=== PATIENT | female | born 1935 | race Caucasian/White ===

== ENCOUNTER 2019-08-23 10:38 | Outpatient (CLI) | payer MEDICARE, SELFPAY | END 2019-08-23 10:39 | disposition home or self-care (01) | LOC: CHSLAB 10:40 | PROVIDERS: PCP Internal Medicine; Visit Provider Internal Medicine | DX: R19.7 Diarrhea, unspecified (principal) | CPT/HCPCS: 87324 ==

== ENCOUNTER 2019-09-13 10:31 | Outpatient (CLI) | payer MEDICARE, SELFPAY ==
[2019-09-13 10:41] LABS: Basophils Absolute Auto 0.04 K/mm3 (0.00-0.10); Basophils Percent Auto 0.5 % (0.0-1.0); Eosinophils Absolute Auto 0.34 K/mm3 (0.02-0.50); Hemoglobin 14.1 g/dL (11.7-13.8); Immature Granulocyte Absolute 0.02 K/mm3 (0.00-0.00); Immature Granulocyte Percent A 0.2 % (0.0-0.0); Lymphocytes Absolute Auto 3.41 K/mm3 (1.10-4.50); Lymphocytes Percent Auto 39.9 % (18.0-42.0); Mean Corpuscular HGB Conc 32.8 g/dL (32.0-36.0); Mean Corpuscular Hemoglobin 29.2 pg (27.0-31.0); Mean Platelet Volume 10.5 fl (9.2-11.8); Monocytes Absolute Auto 0.71 K/mm3 (0.10-0.90); Monocytes Percent Auto 8.3 % (2.0-11.0); Neutrophils Percent Auto 47.1 % (50.0-70.0); Platelet Count Result 288 K/mm3 (150-420); Red Blood Count 4.83 M/mm3 (4.20-5.40); Red Cell Distribution Width 13.9 % (11.6-14.4); White Blood Count 8.5 K/mm3 (4.8-10.8)
[2019-09-13 11:47] LABS: Alanine Aminotransferase 22 U/L (14-59); Albumin Level 4.3 g/dL (3.4-5.0); Alkaline Phosphatase 67 U/L (46-116); Anion Gap 14.6 mmol/L (7-16); Aspartate Amino Transferase 18 U/L (15-37); Bilirubin,Total 0.8 mg/dL (0.00-1.00); Blood Urea Nitrogen 21 mg/dL (7-18); Calcium 9.4 mg/dL (8.5-10.1); Carbon Dioxide 30 mmol/L (21-32); Chloride 101 mmol/L (98-108); Estimated Glomerular Filt Rate 48; Glucose 106 mg/dL (70-99); Osmolality Calculated 295 mOsm/kg (285-295); Potassium 4.6 mmol/L (3.5-5.1); Sodium 141 mmol/L (136-145); Total Protein 7.5 g/dL (6.4-8.2); Uric Acid 8.8 mg/dL (2.6-6.0)
== END 2019-09-13 10:32 | disposition home or self-care (01) ==
LOC: CHSLAB 10:33
PROVIDERS: PCP Internal Medicine; Visit Provider Nurse Practitioner Family
DX: M79.89 Other specified soft tissue disorders (principal); M79.671 Pain in right foot
CPT/HCPCS: 36415; 80053; 84550; 85025

== ENCOUNTER 2019-12-23 07:13 | Outpatient (CLI) | payer MEDICARE, SELFPAY ==
[2019-12-23 07:23] LABS: Basophils Absolute Auto 0.03 K/mm3 (0.00-0.10); Basophils Percent Auto 0.4 % (0.0-1.0); Eosinophils Absolute Auto 0.29 K/mm3 (0.02-0.50); Eosinophils Percent Auto 4.2 % (1.0-6.0); Hematocrit 42.7 % (35.0-42.0); Hemoglobin 13.8 g/dL (11.7-13.8); Immature Granulocyte Absolute 0.02 K/mm3 (0.00-0.00); Immature Granulocyte Percent A 0.3 % (0.0-0.0); Lymphocytes Absolute Auto 2.79 K/mm3 (1.10-4.50); Lymphocytes Percent Auto 40.1 % (18.0-42.0); Mean Corpuscular HGB Conc 32.3 g/dL (32.0-36.0); Mean Corpuscular Hemoglobin 28.6 pg (27.0-31.0); Mean Corpuscular Volume 88.4 fL (78.0-102.0); Mean Platelet Volume 10.6 fl (9.2-11.8); Monocytes Absolute Auto 0.52 K/mm3 (0.10-0.90); Monocytes Percent Auto 7.5 % (2.0-11.0); Neutrophils Absolute Auto 3.3 K/mm3 (1.7-7.2); Neutrophils Percent Auto 47.5 % (50.0-70.0); Platelet Count Result 210 K/mm3 (150-420); Red Blood Count 4.83 M/mm3 (4.20-5.40); Red Cell Distribution Width 13.6 % (11.6-14.4)
[2019-12-23 07:26] LABS: Add Urine Microscopic? YES; Appearance Urine Clear (Clear); Bilirubin Urine Negative (Negative); Blood Urine Negative (Negative); Color Urine Yellow (Yellow); Glucose Urine UA Negative (Negative); Ketones Urine Trace (Negative); Leukocyte Esterase Ur 1+ (Negative); Nitrate Urine Negative (Negative); Protein Urine Negative (Negative); Specific Grav Ur 1.015 (1.010-1.020)
[2019-12-23 07:33] LABS: Bacteria Urine 1+ /hpf; Hemoglobin A1C 6.1 % (<5.7); Mucus Urine Few /lpf; RBC Urine 0-2 /hpf (0-2); Squamous Epithelial Cell Urine Occasional /hpf (Few)
[2019-12-23 07:35] LABS: Creatinine Urine 164.74 mg/dL (40-278)
[2019-12-23 07:40] LABS: MALB Creatinine Ratio 10.6 mg/g (0-30); Microalbumin Urine Random 17.5 mg/L
[2019-12-23 07:42] LABS: BNP 170 pg/mL (0-100)
[2019-12-23 08:18] LABS: Alanine Aminotransferase 19 U/L (14-59); Alkaline Phosphatase 67 U/L (46-116); Anion Gap 8.1 mmol/L (7-16); Aspartate Amino Transferase 17 U/L (15-37); Bilirubin,Total 0.7 mg/dL (0.00-1.00); Blood Urea Nitrogen 13 mg/dL (7-18); Carbon Dioxide 35 mmol/L (21-32); Chloride 103 mmol/L (98-108); Cholesterol 115 mg/dL (0-200); Estimated Glomerular Filt Rate 56; Free T3 2.48 pg/mL (2.18-3.98); Free T4 Free Thyroxine 1.34 ng/dL (0.76-1.46); Glucose 130 mg/dL (70-99); HDL Direct 41 mg/dL (40-60); LDL Cholesterol Calculated 42 mg/dL (<130); Osmolality Calculated 296 mOsm/kg (285-295); Potassium 4.1 mmol/L (3.5-5.1); Sodium 142 mmol/L (136-145); Thyroid Stimulating Hormone 0.25 uIU/mL (0.36-3.74); Total Protein 6.9 g/dL (6.4-8.2); Triglycerides 162 mg/dL (0-150); Uric Acid 7.5 mg/dL (2.6-6.0)
== END 2019-12-23 07:14 | disposition home or self-care (01) ==
LOC: CHSLAB 07:15
PROVIDERS: PCP Internal Medicine; Visit Provider Internal Medicine
DX: E78.2 Mixed hyperlipidemia (principal); E11.9 Type 2 diabetes mellitus without complications; I11.0 Hypertensive heart disease with heart failure; E03.4 Atrophy of thyroid (acquired); I50.1 Left ventricular failure, unspecified; E79.0 Hyperuricemia without signs of inflammatory arthritis and tophaceous disease; M81.0 Age-related osteoporosis without current pathological fracture
CPT/HCPCS: 36415; 80053; 80061; 81001; 82043; 83036; 83880; 84439; 84443; 84481; 84550; 85025

== ENCOUNTER 2020-01-24 11:00 | Outpatient (RCR) | payer SELFPAY | END 2020-01-24 13:24 | disposition home or self-care (01) | LOC: CHSCPRIII 11:00 | PROVIDERS: PCP Internal Medicine; Visit Provider Internal Medicine | DX: Z95.1 Presence of aortocoronary bypass graft (principal) | CPT/HCPCS: 99199 ==

== ENCOUNTER 2020-04-04 07:10 | Outpatient (CLI) | payer MEDICARE, SELFPAY ==
[2020-04-04 07:24] LABS: Add Urine Microscopic? YES; Appearance Urine Clear (Clear); Bilirubin Urine Negative (Negative); Blood Urine Negative (Negative); Color Urine Yellow (Yellow); Glucose Urine UA Negative (Negative); Ketones Urine Negative (Negative); Leukocyte Esterase Ur Trace (Negative); Nitrate Urine Negative (Negative); Protein Urine Negative (Negative); Specific Grav Ur 1.015 (1.010-1.020); Urobilinogen Urine 0.2 mg/dL (0.2-1.0); pH Urine 7.5 (5.0-8.0)
[2020-04-04 07:31] LABS: Bacteria Urine Trace /hpf; RBC Urine 0-2 /hpf (0-2); Squamous Epithelial Cell Urine Rare /hpf (Few); WBC Urine 0-3 /hpf (0-3)
[2020-04-04 07:47] LABS: Creatinine Urine 137.23 mg/dL (40-278); MALB Creatinine Ratio 9.4 mg/g (0-30); Microalbumin Urine Random < 13.0 mg/L
[2020-04-04 08:33] LABS: Alanine Aminotransferase 29 U/L (14-59); Albumin Level 4.1 g/dL (3.4-5.0); Alkaline Phosphatase 67 U/L (46-116); Anion Gap 6 mmol/L (8-16); Aspartate Amino Transferase 18 U/L (15-37); Bilirubin,Total 0.7 mg/dL (0.00-1.00); Blood Urea Nitrogen 15 mg/dL (7-18); Carbon Dioxide 31 mmol/L (21-32); Chloride 104 mmol/L (98-108); Cholesterol 138 mg/dL (0-200); Estimated Glomerular Filt Rate 55; Free T3 2.11 pg/mL (2.18-3.98); Free T4 Free Thyroxine 0.98 ng/dL (0.76-1.46); Glucose 125 mg/dL (70-99); HDL Direct 42 mg/dL (40-60); LDL Cholesterol Calculated 61 mg/dL (<130); Osmolality Calculated 293 mOsm/kg (285-295); Potassium 4.6 mmol/L (3.5-5.1); Sodium 141 mmol/L (136-145); Total Protein 6.8 g/dL (6.4-8.2); Triglycerides 177 mg/dL (0-150)
== END 2020-04-04 07:11 | disposition home or self-care (01) ==
LOC: CHSLAB 07:13
PROVIDERS: PCP Internal Medicine; Visit Provider Internal Medicine
DX: E78.2 Mixed hyperlipidemia (principal); E11.9 Type 2 diabetes mellitus without complications; E03.4 Atrophy of thyroid (acquired)
CPT/HCPCS: 36415; 80053; 80061; 81001; 82043; 83036; 84439; 84443; 84481

== ENCOUNTER 2020-05-21 15:18 | Outpatient (CLI) | payer MEDICARE, BC, SELFPAY ==
--- NOTE | ~2020-05-21 | XR_ITS ---
EXAMINATION: XR chest 2V DATE: 05/21/2020 15:39 INDICATION: Right-sided chest pain and shortness of breath TECHNIQUE: PA and lateral views of the chest were obtained. COMPARISON: Chest radiograph and CT dated 03/21/2019 FINDINGS: Unchanged elevation of the left hemidiaphragm consistent with given history of left phrenic nerve pal sy. No airspace opacities, pulmonary edema, pleural effusion or pneumothorax. Heart size is normal. M edian sternotomy wires, ostial markers and mediastinal surgical clips consistent with prior coronary artery bypass grafting. Cholecystectomy clips in right upper quadrant. Severe lower cervical and mod erate thoracic and upper lumbar spine spondylosis. IMPRESSION: 1. 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 No acute cardiop ulmonary disease. Reviewed, dictated and finalized at location A. N KEEPER IMPRESSION: 1. Chronic left phrenic nerve palsy with persistent elevation of left hemidiaph ragm. No acute cardiopulmonary disease.
[2020-05-21 15:29] LABS: Basophils Absolute Auto 0.05 K/mm3 (0.00-0.10); Basophils Percent Auto 0.5 % (0.0-1.0); Eosinophils Absolute Auto 0.27 K/mm3 (0.02-0.50); Eosinophils Percent Auto 2.5 % (1.0-6.0); Hematocrit 43.9 % (35.0-42.0); Immature Granulocyte Absolute 0.03 K/mm3 (0.00-0.00); Immature Granulocyte Percent A 0.3 % (0.0-0.0); Lymphocytes Absolute Auto 3.18 K/mm3 (1.10-4.50); Lymphocytes Percent Auto 28.9 % (18.0-42.0); Mean Corpuscular HGB Conc 31.9 g/dL (32.0-36.0); Mean Corpuscular Hemoglobin 28.5 pg (27.0-31.0); Mean Corpuscular Volume 89.4 fL (78.0-102.0); Mean Platelet Volume 10.8 fl (9.2-11.8); Monocytes Absolute Auto 0.97 K/mm3 (0.10-0.90); Monocytes Percent Auto 8.8 % (2.0-11.0); Neutrophils Absolute Auto 6.5 K/mm3 (1.7-7.2); Platelet Count Result 257 K/mm3 (150-420); Red Blood Count 4.91 M/mm3 (4.20-5.40); Red Cell Distribution Width 13.9 % (11.6-14.4)
[2020-05-21 15:44] LABS: Alanine Aminotransferase 20 U/L (14-59); Albumin Level 4.2 g/dL (3.4-5.0); Alkaline Phosphatase 73 U/L (46-116); Anion Gap 9 mmol/L (8-16); Aspartate Amino Transferase 12 U/L (15-37); Bilirubin,Total 0.7 mg/dL (0.00-1.00); Blood Urea Nitrogen 16 mg/dL (7-18); Calcium 8.8 mg/dL (8.5-10.1); Carbon Dioxide 30 mmol/L (21-32); Chloride 100 mmol/L (98-108); Estimated Glomerular Filt Rate 46; Glucose 129 mg/dL (70-99); Osmolality Calculated 291 mOsm/kg (285-295); Potassium 4.2 mmol/L (3.5-5.1); Sodium 139 mmol/L (136-145); Total Protein 7.6 g/dL (6.4-8.2)
[2020-05-21 15:48] LABS: BNP 115 pg/mL (0-100)
[2020-05-21 15:56] LABS: D Dimer 0.33 mg/L (0.19-0.50)
== END 2020-05-21 15:19 | disposition home or self-care (01) ==
LOC: CHSLAB 15:20
PROVIDERS: PCP Internal Medicine; Visit Provider Internal Medicine
DX: R07.9 Chest pain, unspecified (principal); R06.00 Dyspnea, unspecified
CPT/HCPCS: 36415; 71046; 80053; 83880; 85025; 85380

== ENCOUNTER 2020-08-21 11:00 | Outpatient (RCR) | payer SELFPAY | END 2020-08-22 12:52 | disposition home or self-care (01) | LOC: CHSCPRIII 11:00 | PROVIDERS: PCP Internal Medicine; Visit Provider Internal Medicine | DX: Z95.1 Presence of aortocoronary bypass graft (principal) | CPT/HCPCS: 99199 ==

== ENCOUNTER 2020-09-10 14:40 | Outpatient (CLI) | payer MEDICARE, SELFPAY ==
[2020-09-10 14:50] LABS: Basophils Absolute Auto 0.04 K/mm3 (0.00-0.10); Basophils Percent Auto 0.5 % (0.0-1.0); Eosinophils Absolute Auto 0.33 K/mm3 (0.02-0.50); Eosinophils Percent Auto 4.5 % (1.0-6.0); Hematocrit 42.2 % (35.0-42.0); Hemoglobin 13.3 g/dL (11.7-13.8); Immature Granulocyte Absolute 0.03 K/mm3 (0.00-0.00); Immature Granulocyte Percent A 0.4 % (0.0-0.0); Lymphocytes Absolute Auto 2.67 K/mm3 (1.10-4.50); Lymphocytes Percent Auto 36.6 % (18.0-42.0); Mean Corpuscular HGB Conc 31.5 g/dL (32.0-36.0); Mean Corpuscular Hemoglobin 28.2 pg (27.0-31.0); Mean Corpuscular Volume 89.6 fL (78.0-102.0); Mean Platelet Volume 10.8 fl (9.2-11.8); Monocytes Absolute Auto 0.59 K/mm3 (0.10-0.90); Monocytes Percent Auto 8.1 % (2.0-11.0); Neutrophils Absolute Auto 3.6 K/mm3 (1.7-7.2); Neutrophils Percent Auto 49.9 % (50.0-70.0); Platelet Count Result 237 K/mm3 (150-420); Red Blood Count 4.71 M/mm3 (4.20-5.40); Red Cell Distribution Width 14.1 % (11.6-14.4); White Blood Count 7.3 K/mm3 (4.8-10.8)
[2020-09-10 15:50] LABS: Alanine Aminotransferase 26 U/L (14-59); Albumin Level 4.3 g/dL (3.4-5.0); Alkaline Phosphatase 71 U/L (46-116); Anion Gap 7 mmol/L (8-16); Aspartate Amino Transferase 19 U/L (15-37); Bilirubin,Total 0.8 mg/dL (0.00-1.00); Blood Urea Nitrogen 13 mg/dL (7-18); Calcium 8.8 mg/dL (8.5-10.1); Carbon Dioxide 31 mmol/L (21-32); Chloride 101 mmol/L (98-108); Estimated Glomerular Filt Rate 56; Free T4 Free Thyroxine 1.03 ng/dL (0.76-1.46); Glucose 154 mg/dL (70-99); Osmolality Calculated 291 mOsm/kg (285-295); Potassium 4.1 mmol/L (3.5-5.1); Sodium 139 mmol/L (136-145); Thyroid Stimulating Hormone 2.58 uIU/mL (0.36-3.74)
[2020-09-12 17:11] LABS: CMV IgM Antibody <30.00 AU/mL (<30.00)
[2020-09-13 16:06] LABS: EBV Nuclear Ab Interpretation Past; EBV Virus Capsid Ag IgM Ab <36.00 U/mL (<36.00)
== END 2020-09-10 14:41 | disposition home or self-care (01) ==
LOC: CHSLAB 14:41
PROVIDERS: PCP Internal Medicine; Visit Provider Nurse Practitioner Family
DX: R59.9 Enlarged lymph nodes, unspecified (principal); E11.9 Type 2 diabetes mellitus without complications; E03.4 Atrophy of thyroid (acquired)
CPT/HCPCS: 36415; 80053; 84439; 84443; 85025; 86644; 86645; 86664; 86665

== ENCOUNTER 2020-09-18 09:30 | Outpatient (CLI) | payer MEDICARE, BC, SELFPAY ==
--- NOTE | ~2020-09-18 | CT_ITS ---
EXAMINATION: CT soft tissue neck w con DATE: 09/18/2020 16:24 INDICATION: Left parotid swelling. TECHNIQUE: Computed tomography (CT) of the neck was performed with 75 mL Omnipaque-350 intravenous co ntrast. Automated exposure control and iterative reconstruction technique were employed. The dose-troy gth product was 474.48 mGy-cm. COMPARISON: None FINDINGS: There are likely changes of ocular lens replacement surgeries. Left parotid gland is enlarg ed with increased attenuation relative to the right. There is mild fat stranding inferior to left par otid gland. These findings are consistent with parotiditis. No sialolith. There are no pathologically enlarged lymph nodes. There are changes of coronary artery bypass grafting. There is no visible plaq ue in the proximal internal carotid arteries. There is mucosal thickening in the paranasal sinuses. T he mastoid air cells are normal. There is severe cervical spondylosis. IMPRESSION: 1. Left-sided parotiditis. Reviewed, dictated and finalized at location A. PART ROUNDER IMPRESSION: 1. Left-sided parotiditis.
== END 2020-09-18 09:31 | disposition home or self-care (01) ==
PROVIDERS: PCP Internal Medicine; Visit Provider Internal Medicine
DX: K11.20 Sialoadenitis, unspecified (principal)
CPT/HCPCS: 70491; Q9967

== ENCOUNTER 2020-10-17 07:43 | Outpatient (CLI) | payer MEDICARE, SELFPAY ==
[2020-10-17 08:15] LABS: Creatinine Urine 141.24 mg/dL (40-278); Hemoglobin A1C 6.1 % (<5.7); MALB Creatinine Ratio 14.5 mg/g (0-30); Microalbumin Urine Random 20.6 mg/L
[2020-10-17 08:32] LABS: BNP 166 pg/mL (0-100)
[2020-10-17 08:38] LABS: Alanine Aminotransferase 27 U/L (14-59); Alkaline Phosphatase 75 U/L (46-116); Anion Gap 5 mmol/L (8-16); Aspartate Amino Transferase 14 U/L (15-37); Bilirubin,Total 1.1 mg/dL (0.00-1.00); Blood Urea Nitrogen 18 mg/dL (7-18); Calcium 9.2 mg/dL (8.5-10.1); Carbon Dioxide 31 mmol/L (21-32); Chloride 102 mmol/L (98-108); Cholesterol 134 mg/dL (0-200); Creatine Kinase 42 U/L (26-192); Estimated Glomerular Filt Rate 53; Glucose 134 mg/dL (70-99); HDL Direct 35 mg/dL (40-60); LDL Cholesterol Calculated 59 mg/dL (<130); Osmolality Calculated 289 mOsm/kg (285-295); Potassium 4.3 mmol/L (3.5-5.1); Sodium 138 mmol/L (136-145); Total Protein 6.8 g/dL (6.4-8.2); Triglycerides 201 mg/dL (0-150); Uric Acid 7.4 mg/dL (2.6-6.0)
[2020-10-17 11:04] LABS: Add Urine Microscopic? NO; Appearance Urine Clear (Clear); Bilirubin Urine Negative (Negative); Blood Urine Negative (Negative); Color Urine Yellow (Yellow); Glucose Urine UA Negative (Negative); Ketones Urine Negative (Negative); Leukocyte Esterase Ur Negative (Negative); Nitrate Urine Negative (Negative); Protein Urine Negative (Negative); Specific Grav Ur 1.015 (1.010-1.020); Urobilinogen Urine 0.2 mg/dL (0.2-1.0); pH Urine 6.5 (5.0-8.0)
== END 2020-10-17 07:44 | disposition home or self-care (01) ==
LOC: CHSLAB 07:45
PROVIDERS: PCP Internal Medicine; Visit Provider Internal Medicine
DX: E11.9 Type 2 diabetes mellitus without complications (principal); I50.1 Left ventricular failure, unspecified; I11.0 Hypertensive heart disease with heart failure; E79.0 Hyperuricemia without signs of inflammatory arthritis and tophaceous disease; E78.2 Mixed hyperlipidemia; M81.0 Age-related osteoporosis without current pathological fracture
CPT/HCPCS: 36415; 80053; 80061; 81003; 82043; 82550; 83036; 83880; 84550

== ENCOUNTER 2021-03-05 08:00 | Outpatient (RCR) | payer SELFPAY | END 2021-03-08 08:00 | disposition home or self-care (01) | LOC: CHSCPRIII 08:00 | PROVIDERS: PCP Internal Medicine; Visit Provider Internal Medicine | DX: Z95.1 Presence of aortocoronary bypass graft (principal) | CPT/HCPCS: 99199 ==

== ENCOUNTER 2021-06-24 09:29 | Outpatient (CLI) | payer MEDICARE, BC, SELFPAY ==
--- NOTE | ~2021-06-24 | US_ITS ---
EXAMINATION: US carotid duplex BI EXAM DATE: 06/24/2021 10:59 INDICATION: CHF, Carotid Stenosis. TECHNIQUE: Grayscale, color and pulsed Doppler images of the cervical carotid arteries were obtained . The degree of vessel stenosis is placed in one of the following categories: normal, <50% stenosis, 50-69% stenosis, >=70% stenosis but less than near-occlusion, near-occlusion, or occlusion. Note that percent stenosis relative to normal distal artery lumen diameter is indirectly measured from velocit y measurements as described by Lon, et al. Radiology 2003; [id number]. Comparison is made to prior examination from 04/05/2014. FINDINGS: RIGHT SIDE: Right common carotid artery peak systolic velocity (PSV in cm/s): 53 Right bulb/internal carotid artery peak systolic velocity (PSV in cm/s): 43 Right internal carotid artery end diastolic velocity (EDV in cm/s): 14 Right ICA/CCA peak systolic ratio: 0.8 Right external carotid artery peak systolic velocity (PSV in cm/s): 44 Right vertebral artery antegrade flow: yes There is no focal plaque identified. LEFT SIDE: Left common carotid artery peak systolic velocity (PSV in cm/s): 65 Left bulb/internal carotid artery peak systolic velocity (PSV in cm/s): 52 Left internal carotid artery end diastolic velocity (EDV in cm/s): 16 Left ICA/CCA peak systolic ratio: 0.8 Left external carotid artery peak systolic velocity (PSV in cm/s): 59 Left vertebral artery antegrade flow: yes Small focus of common carotid arteriosclerosis. No carotid bulb plaque or stenosis. IMPRESSION: 1. Normal right internal carotid bulb. 2. Normal left internal carotid bulb. > Reviewed, dictated and finalized at location B. S ACCOUNT SPECIALIST
== END 2021-06-24 09:30 | disposition home or self-care (01) ==
LOC: CHSIMG 09:32
PROVIDERS: PCP Internal Medicine; Visit Provider Internal Medicine
DX: I50.9 Heart failure, unspecified (principal); I65.23 Occlusion and stenosis of bilateral carotid arteries
CPT/HCPCS: 93306; 93880

== ENCOUNTER 2021-10-14 08:04 | Emergency (ER) | payer MEDICARE, BC, SELFPAY ==
--- NOTE | 2021-10-14 08:46 | ED.FEMALEGU ---
HPI - Female Genitourinary General Chief complaint: Urogenital-Female Stated complaint: UTI Time Seen by Provider: 10/14/21 08:46 Source: patient Mode of arrival: ambulatory History of Present Illness HPI Narrative: 86-year-old female with a history of hypertension, hypothyroidism, diabetes mellitus, coronary artery disease status post CABG presents to the ER with a 1 day history of -- dysuria and hematuria. -- Suprapubic discomfort no fever or chills. MD elicited complaint: dysuria and UTI Onset (ago): day(s) ( Started 1 day ago) Severity: mild Female Urogenital Radiation: Non-Radiating Consistency: intermittent Vaginal discharge: none Vaginal bleeding: none Urinary symptoms: Dysuria, Urgency, Frequency and Hematuria Exacerbating factors: none Relieving factors: none Associated symptoms: denies other symptoms Related Data Home Medications Medication Instructions Recorded Confirmed aspirin [Adult Low Dose Aspirin] 81 mg PO DAILY 07/14/19 07/14/19 levothyroxine 88 mcg PO DAILY 07/14/19 07/14/19 metformin 500 mg PO BID 07/14/19 07/14/19 metoprolol tartrate 25 mg PO DAILY 07/14/19 07/14/19 pantoprazole 20 mg PO QAM 07/14/19 07/14/19 Allergies Allergy/AdvReac Type Severity Reaction Status Date / Time sulfamethoxazole Allergy Hives Verified 09/19/19 14:41 [From Bactrim] trimethoprim [From Bactrim] Allergy Hives Verified 09/19/19 14:41 Review of Systems Review of Systems: All systems reviewed & are unremarkable except as noted in HPI and below Constitutional: Constitutional: Reports as per HPI and Reports no additional constitutional complaints Eyes: Eyes: Reports as per HPI and Reports no additional eye complaints ENT: Reports system reviewed and no additional complaints, except as documented and Reports as per HPI Cardiovascular: Cardiovascular: Reports as per HPI and Reports no additional cardiovascular complaints Respiratory: Respiratory: Reports as per HPI and Reports no additional respiratory complaints Gastrointestinal: Gastrointestinal: Reports as per HPI and Reports no additional gastrointestinal complaints Genitourinary: Genitourinary: Reports hematuria, Reports nocturia and Reports dysuria Musculoskeletal: Musculoskeletal: Reports no additional musculoskeletal complaints and Reports as per HPI Integumentary/Breasts: Skin/Breast: Reports system reviewed and no additional complaints, except as docu Neurologic: Reports system reviewed and no additional complaints, except as documented Psychiatric: Psychiatric: Reports no additional psychiatric complaints Endocrine: Endocrine: Reports no additional endocrine complaints Hematologic/Lymphatic: Hematologic/Lymphatic: Reports no additional hematologic/lymphatic complaints Allergic/Immunologic: Allergic/Immunologic: Reports no additional allergic/immunologic complaints [facility] Surgical History Surgical History Failed CABG (coronary artery bypass graft) Exam Const: General: no acute distress Orientation/consciousness: patient oriented x3 HENMT: Head: normal to inspection Eyes: Conjunctivae: conjunctivae normal Pupils: Equal, round and reactive pupils present Neck: Neck: normal visual inspection, no lymphadenopathy and no meningeal signs Chest: Chest palpation & inspection: normal inspection of the chest Resp: Effort & Inspection: normal respiratory effort Cardio: Rate: regular rate Rhythm: regular rhythm GI: GI Palp: Yes Soft to palpation Other: no tenderness/ rigidity/rebound : General: Yes no CVA tenderness Back/Spine/Pelvis: Back: no CVA tenderness Skin: General skin exam: normal color Rashes: no rashes Neuro: General: patient oriented x3, moves all extremities and no meningeal signs Extrem: General: normal to inspection Psych: Mental Status: mental status grossly normal MDM - Female Genitourinary MDM Narrative Medical decision making narrative: harsha
[2021-10-14 09:05] LABS: Add Urine Microscopic? YES; Appearance Urine Cloudy (Clear); Bilirubin Urine 1+ (Negative); Blood Urine 3+ (Negative); Color Urine Yellow (Yellow); Glucose Urine UA Negative (Negative); Ketones Urine Negative (Negative); Leukocyte Esterase Ur 2+ (Negative); Nitrate Urine Negative (Negative); Protein Urine 2+ (Negative)
[2021-10-14 09:11] LABS: Bacteria Urine Trace /hpf; RBC Urine 21-50 /hpf (0-2); Squamous Epithelial Cell Urine Few /hpf (Few); WBC Urine >75 /hpf (0-3)
[2021-10-14] MEDS: CIPROFLOXACIN 250 MG TABLET PO (09:49)
[2021-10-14 09:51] VITALS: BP 112/75; PULSE 60; RESP 20; TEMP 36.4; O2SAT 97
[2021-10-14 10:04] VITALS: BP 136/69; PULSE 60; RESP 22; TEMP 36.4; O2SAT 97
== END 2021-10-14 10:18 | disposition home or self-care (01) ==
PROVIDERS: Emergency Provider Internal Medicine Critical Care Medicine; PCP Internal Medicine
DX: N30.91 Cystitis, unspecified with hematuria (principal)
CPT/HCPCS: 81001; 99283; A9270

== ENCOUNTER 2021-10-17 08:48 | Outpatient (CLI) | payer MEDICARE, SELFPAY ==
[2021-10-17 09:02] LABS: Add Urine Microscopic? NO; Appearance Urine Clear (Clear); Bilirubin Urine Negative (Negative); Blood Urine Negative (Negative); Color Urine Light Yellow (Yellow); Glucose Urine UA Negative (Negative); Ketones Urine Negative (Negative); Leukocyte Esterase Ur Negative (Negative); Nitrate Urine Negative (Negative); Protein Urine Negative (Negative); Urobilinogen Urine 0.2 mg/dL (0.2-1.0)
[2021-10-17 09:03] LABS: Basophils Absolute Auto 0.04 K/mm3 (0.00-0.10); Basophils Percent Auto 0.6 % (0.0-1.0); Eosinophils Absolute Auto 0.25 K/mm3 (0.02-0.50); Hematocrit 41.7 % (35.0-42.0); Hemoglobin 13.3 g/dL (11.7-13.8); Immature Granulocyte Absolute 0.02 K/mm3 (0.00-0.00); Immature Granulocyte Percent A 0.3 % (0.0-0.0); Lymphocytes Absolute Auto 2.36 K/mm3 (1.10-4.50); Lymphocytes Percent Auto 37.9 % (18.0-42.0); Mean Corpuscular HGB Conc 31.9 g/dL (32.0-36.0); Mean Corpuscular Hemoglobin 28.9 pg (27.0-31.0); Mean Corpuscular Volume 90.5 fL (78.0-102.0); Monocytes Absolute Auto 0.53 K/mm3 (0.10-0.90); Monocytes Percent Auto 8.5 % (2.0-11.0); Neutrophils Percent Auto 48.7 % (50.0-70.0); Platelet Count Result 218 K/mm3 (150-420); Red Blood Count 4.61 M/mm3 (4.20-5.40); Red Cell Distribution Width 14.1 % (11.6-14.4); White Blood Count 6.2 K/mm3 (4.8-10.8)
[2021-10-17 09:15] LABS: Creatinine Urine 146.31 mg/dL (40-278); MALB Creatinine Ratio 8.8 mg/g (0-30); Microalbumin Urine Random < 13.0 mg/L
[2021-10-17 09:18] LABS: Hemoglobin A1C 6.3 % (<5.7)
[2021-10-17 10:11] LABS: Alanine Aminotransferase 19 U/L (14-59); Albumin Level 3.9 g/dL (3.4-5.0); Alkaline Phosphatase 60 U/L (46-116); Anion Gap 7 mmol/L (8-16); Aspartate Amino Transferase 15 U/L (15-37); Bilirubin,Total 0.8 mg/dL (0.00-1.00); Blood Urea Nitrogen 14 mg/dL (7-18); Calcium 8.9 mg/dL (8.5-10.1); Carbon Dioxide 31 mmol/L (21-32); Chloride 102 mmol/L (98-108); Cholesterol 133 mg/dL (0-200); Estimated Glomerular Filt Rate 57; Free T3 2.33 pg/mL (2.18-3.98); Free T4 Free Thyroxine 1.17 ng/dL (0.76-1.46); Glucose 132 mg/dL (70-99); HDL Direct 38 mg/dL (40-60); LDL Cholesterol Calculated 53 mg/dL (<130); NT Pro B Type Natriuretic Pept 407 pg/mL (0-450); Osmolality Calculated 292 mOsm/kg (285-295); Potassium 4.2 mmol/L (3.5-5.1); Sodium 140 mmol/L (136-145); Thyroid Stimulating Hormone 2.36 uIU/mL (0.36-3.74); Total Protein 6.3 g/dL (6.4-8.2); Triglycerides 212 mg/dL (0-150); Uric Acid 8.4 mg/dL (2.6-6.0)
[2021-10-22 13:50] LABS: Vitamin D 25 Hydroxy 28 ng/mL (30-100)
== END 2021-10-17 08:49 | disposition home or self-care (01) ==
LOC: CHSLAB 08:50
PROVIDERS: PCP Internal Medicine; Visit Provider Internal Medicine
DX: E78.2 Mixed hyperlipidemia (principal); I10 Essential (primary) hypertension; E11.9 Type 2 diabetes mellitus without complications; E79.0 Hyperuricemia without signs of inflammatory arthritis and tophaceous disease; I50.1 Left ventricular failure, unspecified; M81.0 Age-related osteoporosis without current pathological fracture
CPT/HCPCS: 36415; 80053; 80061; 81003; 82043; 82306; 83036; 83880; 84439; 84443; 84481; 84550; 85025

== ENCOUNTER 2022-01-14 07:25 | Emergency (ER) | payer MEDICARE, BC, SELFPAY ==
[2022-01-14 07:39] VITALS: BP 161/97; PULSE 69; RESP 17; TEMP 36.3; O2SAT 98
[2022-01-14 07:44] LABS: Glucose Point of Care 163 mg/dl (65-105)
--- NOTE | 2022-01-14 07:47 | ED.WEAKNESS ---
HPI - Weakness General Chief complaint: Weakness Stated complaint: WEAKNESS SHORTNESS OF BREATH Time Seen by Provider: 01/14/22 07:47 Source: patient, family and RN notes reviewed Mode of arrival: wheelchair Limitations: no limitations History of Present Illness HPI Narrative: Patient is a type 2 diabetic and takes metformin. She states that she got up this morning and started getting ready but did not eat. She then felt like her legs were numb and tingly and felt cold. She thought she might fall so she sat down. She was feeling somewhat short of breath. Her daughter called the ambulance but then started given her orange juice. By the time she arrived she is significantly improved and her symptoms have resolved. MD Complaint: tingling Onset (ago): minute(s) (30) Duration: improved Location: LLE and RLE Migration: ascending Severity: mild Quality: tingling and numbness Relieving factors: other ( orange juice) Exacerbating factors: none Associated symptoms: denies other symptoms Related Data Home Medications Medication Instructions Recorded Confirmed aspirin 81 mg tablet,delayed 81 mg PO DAILY 07/14/19 01/14/22 release (Adult Low Dose Aspirin) levothyroxine 88 mcg tablet 88 mcg PO DAILY 07/14/19 01/14/22 metformin 500 mg tablet 500 mg PO BID 07/14/19 01/14/22 metoprolol tartrate 25 mg tablet 25 mg PO DAILY 07/14/19 01/14/22 pantoprazole 20 mg tablet,delayed 20 mg PO QAM 07/14/19 01/14/22 release furosemide 40 mg tablet 40 mg PO DAILY 01/14/22 01/14/22 potassium chloride 20 mEq 20 meq PO DAILY 01/14/22 01/14/22 tablet,extended release(part/cryst) Allergies Allergy/AdvReac Type Severity Reaction Status Date / Time sulfamethoxazole Allergy Hives Verified 01/14/22 07:54 [From Bactrim] trimethoprim [From Bactrim] Allergy Hives Verified 01/14/22 07:54 Review of Systems Review of Systems: All systems reviewed & are unremarkable except as noted in HPI and below Constitutional: Constitutional: Denies chills and Denies fever(s) ENT: Denies vertigo Cardiovascular: Cardiovascular: Denies chest pain Respiratory: Respiratory: Denies cough and Denies dyspnea Gastrointestinal: Gastrointestinal: Denies diarrhea, Denies nausea and Denies vomiting Genitourinary: Genitourinary: Denies nocturia and Denies dysuria [facility] Past Medical History Medical History Coronary artery disease involving coronary bypass graft Diabetes type 2, controlled Hypertension Surgical History Surgical History Failed CABG (coronary artery bypass graft) Exam Const: General: healthy appearing, no acute distress and alert Nutritional Appearance: well nourished Orientation/consciousness: patient oriented x3 HENMT: Head: normal to inspection Ears: external ears normal Eyes: Conjunctivae: conjunctivae normal Pupils: Equal, round and reactive pupils present EOM: EOMs intact bilaterally Neck: Neck: normal visual inspection Resp: Effort & Inspection: normal respiratory effort Cardio: Rate: regular rate Rhythm: regular rhythm GI: GI Palp: Yes Soft to palpation and No Tenderness to palpation present (GI) Auscultation: normal bowel sounds Back/Spine/Pelvis: Cervical Spine: cervical ROM normal Thoracic/Lumbar Spine: thoraco-lumbar ROM normal Skin: General skin exam: normal color Rashes: no rashes Neuro: General: patient oriented x3, moves all extremities, no focal motor deficits and CN's II-XI intact bilaterally Speech: normal speech Gait exam (Neuro): Normal gait present Extrem: General: normal to inspection and no clubbing, cyanosis or edema Psych: Mental Status: mental status grossly normal Affect: normal affect Attitude: cooperative Course Vital Signs Vital signs: Vital Signs Temperature 36.3 C L 01/14/22 07:39 Pulse Rate 69 01/14/22 07:39 Respiratory Rate 17 01/14/22 07:39 Blood Pressure
[2022-01-14 08:15] LABS: Basophils Absolute Auto 0.04 K/mm3 (0.00-0.10); Basophils Percent Auto 0.5 % (0.0-1.0); Eosinophils Absolute Auto 0.22 K/mm3 (0.02-0.50); Eosinophils Percent Auto 2.7 % (1.0-6.0); Hematocrit 41.7 % (35.0-42.0); Hemoglobin 13.4 g/dL (11.7-13.8); Immature Granulocyte Absolute 0.03 K/mm3 (0.00-0.00); Immature Granulocyte Percent A 0.4 % (0.0-0.0); Lymphocytes Absolute Auto 2.28 K/mm3 (1.10-4.50); Lymphocytes Percent Auto 28.3 % (18.0-42.0); Mean Corpuscular HGB Conc 32.1 g/dL (32.0-36.0); Mean Corpuscular Hemoglobin 28.7 pg (27.0-31.0); Mean Corpuscular Volume 89.3 fL (78.0-102.0); Mean Platelet Volume 10.6 fl (9.2-11.8); Monocytes Absolute Auto 0.55 K/mm3 (0.10-0.90); Monocytes Percent Auto 6.8 % (2.0-11.0); Neutrophils Percent Auto 61.3 % (50.0-70.0); Platelet Count Result 213 K/mm3 (150-420); Red Blood Count 4.67 M/mm3 (4.20-5.40); White Blood Count 8.1 K/mm3 (4.8-10.8)
[2022-01-14 08:33] LABS: Alanine Aminotransferase 18 U/L (14-59); Albumin Level 3.6 g/dL (3.4-5.0); Alkaline Phosphatase 60 U/L (46-116); Anion Gap 10 mmol/L (8-16); Aspartate Amino Transferase 13 U/L (15-37); Bilirubin,Total 0.9 mg/dL (0.00-1.00); Blood Urea Nitrogen 20 mg/dL (7-18); Calcium 8.7 mg/dL (8.5-10.1); Carbon Dioxide 27 mmol/L (21-32); Chloride 100 mmol/L (98-108); Estimated Glomerular Filt Rate 55; Glucose 149 mg/dL (70-99); Magnesium 2.1 mg/dL (1.8-2.4); Osmolality Calculated 289 mOsm/kg (285-295); Potassium 4.2 mmol/L (3.5-5.1); Sodium 137 mmol/L (136-145); Total Protein 6.4 g/dL (6.4-8.2)
[2022-01-14 08:37] LABS: CRP < 0.5 mg/dL (0.0-0.9)
--- NOTE | 2022-01-14 09:53 | PC.NURSE ---
patient provided ham sandwich per erp request.
[2022-01-14 09:57] VITALS: BP 151/75; PULSE 81; RESP 12; TEMP 36.7; O2SAT 97
[2022-01-14 10:05] VITALS: BP 151/75; PULSE 64; RESP 16; TEMP 36.4; O2SAT 95
== END 2022-01-14 10:06 | disposition home or self-care (01) ==
PROVIDERS: Emergency Provider Emergency Medicine; PCP Internal Medicine
DX: E11.649 Type 2 diabetes mellitus with hypoglycemia without coma (principal); I25.10 Atherosclerotic heart disease of native coronary artery without angina pectoris; I10 Essential (primary) hypertension
CPT/HCPCS: 36415; 80053; 82948; 83735; 85025; 86140; 99283

== ENCOUNTER 2022-02-18 14:54 | Outpatient (CLI) | payer MEDICARE, BC, SELFPAY ==
--- NOTE | ~2022-02-18 | XR_ITS ---
XR thoracic spine 2V DATE: 02/18/2022 15:44 INDICATION: Mid and low back pain towards left side. No known injury. TECHNIQUE: AP, lateral and swimmer views COMPARISON: None FINDINGS: Mild anterolisthesis at C4-5. Moderately severe to severe degenerative disc disease at C5-6 and C6-7. Status post sternotomy and coronary artery bypass graft surgery. Diffuse idiopathic skeletal hyperostosis of the mid and lower thoracic spine. No fracture or dislocat ion or bone destruction. The thoracic pedicles are intact. No paraspinal soft tissue thickening. IMPRESSION: Osteopenia Diffuse idiopathic skeletal hyperostosis of the thoracic spine Mild anterolisthesis at C4-5 Moderately severe to severe degenerative disc disease at C5-6 and C6-7 Reviewed, dictated and finalized at location B.
--- NOTE | ~2022-02-18 | XR_ITS ---
XR lumbar spine 2-3V DATE: 02/18/2022 15:44 INDICATION: Left low back pain. No known injury. TECHNIQUE: AP, lateral and coned lateral lumbosacral views COMPARISON: None FINDINGS: There is mild dextroscoliosis of the lower thoracic and lumbar spine. There is prominent de generative spurring of the lower thoracic spine. There is moderately severe degenerative disc disease and spurring throughout the lumbar spine. There is degenerative change at the apophyseal joints. No fracture or bone destruction or spondylolisthesis is evident. The sacroiliac joints are intact. Status post cholecystectomy. IMPRESSION: Thoracolumbar dextroscoliosis Degenerative change including moderately severe degenerative disc disease throughout the lumbar spine Reviewed, dictated and finalized at location B. IMPRESSION: Thoracolumbar dextroscoliosis Degenerative change including moderately severe degenerative disc disease throu ghout the lumbar spine
[2022-02-18 15:21] LABS: Basophils Absolute Auto 0.04 K/mm3 (0.00-0.10); Basophils Percent Auto 0.4 % (0.0-1.0); Eosinophils Absolute Auto 0.31 K/mm3 (0.02-0.50); Hematocrit 44.5 % (35.0-42.0); Hemoglobin 14.2 g/dL (11.7-13.8); Immature Granulocyte Absolute 0.04 K/mm3 (0.00-0.00); Immature Granulocyte Percent A 0.4 % (0.0-0.0); Lymphocytes Absolute Auto 3.89 K/mm3 (1.10-4.50); Lymphocytes Percent Auto 37.8 % (18.0-42.0); Mean Corpuscular HGB Conc 31.9 g/dL (32.0-36.0); Mean Corpuscular Hemoglobin 28.3 pg (27.0-31.0); Mean Corpuscular Volume 88.6 fL (78.0-102.0); Mean Platelet Volume 10.2 fl (9.2-11.8); Monocytes Absolute Auto 0.85 K/mm3 (0.10-0.90); Monocytes Percent Auto 8.3 % (2.0-11.0); Neutrophils Absolute Auto 5.2 K/mm3 (1.7-7.2); Neutrophils Percent Auto 50.1 % (50.0-70.0); Platelet Count Result 307 K/mm3 (150-420); Red Blood Count 5.02 M/mm3 (4.20-5.40); Red Cell Distribution Width 14.4 % (11.6-14.4); White Blood Count 10.3 K/mm3 (4.8-10.8)
[2022-02-18 15:31] LABS: Add Urine Microscopic? YES; Appearance Urine Clear (Clear); Bilirubin Urine 1+ (Negative); Blood Urine Negative (Negative); Color Urine Yellow (Yellow); Glucose Urine UA Negative (Negative); Ketones Urine Trace (Negative); Leukocyte Esterase Ur Negative LEU/UL (Negative); Nitrate Urine Negative (Negative); Protein Urine Negative (Negative); Specific Grav Ur 1.025 (1.010-1.020); pH Urine 5.5 (5.0-8.0)
[2022-02-18 15:38] LABS: Bacteria Urine 3+ /hpf; RBC Urine None seen /hpf (0-2); Squamous Epithelial Cell Urine Few /hpf (Few); WBC Urine None seen /hpf (0-3)
[2022-02-18 16:27] LABS: Erythrocyte Sedimentation Rate 7 mm/hr (0-20)
[2022-02-18 16:31] LABS: Alanine Aminotransferase 38 U/L (14-59); Albumin Level 4.2 g/dL (3.4-5.0); Alkaline Phosphatase 64 U/L (46-116); Anion Gap 11 mmol/L (8-16); Aspartate Amino Transferase 22 U/L (15-37); Bilirubin,Total 0.6 mg/dL (0.00-1.00); Blood Urea Nitrogen 23 mg/dL (7-18); Calcium 9.3 mg/dL (8.5-10.1); Carbon Dioxide 30 mmol/L (21-32); Chloride 97 mmol/L (98-108); Estimated Glomerular Filt Rate 46; Ferritin 137 ng/mL (8-252); Free T3 1.88 pg/mL (2.18-3.98); Free T4 Free Thyroxine 1.09 ng/dL (0.76-1.46); Glucose 110 mg/dL (70-99); Iron 73 ug/dL (50-170); Magnesium 2.3 mg/dL (1.8-2.4); NT Pro B Type Natriuretic Pept 242 pg/mL (0-450); Osmolality Calculated 290 mOsm/kg (285-295); Potassium 4.5 mmol/L (3.5-5.1); Sodium 138 mmol/L (136-145); Thyroid Stimulating Hormone 5.98 uIU/mL (0.36-3.74); Total Protein 7.4 g/dL (6.4-8.2); Vitamin B12 281 pg/mL (193-986)
[2022-02-18 16:33] LABS: CRP < 0.2 mg/dL (0.0-0.9)
[2022-02-18 16:38] LABS: Hemoglobin A1C 6.4 % (<5.7)
== END 2022-02-18 14:55 | disposition home or self-care (01) ==
PROVIDERS: PCP Internal Medicine; Visit Provider Internal Medicine
DX: M54.6 Pain in thoracic spine (principal); M54.50 Low back pain, unspecified; E03.4 Atrophy of thyroid (acquired); E11.9 Type 2 diabetes mellitus without complications; I50.1 Left ventricular failure, unspecified; R68.83 Chills (without fever); G62.9 Polyneuropathy, unspecified; R53.83 Other fatigue
CPT/HCPCS: 36415; 72070; 72100; 80053; 81001; 82607; 82728; 83036; 83540; 83735; 83880; 84439; 84443; 84481; 85025; 85652; 86140

== ENCOUNTER 2022-02-25 16:03 | Outpatient (RCR) | payer MEDICARE, BC, SELFPAY ==
--- NOTE | 2022-02-25 16:05 | PTOPEVAL ---
Thank you for referring Jackie Martinez to [facility].? The patient is scheduled to be seen for therapy? 1-2x/week for 8 visits. Please review, sign, date and return this plan of care LIAT. I agree with and certify that the following plan of care is medically necessary. Referring Physician Date Admitting Provider: Attending Provider: Lisette Marmolejo MD Referring Provider: *PT Outpatient Evaluation Start: 02/25/22 12:45 Freq: Status: Active Protocol: Document 02/25/22 12:46 [facility] (Rec: 02/25/22 16:00 [facility] [id number]) Therapy Assessment Status Assessment Status Assessment Status Evaluation Outpatient Past Medical History Cardiovascular History Hx Coronary Artery Bypass Graft Yes Gastrointestinal History Hx Gastroesophageal Reflux Disease Yes Endocrine History Hx Diabetes Yes Hx Hypothyroidism Yes Reproductive History Hx Post Menopausal Yes Evaluation Information Problem Diagnosis Mid/low back pain Onset 01/10/2022 Subjective Information Pt reports that she has been Query Text:As Reported By Patient/ dealing with mid/low back pain Family for awhile now but has worsened somewhat recently. She has also been having occasional cramps in her feet with a cooling sensation. When getting imaging and blood work for this symptom, they discovered that her back has moderately severe-severe DDD. Pain has insidious onset. Has pain more in middle back than lower back. Pain increases when repetitively bending over and coming up. She has difficulty when standing up from the floor. Lies on her side for relief, sometimes lies on her back for relief. Feels she is not as active as she used to be, feels like she is more physically limited in all the things she would like to do. 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
== END 2022-03-21 11:39 | disposition home or self-care (01) ==
LOC: CHSPT 16:03
PROVIDERS: PCP Internal Medicine; Visit Provider Internal Medicine
DX: M54.6 Pain in thoracic spine (principal); M54.50 Low back pain, unspecified
CPT/HCPCS: 97110; 97112; 97161

== ENCOUNTER 2022-05-01 08:09 | Outpatient (CLI) | payer MEDICARE, BC, SELFPAY ==
--- NOTE | 2022-06-03 14:50 | WPDHOLTEREM ---
Holter/Event Monitor Holter/Event Monitor Date of procedure: 05/01/22 Holter/Event Procedure: Event Monitor Indications: Palpitations Conclusion: 1. 20 days event monitor between 05/01/22-05/30/22. There are 36 available transmissions for analysis. 2. Predominant rhythm is sinus rhythm. HR range 50-142 bpm; average HR 67 bpm. 3. There are occasional premature supraventricular complexes with total burden of <1%. No supraventricular tachycardia. 4. There are occasional premature ventricular complexes with total burden of 1%. There is one episode of ventricular tachycardia at 142 bpm lasting 7 beats on 05/28/22 at 18:56. 5. No significant pauses greater than 2 seconds. 6. Patient reports 9 episodes of symptoms of lightheadedness, chest pain, shortness of breath which demonstrate sinus rhythm, HR range 54-94 bpm.
== END 2022-05-01 08:10 | disposition home or self-care (01) ==
LOC: CHSCARD 08:12
PROVIDERS: PCP Internal Medicine; Visit Provider Internal Medicine
DX: R00.2 Palpitations (principal); R42 Dizziness and giddiness
CPT/HCPCS: 93270

== ENCOUNTER 2022-09-02 07:15 | Outpatient (CLI) | payer MEDICARE, BC, SELFPAY ==
--- NOTE | ~2022-09-02 | XR_ITS ---
XR knee RT min 4V 09/02/2022 07:56 Indication: Chronic right knee pain Procedure: 4 views right knee Comparison: 08/04/2009 Findings: There is moderate tricompartment osteoarthritis. No acute fracture or traumatic malalignmen t. No significant joint effusion. No foreign bodies. Impression: 1: Moderate tricompartment osteoarthritis. Reviewed, dictated and finalized at location L. ONAL SALES COORDINATOR Impression: 1: Moderate tricompartment osteoarthritis.
[2022-09-02 07:33] LABS: Basophils Absolute Auto 0.03 K/mm3 (0.00-0.10); Basophils Percent Auto 0.5 % (0.0-1.0); Eosinophils Absolute Auto 0.24 K/mm3 (0.02-0.50); Eosinophils Percent Auto 3.8 % (1.0-6.0); Hemoglobin 13.4 g/dL (11.7-13.8); Immature Granulocyte Absolute 0.01 K/mm3 (0.00-0.00); Immature Granulocyte Percent A 0.2 % (0.0-0.0); Lymphocytes Absolute Auto 2.81 K/mm3 (1.10-4.50); Lymphocytes Percent Auto 44.5 % (18.0-42.0); Mean Corpuscular HGB Conc 31.9 g/dL (32.0-36.0); Mean Corpuscular Hemoglobin 28.6 pg (27.0-31.0); Mean Corpuscular Volume 89.7 fL (78.0-102.0); Mean Platelet Volume 10.8 fl (9.2-11.8); Monocytes Absolute Auto 0.44 K/mm3 (0.10-0.90); Neutrophils Absolute Auto 2.8 K/mm3 (1.7-7.2); Platelet Count Result 226 K/mm3 (150-420); Red Blood Count 4.68 M/mm3 (4.20-5.40); Red Cell Distribution Width 13.7 % (11.6-14.4); White Blood Count 6.3 K/mm3 (4.8-10.8)
[2022-09-02 07:37] LABS: Add Urine Microscopic? YES; Appearance Urine Clear (Clear); Bilirubin Urine Negative (Negative); Blood Urine Negative (Negative); Color Urine Yellow (Yellow); Glucose Urine UA Negative (Negative); Ketones Urine Negative (Negative); Leukocyte Esterase Ur 1+ LEU/UL (Negative); Nitrate Urine Positive (Negative); Protein Urine Negative (Negative); Specific Grav Ur 1.025 (1.010-1.020); Urobilinogen Urine 0.2 mg/dL (0.2-1.0); pH Urine 5.5 (5.0-8.0)
[2022-09-02 07:48] LABS: Bacteria Urine 1+ /hpf; RBC Urine 0-2 /hpf (0-2); Squamous Epithelial Cell Urine Few /hpf (Few)
[2022-09-02 07:50] LABS: Hemoglobin A1C 6.1 % (<5.7)
[2022-09-02 08:20] LABS: Alanine Aminotransferase 24 U/L (14-59); Albumin Level 3.9 g/dL (3.4-5.0); Alkaline Phosphatase 71 U/L (46-116); Anion Gap 5 mmol/L (8-16); Aspartate Amino Transferase 24 U/L (15-37); Bilirubin,Total 0.7 mg/dL (0.00-1.00); Blood Urea Nitrogen 13 mg/dL (7-18); Calcium 8.3 mg/dL (8.5-10.1); Carbon Dioxide 32 mmol/L (21-32); Chloride 104 mmol/L (98-108); Cholesterol 145 mg/dL (0-200); Creatine Kinase 50 U/L (26-192); Estimated Glomerular Filt Rate > 60; Free T3 2.12 pg/mL (2.18-3.98); Free T4 Free Thyroxine 1.08 ng/dL (0.76-1.46); Glucose 123 mg/dL (70-99); HDL Direct 39 mg/dL (40-60); LDL Cholesterol Calculated 60 mg/dL (<130); Osmolality Calculated 293 mOsm/kg (285-295); Potassium 4.2 mmol/L (3.5-5.1); Sodium 141 mmol/L (136-145); Thyroid Stimulating Hormone 1.64 uIU/mL (0.36-3.74); Total Protein 7.2 g/dL (6.4-8.2); Triglycerides 228 mg/dL (0-150)
== END 2022-09-02 07:16 | disposition home or self-care (01) ==
LOC: CHSLAB 07:19
PROVIDERS: PCP Internal Medicine; Visit Provider Internal Medicine
DX: E03.4 Atrophy of thyroid (acquired) (principal); E11.9 Type 2 diabetes mellitus without complications; E78.2 Mixed hyperlipidemia; I10 Essential (primary) hypertension; N39.0 Urinary tract infection, site not specified; M17.11 Unilateral primary osteoarthritis, right knee
CPT/HCPCS: 36415; 73564; 80053; 80061; 81001; 82550; 83036; 84439; 84443; 84481; 85025; 87077; 87086; 87088; 87186

== ENCOUNTER 2022-10-12 09:57 | Emergency (ER) | payer MEDICARE, BC, SELFPAY ==
[2022-10-12 10:04] VITALS: BP 86/73; PULSE 63; RESP 18; TEMP 36.9; O2SAT 97
[2022-10-12 10:05] LABS: Glucose Point of Care 99 mg/dl (65-105)
--- NOTE | 2022-10-12 10:13 | ECG_ITS ---
Measurements Intervals [place] Rate: 68 P: 39 [place]: 153 QRS: -8 QRSD: 96 T: 33 QT: 389 QTc: 416 Interpretive Statements SINUS RHYTHM NO PREVIOUS ECG AVAILABLE FOR COMPARISON Electronically Signed On 10-12-2022 13:00:54 CDT by Gray Patel M.D.
[2022-10-12 10:22] VITALS: BP 123/74; PULSE 67; RESP 20; O2SAT 94
--- NOTE | 2022-10-12 11:01 | ED.EYEPROB ---
HPI - Eye Problem General Chief complaint: Eye Problems Stated complaint: flashes of light Time Seen by Provider: 10/12/22 09:58 Source: patient Mode of arrival: ambulatory Limitations: no limitations History of Present Illness HPI Narrative: 87 year old female presents to the Emergency Department complaining of sudden onset of flashes of light, seeing floating objects, some in color, to left upper vision. Onset 30 minutes ago. States has pretty well resolved now. Denies any prior history of. Denies eye pain. Denies any visual field loss. Denies headache, chest pain, shortness of breath, neck pain. chief complaint: vision change Onset (ago): minute(s) (30) Onset description: sudden Duration: now resolved Location: left eye Eye Symptoms: other (flashes of light, floating objects) Place: home Severity: moderate Associated symptoms: none Treatments Prior to Arrival: none Related Data Home Medications Medication Instructions Recorded Confirmed levothyroxine 88 mcg tablet 88 mcg PO DAILY 07/14/19 01/14/22 metformin 500 mg tablet 500 mg PO BID 07/14/19 01/14/22 pantoprazole 20 mg tablet,delayed 20 mg PO QAM 07/14/19 01/14/22 release furosemide 40 mg tablet 40 mg PO DAILY 01/14/22 01/14/22 potassium chloride 20 mEq 20 meq PO DAILY 01/14/22 01/14/22 tablet,extended release(part/cryst) fluoxetine 20 mg capsule 20 mg PO DAILY 10/12/22 10/12/22 metoprolol succinate 100 mg 100 mg PO DAILY 10/12/22 10/12/22 tablet,extended release 24 hr rosuvastatin 5 mg tablet 5 mg PO DAILY 10/12/22 10/12/22 Allergies Allergy/AdvReac Type Severity Reaction Status Date / Time sulfamethoxazole Allergy Hives Verified 10/12/22 10:44 [From Bactrim] trimethoprim [From Bactrim] Allergy Hives Verified 10/12/22 10:44 Review of Systems Review of Systems: All systems reviewed & are unremarkable except as noted in HPI and below Constitutional: Constitutional: Reports as per HPI and Reports no additional constitutional complaints Eyes: Eyes: Reports as per HPI and Reports no additional eye complaints ENT: Reports system reviewed and no additional complaints, except as documented Cardiovascular: Cardiovascular: Reports as per HPI and Reports no additional cardiovascular complaints Respiratory: Respiratory: Reports as per HPI and Reports no additional respiratory complaints Gastrointestinal: Gastrointestinal: Reports as per HPI and Reports no additional gastrointestinal complaints Genitourinary: Genitourinary: Reports no additional female genitourinary complaints Musculoskeletal: Musculoskeletal: Reports no additional musculoskeletal complaints Integumentary/Breasts: Skin/Breast: Reports system reviewed and no additional complaints, except as docu Neurologic: Reports system reviewed and no additional complaints, except as documented, Denies headache(s), Denies focal weakness, Denies numbness and Denies weakness Psychiatric: Psychiatric: Reports no additional psychiatric complaints Endocrine: Endocrine: Reports no additional endocrine complaints Hematologic/Lymphatic: Hematologic/Lymphatic: Reports no additional hematologic/lymphatic complaints Allergic/Immunologic: Allergic/Immunologic: Reports no additional allergic/immunologic complaints PMFSH Past Medical History Medical History Coronary artery disease involving coronary bypass graft Diabetes type 2, controlled Hypertension Surgical History Surgical History Failed CABG (coronary artery bypass graft) Exam Const: General: healthy appearing Nutritional Appearance: well nourished Orientation/consciousness: patient oriented x3 Limitations: no limitations HENMT: Head: normal to inspection Ears: external ears normal Face/Nose/Sinus: Normal external nose present Face and sinus: normal facial exam Mouth: Yes Normal oral and palatal mucosa present Teet
[2022-10-12 12:00] VITALS: BP 110/72; PULSE 65; RESP 20; O2SAT 96
[2022-10-12] MEDS: TETRACAINE HCL 0.5% OPHTH SOLN 4 ML BTL 2 DROP LEFT EYE (12:25)
[2022-10-12 14:23] VITALS: BP 129/82; PULSE 84; RESP 18; TEMP 36.9; O2SAT 98
== END 2022-10-12 14:47 | disposition short-term general hospital (02) ==
PROVIDERS: Emergency Provider Emergency Medicine; PCP Internal Medicine
DX: H43.393 Other vitreous opacities, bilateral (principal); I25.810 Atherosclerosis of coronary artery bypass graft(s) without angina pectoris; E11.9 Type 2 diabetes mellitus without complications; I10 Essential (primary) hypertension
CPT/HCPCS: 82948; 93005; 99284

== ENCOUNTER 2022-10-23 08:47 | Outpatient (CLI) | payer MEDICARE, BC, SELFPAY ==
--- NOTE | ~2022-10-23 | MR_ITS ---
EXAMINATION: MR brain/brain stem wo con DATE: 10/23/2022 09:54 INDICATION: Subjective visual disturbance with floaters in the left eye. TECHNIQUE: Magnetic resonance imaging (MRI) of the brain and brainstem was performed without intraven ous contrast. COMPARISON: Brain MRI 04/05/2014, neck CT 09/18/20 FINDINGS: There is chronic encephalomalacia in anteroinferior right frontal lobe. There is chronic de hiscence of the orbital roof in this area. There are scattered areas of nonspecific increased T2-weig hted signal intensity in the cerebral white matter and shayla, which is within normal limits for the pa tient's age. There is no intracranial hemorrhage, acute infarction, or abnormal intracranial mass les ion. The ventricles are normal in size. There are likely changes of ocular lens replacement surgeries . There is mucosal thickening in the paranasal sinuses. The mastoid air cells are normal. IMPRESSION: 1. 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 Reviewed, dictated and finalized at location A. IMPRESSION: 1. 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
== END 2022-10-23 08:48 | disposition home or self-care (01) ==
LOC: CHSIMG 08:48
PROVIDERS: PCP Internal Medicine; Visit Provider Internal Medicine
DX: H54.7 Unspecified visual loss (principal); G93.89 Other specified disorders of brain
CPT/HCPCS: 70551

== ENCOUNTER 2023-03-10 07:49 | Outpatient (CLI) | payer MEDICARE, SELFPAY ==
[2023-03-10 08:07] LABS: Basophils Absolute Auto 0.05 K/mm3 (0.00-0.10); Basophils Percent Auto 0.7 % (0.0-1.0); Eosinophils Absolute Auto 0.23 K/mm3 (0.02-0.50); Eosinophils Percent Auto 3.3 % (1.0-6.0); Hematocrit 41.6 % (35.0-42.0); Hemoglobin 13.5 g/dL (11.7-13.8); Immature Granulocyte Absolute 0.03 K/mm3 (0.00-0.00); Immature Granulocyte Percent A 0.4 % (0.0-0.0); Lymphocytes Absolute Auto 2.63 K/mm3 (1.10-4.50); Lymphocytes Percent Auto 37.8 % (18.0-42.0); Mean Corpuscular HGB Conc 32.5 g/dL (32.0-36.0); Mean Corpuscular Volume 89.3 fL (78.0-102.0); Mean Platelet Volume 10.7 fl (9.2-11.8); Monocytes Absolute Auto 0.51 K/mm3 (0.10-0.90); Monocytes Percent Auto 7.3 % (2.0-11.0); Neutrophils Absolute Auto 3.5 K/mm3 (1.7-7.2); Neutrophils Percent Auto 50.5 % (50.0-70.0); Platelet Count Result 208 K/mm3 (150-420); Red Blood Count 4.66 M/mm3 (4.20-5.40); Red Cell Distribution Width 13.8 % (11.6-14.4)
[2023-03-10 08:08] LABS: Appearance Urine Clear (Clear); Bilirubin Urine Negative (Negative); Blood Urine Negative (Negative); Color Urine Yellow (Yellow); Glucose Urine UA Trace (Negative); Ketones Urine Negative (Negative); Leukocyte Esterase Ur 1+ LEU/UL (Negative); Nitrate Urine Negative (Negative); Protein Urine Negative (Negative); Specific Grav Ur 1.025 (1.010-1.020)
[2023-03-10 08:13] LABS: Creatinine Urine 239.73 mg/dL (40-278); Microalbumin Urine Random 31.4 mg/L
[2023-03-10 08:15] LABS: Hemoglobin A1C 6.6 % (<5.7)
[2023-03-10 08:31] LABS: Add Urine Microscopic? YES; RBC Urine None seen /hpf (0-2); Squamous Epithelial Cell Urine Rare /hpf (Few); WBC Urine 0-5 /hpf (0-3)
[2023-03-10 08:32] LABS: Bacteria Urine 2+ /hpf
[2023-03-10 09:03] LABS: Alanine Aminotransferase 15 U/L (14-59); Albumin Level 3.9 g/dL (3.4-5.0); Alkaline Phosphatase 68 U/L (46-116); Anion Gap 6 mmol/L (8-16); Aspartate Amino Transferase 13 U/L (15-37); Bilirubin,Total 1.1 mg/dL (0.00-1.00); Blood Urea Nitrogen 12 mg/dL (7-18); Calcium 8.8 mg/dL (8.5-10.1); Carbon Dioxide 33 mmol/L (21-32); Chloride 105 mmol/L (98-108); Cholesterol 147 mg/dL (0-200); Estimated Glomerular Filt Rate 56; Free T3 2.05 pg/mL (2.18-3.98); Free T4 Free Thyroxine 1.12 ng/dL (0.76-1.46); Glucose 132 mg/dL (70-99); HDL Direct 37 mg/dL (40-60); LDL Cholesterol Calculated 65 mg/dL (<130); NT Pro B Type Natriuretic Pept 605 pg/mL (0-450); Osmolality Calculated 299 mOsm/kg (285-295); Potassium 4.2 mmol/L (3.5-5.1); Sodium 144 mmol/L (136-145); Thyroid Stimulating Hormone 2.09 uIU/mL (0.36-3.74); Total Protein 6.5 g/dL (6.4-8.2); Triglycerides 224 mg/dL (0-150)
== END 2023-03-10 07:50 | disposition home or self-care (01) ==
LOC: CHSLAB 07:51
PROVIDERS: PCP Internal Medicine; Visit Provider Internal Medicine
DX: E03.4 Atrophy of thyroid (acquired) (principal); E11.9 Type 2 diabetes mellitus without complications; I10 Essential (primary) hypertension; E78.2 Mixed hyperlipidemia; E79.0 Hyperuricemia without signs of inflammatory arthritis and tophaceous disease; I50.1 Left ventricular failure, unspecified; R82.90 Unspecified abnormal findings in urine
CPT/HCPCS: 36415; 80053; 80061; 81001; 82043; 83036; 83880; 84439; 84443; 84481; 85025; 87077; 87086; 87088; 87186

== ENCOUNTER 2023-03-18 07:13 | Outpatient (CLI) | payer MEDICARE, BC, SELFPAY ==
--- NOTE | ~2023-03-18 | US_ITS ---
EXAMINATION: US right upper quadrant DATE: 03/18/2023 07:43 INDICATION: RUQ pain/nausea TECHNIQUE: Comparison COMPARISON: MR abdomen 02/24/2018. FINDINGS: The visualized portions of the pancreas are normal. The liver is normal size with increased echogenicity and normal echotexture. No surface nodularity. Normal hepatopetal flow in the main port al vein. Status post cholecystectomy. The common bile duct measures 7 mm. There was no sonographic Mu rphy sign. IMPRESSION: Status post cholecystectomy. Echogenic liver, most commonly due to steatosis but also can be seen with hepatitis and fibrosis. Reviewed, dictated and finalized at location K. IMPRESSION: Status post cholecystectomy. Echogenic liver, most commonly due to steatosis but also can be seen with hepat itis and fibrosis.
== END 2023-03-18 07:14 | disposition home or self-care (01) ==
LOC: CHSIMG 07:17
PROVIDERS: PCP Internal Medicine; Visit Provider Internal Medicine
DX: R10.11 Right upper quadrant pain (principal); R11.0 Nausea; Z90.49 Acquired absence of other specified parts of digestive tract
CPT/HCPCS: 76705

== ENCOUNTER 2023-04-16 08:00 | Outpatient (RCR) | payer MEDICARE, BC, SELFPAY ==
--- NOTE | 2022-11-27 09:22 | PCCPR ---
In addition to current charges of 6 sessions in October, past due balance caught up from 4 sessions in September, and 6 sessions in October. Check# [id number]
== END 2023-04-16 08:11 | disposition home or self-care (01) ==
LOC: CHSCPRIII 08:00
PROVIDERS: PCP Internal Medicine; Visit Provider Internal Medicine
DX: Z95.1 Presence of aortocoronary bypass graft (principal)
CPT/HCPCS: 99199

== ENCOUNTER 2023-05-25 08:06 | Outpatient (CLI) | payer MEDICARE, SELFPAY ==
[2023-05-25 08:31] LABS: Basophils Absolute Auto 0.03 K/mm3 (0.00-0.10); Basophils Percent Auto 0.5 % (0.0-1.0); Eosinophils Absolute Auto 0.22 K/mm3 (0.02-0.50); Eosinophils Percent Auto 3.3 % (1.0-6.0); Hematocrit 42.7 % (35.0-42.0); Hemoglobin 13.4 g/dL (11.7-13.8); Immature Granulocyte Absolute 0.01 K/mm3 (0.00-0.00); Immature Granulocyte Percent A 0.2 % (0.0-0.0); Lymphocytes Absolute Auto 2.48 K/mm3 (1.10-4.50); Lymphocytes Percent Auto 37.2 % (18.0-42.0); Mean Corpuscular HGB Conc 31.4 g/dL (32.0-36.0); Mean Corpuscular Volume 89.3 fL (78.0-102.0); Mean Platelet Volume 10.9 fl (9.2-11.8); Monocytes Absolute Auto 0.54 K/mm3 (0.10-0.90); Monocytes Percent Auto 8.1 % (2.0-11.0); Neutrophils Absolute Auto 3.4 K/mm3 (1.7-7.2); Neutrophils Percent Auto 50.7 % (50.0-70.0); Platelet Count Result 221 K/mm3 (150-420); Red Blood Count 4.78 M/mm3 (4.20-5.40); Red Cell Distribution Width 13.8 % (11.6-14.4); White Blood Count 6.7 K/mm3 (4.8-10.8)
[2023-05-25 08:46] LABS: Partial Thromboplastin Time 25.7 SEC (23.90-30.70); Prothrombin Time 10.9 Seconds (9.50-12.10)
[2023-05-25 09:24] LABS: Alanine Aminotransferase 19 U/L (14-59); Albumin Level 3.7 g/dL (3.4-5.0); Alkaline Phosphatase 75 U/L (46-116); Anion Gap 5 mmol/L (8-16); Aspartate Amino Transferase 12 U/L (15-37); Blood Urea Nitrogen 16 mg/dL (7-18); Calcium 8.7 mg/dL (8.5-10.1); Carbon Dioxide 36 mmol/L (21-32); Chloride 100 mmol/L (98-108); Estimated Glomerular Filt Rate 50; Ferritin 58 ng/mL (8-252); Free T4 Free Thyroxine 0.95 ng/dL (0.76-1.46); Glucose 122 mg/dL (70-99); Iron 59 ug/dL (50-170); Osmolality Calculated 294 mOsm/kg (285-295); Potassium 4.2 mmol/L (3.5-5.1); Sodium 141 mmol/L (136-145); Thyroid Stimulating Hormone 4.27 uIU/mL (0.36-3.74); Total Protein 6.4 g/dL (6.4-8.2)
[2023-05-28 10:56] LABS: Immunoglobulin A 120 mg/dL (70-320); TTG IGA AB <1.0 U/mL (<15.0)
[2023-05-29 21:32] LABS: ANCA Screen Negative (Negative); Myeloperoxidase Ab <1.0 AI (<1.0); Proteinase-3 Ab <1.0 AI (<1.0); S cerevisiae Ab (IgA) 5.5 U (<=20.0)
== END 2023-05-25 08:07 | disposition home or self-care (01) ==
LOC: CHSLAB 08:08
PROVIDERS: PCP Internal Medicine; Visit Provider Internal Medicine
DX: R19.7 Diarrhea, unspecified (principal); R23.3 Spontaneous ecchymoses; D64.9 Anemia, unspecified
CPT/HCPCS: 36415; 80053; 82728; 82784; 83516; 83540; 84439; 84443; 84481; 85025; 85610; 85730; 86036; 86671

== ENCOUNTER 2023-05-26 08:49 | Outpatient (CLI) | payer MEDICARE, SELFPAY ==
[2023-05-29 05:12] LABS: Fecal Fat, Ql Normal (Normal)
[2023-06-02 21:42] LABS: Calprotectin, Stool 282 mcg/g
== END 2023-05-26 08:50 | disposition home or self-care (01) ==
LOC: CHSLAB 08:51
PROVIDERS: PCP Internal Medicine; Visit Provider Internal Medicine
DX: R19.7 Diarrhea, unspecified (principal); R23.3 Spontaneous ecchymoses
CPT/HCPCS: 82705; 83993

== ENCOUNTER 2023-05-27 08:08 | Outpatient (CLI) | payer MEDICARE, BC, SELFPAY ==
--- NOTE | ~2023-05-27 | CT_ITS ---
CT of the Abdomen and Pelvis: Indication: Diarrhea Technique: 2.5 mm axial scans were obtained through the abdomen and pelvis following intravenous adm inistration of 100 cc of Omnipaque 350. Dose reduction technique was used on this scan by utilizing a utomated exposure control and iterative reconstruction technique. The dose-length product (DLP) was 5 78.51 mGy-cm. Findings: Scans through the lung bases are unremarkable. The liver, spleen, pancreas, adrenals and kidneys are within normal limits. Cholecystectomy clips are present. No evidence of aortic aneurysm. No lymphadenopathy. No bowel obstruction or bowel wall thickening. There is no evidence to suggest acute appendicitis. Images through the pelvis were performed. Urinary bladder unremarkable. No adnexal mass seen. No asci geremias. Impression: No significant abnormalities seen. Reviewed, dictated and finalized at [facility]. TER HELPER Impression: No significant abnormalities seen.
== END 2023-05-27 08:09 | disposition home or self-care (01) ==
LOC: CHSIMG 08:09
PROVIDERS: PCP Internal Medicine; Visit Provider Internal Medicine
DX: R19.7 Diarrhea, unspecified (principal); R23.3 Spontaneous ecchymoses
CPT/HCPCS: 74177; Q9967

== ENCOUNTER 2023-06-16 12:25 | Emergency (ER) | payer MEDICARE, BC, SELFPAY ==
--- NOTE | ~2023-06-16 | CT_ITS ---
EXAMINATION: CT cervical spine wo con DATE: 06/16/2023 14:10 INDICATION: Neck pain after fall TECHNIQUE: Computed tomography (CT) of the cervical spine was performed without intravenous contrast. The dose-length product was 505 mGy-cm. Automated exposure control and iterative reconstruction tech Clickst were employed. COMPARISON: CT dated 09/18/2020 FINDINGS: There is degenerative disc disease at C4-5, C5-6, C6-7 and C7-T1. There is degenerative ant erolisthesis at C7-T1. There is moderate-severe multilevel facet and uncinate hypertrophy. There is e mphysema in the lung apices. Odontoid process is normal. Craniovertebral junction is normal. No evide nce for perched facet. No acute fracture or traumatic malalignment. No significant paraspinal soft ti ssue abnormality. IMPRESSION: 1. No acute abnormality of the cervical spine. 2: Severe cervical spondylosis. Reviewed, dictated and finalized at location L. CTOR SOCIAL
--- NOTE | ~2023-06-16 | XR_ITS ---
XR chest 1V portable 06/16/2023 14:32 Indication: Status post fall. Right breast pain. Procedure: AP portable chest Comparison: Comparison to multiple prior studies sequentially, with oldest reviewed study dated 11/01. Findings: Status post median sternotomy for CABG. Left basilar atelectasis. Chronic elevation left di aphragm. Cardiomegaly. Impression: 1: Chronic elevation of the left diaphragm with underlying compressive atelectasis. Reviewed, dictated and finalized at location L. Impression: 1: Chronic elevation of the left diaphragm with underlying compressive atelecta sis.
--- NOTE | ~2023-06-16 | CT_ITS ---
EXAMINATION: CT brain wo con DATE: 06/16/2023 14:10 INDICATION: Status post fall. Head trauma. TECHNIQUE: Computed tomography (CT) of the head was performed without intravenous contrast. The dose- length product was 505.36 mGy-cm. Automated exposure control and iterative reconstruction technique w ere employed. COMPARISON: None FINDINGS: Generalized atrophy. There are scattered mild periventricular and subcortical white matter changes, most likely related to small vessel ischemic disease (microangiopathy). There is chronic rig ht frontal lobe infarction. No ventriculomegaly or midline shift. Basilar cisterns are patent. There is intracranial atherosclerosis. Basilar cisterns are patent. No acute infarction, hemorrhage or mass . There is mild mucosal thickening of the left frontal sinus. Mastoids are pneumatized. There are magaly nges of lens replacement surgery. There is mucosal thickening of the sphenoid sinuses. No depressed s kull fractures. IMPRESSION: 1. No acute intracranial abnormality. 2: Chronic right frontal lobe infarction. 3: Moderate sinusitis. 4: Chronic age-related findings. Reviewed, dictated and finalized at location L. [employer]
--- NOTE | ~2023-06-16 | XR_ITS ---
XR knee LT 3V 06/16/2023 14:32 Indication: Left knee pain after fall Procedure: 3 views left knee Comparison: 03/10/2017 Findings: Mild osteoarthritis. Small joint effusion. Mild prepatellar soft tissue swelling. Surgical clips are present in the posterior soft tissues. No acute fracture or traumatic malalignment. Impression: 1: No acute fracture. Reviewed, dictated and finalized at location L. SURGERY PHYSICIAN Impression: 1: No acute fracture.
--- NOTE | ~2023-06-16 | XR_ITS ---
XR pelvis 1-2V 06/16/2023 14:32 Indication: Pelvic pain. Status post fall. Procedure: AP view of the pelvis Comparison: No prior studies for comparison. Findings: Pelvic rings are intact. Mild osteoarthritis of the hips. No fracture or traumatic malalign ment. Impression: 1: No acute fracture. Reviewed, dictated and finalized at location L. KING MACHINE OPERATOR Impression: 1: No acute fracture.
[2023-06-16 12:25] VITALS: BP 112/71; PULSE 68; RESP 18; TEMP 36.4; O2SAT 94
--- NOTE | 2023-06-16 13:35 | ED.FALL ---
HPI - Fall General Chief Complaint: Fall Stated Complaint: fall, facial pain and left arm laceration Time Seen by Provider: 06/16/23 13:21 History of Present Illness HPI Narrative: 87-year-old female with a history of hypertension, diabetes mellitus, dyslipidemia, hypothyroidism, arthritis, polyneuropathy, GERD, CAD status post CABG in 2019 with CHF presents to the ER after an accidental fall. The patient presents with -- facial trauma. She has bilateral abrasions on her cheeks -- epistaxis -- left knee abrasion with chronic pain and swelling of the left knee -- skin tear over the left posterior forearm -- bruising over the right medial breast patient denied any loss of consciousness. No neck pain or back pain P MD complaint: fall Onset (ago): hour(s) ( 1 hour ago) Fall from: standing Fall witnessed: no Place fall occurred: home Loss of consciousness: none Prolonged down time: no Symptoms prior to fall: none Context: tripped/slipped Location of injury: face and chest Quality: burning Associated symptoms (after fall): denies Related Data Home Medications Medication Instructions Recorded Confirmed levothyroxine 88 mcg tablet 75 mcg PO DAILY 07/14/19 06/16/23 pantoprazole 20 mg tablet,delayed 40 mg PO QAM 07/14/19 06/16/23 release furosemide 40 mg tablet 40 mg PO DAILY 01/14/22 06/16/23 potassium chloride 20 mEq 20 meq PO DAILY 01/14/22 06/16/23 tablet,extended release(part/cryst) fluoxetine 20 mg capsule 20 mg PO DAILY 10/12/22 06/16/23 metoprolol succinate 100 mg 100 mg PO DAILY 10/12/22 06/16/23 tablet,extended release 24 hr rosuvastatin 5 mg tablet 5 mg PO DAILY 10/12/22 06/16/23 sitagliptin phosphate 50 mg tablet 50 mg PO DAILY 06/16/23 06/16/23 (Januvia) Allergies Allergy/AdvReac Type Severity Reaction Status Date / Time sulfamethoxazole Allergy Hives Verified 06/16/23 12:50 [From Bactrim] trimethoprim [From Bactrim] Allergy Hives Verified 06/16/23 12:50 Review of Systems Review of Systems: All systems reviewed & are unremarkable except as noted in HPI and below Constitutional: Constitutional: Reports as per HPI and Reports no additional constitutional complaints Eyes: Eyes: Reports as per HPI and Reports no additional eye complaints ENT: Reports system reviewed and no additional complaints, except as documented, Reports as per HPI and Reports epistaxis Cardiovascular: Cardiovascular: Reports as per HPI and Reports no additional cardiovascular complaints Respiratory: Respiratory: Reports as per HPI and Reports no additional respiratory complaints Gastrointestinal: Gastrointestinal: Reports as per HPI and Reports no additional gastrointestinal complaints Genitourinary: Genitourinary: Reports no additional female genitourinary complaints Musculoskeletal: Musculoskeletal: Reports no additional musculoskeletal complaints Comments: chronic left knee pain and swelling with acute abrasion. able to bear weight Integumentary/Breasts: Skin/Breast: Reports system reviewed and no additional complaints, except as docu and Reports as per HPI Comments: contusion of the face, right breast abrasion of the left knee skin tear left forearm Neurologic: Reports system reviewed and no additional complaints, except as documented and Reports as per HPI Psychiatric: Psychiatric: Reports no additional psychiatric complaints and Reports as per HPI Endocrine: Endocrine: Reports no additional endocrine complaints and Reports as per HPI Hematologic/Lymphatic: Hematologic/Lymphatic: Reports no additional hematologic/lymphatic complaints and Reports as per HPI Allergic/Immunologic: Allergic/Immunologic: Reports no additional allergic/immunologic complaints and Reports as per HPI [facility] Past Medical History Medical History Coronary artery disease involving coronary bypass graft Diabetes type 2, controlled Hypertension Surgical
[2023-06-16 14:00] LABS: Basophils Absolute Auto 0.03 K/mm3 (0.00-0.10); Basophils Percent Auto 0.4 % (0.0-1.0); Eosinophils Absolute Auto 0.22 K/mm3 (0.02-0.50); Eosinophils Percent Auto 2.6 % (1.0-6.0); Hematocrit 42.2 % (35.0-42.0); Hemoglobin 13.7 g/dL (11.7-13.8); Immature Granulocyte Absolute 0.05 K/mm3 (0.00-0.00); Immature Granulocyte Percent A 0.6 % (0.0-0.0); Mean Corpuscular HGB Conc 32.5 g/dL (32.0-36.0); Mean Corpuscular Hemoglobin 28.7 pg (27.0-31.0); Mean Corpuscular Volume 88.5 fL (78.0-102.0); Mean Platelet Volume 10.9 fl (9.2-11.8); Monocytes Absolute Auto 0.67 K/mm3 (0.10-0.90); Neutrophils Absolute Auto 4.9 K/mm3 (1.7-7.2); Neutrophils Percent Auto 58.4 % (50.0-70.0); Platelet Count Result 232 K/mm3 (150-420); Red Blood Count 4.77 M/mm3 (4.20-5.40); Red Cell Distribution Width 13.8 % (11.6-14.4); White Blood Count 8.3 K/mm3 (4.8-10.8)
[2023-06-16 14:18] LABS: Alanine Aminotransferase 17 U/L (14-59); Alkaline Phosphatase 58 U/L (46-116); Anion Gap 4 mmol/L (8-16); Aspartate Amino Transferase 16 U/L (15-37); Bilirubin,Total 0.8 mg/dL (0.00-1.00); Blood Urea Nitrogen 22 mg/dL (7-18); Calcium 8.9 mg/dL (8.5-10.1); Carbon Dioxide 35 mmol/L (21-32); Chloride 99 mmol/L (98-108); Estimated CRCL calculation 30 ml/min; Estimated Glomerular Filt Rate 47; Glucose 113 mg/dL (70-99); Osmolality Calculated 290 mOsm/kg (285-295); Potassium 3.9 mmol/L (3.5-5.1); Sodium 138 mmol/L (136-145); Total Protein 6.8 g/dL (6.4-8.2); Troponin I 5.4 ng/L (0.00-60.4)
[2023-06-16 14:25] LABS: Lipase 28 U/L (16-77)
--- NOTE | 2023-06-16 14:39 | PC.NURSE ---
PT RETURNED FROM CT AND FOREARM DRESSING WAS SATURATED. NEW DRESSING APPLIED WITH PRESSURE DRESSING IN PLACE. PT IS NOW NOTED TO HAVE A HEMATOMA, THAT WAS NOT THERE PRIOR TO DRESSING THE WOUND. WILL CONTINUE TO MONITOR.
[2023-06-16 14:46] VITALS: BP 108/78; PULSE 68; RESP 16; O2SAT 96
--- NOTE | 2023-06-16 14:47 | PC.NURSE ---
ice pack and madeleine wrap applied to left forearm.
[2023-06-16] MEDS: ACETAMINOPHEN 325 MG TABLET 650 MG PO (14:49)
== END 2023-06-16 15:10 | disposition home or self-care (01) ==
PROVIDERS: Emergency Provider Internal Medicine Critical Care Medicine; PCP Internal Medicine
DX: S51.812A Laceration without foreign body of left forearm, initial encounter (principal); S80.212A Abrasion, left knee, initial encounter; S20.01XA Contusion of right breast, initial encounter; S00.81XA Abrasion of other part of head, initial encounter; I10 Essential (primary) hypertension; E11.9 Type 2 diabetes mellitus without complications; E78.5 Hyperlipidemia, unspecified; E03.9 Hypothyroidism, unspecified; I25.810 Atherosclerosis of coronary artery bypass graft(s) without angina pectoris; Z79.899 Other long term (current) drug therapy; W01.0XXA Fall on same level from slipping, tripping and stumbling without subsequent striking against object, initial encounter; Y92.009 Unspecified place in unspecified non-institutional (private) residence as the place of occurrence of the external cause
CPT/HCPCS: 36415; 70450; 71045; 72125; 72170; 73562; 80053; 83690; 84484; 85025; 99284; A9270

== ENCOUNTER 2023-07-23 02:11 | Day surgery (SDC) | payer MEDICARE, BC, SELFPAY ==
[2023-07-07 08:37] VITALS: BMI 29.0
--- NOTE | 2023-07-21 11:24 | SUR.PREOP ---
Patient called regarding upcoming procedure. Reviewed preop instructions, appointment times, and procedure prep.
[2023-07-23 06:50] VITALS: BP 130/69; PULSE 65; RESP 18; TEMP 36; O2SAT 98
[2023-07-23] MEDS: LACTATED RINGERS 1,000 ML 150 ML IV CONT (07:00)
[2023-07-23 07:04] LABS: Glucose Point of Care 127 mg/dl (65-105)
--- NOTE | 2023-07-23 07:49 | WPDANESEPPF ---
Anes - Initial Pre Proc Eval Procedure: Operation Date: 07/23/23 08:00 Proposed Procedures p Screening Colonoscopy - Jarrod Deras DO Date/Time: 07/23/23 07:49 Surgeon: Jarrod Deras DO Pre Op Diagnosis: neoplasm screening Patient Data Age: 87 Gender: F Height: 1.57 m Weight: 70.8 kg Last Vital Signs Temp 96.8 F L 07/23/23 06:50 Pulse 65 07/23/23 06:50 Resp 18 07/23/23 06:50 BP 130/69 07/23/23 06:50 Pulse Ox 98 07/23/23 06:50 O2 Del Method Room Air 07/23/23 06:50 Allergies Allergy/AdvReac Type Severity Reaction Status Date / Time sulfamethoxazole Allergy Hives Verified 07/23/23 06:47 [From Bactrim] trimethoprim [From Bactrim] Allergy Hives Verified 07/23/23 06:47 Home Medications Medication Instructions Recorded Confirmed Type levothyroxine 88 mcg tablet 75 mcg PO DAILY 07/14/19 07/07/23 History pantoprazole 20 mg tablet,delayed 40 mg PO QAM 07/14/19 07/07/23 History release furosemide 40 mg tablet 40 mg PO DAILY 01/14/22 07/07/23 History potassium chloride 20 mEq 20 meq PO DAILY 01/14/22 07/07/23 History tablet,extended release(part/cryst) fluoxetine 20 mg capsule 20 mg PO DAILY 10/12/22 07/07/23 History metoprolol succinate 100 mg 100 mg PO DAILY 10/12/22 07/07/23 History tablet,extended release 24 hr rosuvastatin 5 mg tablet 5 mg PO DAILY 10/12/22 07/07/23 History sitagliptin phosphate 50 mg tablet 50 mg PO DAILY 06/16/23 07/07/23 History (Januvia) aspirin 81 mg capsule 81 mg PO DAILY 07/07/23 07/07/23 History Laboratory Tests 07/23/23 06:59 POC Capillary Glucose 127 H mg/dl (65-105) Patient hx anesthesia problems: none Family hx anesthesia problems: none Results Review: All pre-operative results and documents have been reviewed as part of the pre-operative evaluation. [facility] Past Medical History Medical History Coronary artery disease involving coronary bypass graft Diabetes type 2, controlled Hypertension Surgical History Surgical History Failed CABG (coronary artery bypass graft) Social History Social History Smoking status: Never smoker Alcohol intake: never Substance use: never Substance use type: does not use Living arrangements: with friend(s) Additional living arrangements comments: lives with fiance Spiritual care concerns: No Anes - Eval Final PreProcedure Day of Procedure 07/23/23 07:49 Patient weight: normal Heart: regular rate and rhythm Lungs: clear to auscultation Airway: Mallampati scale Neurological: alert and oriented Last oral intake: >/= 8 hours ASA classification: III Emergent: no Anesthetic plan: proceed Anesthesia type and monitoring: general GIVS and standard monitoring Results Review: All pre-operative results and documents have been reviewed as part of the pre-operative evaluation. Informed Consent: The patient's anesthetic plan and its attendant risks and benefits were discussed with the patient/family/POA. Questions were solicited and answers provided to the satisfaction of the patient/family/POA.
--- NOTE | 2023-07-23 08:04 | PM.IMHP ---
H&P: HPI History of Present Illness Date/Time: 07/23/23 08:04 Chief Complaint: Screening for colorectal cancer. Narrative: This is an 87-year-old woman who presents for colonoscopy. Her last colonoscopy was 10 years ago and was normal. She denies any hematochezia melena and denies family history of colon cancer. She was having some changes in bowel habits after being on metformin for several years, but her medications have recently changed and she states that that has resolved. Review of Systems Review of Systems: All systems reviewed & are unremarkable except as noted in HPI and below Constitutional: Constitutional: Denies chills, Denies fever(s), Denies headache(s) and Denies weight loss Eyes: Eyes: Denies change in vision ENT: Denies dizziness, Denies headache(s), Denies neck mass and Denies throat swelling Cardiovascular: Cardiovascular: Denies chest pain, Denies lightheadedness and Denies dyspnea Respiratory: Respiratory: Denies cough, Denies dyspnea and Denies wheezing Gastrointestinal: Gastrointestinal: Denies abdominal pain, Denies change in bowel habits, Denies nausea and Denies vomiting Genitourinary: Genitourinary: Denies hematuria and Denies dysuria Musculoskeletal: Musculoskeletal: Reports as per HPI Integumentary/Breasts: Skin/Breast: Reports as per HPI Neurologic: Denies dizziness and Denies headache(s) Allergic/Immunologic: Allergic/Immunologic: Denies throat swelling and Denies wheezing [facility] Past Medical History Medical History Coronary artery disease involving coronary bypass graft Diabetes type 2, controlled Hypertension Surgical History Surgical History Failed CABG (coronary artery bypass graft) Social History Social History Smoking status: Never smoker Alcohol intake: never Substance use: never Substance use type: does not use Living arrangements: with friend(s) Additional living arrangements comments: lives with fiance Spiritual care concerns: No Meds Home Medications and Allergies Home Medications Medication Instructions Recorded Confirmed Type levothyroxine 88 mcg tablet 75 mcg PO DAILY 07/14/19 07/07/23 History pantoprazole 20 mg tablet,delayed 40 mg PO QAM 07/14/19 07/07/23 History release furosemide 40 mg tablet 40 mg PO DAILY 01/14/22 07/07/23 History potassium chloride 20 mEq 20 meq PO DAILY 01/14/22 07/07/23 History tablet,extended release(part/cryst) fluoxetine 20 mg capsule 20 mg PO DAILY 10/12/22 07/07/23 History metoprolol succinate 100 mg 100 mg PO DAILY 10/12/22 07/07/23 History tablet,extended release 24 hr rosuvastatin 5 mg tablet 5 mg PO DAILY 10/12/22 07/07/23 History sitagliptin phosphate 50 mg tablet 50 mg PO DAILY 06/16/23 07/07/23 History (Januvia) aspirin 81 mg capsule 81 mg PO DAILY 07/07/23 07/07/23 History Allergies Allergy/AdvReac Type Severity Reaction Status Date / Time sulfamethoxazole Allergy Hives Verified 07/23/23 06:47 [From Bactrim] trimethoprim [From Bactrim] Allergy Hives Verified 07/23/23 06:47 Vital Signs Vital Signs - 24 hr 07/23/23 06:50 Temperature 36.0 C L Pulse Rate 65 Respiratory Rate 18 Blood Pressure 130/69 Pulse Oximetry 98 Oxygen Delivery Room Air Exam Const: General: no acute distress and alert Orientation/consciousness: patient oriented x3 HENMT: Head: normocephalic and atraumatic Ears: hearing grossly normal bilaterally Face/Nose/Sinus: Normal nares present Mouth: Yes Normal oral and palatal mucosa present Eyes: Periorbital: periorbital findings normal Sclera: sclerae normal EOM: EOMs intact bilaterally Neck: Neck: normal visual inspection, no lymphadenopathy and trachea midline Chest: Chest palpation & inspection: normal inspection of the chest Resp: Effort & Inspection: normal respir
[2023-07-23 08:37] VITALS: BP 105/56; PULSE 72; RESP 17; O2SAT 99
[2023-07-23 08:47] VITALS: BP 116/65; PULSE 66; RESP 19; O2SAT 99
[2023-07-23 08:57] VITALS: BP 130/96; PULSE 69; RESP 20; O2SAT 100
== END 2023-07-23 09:10 | disposition home or self-care (01) ==
PROVIDERS: PCP Internal Medicine; Visit Provider Surgery
PROC: 0DJD8ZZ Inspection of Lower Intestinal Tract, Via Natural or Artificial Opening Endoscopic (ICD-10-PCS; CPT 45378; principal; 2023-07-23 08:00)
DX: Z12.11 Encounter for screening for malignant neoplasm of colon (principal); D12.8 Benign neoplasm of rectum; K57.30 Diverticulosis of large intestine without perforation or abscess without bleeding; I10 Essential (primary) hypertension; E11.9 Type 2 diabetes mellitus without complications; Z79.84 Long term (current) use of oral hypoglycemic drugs; Z79.82 Long term (current) use of aspirin; Z95.1 Presence of aortocoronary bypass graft; Z86.79 Personal history of other diseases of the circulatory system
CPT/HCPCS: 45380; 82948; 88305; J2704; J7120

== ENCOUNTER 2023-08-24 13:37 | Outpatient (CLI) | payer MEDICARE, BC, SELFPAY ==
--- NOTE | ~2023-08-24 | XR_ITS ---
EXAMINATION: XR knee RT 3V DATE: 08/24/2023 13:55 INDICATION: Chronic right knee pain. TECHNIQUE: Standing anteroposterior, sunrise and lateral views of the right knee were obtained COMPARISON: 09/02/2022 FINDINGS: Mild genu valgus. No fracture. Tricompartmental osteoarthritis at the right knee, severe at the later al compartment with remodeling of the lateral tibial plateau and large marginal osteophytes. Small ma rginal osteophytes at the medial and patellofemoral compartments. Small right knee joint effusion. IMPRESSION: 1. 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 Reviewed, dictated and finalized at location A. SITION LEAD IMPRESSION: 1. 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
== END 2023-08-24 13:38 | disposition home or self-care (01) ==
PROVIDERS: PCP Internal Medicine; Visit Provider Internal Medicine
DX: M25.561 Pain in right knee (principal); M79.89 Other specified soft tissue disorders; M17.11 Unilateral primary osteoarthritis, right knee; M25.461 Effusion, right knee
CPT/HCPCS: 73562

== ENCOUNTER 2023-10-27 07:13 | Outpatient (CLI) | payer MEDICARE, BC, SELFPAY ==
--- NOTE | ~2023-10-27 | DEXA_ITS ---
? Bone Density Report? Name:? KAREL MORILLO Patient ID:??? [id number] Age:? 88 Sex:? Female Ethnicity:? White Date of : 1935 Indication: postmenopausal; screening for osteoporosis; height loss; Referring Provider: Lisette Marmolejo Study: Bone densitometry was performed. Exam Date: October 27, 2023 Accession number: [id number] Bone Density: Region? BMD??? T-score? Z-score?? Classification AP Spine(L2, L3, L4)? 1.478??? 3.6?6.6? Normal Femoral Neck (Left)? 0.976??? 1.1? 3.7? Normal Total Hip (Left)? 1.072??? 1.1? 3.4? Normal Femoral Neck (Right)? 0.868??? 0.2? 2.7? Normal Total Hip (Right)? 1.009??? 0.6? 2.9? Normal Femoral Neck Mean? 0.922??? 0.7? 3.2? Normal Total Hip Mean? 1.040??? 0.8? 3.1? Normal World Health Organization criteria for BMD impression classify patients as: Normal (T-score at or above -1.0), Osteopenia (T-score between -1.0 and -2.5), or Osteoporosis (T-score at or below -2.5). 10-year Fracture Risk: FRAX not reported because: ? All T-scores for Spine Total, Hip Total, Femoral Neck at or above -1.0 Clinical Information Provided by Patient: Has used the following medications: Vitamin D Patient maximum height was 63 Menopause Age: 51 No regular weight bearing exercise Drinks caffeinated beverages Onset of menses at age 14 Number of children 5 Impression: The patient has normal bone mass. Discussion: LOW RISK OF FRACTURE; BONE DENSITY IS WELL ABOVE THE MINIMUM DESIRABLE LEVEL AND ABOVE AVERAGE FOR AGE AND SEX AT ALL SKELETAL SITES TESTED. This person's bone density is above expected limits for age and sex. This is rarely clinically significant, but should be pursued if there are significant musculoskeletal complaints. The patient should follow a healthful lifestyle (good nutrition with adequate calcium and vitamin D, and appropriate weight- bearing exercise). Follow-Up: Consider repeating this study in 5 years or sooner if there is some new clinical indication. Reported by: Dr. Mike Hanks on 48:04:00 AM. MELANI
== END 2023-10-27 07:14 | disposition home or self-care (01) ==
LOC: CHSIMG 07:14
PROVIDERS: PCP Internal Medicine; Visit Provider Internal Medicine
DX: Z78.0 Asymptomatic menopausal state (principal)
CPT/HCPCS: 77080

== ENCOUNTER 2024-01-13 15:11 | Outpatient (CLI) | payer MEDICARE, SELFPAY ==
[2024-01-13 15:28] LABS: Hematocrit 41.2 % (35.0-42.0); Hemoglobin 13.4 g/dL (11.7-13.8); Mean Corpuscular HGB Conc 32.5 g/dL (32-36); Mean Corpuscular Hemoglobin 28.8 pg (27.0-31.0); Mean Corpuscular Volume 88.6 fL (78.0-102.0); Mean Platelet Volume 10.8 fl (9.2-11.8); Platelet Count Result 250 K/mm3 (150-420); Red Blood Count 4.65 M/mm3 (4.20-5.40); Red Cell Distribution Width 13.5 % (11.6-14.4); White Blood Count 9.8 K/mm3 (4.8-10.8)
[2024-01-13 15:47] LABS: Alanine Aminotransferase 20 U/L (14-59); Alkaline Phosphatase 63 U/L (46-116); Anion Gap 8 mmol/L (4-12); Aspartate Amino Transferase 15 U/L (15-37); Bilirubin,Total 0.6 mg/dL (0.00-1.00); Blood Urea Nitrogen 17 mg/dL (7-18); Calcium 8.8 mg/dL (8.5-10.1); Carbon Dioxide 32 mmol/L (21-32); Chloride 100 mmol/L (98-108); Estimated Glomerular Filt Rate > 60; Glucose 105 mg/dL (70-99); Osmolality Calculated 291 mOsm/kg (285-295); Potassium 3.9 mmol/L (3.5-5.1); Sodium 140 mmol/L (136-145); Total Protein 6.7 g/dL (6.4-8.2)
== END 2024-01-13 15:12 | disposition home or self-care (01) ==
LOC: CHSLAB 15:13
PROVIDERS: PCP Internal Medicine; Visit Provider Internal Medicine
DX: R19.7 Diarrhea, unspecified (principal)
CPT/HCPCS: 36415; 80053; 85027

== ENCOUNTER 2024-03-17 11:48 | Outpatient (CLI) | payer MEDICARE, BC, SELFPAY ==
--- NOTE | 2024-03-17 11:56 | ECHO_ITS ---
Patient: Jackie Martinez : 1935 MR#: [id number] Age: 88 Acct:[id number] Loc: [facility] ADM Date: 03/17/[address]: Lisette Marmolejo M.D. Ordering Physician: Lisette Marmolejo MD Date of Service: 03/17/24 Procedure(s): CA echo dop color flow w con Accession Number(s): [id number] cc: ~ Patient Info Name: Jackie Martinez Age: 88 years : 1935 Gender: Female Ht: 62 in Wt: 151 lbs BSA: 1.75 m2 HR: 60 bpm BP: 129 / 75 mmHg Heart Rhythm: Sinus Rhythm Technical Quality: Poor Exam Date: 03/17/2024 11:50 AM Exam Location: Echo Lab Patient Status: Outpatient Admit Date: 03/17/2024 Staff Ordering Physician: Lisette Marmolejo MD Barrel Driller: Tatyana Jefferson RDCS Attending Provider: Lisette Marmolejo MD Referring Physician: Jaleel NYE; Exam Type: CA echo dop color flow w con Study Info Indications - chf Complete two-dimensional, color flow and Doppler transthoracic echocardiogram is performed with contrast to opacify the left ventricle and to improve the deliniation of the left ventricle endocardial borders. Reason for Poor Study: poor echocardiographic windows Summary 1. Technically suboptima study due to poor sonographic images. 2. Definity contrast administered improved wall motion interpretation. 3. Left ventricular chamber dimension is normal. 4. Left ventricular systolic function is normal, estimated at 60-65%. 5. The left ventricular diastolic function is grade I diastolic dysfunction. 6. The aortic valve is not well visualized. Cannot determine number of aortic valve leaflets. 7. There is mild aortic valve regurgitation. 8. The mitral valve has moderately calcified annulus. 9. No pulmonary hypertension, estimated pulmonary arterial systolic pressure is 13 mmHg. Left Ventricle Tissue doppler E/e' is not measured. Technically suboptima study due to poor sonographic images. Definity contrast administered improved wall motion interpretation. Left ventricular chamber dimension is normal. Left ventricular systolic function is normal, estimated at 60-65%. The left ventricular diastolic function is grade I diastolic dysfunction. Right Ventricle Right ventricular systolic function is normal and with normal TAPSE 1.8 cm. Right ventricular chamber dimension is normal. Left Atria Left atrial chamber dimension is normal. Right Atria Right atrial chamber dimension is normal. Aortic Valve The aortic valve is not well visualized. Cannot determine number of aortic valve leaflets. There is no aortic valve stenosis based on valve gradients and velocity. There is mild aortic valve regurgitation. Pulmonic Valve There is no pulmonic regurgitation. Mitral Valve The mitral valve has moderately calcified annulus. There is no mitral valve stenosis. There is no mitral valve regurgitation. Tricuspid Valve There is no tricuspid valve regurgitation. No pulmonary hypertension, estimated pulmonary arterial systolic pressure is 13 mmHg. Pericardium/Pleural There is no pericardial effusion. Inferior Vena Cava Normal inferior vena cava with >50% collapse upon inspiration consistent with normal right atrial pressure, 5 mmHg. Aorta The aortic root size at the sinus of Valsalva is normal. Left Ventricular Outflow Tract
== END 2024-03-17 11:49 | disposition home or self-care (01) ==
LOC: CHSIMG 11:51
PROVIDERS: PCP Internal Medicine; Visit Provider Internal Medicine
DX: I50.9 Heart failure, unspecified (principal); I35.1 Nonrheumatic aortic (valve) insufficiency
CPT/HCPCS: C8929

== ENCOUNTER 2024-03-21 07:15 | Outpatient (CLI) | payer MEDICARE, SELFPAY ==
[2024-03-21 07:30] LABS: Basophils Absolute Auto 0.04 K/mm3 (0.00-0.10); Basophils Percent Auto 0.5 % (0.0-1.0); Eosinophils Absolute Auto 0.22 K/mm3 (0.02-0.50); Eosinophils Percent Auto 2.9 % (1.0-6.0); Hematocrit 42.1 % (35.0-42.0); Hemoglobin 13.7 g/dL (11.7-13.8); Immature Granulocyte Absolute 0.02 K/mm3 (0.00-0.00); Immature Granulocyte Percent A 0.3 % (0.0-0.0); Lymphocytes Absolute Auto 2.57 K/mm3 (1.10-4.50); Lymphocytes Percent Auto 34.4 % (18.0-42.0); Mean Corpuscular HGB Conc 32.5 g/dL (32-36); Mean Corpuscular Hemoglobin 29.1 pg (27.0-31.0); Mean Corpuscular Volume 89.6 fL (78.0-102.0); Mean Platelet Volume 9.9 fl (9.2-11.8); Neutrophils Absolute Auto 4.02 K/mm3 (1.70-7.20); Neutrophils Percent Auto 53.9 % (50.0-70.0); Platelet Count Result 213 K/mm3 (150-420); Red Cell Distribution Width 14.4 % (11.6-14.4); White Blood Count 7.5 K/mm3 (4.8-10.8)
[2024-03-21 07:40] LABS: Appearance Urine Clear (Clear); Color Urine Yellow (Yellow)
[2024-03-21 07:41] LABS: Add Urine Microscopic? NO; Bilirubin Urine Negative (Negative); Blood Urine Negative (Negative); Glucose Urine UA Negative (Negative); Ketones Urine Negative (Negative); Leukocyte Esterase Ur Negative (Negative); Nitrate Urine Negative (Negative); Protein Urine Negative (Negative); Urobilinogen Urine Normal mg/dL (0.2-1.0)
[2024-03-21 16:26] LABS: Alanine Aminotransferase 14 U/L (14-59); Albumin Level 3.9 g/dL (3.4-5.0); Alkaline Phosphatase 56 U/L (46-116); Anion Gap 3 mmol/L (4-12); Aspartate Amino Transferase 14 U/L (15-37); Bilirubin,Total 0.8 mg/dL (0.00-1.00); Blood Urea Nitrogen 13 mg/dL (7-18); Calcium 8.8 mg/dL (8.5-10.1); Carbon Dioxide 37 mmol/L (21-32); Chloride 104 mmol/L (98-108); Cholesterol 144 mg/dL (0-200); Creatine Kinase 48 U/L (26-192); Estimated Glomerular Filt Rate 60; Free T4 Free Thyroxine 0.97 ng/dL (0.76-1.46); Glucose 114 mg/dL (70-99); HDL Direct 50 mg/dL (40-60); LDL Cholesterol Calculated 69 mg/dL (<130); NT Pro B Type Natriuretic Pept 505 pg/mL (0-450); Osmolality Calculated 299 mOsm/kg (285-295); Potassium 4.1 mmol/L (3.5-5.1); Sodium 144 mmol/L (136-145); Thyroid Stimulating Hormone 2.83 uIU/mL (0.36-3.74); Total Protein 6.4 g/dL (6.4-8.2); Triglycerides 127 mg/dL (0-150); Uric Acid 6.3 mg/dL (2.6-6.0)
[2024-03-21 16:56] LABS: Creatinine Urine 177.65 mg/dL (40-278); MALB Creatinine Ratio 7.3 mg/g (0-30); Microalbumin Urine Random < 13.0 mg/L
[2024-03-21 17:17] LABS: Hemoglobin A1C 5.8 % (<5.7)
== END 2024-03-21 07:16 | disposition home or self-care (01) ==
LOC: CHSLAB 07:17
PROVIDERS: PCP Internal Medicine; Visit Provider Internal Medicine
DX: I10 Essential (primary) hypertension (principal); E78.2 Mixed hyperlipidemia; E11.65 Type 2 diabetes mellitus with hyperglycemia; E03.4 Atrophy of thyroid (acquired); E79.0 Hyperuricemia without signs of inflammatory arthritis and tophaceous disease; G62.9 Polyneuropathy, unspecified; I50.9 Heart failure, unspecified
CPT/HCPCS: 36415; 80053; 80061; 81003; 82043; 82550; 83036; 83880; 84439; 84443; 84550; 85025

== ENCOUNTER 2024-06-01 07:27 | Emergency (ER) | payer MEDICARE, BC, SELFPAY ==
[2024-06-01] VITALS (16 sets, daily range): BP systolic 107–139; BP diastolic 63–75; PULSE 65–88; RESP 16–20; TEMP 36.4–37; O2SAT 94–99
--- NOTE | 2024-06-01 07:39 | ED_ITS ---
HPI - Weakness General Chief complaint: Weakness Stated complaint: weakness Time Seen by Provider: 06/01/24 07:38 Source: patient and EMS Mode of arrival: ambulatory Limitations: no limitations History of Present Illness HPI Narrative: 88-year-old female with a history of hypertension, diabetes mellitus, dyslipidem ia, hypothyroidism, arthritis, polyneuropathy, GERD, CAD status post CABG in 2019, CHF, anxiety presents to the ED with -- generalized weakness which started when she got up this morning. The patient thought her blood sugar was low and drank some orange juice. Her weakness was progressive so she called EMS. Her blood sugar was noted to be 150. -- Patient was noted to be shaky and anxious. No chest pain or shortness of breath no nausea/vomiting /abdominal pain / diarrhea/dysuria no fever or chills. the patient is physically active. She had her cardiac rehab yesterday. On arrival the patient was able to ambulate to her bed. MD Complaint: generalized weakness Onset (ago): hour(s) ( 2 hours) Duration: constant Location: generalized Relieving factors: none Exacerbating factors: none Associated symptoms: denies other symptoms Related Data Home Medications Medication Instructions Recorded Confirmed levothyroxine 88 mcg tablet 75 mcg PO DAILY 07/14/19 06/01/24 pantoprazole 20 mg tablet,delayed 40 mg PO QAM 07/14/19 06/01/24 release furosemide 40 mg tablet 40 mg PO DAILY 01/14/22 06/01/24 potassium chloride 20 mEq 20 meq PO DAILY 01/14/22 06/01/24 tablet,extended release(part/cryst) fluoxetine 20 mg capsule 20 mg PO DAILY 10/12/22 06/01/24 metoprolol succinate 100 mg 100 mg PO DAILY 10/12/22 06/01/24 tablet,extended release 24 hr rosuvastatin 5 mg tablet 5 mg PO DAILY 10/12/22 06/01/24 sitagliptin phosphate 50 mg tablet 50 mg PO DAILY 06/16/23 06/01/24 (Januvia) aspirin 81 mg capsule 81 mg PO DAILY 07/07/23 06/01/24 Allergies Allergy/AdvReac Type Severity Reaction Status Date / Time sulfamethoxazole Allergy Hives Verified 06/01/24 07:42 [From Bactrim] trimethoprim [From Bactrim] Allergy Hives Verified 06/01/24 07:42 Review of Systems Review of Systems: All systems reviewed & are unremarkable except as noted in HPI and below Constitutional: Constitutional: Reports as per HPI and Reports no additional constitutional complaints Eyes: Eyes: Reports as per HPI and Reports no additional eye complaints ENT: Reports system reviewed and no additional complaints, except as documented and Reports as per HPI Cardiovascular: Cardiovascular: Reports as per HPI and Reports no additional cardiovascular complaints Respiratory: Respiratory: Reports as per HPI and Reports no additional respiratory complaints Gastrointestinal: Gastrointestinal: Reports as per HPI and Reports no addition al gastrointestinal complaints Genitourinary: Genitourinary: Reports no additional female genitourinary complaints and Reports as per HPI Musculoskeletal: Musculoskeletal: Reports no additional musculoskeletal complaints and Reports as per HPI Integumentary/Breasts: Skin/Breast: Reports system reviewed and no additional complaints, except as docu and Reports as per HPI Neurologic: Reports system reviewed and no additional complaints, except as documented and Reports as per HPI Psychiatric: Psychiatric: Reports no additional psychiatric complaints and Reports as per HPI Endocrine: Endocrine: Reports no additional endocrine complaints and Reports as per HPI Hematologic/Lymphatic: Hematologic/Lymphatic: Reports no additional hematologic/lymphatic complaints and Reports as per HPI Allergic/Immunologic: Allergic/Immunologic: Reports no additional allergic/immunologic complaints and Reports as per HPI [facility] Past Medical History Medical History Coronary artery disease involving coronary bypass graft Diabetes type 2, controlled Hypertension Surgical History Surgical History Failed CABG (coronary artery bypass graft) Social History Social History Smoking status: Never smoker Alcohol intake: never Substance use: never Substance use type: does not use Living arrangements: with friend(s) Additional living arrangements comments: lives with fiance Spiritual care concerns: No Exam Narrative: Afebrile. Oxygen saturation 99% on room air with a respiratory rate of 20. Const: General: healthy appearing and no acute distress Nutritional Appearance: well nourished Orientation/consciousness: patient oriented x3 Limitations: no limitations HENMT: Head: normal to inspection Ears: external ears normal Face/Nose/Sinus: Normal external nose present Face and sinus: normal facial exam Mouth: Yes Normal oral and palatal mucosa present Throat: posterior oropharynx normal Eyes: Conjunctivae: conjunctivae normal Pupils: Equal, round and reactive pupils present EOM: EOMs intact bilaterally Direct Ophthalmoscopy: no photophobia Neck: Neck: normal visual inspection, no lymphadenopathy and no meningeal signs Chest: Chest palpation & inspection: normal inspection of the chest Resp: Effort & Inspection: normal respiratory effort Auscultation: clear to auscultation bilaterally Cardio: Rate: regular rate Rhythm: regular rhythm GI: GI Palp: Yes Soft to palpation Auscultation: normal bowel sounds Other: No tenderness/rigidity / rebound. : General: Yes no CVA tenderness Back/Spine/Pelvis: Back: no CVA tenderness Skin: General skin exam: normal color Rashes: no rashes Wounds: no wounds Neuro: General: patient oriented x3, moves all extremities, no meningeal signs, no focal motor deficits and CN's II-XI intact bilaterally Cranial nerves: Yes Nystagmus not present Speech: normal speech Gait exam (Neuro): Normal gait present Extrem: General: normal to inspection and no clubbing, cyanosis or edema Psych: Mental Status: mental status grossly normal Affect: normal affect Attitude: cooperative Course Course Emergency Course: Generalized weakness- Patient had an unremarkable EKG. Patient has had normal cardiacs, chemistries, TSH and normal UA anxiety Vital Signs Vital signs: Vital Signs Temperature 36.4 C L 06/01/24 07:27 Pulse Rate 65 06/01/24 07:27 Respiratory Rate 20 06/01/24 07:27 Blood Pressure 122/73 06/01/24 07:27 Pulse Oximetry 99 06/01/24 07:27 Oxygen Delivery Room Air 06/01/24 07:27 Temperature 36.4 C L 06/01/24 07:27 Pulse Rate 65 06/01/24 07:27 Respiratory Rate 20 06/01/24 07:27 Blood Pressure 122/73 06/01/24 07:27 Pulse Oximetry 99 06/01/24 07:27 Oxygen Delivery Room Air 06/01/24 07:27 MDM - Weakness MDM Narrative Medical decision making narrative: Generalized weakness anxiety Differential Diagnosis Differential diagnosis: Likely acute myocardial infarction, hypoglycemia and hypothyroidism Medical Records Attestation: I reviewed the patient's medical records. Lab Data Attestation: I reviewed the patient's lab results. 06/01/24 07:57 11/20/24 07:57 Labs: Lab Results 06/01/24 06/01/24 Range/Units 07:49 07:57 WBC 7.6 (4.8-10.8) K/mm3 RBC 4.51 (4.20-5.40) M/mm3 Hgb 13.0 (11.7-13.8) g/dL Hct 39.3 (35.0-42.0) % MCV 87.1 (78.0-102.0) fL MCH 28.8 (27.0-31.0) pg MCHC 33.1 (32-36) g/dL RDW 13.9 (11.6-14.4) % Plt Count 206 (150-420) K/mm3 MPV 10.3 (9.2-11.8) fl Immature Gran % (Auto) 0.3 H (0.0-0.0) % Neut % (Auto) 65.1 (50.0-70.0) % Lymph % (Auto) 24.0 (18.0-42.0) % Giles % (Auto) 6.4 (2.0-11.0) % Eos % (Auto) 3.7 (1.0-6.0) % Baso % (Auto) 0.5 (0.0-1.0) % Lymph # (Auto) 1.81 (1.10-4.50) K/mm3 Giles # (Auto) 0.48 (0.10-0.90) K/mm3 Eos # (Auto) 0.28 (0.02-0.50) K/mm3 Baso # (Auto) 0.04 (0.00-0.10) K/mm3 Abs Immat Gran (auto) 0.02 H (0.00-0.00) K/mm3 Absolute Neuts (auto) 4.92 (1.70-7.20) K/mm3 Absolute Nucleated RBC 0.00 (0.00-0.00) K/mm3 Nucleated RBC % 0.0 (0-0.0) % Sodium 139 (136-145) mmol/L Potassium 4.1 (3.5-5.1) mmol/L Chloride 102 (98-108) mmol/L Carbon Dioxide 28 (21-32) mmol/L Anion Gap 9 (4-12) mmol/L BUN 10 (7-18) mg/dL Creatinine 0.96 (0.55-1.02) mg/dL Estim Creat Clear Calc 33 ml/min Estimated GFR 55 L (59 - ) Glucose 128 H (70-99) mg/dL Calculated Osmolality 289 (285-295) mOsm/kg Lactic Acid 2.1 H (0.4-2.0) mmol/L Calcium 8.9 (8.5-10.1) mg/dL Total Bilirubin 1.0 (0.00-1.00) mg/dL AST 10 L (15-37) U/L ALT 17 (14-59) U/L Alkaline Phosphatase 57 (46-116) U/L Troponin I < 4.0 (0.00-60.4) ng/L NT-Pro-B Natriuret Pep 383 (0-450) pg/mL Total Protein 6.0 L (6.4-8.2) g/dL Albumin 3.4 (3.4-5.0) g/dL TSH 3.95 H (0.36-3.74) uIU/mL Urine Color Light yellow (Yellow) Urine Appearance Clear (Clear) Urine pH 7.0 (5.0-8.0) Ur Specific Jennings 1.010 (1.010-1.020) Urine Protein Negative (Negative) Urine Glucose (UA) Negative (Negative) Urine Ketones Negative (Negative) Ur Blood (Man) Negative (Negative) Urine Nitrate Negative (Negative) Urine Bilirubin Negative (Negative) Urine Urobilinogen 0.2 (0.2-1.0) mg/dL Leukocyte Esterase Rfl Negative (Negative) MARGARITA/UL ECG Data EKG #1: ECG completion date: 06/01/24 ECG completion time: 08:21 Interpretation: normal sinus rhythm. Normal axis. No ST-T wave changes noted. Discharge Plan Discharge Clinical Impression: Weakness, Anxiety Patient Disposition: Home, Self-Care Condition: Stable Instructions: Antibiotic Form, Weakness (ED), Anxiety (ED) Patient Language: Argentine Prescriptions: No Action furosemide 40 mg tablet 40 mg PO DAILY potassium chloride 20 mEq tablet,ER particles/crystals 20 meq PO DAILY Januvia 50 mg tablet 50 mg PO DAILY pantoprazole 20 mg Tablet,Delayed Release (Dr/Ec) 40 mg PO QAM levothyroxine 88 mcg Tablet 75 mcg PO DAILY metoprolol succinate 100 mg tablet extended release 24 hr 100 mg PO DAILY fluoxetine 20 mg capsule 20 mg PO DAILY rosuvastatin 5 mg tablet 5 mg PO DAILY aspirin 81 mg Capsule 81 mg PO DAILY Follow-up/Referrals: Lisette Marmolejo MD [Primary Care Provider] - Time of Disposition: 08:32
--- NOTE | 2024-06-01 07:49 | ECG_ITS ---
Test Date: 2024-06-01 08:02:19 Measurements Intervals [place] Rate: 63 P: 43 SD: 171 QRS: -8 QRSD: 86 T: 52 QT: 397 QTc: 409 Interpretive Statements SINUS RHYTHM BASELINE WANDER- I, III NORMAL ECG No previous ECG available for comparison Electronically Signed On 06-01-2024 08:15:23 TREE WRAPPER by Roddy Quintana D.O.
[2024-06-01 08:02] LABS: Basophils Absolute Auto 0.04 K/mm3 (0.00-0.10); Basophils Percent Auto 0.5 % (0.0-1.0); Eosinophils Absolute Auto 0.28 K/mm3 (0.02-0.50); Eosinophils Percent Auto 3.7 % (1.0-6.0); Hematocrit 39.3 % (35.0-42.0); Immature Granulocyte Absolute 0.02 K/mm3 (0.00-0.00); Immature Granulocyte Percent A 0.3 % (0.0-0.0); Lymphocytes Absolute Auto 1.81 K/mm3 (1.10-4.50); Mean Corpuscular HGB Conc 33.1 g/dL (32-36); Mean Corpuscular Hemoglobin 28.8 pg (27.0-31.0); Mean Corpuscular Volume 87.1 fL (78.0-102.0); Mean Platelet Volume 10.3 fl (9.2-11.8); Monocytes Absolute Auto 0.48 K/mm3 (0.10-0.90); Monocytes Percent Auto 6.4 % (2.0-11.0); Neutrophils Absolute Auto 4.92 K/mm3 (1.70-7.20); Neutrophils Percent Auto 65.1 % (50.0-70.0); Platelet Count Result 206 K/mm3 (150-420); Red Blood Count 4.51 M/mm3 (4.20-5.40); Red Cell Distribution Width 13.9 % (11.6-14.4); White Blood Count 7.6 K/mm3 (4.8-10.8)
[2024-06-01 08:22] LABS: Lactic Acid Reflex 2.1 mmol/L (0.4-2.0)
[2024-06-01 08:23] LABS: Alanine Aminotransferase 17 U/L (14-59); Albumin Level 3.4 g/dL (3.4-5.0); Alkaline Phosphatase 57 U/L (46-116); Anion Gap 9 mmol/L (4-12); Aspartate Amino Transferase 10 U/L (15-37); Blood Urea Nitrogen 10 mg/dL (7-18); Calcium 8.9 mg/dL (8.5-10.1); Carbon Dioxide 28 mmol/L (21-32); Chloride 102 mmol/L (98-108); Estimated CRCL calculation 33 ml/min; Estimated Glomerular Filt Rate 55; Glucose 128 mg/dL (70-99); NT Pro B Type Natriuretic Pept 383 pg/mL (0-450); Osmolality Calculated 289 mOsm/kg (285-295); Potassium 4.1 mmol/L (3.5-5.1); Sodium 139 mmol/L (136-145); Thyroid Stimulating Hormone 3.95 uIU/mL (0.36-3.74)
[2024-06-01 08:25] LABS: Troponin I < 4.0 ng/L (0.00-60.4)
[2024-06-01 08:26] LABS: Add Urine Microscopic? NO; Appearance Urine Clear (Clear); Bilirubin Urine Negative (Negative); Blood Urine Negative (Negative); Color Urine Light Yellow (Yellow); Glucose Urine UA Negative (Negative); Ketones Urine Negative (Negative); Leukocyte Esterase Ur Negative LEU/UL (Negative); Nitrate Urine Negative (Negative); Protein Urine Negative (Negative); Urobilinogen Urine 0.2 mg/dL (0.2-1.0)
[2024-06-01 10:03] LABS: Reflex Lactic Acid Yes or No Add Lactic
== END 2024-06-01 09:35 | disposition home or self-care (01) ==
PROVIDERS: Emergency Provider Internal Medicine Critical Care Medicine; PCP Internal Medicine
DX: F41.9 Anxiety disorder, unspecified (principal); E11.9 Type 2 diabetes mellitus without complications; E78.5 Hyperlipidemia, unspecified; E03.9 Hypothyroidism, unspecified; I25.810 Atherosclerosis of coronary artery bypass graft(s) without angina pectoris; I11.0 Hypertensive heart disease with heart failure; I50.9 Heart failure, unspecified; Z79.899 Other long term (current) drug therapy; Z79.82 Long term (current) use of aspirin
CPT/HCPCS: 36415; 80053; 81003; 83605; 83880; 84443; 84484; 85025; 93005; 99284

== ENCOUNTER 2024-07-26 08:00 | Outpatient (RCR) | payer SELFPAY | END 2024-09-30 10:02 | disposition home or self-care (01) | LOC: CHSCPRIII 08:00 | PROVIDERS: PCP Internal Medicine; Visit Provider Internal Medicine | DX: Z95.1 Presence of aortocoronary bypass graft (principal) | CPT/HCPCS: 99199 ==

== ENCOUNTER 2024-08-17 09:02 | Outpatient (CLI) | payer MEDICARE, BC, SELFPAY ==
--- NOTE | ~2024-08-17 | XR_ITS ---
EXAMINATION: XR ribs LT 2V w CXR 2V DATE: 08/17/2024 09:29 INDICATION: Left frontal chest wall pain. Fall. TECHNIQUE: Frontal and lateral views of the chest on 3 radiographs and 2 views on 3 radiographs of th e left ribs were obtained. COMPARISON: Chest single view 06/16/2023 FINDINGS: CHEST TWO VIEWS: There is chronic marked elevation of left hemidiaphragm. There is mild atelectasis a t left lung base. No pleural effusion or pneumothorax. The heart size is normal. Median sternotomy wi res and mediastinal surgical clips are seen, likely from prior coronary artery bypass grafting. Media n sternotomy wires and mediastinal surgical clips are seen, likely from prior coronary artery bypass grafting. LEFT RIBS: There is a fracture of left 10th rib. IMPRESSION: 1. Left 10th rib fracture. 2. Chronic marked elevation of left hemidiaphragm with mild atelectasis at left lung base. Reviewed, dictated and finalized at location A. [employer] SERV[employer] PORTER
--- OUTSIDE RECORDS SUMMARY | 2024-08-17 09:29 | XMS_ITS | Encounter Summary ---
Author Organization [facility] Address [facility] [facility] [place] [address] Care Team Providers Care Route Service Manager Name Role Phone Unknown, Provider Primary Care Provider Unavaila ble Encounter Details Date Type Department Care Team (Late st Contact Info) Description 10/12/2022 Ophth Exam [facility] [address] [place] [address] Bakari Paiz MD [address] [facility] [place] [place] [address] Social History Tobacco Use Types Packs/Day Years Used Date Smoking Tobacco: Never Assessed Sex and Gender Information Value Date Recorded Sex Assigned at Not on file Gender Identity Not on file Sexual Orientation Not on file documented as of this encounter Plan of Treatment Not on file documented as of this encounter Visit Diagnoses Not on filedocumented in this encounter Care Teams Route Service Manager Relationship Specialty Start Date End Date Unknown, Provider PCP - General 10/12/22 documented as of this encounter
--- OUTSIDE RECORDS SUMMARY | 2024-08-17 09:30 | XMS_ITS | Clinical Summary ---
Author Organization [facility] Address [address] [facility] [place] [address] Care Team Providers Care Administrative Services Assistant Name Role Phone Unknown, Provider Primary Care Provider Unavaila ble Source Comments [facility],non-owned Affiliates and Associated Physician Practices is amultiple site organization consisting of ambulatory clinics and hospital sitesin [place], [place], [place] and [place]. This disclosure is being madepursuant to the Care Everywhere program and may not contain all information available regarding this patient. Last updated 18.[facility] [employer] Social History Tobacco Use Types Packs/Day Years Used Date Smoking Tobacco: Never Assessed Sex and Gender Information Value Date Recorded Sex Assigned at Not on file Gender Identity Not on file Sexual Orientation Not on file Last Filed Vital Signs Vital Sign Reading Time Taken Comments Blood Pressure 113/64 10/12/2022 4:06 PM CDT Pulse 65 10/12/2022 4:06 PM CDT Temperature 37.1 ??C (98.7 ??F) 10/12/2022 4:06 PM CD T Respiratory Rate 18 10/12/2022 4:06 PM CDT Oxygen Saturation 96% 10/12/2022 4:06 PM CDT Inhaled Oxygen Concentration - - Weight 73.9 kg (163 lb) 10/12/2022 4:06 PM CDT Height 157.5 cm (5' 2 ) 10/12/2022 4:06 PM CDT Body Mass Index 29.81 10/12/2022 4:06 PM CDT Plan of Treatment Health Maintenance Due Date Last Done Comments BONE DENSITY TESTING 1935 MEDICARE AWV ? 12 MONTHS 1935 DTAP/TDAP/TD VACCINES (1 - Tdap) 09/24/1955 PNEUMOCOCCAL VACCINE 50+ (1 of 1 - PCV) 1986 ZOSTER VACCINE (1 of 2) 1986 Respiratory Syncytial Virus (RSV) Vaccine Pt: or over 60 yrs (1 - 1-dose 75+ series) 09/24/2011 COVID-19 VACCINE (1 - 2023-2 5 season) 2024 INFLUENZA VACCINE (#1) 2024 DEPRESSION SCREENING 07/13/2024 HEPATITIS B VACCINE Aged Out No longe r eligible based on patient's age to complete this topic HIB VACCINE Aged Out No longer eligi ble based on patient's age to complete this topic HPV VACCINE Aged Out No longer eligi ble based on patient's age to complete this topic MENINGOCOCCAL (Group B) VACCINE Aged Out No longer eligible based on patient's age to complete this topic MENINGOCOCCAL VACCINE Aged Out No araceli bettina eligible based on patient's age to complete this topic Care Teams Administrative Services Assistant Relationship Specialty Start Date End Date Unknown, Provider PCP - General 10/12/22
--- OUTSIDE RECORDS SUMMARY | 2024-08-17 09:30 | XMS_ITS ---
Author Name [facility] Address [address] [place] [address] Organization [facility], Address [address] [place] [address] Care Team Providers Care Property Disposal Manager Name Role Phone [facility] Primary Care Physician Unavailab Randell Harrison Unavailable Unavailable [facility] Preferred Provider Unavailable Allergies and Adverse Reactions Name Reaction Notes SULFA(SULFONAMIDE ANTIBIOTICS) Medications Active Name Start Date Estimated Comple tion Date SIG Comments aspirin 325 mg oral tablet take 1 tablet (325 mg) by oral route once daily atorvastatin 40 mg oral tablet take 1 tablet (40 mg) by oral route once daily at bedtime Caraway 5-325 mg oral tablet take 1 tablet by oral route every 6 hours as needed for pain losartan 25 mg oral tablet take 1 tablet (25 mg) by oral route once daily metoprolol tartrate 25 mg oral tablet take 1 tablet (25 mg) by oral route once daily metformin 500 mg oral tablet take 1 tablet (500 mg) by oral route 2 times per day with morning and evening meals levothyroxine 88 mcg oral tablet take 1 tablet (88 mcg) by oral route once daily fluoxetine 10 mg oral capsule take 1 capsule (10 mg) by oral route once daily Problem List Description Status Onset Anxiety Active CAD (coronary artery disease) Active Diabetes Active Depression Active HTN (hypertension) Active Hypothyroidism Active Vital Signs Date Time BP-Sys(mm[Hg] BP-Carrie(mm[Hg]) HR(bpm) RR(rpm) Temp WT HT HC BMI BSA BMI Percentile O2 Sat(%) 1:57: 00 PM 140 mm[Hg] 86 mm[Hg] 74 {beats}/ min 178 lbs 62 in 32.5 563 kg/m 2 1.87 93 m2 1:57: 00 PM 140 mm[Hg] 86 mm[Hg] 74 {beats}/ min 178 lbs 62 in 32.5 563 kg/m 2 1.87 93 m2 History of Past Illness Name Date of Onset Comments Coronary artery disease invo lving venetie ira coronary artery of venetie ira heart without angina pectoris Feb 03 2019 3:03PM Anxiety Depression CAD (coronary artery disease) Diabetes HTN (hypertension) Hypothyroidism Payers Insurance Name Company Name Plan Name Plan Number Policy Number Policy Group Number Start Date Medicare Medicare [id number] N/A [facility], [facility]–1983 [id number] N/A History of Encounters Visit Date Visit Type Provider 02/16/2019 Office Visit Yamil Linn MD 01/26/2019 Hospital Visit [facility] II MD 01/25/2019 Hospital Visit [facility] I II MD 01/24/2019 Surgery Yamil Linn MD 01/22/2019 Hospital Visit [facility] I II MD
--- OUTSIDE RECORDS SUMMARY | 2024-08-17 09:30 | XMS_ITS | Referral Summary ---
Author Organization [facility] Address [facility] [place] [address] Care Team Providers Care Flight Engineer Helicopter Name Role Phone Unknown, Provider Primary Care Provider Unavaila ble Source Comments [facility],non-owned Affiliates and Associated Physician Practices is amultiple site organization consisting of ambulatory clinics and hospital sitesin [place], [place], [place] and [place]. This disclosure is being madepursuant to the Care Everywhere program and may not contain all information available regarding this patient. Last updated 18.[facility] [employer] Social History Tobacco Use Types Packs/Day Years [...] 10/12/2022 4:06 PM CDT Plan of Treatment Not on file Care Teams Flight Engineer Helicopter Relationship Specialty Start Date End Date Unknown, Provider PCP - General 10/12/22
--- OUTSIDE RECORDS SUMMARY | 2024-08-17 09:30 | XMS_ITS | Clinical Summary ---
Author Organization [facility] Address [address] [place] [address] Care Team Providers Care Chemistry Physics Teacher Name Role Phone Lisette Marmolejo MD Primary Care Provider [phone] Elis Peralta MD Unavailable Allergies Active Allergy Reactions Criticality Noted Date Comments Sulfamethoxazole-Trimethoprim Other (see comment) Medium 01/20/2019 Headache Medications metoprolol succinate ER 100 MG 24 hr tablet Take 1 tablet (100 mg total) by mouth daily. Active pantoprazole EC 40 MG tablet Take 1 tablet (40 mg total) by mouth daily. 30 tablet 1 03/09/2019 Active FLUoxetine 20 MG capsule Take 1 capsule (20 mg total) by mouth daily. 04/08/2020 Active levothyroxine 75 MCG tablet Take 1 tablet (75 mcg total) by mouth daily. 04/08/2020 Active rosuvastatin 5 MG tablet Take 1 tablet (5 mg total) by mouth daily. 01/09/2020 Active furosemide 40 MG tablet Take 1 tablet (40 mg total) by mouth daily. 04/08/2020 Active potassium chloride CR 20 MEQ tablet Take 1 tablet (20 mEq total) by mouth daily. 04/08/2020 Active triamcinolone (KENALOG) 0.025 % ointment Apply a thin layer to affected area twice a day as directed 05/28/2022 Active Ergocalciferol 50 MCG (2000 UT) Tab Take 0.5 tablets by mouth daily. Active vitamin B-12 (CYANOCOBALAMIN ) (CYANOCOBALAMIN ) 1000 mcg tablet Take 1 tablet (1,000 mcg total) by mouth daily. Active JANUVIA 50 MG tablet 06/02/2023 Active aspirin EC (ECOTRIN) 81 MG tablet Take 1 tablet (81 mg total) by mouth daily. Active Active Problems Problem Noted Date Diagnosed Date H/O pericarditis 04/23/2020 Hyperlipidemia 04/23/2020 Cellulitis of left lower extremity 03/24/2019 Chest pain 03/06/2019 Thigh hematoma, left, initial encounter 02/02/20 19 Assessment & Plan (04/12/2019 2:43 PM CDT): Markedly improved from previous. No overlying erythema. Still with a mildly tender nodule. Continue local measures. Follow-up on a prn basis. Assessment & Plan (03/25/2019 11:45 AM CDT): She continues to have a firm area on her left medial thigh. The duplex is consistent with a sizable hematoma and overlying edema. No evidence of infection. She was instructed on the use of an [place] wrap. Will order thigh high stockings. No intervention required from our standpoint. Able to be discharged once her medical issues are stable. Will follow-up with me in 2-4 weeks with a new duplex of the thigh. She was instructed to call if she develops issues in the interim. Hypothyroidism Hypertension Diabetes mellitus ([facility]/HCC HHS/HCC) Depression Coronary artery disease Anxiety Hx of CABG Dyspnea on effort Encounters Date Type Department Care Team Description 06/27/2024 Telephone [facility] [place] [address] [place] [address] Elis Peralta MD Follow Up Call 06/24/2024 1:15 PM GERMINATION WORKER Office Visit [facility] [address] [place] [address] Elis Peralta MD Heart Problem 06/24/2024 12:48 PM GERMINATION WORKER - 06/24/2024 11:59 PM GERMINATION WORKER Hospital Encounter [facility] [address] [place] [address] Elis Peralta MD Discharge Disposition: Home or Self Care (Routine Discharge) 06/24/2024 Travel 06/23/2024 Telephone [facility] [address] [place] [address] Elis Peralta MD Appointment Reminder 06/20/2024 Orders Only [facility] [address] [place] [address] Elis Peralta MD from Last 3 Months Family History Medical History Relation Comments Cancer Brother 1 Malignant melano marbella Alzheimers Brother 2 Stroke Brother 2 Cancer Father prostrate ca Emphysema Father CHF Mother Emphysema Mother Cancer Sister breast and pancr eatic CA Relation Status Comments Brother 1 Brother 2 Father had heart surger y Mother Sister Social History Tobacco Use Types Packs/Day Years Used Date Smoking Tobacco: Never Smokeless Tobacco: Never Alcohol Use Standard Drinks/Week Comments No 0 (1 standard drink = 0.6 oz pur e alcohol) AUDIT-C Answer Date Recorded Frequency of Alcohol Consumption Never 03/06/2019 Average Number of Drinks Not on file 019 Frequency of Binge Drinking Not on file 02/11 Comments Unknown Sex and Gender Information Value Date Recorded Sex Assigned at Not on file Legal Sex Female 9:35 PM CDT Gender Identity Female 07/22/2021 5:57 PM GERMINATION WORKER Sexual Orientation Not on file Last Filed Vital Signs Vital Sign Reading Time Taken Comments Blood Pressure 116/79 06/24/2024 11:00 AM GERMINATION WORKER Pulse 77 06/24/2024 11:00 AM GERMINATION WORKER Temperature 36.4 ??C (97.5 ??F) 03/27/2019 12:21 PM C DT Respiratory Rate 16 06/24/2024 11:00 AM GERMINATION WORKER Oxygen Saturation 99% 06/24/2024 11:00 AM GERMINATION WORKER Inhaled Oxygen Concentration - - Weight 68.5 kg (151 lb) 06/24/2024 11:00 AM GERMINATION WORKER Height 157.5 cm (5' 2 ) 06/24/2024 11:00 AM GERMINATION WORKER Body Mass Index 27.62 06/24/2024 11:00 AM GERMINATION WORKER Plan of Treatment Upcoming Encounters Date Type Department Care Team (Late st Contact Info) Description 07/03/2025 11:15 AM GERMINATION WORKER Office Visit [facility] [address] [place] [phone] Elis Peralta MD [address] [place] [address] Health Maintenance Due Date Last Done Comments ASCVD LDL 1935 ASCVD Statin 1935 Lipid Panel 1935 Diabetes: Retinopathy Eye Exam 1954 DTaP, Tdap and Td Vaccines ( 1 - Tdap) 09/24/1955 Zoster Vaccines (1 of 2) 1986 Annual Medicare Wellness Visit 2001 RSV Immunization or 60+ Years (1 - 1-dose 75+ series) 09/24/2011 Pneumococcal Vaccine: 65+ Ye ars (2 of 2 - PPSV23 or PCV20) 12/20/2015 10/25/2015 Hemoglobin A1C 07/24/2019 01/21/2019 COVID-19 Vaccine ( - 2023-2 5 season) 2024 Influenza Adult (#1) 2024 Meningococcal B Vaccine Aged Out No l onger eligible based on patient's age to complete this topic Meningococcal Vaccine Aged Out No araceli bettina eligible based on patient's age to complete this topic RSV Immunizations Under 20 Months Aged Out No longer eligible based on patient's age to complete this topic Procedures Procedure Name Priority Date/Time Associated Diagnosis Comments ECG 12-LEAD Routine 06/24/2024 12:57 PM GERMINATION WORKER Primary hypertension from Last 3 Months Results * ECG 12 lead (HOSPITAL PERFORMED ONLY) (06/24/2024 12:57 PM GERMINATION WORKER) 06/24/2024 12:5 7 PM GERMINATION WORKER Narrative [facility] - 06/24/2024 10:20 PM GERMINATION WORKER ? [facility] ?[address] [place] ??[address] ? Test Date: ?2024-06-24 Pat Name: ? KARELOLIVIA MARTINEZ ? Department: ?? 3 ? Room: ? Gender: ? Female ? Electromatic Typist: ?? SB : ?1935 ? Requested By: ELIS PERALTA Order Number: [id number] ? Reading MD: ?? Elis Christiano ? Measurements Intervals ?[place] ? Rate: ? 66 ? P: ?51 TN: ? 170 ?QRS: ?15 QRSD: ? 86 ? T: ?55 QT: ? 390 ? QTc: ?410 ? Interpretive Statements SINUS RHYTHM MODERATE ST DEPRESSION ??[0.05+ mV ST DEPRESSION] INATION WORKER Procedure Note Elis Peralta MD - 06/24/2024 [place] [address] [place] [address] Test Date: 2024-06-24 Pat Name: KAREL MARTINEZ Department: 3 Room: Gender: Female Electromatic Typist: SB : 1935 Requested By: ELIS PERALTA Order Number: [id number] Reading MD: Elis Peralta Measurements Intervals [place] Rate: 66 P: 51 TN: 170 QRS: 15 QRSD: 86 T: 55 QT: 390 QTc: 410 Interpretive Statements SINUS RHYTHM MODERATE ST DEPRESSION [0.05+ mV ST DEPRESSION] INATION WORKER us Elis Peralta MD ECG ORDERABLES Final Result [facility] RAD from Last 3 Months Insurance MEDICARE [facility] MEDICARE [facility] Advance Directives Documents on File Type Date Recorded Patient Sandal Parts Assembler Expl anation Advance Directives and Living Will 03/28/2019 9:44 AM living will & poa fo r health care Advance Directives and Living Will 03/24/2019 12:24 PM Power of Retail Management Keyholder 03/24/2019 12:23 PM Advance Directives and Living Will 03/24/2019 7:13 AM living will & poa fo r health care * Full Code (Latest Code Status on File) Date Activated Date Inactivated Comments 03/24/2019 1:43 AM 03/27/2019 5:41 PM * Full Code Date Activated Date Inactivated Comments 03/06/2019 10:34 AM 03/08/2019 7:53 PM Care Teams Chemistry Physics Teacher Relationship Specialty Start Date End Date Lisette Marmolejo MD [address] [place] [phone] PCP - General INTERNAL MEDICINE 03/06/19 Elis Peralta MD [address] [place] [address] Consulting Physician CARDIOVASCULAR DISEASE 11/04/23
--- OUTSIDE RECORDS SUMMARY | 2024-08-17 09:30 | XMS_ITS | Patient Health Summary ---
Author Organization [facility] Address [facility] [facility] [place] [address] Care Team Providers Care Laminating Machine Operator Helper Name Role Phone Unknown, Provider Primary Care Provider Unavaila ble Note from [facility],non-owned Affiliates and Associated Physician Practices is amultiple site organization consisting of ambulatory clinics and hospital sitesin [place], [place], [place] and [place]. This disclosure is being madepursuant to the Care Everywhere program and may not contain all information available regarding this patient. Last updated 18.[facility] [employer] Social History Tobacco Use Types Packs/Day Years [...] Mass Index 29.81 10/12/2022 4:06 PM CDT Care Teams Laminating Machine Operator Helper Relationship Specialty Start Date End Date Unknown, Provider PCP - General 10/12/22
== END 2024-08-17 09:03 | disposition home or self-care (01) ==
LOC: CHSLAB 09:05
PROVIDERS: PCP Internal Medicine; Visit Provider Internal Medicine
DX: R07.89 Other chest pain (principal); S22.32XA Fracture of one rib, left side, initial encounter for closed fracture; R91.8 Other nonspecific abnormal finding of lung field
CPT/HCPCS: 71046; 71100

== ENCOUNTER 2024-08-22 10:00 | Outpatient (CLI) | payer MEDICARE, BC, SELFPAY ==
--- NOTE | ~2024-08-22 | CT_ITS ---
EXAMINATION: CT orbit BI wo/w con DATE: 08/22/2024 11:10 INDICATION: Abnormal bone lesion of roof of right orbit. TECHNIQUE: Computed tomography (CT) of the orbits was performed without and with 75 mL Omnipaque 350 intravenous contrast. Automated exposure control and iterative reconstruction technique were employed . The dose-length product was 290.18 mGy-cm. COMPARISON: Head CT 06/16/2023, neck CT 09/18/20 FINDINGS: There are likely changes of ocular lens replacement surgeries. There is mucosal thickening in the paranasal sinuses. There is thickening and sclerosis of the ronquillo of sphenoid sinus, consisten t with chronic sinusitis. The mastoid air cells are normal. There are chronic lytic lesions of the ri ght frontal skull base with dehiscence of the roof of the right orbit, stable from 09/18/2020, likely o ld fracture deformities. 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 IMPRESSION: 1. Lytic lesions of the right frontal skull base dehiscence of the roof of the right orbit, stable fr om 09/14/2020, likely old fracture deformities. 2. Chronic sinusitis. Reviewed, dictated and finalized at location A. [facility] LINER ASSEMBLER IMPRESSION: 1. Lytic lesions of the right frontal skull base dehiscence of the roof of the right orbit, stable from 09/14/2020, likely old fracture deformities. 2. Chronic sinusitis.
[2024-08-22 10:29] LABS: Estimated Glomerular Filt Rate 56
--- OUTSIDE RECORDS SUMMARY | 2024-08-22 10:48 | XMS_ITS ---
Author Organization [facility] Address [address] [place], [place] [id number] Care Team Providers Care Treatment Plant Operator Name Role Phone ELIZABETH John Unavailable [phone] Lisette Marmolejo Unavailable Unavailable ETHAN WINTER Unavailable [phone] REASON FOR VISIT *General care Encounters Encounter Location Date Provider Diagnosis [address] [phone] 01/21/2024 ETHAN WINTER Plan Of Treatment No Information Progress Notes * KAREL MORILLO RDOB:[birth year] (88 yo F)Acc No.[id number]:01/21/2024 Patient: KAREL GURROLA Provider: Laine WINTER :1935 A ge:88 Y S ex:Female Date:01/21/2024 Address:[address] [place], [place] [id number] Subjective: * Chief Complaints: * 1 . *General care. * Medical History: Objective: * Vitals: Assessment: Plan: * Treatment: * Billing Information: * Visit Code: * Procedure Codes: * Electronic signature of DEREK WINTER DPM on 08/22/2024 at 10:48 AM DROP WIRE ALINER Sign off status: Pending * Provider: Laine WINTER Date: 0 01/21/2024 Generated for Lyi ng/Faenderg/eTransmitting on: 0 08/22/2024 10:48 AM DROP WIRE ALINER
--- OUTSIDE RECORDS SUMMARY | 2024-08-22 10:48 | XMS_ITS ---
Author Organization [facility] Address [address] [place], [place] [address] Care Team Providers Care Slitter Creaser Slotter Operator Name Role Phone ELIZABETH John Unavailable [phone] Lisette Marmolejo Unavailable Unavailable ETHAN WINTER Unavailable [phone] REASON FOR VISIT *General care Medications Medication SIG (Take, Route, Frequency, Duration) Notes Start Date End Date Status pantoprazole 40 MG Delayed Release Oral Tablet ORAL pantoprazole 40 MG Delayed Release Oral TabletOriginal Medicationpantoprazole 40 MG Delayed Release Oral Tablet *Reorder from [employer] for eRx and Interaction Alerts* 0 Active levothyroxine sodium 0.075 MG Oral Capsule ORAL levothyroxine sodium 0.075 MG Oral CapsuleOriginal Medicationlevothyroxine sodium 0.075 MG Oral Capsule *Reorder from [employer] for eRx and Interaction Alerts* 0 Active metformin hydrochloride 500 MG Oral Tablet ORAL metformin hydrochloride 500 MG Oral TabletOriginal Medicationmetformin hydrochloride 500 MG Oral Tablet *Reorder from [employer] for eRx and Interaction Alerts* 0 Active Furosemide 40 MG Oral Tablet ORAL furosemide 40 MG Oral TabletOriginal Medicationfurosemide 40 MG Oral Tablet *Reorder from [facility] for eRx and Interaction Alerts* 0 Active 24 HR metoprolol succinate 100 MG Extended Release Oral Tablet ORAL 24 HR metoprolol succinate 100 MG Extended Release Oral TabletOriginal [id number] HR metoprolol succinate 100 MG Extended Release Oral Tablet *Reorder from [employer] for eRx and Interaction Alerts* 0 Active Encounters Encounter Location Date Provider Diagnosis [facility] [address] [place], [place] [id number] 09/03/2023 ETHAN WINTER Tinea unguium B35.1 ; Pain in right toe(s) M79.674 ; Pain in left toe(s) M79.675 ; Flat foot [pes planus] (acquired), left foot M21.42 ; Flat foot [pes planus] (acquired), right foot M21.41 ; Unspecified atherosclerosis of hopi arteries of extremities, bilateral legs I70.203 and Acquired keratosis [keratoderma] palmaris et plantaris L85.1 Assessments Encounter Date Diagnosis (ICD Code) Assessment Notes Treatment Notes Treatment Clinical Notes Section Notes 09/03/2023 Tinea unguium (ICD-10 - B35.1) Aseptic debridement of elongated thickened nails x 10 using sterile nippers, nails were debrided in length and thickness by 30% utilizing a nail nipper without incident. The patient was educated regarding all treatment options that include topical and oral antifungal treatments. I discussed the options of taking a sample of the nail to confirm diagnosis. Nail clippings were not sent for pathology analysis. The patient was educated why and how the fungal infection evolved in their feet and the patient was given information regarding how to prevent further infection. The patient was told to keep feet dry and change socks. The patient was told to be careful with old shoes and excessive sweating. The patient was educated regarding both OTC and prescription treatments. 09/03/2023 Pain in right toe(s) (ICD-10 - M79.674) 09/03/2023 Pain in left toe(s) (ICD-10 - M79.675) 09/03/2023 Flat foot [pes planus] (acquired), left foot (ICD-10 - M21.42) Patient educated on etiology and treatment options for flexible flat foot deformity. Educated patient on how a flexible flat foot deformity can in turn result in pathology such as hammer toe, bunions, equinus, neuromas. Recommend use of custom foot inserts to help alleviate plantar peak pressures and accomodate for digital deformity to feet. 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 After removal of overlying extensive hyperkeratosis, healthy tissue was noted and care was taken to assure that no undermining or probing was present. It should be noted that no probing was noted and no infection or drainage was noted. Plan Of Treatment Treatment Notes Assessment Notes Tinea unguium Aseptic debridement of elongated thickened nails x 10 using sterile nippers, nails were debrided in length and thickness by 30% utilizing a nail nipper without incident. The patient was educated regarding all treatment options that include topical and oral antifungal treatments. I discussed the options of taking a sample of the nail to confirm diagnosis. Nail clippings were not sent for pathology analysis. The patient was educated why and how the fungal infection evolved in their feet and the patient was given information regarding how to prevent further infection. The patient was told to keep feet dry and change socks. The patient was told to be careful with old shoes and excessive sweating. The patient was educated regarding both OTC and prescription treatments. Flat foot [pes planus] (acquired), left foot Patient educated on etiology and treatment options for flexible flat foot deformity. Educated patient on how a flexible flat foot deformity can in turn result in pathology such as hammer toe, bunions, equinus, neuromas. Recommend use of custom foot inserts to help alleviate plantar peak pressures and accomodate for digital deformity to feet. 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 After removal of overlying extensive hyperkeratosis, healthy tissue was noted and care was taken to assure that no undermining or probing was present. It should be noted that no probing was noted and no infection or drainage was noted. Next Appt Details Follow Up: 3 Months, Reason: Progress Notes * KAREL MORILLO RDOB:[birth year] (87 yo F)Acc No.[id number]:09/03/2023 Patient: KAREL GURROLA Provider: Laine WINTER :1935 A ge:87 Y S ex:Female Date:09/03/2023 Address:[address] [place] [address] Subjective: * Chief Complaints: * 1 . *General care. * HPI: H PI: General care P atient presents to the office for diabetic foot care. Patient states that their nails are thickened, elongated and painful. Patient states that it is aggravated by shoe gear. Onset is gradual., Patient denies taking prescription blood thinners but does take a daily aspirin., Date last seen by Dr. Marmolejo was August 2023., Initials EW. * ROS: G eneral / Constitutional: Patient denies w eakness. R espiratory: Patient denies c hronic cough, shortness of breath, sputum production. C ardiovascular: Patient denies c hest pain, history of GA, irregular heartbeat. M usculoskeletal: Patient complains of h ammertoes, joint pain. ? P eripheral Vascular: Patient denies b lanching of skin, cold extremities, decreased sensation in extremities. S kin: Patient complains of c alluses and corns. N eurologic: Patient denies d izziness, gait abnormality, headache. * Medical History: * Medications: T aking Furosemide 40 MG Oral Tablet ORAL , Notes to Pharmacist: furosemide 40 MG Oral TabletOriginal Medicationfurosemide 40 MG Oral Tablet *Reorder from [employer] for eRx and Interaction Alerts*, Taking 24 HR metoprolol succinate 100 MG Extended Release Oral Tablet ORAL , Notes to Pharmacist: 24 HR metoprolol succinate 100 MG Extended Release Oral TabletOriginal [id number] HR metoprolol succinate 100 MG Extended Release Oral Tablet *Reorder from [employer] for eRx and Interaction Alerts*, Taking levothyroxine sodium 0.075 MG Oral Capsule ORAL , Notes to Pharmacist: levothyroxine sodium 0.075 MG Oral CapsuleOriginal Medicationlevothyroxine sodium 0.075 MG Oral Capsule *Reorder from [facility] for eRx and Interaction Alerts*, Taking metformin hydrochloride 500 MG Oral Tablet ORAL , Notes to Pharmacist: metformin hydrochloride 500 MG Oral TabletOriginal Medicationmetformin hydrochloride 500 MG Oral Tablet *Reorder from [facility] for eRx and Interaction Alerts*, Taking pantoprazole 40 MG Delayed Release Oral Tablet ORAL , Notes to Pharmacist: pantoprazole 40 MG Delayed Release Oral TabletOriginal Medicationpantoprazole 40 MG Delayed Release Oral Tablet *Reorder from [facility] for eRx and Interaction Alerts* Objective: * Examination: P hysical Examination: V ascular: Dorsalis Pedis pulse noted at 1/4 right foot and 1/4 left foot and Posterior Tibial pulse noted at 1/4 right foot and 1/4 left foot, Capillary refill times noted to be less than three seconds x ten, Temperature gradient noted to be warm to cool to bilateral foot, pedal hair present to bilateral foot and no varicosities are noted Dermatologic: there are no open lesions, no signs of active clinical infection, no erythema noted, no ecchymoses, nails are dystrophic with subungual debris x ten, hyperkeratotic lesions noted sub first metatarsal head bilateral foot Musculoskeletal: there is pain to palpation onto nail plate x ten, no calf pain noted bilaterally, arch height noted at 2/5 non-weight bearing bilaterally, first metatarsophalangeal joint range of motion 30 deg non-weight bearing bilaterally, pain to palpation hyperkeratotic lesion sub third and fifth metatarsal head right foot Neurology: protective sensation intact to light touch bilateral digits one through five, vibratory sensation intact to first metatarsophalangeal joint bilaterally. Assessment: * Assessment: 1. T inea unguium - B35.1 (Primary) 2 . P ain in right toe(s) - M79.674 3 . P ain in left toe(s) - M79.675 4 . F lat foot [pes planus] (acquired), left foot - M21.42 5 . F lat foot [pes planus] (acquired), right foot - M21.41 6 . U nspecified atherosclerosis of hopi arteries of extremities, bilateral legs - I70.203 7 . A cquired keratosis [keratoderma] palmaris et plantaris - L85.1 Plan: * Treatment: 2. F lat foot [pes planus] (acquired), left foot Notes: Patient educated on etiology and treatment options for flexible flat foot deformity. Educated patient on how a flexible flat foot deformity can in turn result in pathology such as hammer toe, bunions, equinus, neuromas. Recommend use of custom foot inserts to help alleviate plantar peak pressures and accomodate for digital deformity to feet. 3. U nspecified atherosclerosis of hopi arteries of extremities, bilateral legs Notes: Patient educated on risks and aggravating factors of PVD, including conservative treatment options such as a diet and exercise regimen to aid in slowing progression of vascular disease ? 4. 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 After removal of overlying extensive hyperkeratosis, healthy tissue was noted and care was taken to assure that no undermining or probing was present. It should be noted that no probing was noted and no infection or drainage was noted. * Procedure Codes: 1 1056 TRIM SKIN LESIONS, 2 TO 4, Modifiers: Q8 , 67228 DEBRIDE NAIL, 6 OR MORE, Modifiers: Q8 , 59 * Follow Up: 3 Months * Billing Information: * Visit Code: * Procedure Codes: 68626 TRIM SKIN LESIONS, 2 TO 4. Modifiers: Q8 27776 DEBRIDE NAIL, 6 OR MORE. Modifiers: Q8, 59 * ER ASSEMBLER Sign off status: Completed true * Provider: Laine WINTER Date: 0 09/03/2023 Generated for He mota/Hawa/Salty on: 0 08/22/2024 10:48 AM WELDER ASSEMBLER History and Physical Notes * HPI (History of Present Illness) Category Sub-Category Detail Notes Category Not es HPI General care Patient presents to the office for diabetic foot care. Patient states that their nails are thickened, elongated and painful. Patient states that it is aggravated by shoe gear. Onset is gradual., Patient denies taking prescription blood thinners but does take a daily aspirin., Date last seen by Dr. Marmolejo was August 2023., Initials EW Examination Category Sub-Category Detail Notes Category Not es Physical Examination Vascular: Dorsalis Pedis pulse noted at 1/4 right foot and 1/4 left foot and Posterior Tibial pulse noted at 1/4 right foot and 1/4 left foot, Capillary refill times noted to be less than three seconds x ten, Temperature gradient noted to be warm to cool to bilateral foot, pedal hair present to bilateral foot and no varicosities are noted Dermatologic: there are no open lesions, no signs of active clinical infection, no erythema noted, no ecchymoses, nails are dystrophic with subungual debris x ten, hyperkeratotic lesions noted sub first metatarsal head bilateral foot Musculoskeletal: there is pain to palpation onto nail plate x ten, no calf pain noted bilaterally, arch height noted at 2/5 non-weight bearing bilaterally, first metatarsophalangeal joint range of motion 30 deg non-weight bearing bilaterally, pain to palpation hyperkeratotic lesion sub third and fifth metatarsal head right foot Neurology: protective sensation intact to light touch bilateral digits one through five, vibratory sensation intact to first metatarsophalangeal joint bilaterally
--- OUTSIDE RECORDS SUMMARY | 2024-08-22 10:48 | XMS_ITS | Encounter Summary ---
Author Organization [facility] Address [facility] [facility] [place] [address] Care Team Providers Care Foreign Language Instructor Name Role Phone Unknown, Provider Primary Care Provider Unavaila ble Encounter Details Date Type Department Care Team (Late st Contact Info) Description 10/12/2022 Ophth Exam [facility] [address] [place] [address] Bakari Paiz MD [address] [facility] [place] [address] Social History Tobacco Use Types Packs/Day Years Used Date Smoking Tobacco: Never Assessed Sex and Gender Information Value Date Recorded Sex Assigned at Not on file Gender Identity Not on file Sexual Orientation Not on file documented as of this encounter Plan of Treatment Not on file documented as of this encounter Visit Diagnoses Not on filedocumented in this encounter Care Teams Foreign Language Instructor Relationship Specialty Start Date End Date Unknown, Provider PCP - General 10/12/22 documented as of this encounter
--- OUTSIDE RECORDS SUMMARY | 2024-08-22 10:48 | XMS_ITS ---
Author Name [facility] Address [address] [place] [address] Organization [facility], Address [address] [place] [address] Care Team Providers Care Historical Society Director Name Role Phone [facility] Primary Care [...] by oral route once daily at bedtime Durant 5-325 mg oral tablet take 1 tablet [...] Onset Comments Coronary artery disease invo lving ho-chunk coronary artery of ho-chunk heart without angina pectoris Feb 03 2019 3:03PM Anxiety Depression CAD (coronary artery disease) Diabetes HTN (hypertension) Hypothyroidism Payers Insurance Name Company Name Plan Name Plan Number Policy Number Policy Group Number Start Date Medicare Medicare [id number] N/A [facility] [id number] N/A History of Encounters Visit Date Visit Type Provider 02/16/2019 Office Visit Yamil Linn MD 01/26/2019 Hospital Visit [facility] I II MD 01/25/2019 Hospital Visit [facility] I II MD 01/24/2019 Surgery Yamil Linn MD 01/22/2019 Hospital Visit [facility] I II MD
--- OUTSIDE RECORDS SUMMARY | 2024-08-22 10:48 | XMS_ITS | Clinical Summary ---
Author Organization [facility] Address [address] [place] [address] Care Team Providers Care Checker And Packer Name Role Phone Lisette Marmolejo MD Primary Care Provider [phone] Elis Peralta MD Unavailable Allergies Active Allergy [...] in the interim. Hypothyroidism Hypertension Diabetes mellitus ([facility]/HCC HHS/HCC) Depression Coronary artery disease Anxiety Hx of CABG Dyspnea on effort Encounters Date Type Department Care Team Description 06/27/2024 Telephone [facility] [place] [address] [place] [address] Elis Peralta MD Follow Up Call 06/24/2024 1:15 PM AUTOMATIC MACHINES SUPERVISOR Office Visit [facility] [address] [place] [address] Elis Peralta MD Heart Problem 06/24/2024 12:48 PM AUTOMATIC MACHINES SUPERVISOR - 06/24/2024 11:59 PM AUTOMATIC MACHINES SUPERVISOR Hospital Encounter [facility] [address] [place] [address] Elis Peralta MD Discharge Disposition: Home or Self Care (Routine Discharge) 06/24/2024 Travel 06/23/2024 Telephone [facility] el[facility] [address] [place] [phone] Elis Peralta MD Appointment Reminder 06/20/2024 Orders Only [facility] [address] [place] [address] Elis Peralta MD from Last 3 Months [...] CDT Gender Identity Female 07/22/2021 5:57 PM AUTOMATIC MACHINES SUPERVISOR Sexual Orientation Not on file Last Filed Vital Signs Vital Sign Reading Time Taken Comments Blood Pressure 116/79 06/24/2024 11:00 AM AUTOMATIC MACHINES SUPERVISOR Pulse 77 06/24/2024 11:00 AM AUTOMATIC MACHINES SUPERVISOR Temperature 36.4 C (97.5 F) 03/27/2019 12:21 PM CDT Respiratory Rate 16 06/24/2024 11:00 AM AUTOMATIC MACHINES SUPERVISOR Oxygen Saturation 99% 06/24/2024 11:00 AM AUTOMATIC MACHINES SUPERVISOR Inhaled Oxygen Concentration - - Weight 68.5 kg (151 lb) 06/24/2024 11:00 AM AUTOMATIC MACHINES SUPERVISOR Height 157.5 cm (5' 2 ) 06/24/2024 11:00 AM AUTOMATIC MACHINES SUPERVISOR Body Mass Index 27.62 06/24/2024 11:00 AM AUTOMATIC MACHINES SUPERVISOR Plan of Treatment Upcoming Encounters Date Type Department Care Team (Late st Contact Info) Description 07/03/2025 11:15 AM AUTOMATIC MACHINES SUPERVISOR Office Visit [facility] [place] [address] Elis Peralta MD [address] [place] [address] Health Maintenance Due Date Last Done Comments [...] Comments ECG 12-LEAD Routine 06/24/2024 12:57 PM AUTOMATIC MACHINES SUPERVISOR Primary hypertension from Last 3 Months Results * ECG 12 lead (HOSPITAL PERFORMED ONLY) (06/24/2024 12:57 PM AUTOMATIC MACHINES SUPERVISOR) 06/24/2024 12:5 7 PM AUTOMATIC MACHINES SUPERVISOR Narrative [facility] - 06/24/2024 10:20 PM AUTOMATIC MACHINES SUPERVISOR [address] [place] [place] [address] Test Date: 2024-06-24 Pat Name: KAREL MARTINEZ Department: 3 Room: Gender: Female Custom Miller: [place]IA[place] : 1935 Requested By: ELIS PERALTA Order Number: [id number] Reading MD: Elis Peralta Measurements Intervals [place] Rate: 66 P: 51 WY: 170 QRS: 15 QRSD: 86 T: 55 QT: 390 QTc: 410 Interpretive Statements SINUS RHYTHM MODERATE ST DEPRESSION [0.05+ mV ST DEPRESSION] MATIC MACHINES SUPERVISOR Procedure Note Elis Peralta MD - 06/24/[address] [place] [address] Test Date: 2024-06-24 Pat Name: KAREL MARTINEZ Department: 3 Room: Gender: Female Custom Miller: [place] : 1935 Requested By: ELIS PERALTA Order Number: [id number] Reading MD: Elis Peralta Measurements Intervals [place] Rate: 66 P: 51 W[place]: 170 QRS: 15 QRSD: 86 T: 55 QT: 390 QTc: 410 Interpretive Statements SINUS RHYTHM MODERATE ST DEPRESSION [0.05+ mV ST DEPRESSION] MATIC MACHINES SUPERVISOR us Elis Peralta MD ECG ORDERABLES Final Result [facility] from Last 3 [place] [id number] [facility] MEDICARE [facility] Advance Directives Documents on File Type Date Recorded 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 Coach Expl anation Advance Directives and Living Will 03/28/2019 9:44 AM living will & poa fo r health care Advance Directives and Living Will 03/24/2019 12:24 PM Power of Title Camera Operator 03/24/2019 12:23 PM Advance Directives and Living Will 03/24/2019 7:13 AM living will & poa fo r health care * Full Code (Latest Code Status on File) Date Activated Date Inactivated Comments 03/24/2019 1:43 AM 03/27/2019 5:41 PM * Full Code Date Activated Date Inactivated Comments 03/06/2019 10:34 AM 03/08/2019 7:53 PM Care Teams Checker And Packer Relationship Specialty Start Date End Date Lisette Marmolejo MD [address] [place] [address] PCP - General INTERNAL MEDICINE 03/06/19 Elis Peralta MD [address] [place] [address] Consulting Physician CARDIOVASCULAR DISEASE 11/04/23
--- OUTSIDE RECORDS SUMMARY | 2024-08-22 10:49 | XMS_ITS | Patient Health Summary ---
Author Organization [facility] Address [facility] [place] [address] Care Team Providers Care Escrow Clerk Name Role Phone Unknown, Provider Primary Care Provider Unavaila ble Note from [facility],non-owned Affiliates and Associated Physician Practices is amultiple site organization consisting of ambulatory clinics and hospital sitesin [place], [place], [place] and [place]. This disclosure is being madepursuant to the Care Everywhere program and may not contain all information available regarding this patient. Last updated 18.[facility] Social History Tobacco Use Types Packs/Day Years Used Date Smoking Tobacco: Never Assessed Sex and Gender Information Value Date Recorded Sex Assigned at Not on file Gender Identity Not on file Sexual Orientation Not on file Last Filed Vital Signs Vital Sign Reading Time Taken Comments Blood Pressure 113/64 10/12/2022 4:06 PM CDT Pulse 65 10/12/2022 4:06 PM CDT Temperature 37.1 C (98.7 F) 10/12/2022 4:06 PM CDT Respiratory Rate 18 10/12/2022 4:06 PM CDT Oxygen Saturation 96% 10/12/2022 4:06 PM CDT Inhaled Oxygen Concentration - - Weight 73.9 kg (163 lb) 10/12/2022 4:06 PM CDT Height 157.5 cm (5' 2 ) 10/12/2022 4:06 PM CDT Body Mass Index 29.81 10/12/2022 4:06 PM CDT Care Teams Escrow Clerk Relationship Specialty Start Date End Date Unknown, Provider PCP - General 10/12/22
--- OUTSIDE RECORDS SUMMARY | 2024-08-22 10:49 | XMS_ITS ---
Author Organization [facility] Address [address] [place], [place] [id number] Care Team Providers Care Greenskeeper Supervisor Name Role Phone ELIZABETH John Unavailable [phone] Lisette Marmolejo Unavailable Unavailable ETHAN WINTER Unavailable [phone] REASON FOR VISIT *General care Medications Medication SIG (Take, Route, Frequency, Duration) Notes Start Date End Date Status metformin hydrochloride 500 MG Oral Tablet ORAL metformin hydrochloride 500 MG Oral TabletOriginal Medicationmetformin hydrochloride 500 MG Oral Tablet *Reorder from [facility] for eRx and Interaction Alerts* 0 Active pantoprazole 40 MG Delayed Release Oral Tablet ORAL pantoprazole 40 MG Delayed Release Oral TabletOriginal Medicationpantoprazole 40 MG Delayed Release Oral Tablet *Reorder from [facility] for eRx and Interaction Alerts* 0 Active levothyroxine sodium 0.075 MG Oral Capsule ORAL levothyroxine sodium 0.075 MG Oral CapsuleOriginal Medicationlevothyroxine sodium 0.075 MG Oral Capsule *Reorder from [facility] for eRx and Interaction Alerts* 0 Active Furosemide 40 MG Oral Tablet ORAL furosemide 40 MG Oral TabletOriginal Medicationfurosemide 40 MG Oral Tablet *Reorder from [facility] for eRx and Interaction Alerts* 0 Active 24 HR metoprolol succinate 100 MG Extended Release Oral Tablet ORAL 24 HR metoprolol succinate 100 MG Extended Release Oral TabletOriginal [id number] HR metoprolol succinate 100 MG Extended Release Oral Tablet *Reorder from [facility] for eRx and Interaction Alerts* 0 Active Vital Signs Height 62.00 in 11/12/2023 Weight 161 lbs 11/12/2023 BMI 29.44 kg/m2 11/12/2023 Height-cm 157.48 cm 11/12/2023 Weight-kg 73.03 kg 11/12/2023 Encounters Encounter Location Date Provider Diagnosis [address] [id number] 11/12/2023 ETHAN WINTER Flat foot [pes planu s] (acquired), left foot M21.42 ; Flat foot [pes planus] (acquired), right foot M21.41 ; Unspecified atherosclerosis of [place] arteries of extremities, bilateral legs I70.203 ; Acquired keratosis [keratoderma] palmaris et plantaris L85.1 and Pain in right foot M79.671 Assessments Encounter Date Diagnosis (ICD Code) Assessment Notes Treatment Notes Treatment Clinical Notes Section Notes 11/12/2023 Flat foot [pes planus] (acquired), left foot (ICD-10 - M21.42) Patient educated on etiology and treatment options for flexible flat foot deformity. Educated patient on how a flexible flat foot deformity can in turn result in pathology such as hammer toe, bunions, equinus, neuromas. Recommend use of custom foot inserts to help alleviate plantar peak pressures and accomodate for digital deformity to feet. 11/12/2023 Flat foot [pes planus] (acquired), right foot (ICD-10 - M21.41) 11/12/2023 Unspecified atherosclerosis of [place] arteries of extremities, bilateral legs (ICD-10 - I70.203) Patient educated on risks and aggravating factors of PVD, including conservative treatment options such as a diet and exercise regimen to aid in slowing progression of vascular disease 11/12/2023 Acquired keratosis [keratoderma] palmaris et plantaris (ICD-10 [...] and no infection or drainage was noted. 11/12/2023 Pain in right foot (ICD-10 - M79.671) Plan Of Treatment Treatment Notes Assessment Notes Flat foot [pes planus] (acquired), left foot Patient educated on etiology and treatment options for flexible flat foot deformity. Educated patient on how a flexible flat foot deformity can in turn result in pathology such as hammer toe, bunions, equinus, neuromas. Recommend use of custom foot inserts to help alleviate plantar peak pressures and accomodate for digital deformity to feet. Unspecified atherosclerosis of [place] arteries of extremities, bilateral legs Patient educated [...] Reason: Progress Notes * KAREL MORILLO RDOB:[birth year] (88 yo F)Acc No.[id number]:11/12/2023 Patient: Massimo KAREL ALDRICH Provider: Laine WINTER :1935 A ge:88 Y S ex:Female Date:11/12/2023 Address:[address] [place] [address] Subjective: * Chief Complaints: * 1 . *General care. * HPI: H PI: New Complaint E stablished patient presents with a new complaint., Patient complains of an issue to her right foot. Pt states she has a painful callus on the bottom of her foot. Patient denies any constitutional symptoms at this time. Patient denies any recent trauma to the foot or ankle. M A: As. * ROS: G eneral / Constitutional: Patient denies w eakness. R espiratory: Patient denies c hronic cough, shortness of breath, sputum production. C ardiovascular: Patient denies c hest pain, history of AK, irregular heartbeat. M usculoskeletal: Patient complains of [...] Medicationfurosemide 40 MG Oral Tablet *Reorder from [facility] for eRx and Interaction Alerts*, Taking 24 HR metoprolol succinate 100 MG Extended Release Oral Tablet ORAL , Notes to Pharmacist: 24 HR metoprolol succinate 100 MG Extended Release Oral TabletOriginal [id number] HR metoprolol succinate 100 MG Extended Release Oral Tablet *Reorder from [facility] for eRx and Interaction Alerts*, Taking levothyroxine sodium 0.075 MG Oral Capsule ORAL , Notes to Pharmacist: levothyroxine sodium 0.075 MG Oral CapsuleOriginal Medicationlevothyroxine sodium 0.075 MG Oral Capsule *Reorder from [facility] for eRx and Interaction Alerts*, Taking metformin hydrochloride 500 MG Oral Tablet ORAL , Notes to Pharmacist: metformin hydrochloride 500 MG Oral TabletOriginal Medicationmetformin hydrochloride 500 MG Oral Tablet *Reorder from [facility] for eRx and Interaction Alerts*, Taking pantoprazole 40 MG Delayed Release Oral Tablet ORAL , Notes to Pharmacist: pantoprazole 40 MG Delayed Release Oral TabletOriginal Medicationpantoprazole 40 MG Delayed Release Oral Tablet *Reorder from [facility] for eRx and Interaction Alerts* Objective: * Vitals: W t: 161 lbs, Wt-k.03 kg, Ht: 62.00 in, Ht-cm: 157.48 cm, BMI: 29.44 Index, Body Surface Area: 1.79. * Examination: P hysical Examination: V ascular: [...] no erythema noted, no ecchymoses, nails are at hygienic length x ten, hyperkeratotic lesions noted sub first metatarsal head right foot Musculoskeletal: there is no pain to palpation onto nail plate x ten, no calf pain noted bilaterally, arch height noted at 2/5 non-weight bearing bilaterally, first metatarsophalangeal joint range of motion 30 deg non-weight bearing bilaterally, pain to palpation hyperkeratotic lesion sub first metatarsal head right foot Neurology: protective sensation intact to light touch bilateral digits one through five, vibratory sensation intact to first metatarsophalangeal joint bilaterally. Assessment: * Assessment: 1. F lat foot [pes planus] (acquired), left foot - M21.42 (Primary) 2 . F lat foot [pes planus] (acquired), right foot - M21.41 3 . U nspecified atherosclerosis of [place] arteries of extremities, bilateral legs - I70.203 4 . A cquired keratosis [keratoderma] palmaris et plantaris - L85.1 5 . P ain in right foot - M79.671 Plan: * Treatment: 2. U nspecified atherosclerosis of [place] arteries of extremities, bilateral legs Notes: Patient educated on risks and aggravating factors of PVD, including conservative treatment options such as a diet and exercise regimen to aid in slowing progression of vascular disease ? 3. A cquired keratosis [keratoderma] palmaris et plantaris [...] no infection or drainage was noted. * Follow Up: 3 Months * Billing Information: * Visit Code: 28719 Office Visit, Est Pt., Level 3. * Procedure Codes: * Sign off status: Completed true * Provider: Laine WINTER Date: 0 11/12/2023 Generated for He mota/Hawa/Salty on: 0 08/22/2024 10:48 AM TELEVISION NEWS PRODUCER History and Physical Notes * HPI (History of Present Illness) Category Sub-Category Detail Notes Category Not es HPI New Complaint Established raudel ent presents with a new complaint., Patient complains of an issue to her right foot. Pt states she has a painful callus on the bottom of her foot. Patient denies any constitutional symptoms at this time. Patient denies any recent trauma to the foot or ankle. MA: As Examination Category Sub-Category Detail Notes Category Not [...] no erythema noted, no ecchymoses, nails are at hygienic length x ten, hyperkeratotic lesions noted sub first metatarsal head right foot Musculoskeletal: there is no pain to palpation onto nail plate x ten, no calf pain noted bilaterally, arch height noted at 2/5 non-weight bearing bilaterally, first metatarsophalangeal joint range of motion 30 deg non-weight bearing bilaterally, pain to palpation hyperkeratotic lesion sub first metatarsal head right foot Neurology: protective sensation intact to light touch bilateral digits one through five, vibratory sensation intact to first metatarsophalangeal joint bilaterally
--- OUTSIDE RECORDS SUMMARY | 2024-08-22 10:49 | XMS_ITS | Referral Summary ---
Author Organization [facility] Address [address] [place] [address] Care Team Providers Care Sales Representative Rural Power Name Role Phone Unknown, Provider Primary Care Provider Unavaila ble Source Comments [facility],non-owned Affiliates and Associated Physician Practices is amultiple site organization consisting of ambulatory clinics and hospital sitesin [place], [place], [place] and [place]. This disclosure is being madepursuant to the Care Everywhere program and may not contain all information available regarding this patient. Last updated 18.[facility] [address] Social History Tobacco Use Types Packs/Day Years [...] of Treatment Not on file Care Teams Sales Representative Rural Power Relationship Specialty Start Date End Date Unknown, Provider PCP - General 10/12/22
--- OUTSIDE RECORDS SUMMARY | 2024-08-22 10:49 | XMS_ITS | Patient Health Record ---
Author Organization [facility] Address [address] [place], [place] [id number] Care Team Providers Care Fruit Or Nut Grower Name Role Phone ELIZABETH John Unavailable [phone] Lisette Marmolejo Unavailable Unavailable ETHAN WINTER Unavailable [phone] Allergies Allergen (clinical drug ingredient) Drug/Non Drug Allergy documented on EMR Reaction Allergy Type Onset Date Status sulfamethoxazole / trimethoprim Bactrim Unknown Drug Allergy 04/30/2020 active Reason For Referral No Information Medications Medication SIG (Take, Route, Frequency, Duration) Notes Start Date End Date Status metformin hydrochloride 500 MG Oral Tablet ORAL metformin hydrochloride 500 MG Oral TabletOriginal Medicationmetformin hydrochloride 500 MG Oral Tablet *Reorder from [facility] for eRx and Interaction Alerts* 0 Active pantoprazole 40 MG Delayed Release Oral Tablet ORAL pantoprazole 40 MG Delayed Release Oral TabletOriginal Medicationpantoprazole 40 MG Delayed Release Oral Tablet *Reorder from [facility] for eRx and Interaction Alerts* 0 Active levothyroxine sodium 0.075 MG Oral Capsule ORAL levothyroxine sodium 0.075 MG Oral CapsuleOriginal Medicationlevothyroxine sodium 0.075 MG Oral Capsule *Reorder from [facility] for eRx and Interaction Alerts* 0 Active Furosemide 40 MG Oral Tablet ORAL furosemide 40 MG Oral TabletOriginal Medicationfurosemide 40 MG Oral Tablet *Reorder from [facility] for eRx and Interaction Alerts* 0 Active 24 HR metoprolol succinate 100 MG Extended Release Oral Tablet ORAL 24 HR metoprolol succinate 100 MG Extended Release Oral TabletOriginal [id number] HR metoprolol succinate 100 MG Extended Release Oral Tablet *Reorder from [facility] for eRx and Interaction Alerts* 0 Active Vital Signs Height-cm 157.48 cm 11/12/2023 Weight-kg 73.03 kg 11/12/2023 Height 62.00 in 11/12/2023 Weight 161 lbs 11/12/2023 BMI 29.44 kg/m2 11/12/2023 Encounters Encounter Location Date Provider Diagnosis [address] [id number] 09/03/2023 ETHAN WINTER Tinea unguium B35.1 ; Pain in right toe(s) M79.674 ; Pain in left toe(s) M79.675 ; Flat foot [pes planus] (acquired), left foot M21.42 ; Flat foot [pes planus] (acquired), right foot M21.41 ; Unspecified atherosclerosis of [place] arteries of extremities, bilateral legs I70.203 and Acquired keratosis [keratoderma] palmaris et plantaris L85.[address] [id number] 11/12/2023 ETHAN WINTER Flat foot [pes planu s] (acquired), left foot M21.42 ; Flat foot [pes planus] (acquired), right foot M21.41 ; Unspecified atherosclerosis of [place] arteries of extremities, bilateral legs I70.203 ; [...] Pain in right toe(s) (ICD-10 - M79.674) 11/12/2023 Flat foot [pes planus] (acquired), right foot (ICD-10 - M21.41) 11/12/2023 Flat foot [pes planus] (acquired), left [...] accomodate for digital deformity to feet. 09/03/2023 Pain in left toe(s) (ICD-10 - M79.675) 11/12/2023 Unspecified atherosclerosis of [place] arteries of extremities, bilateral legs (ICD-10 - [...] and no infection or drainage was noted. 09/03/2023 Flat foot [pes planus] (acquired), left [...] (acquired), right foot (ICD-10 - M21.41) 11/12/2023 Pain in right foot (ICD-10 - M79.671) 09/03/2023 Unspecified atherosclerosis of [place] arteries of extremities, bilateral legs (ICD-10 - [...] or drainage was noted. Plan Of Treatment No Information Insurance Providers Payer Name Payer Address Payer Phone Subscriber Number Group Number Insured Name Patient Relationship to Insured Coverage Start Date Coverage End Date Medicare Part B [place] [address] [place] [phone] [id number] KAREL MORILLO Self - patient is the insured [facility] ([facility]) ATTN CLAIMS [address] [place] [address] [id number] KAREL MORILLO Self - patient is the insured
--- OUTSIDE RECORDS SUMMARY | 2024-08-22 10:49 | XMS_ITS | Clinical Summary ---
Author Organization [facility] Address [address] [place] [address] Care Team Providers Care Auto Design Detailer Name Role Phone Unknown, Provider Primary Care Provider Unavaila ble Source Comments [facility],non-owned Affiliates and Associated Physician Practices is amultiple site organization consisting of ambulatory clinics and hospital sitesin [place], [place], [place] and [place]. This disclosure is being madepursuant to the Care Everywhere program and may not contain all information available regarding this patient. Last updated 18.[facility] Social History Tobacco Use Types Packs/Day Years [...] Comments BONE DENSITY TESTING 1935 MEDICARE AWV 12 MONTHS 1935 DTAP/TDAP/TD VACCINES (1 - Tdap) 09/24/1955 PNEUMOCOCCAL VACCINE 50+ (1 of 1 - PCV) 1986 ZOSTER VACCINE (1 of 2) 1986 Respiratory Syncytial Virus (RSV) Vaccine Pt: or over 60 yrs (1 - 1-dose 75+ series) 09/24/2011 COVID-19 VACCINE ( - 2023-2 5 season) 2024 INFLUENZA VACCINE [...] age to complete this topic Care Teams Auto Design Detailer Relationship Specialty Start Date End Date Unknown, Provider PCP - General 10/12/22
== END 2024-08-22 10:01 | disposition home or self-care (01) ==
PROVIDERS: PCP Internal Medicine; Visit Provider Internal Medicine
DX: M89.9 Disorder of bone, unspecified (principal); J32.9 Chronic sinusitis, unspecified
CPT/HCPCS: 70482; Q9967

== ENCOUNTER 2024-08-23 13:30 | Outpatient (RCR) | payer MEDICARE, BC, SELFPAY ==
--- NOTE | 2024-08-23 14:57 | PTOPEVAL1 ---
Assessment and note entered by Snehal Kennedy DPT Evaluation Information Assessment Status Evaluation Diagnosis R knee pain, impaired balance ICD-10 Condition Codes (PT) Pain in right knee M25.561 Onset 08/17/24 Subjective Information Patient reports she has had chronic R knee pain. She reports pain with getting her leg into the car , getting up out of the chair and walking. She reports she has been considering a knee replacement but has not seen an ortho. She reports she is bone on bone. She reports she does not use a cane or a walker. Reported Pain Level Pain Score 0: Self Report Plan of Care Interventions Electrical Stimulation,Gait Training,Hot Pack/Cold Pack,Manual Therapy,Neuro Re-education,Patient/ Caregiver Education,Therapeutic Activities, Therapeutic Exercise PT Services Indicated Yes Treatment Frequency and 1x weekly for 6 weeks Duration These treatments will address the objective and functional deficits as defined above. The patient will be advanced safely and appropriately in order for the patient to progress towards his/her prior level of function. Additional exercises will be introduced and as well as a comprehensive home exercise program upon discharge, if needed, ?to ensure carryover of functional gains achieved in the clinic. This treatment plan has been reviewed and agreement upon by the patient.
--- NOTE | 2024-08-23 15:24 | PTOPEVAL1 ---
Assessment and note entered by Snehal Kennedy DPT Evaluation Information Assessment Status Evaluation Diagnosis R knee pain, impaired balance ICD-10 Condition Codes (PT) Pain in right knee M25.561 Onset 08/17/24 Subjective Information Patient reports she has had chronic R knee pain. She reports pain with getting her leg into the car , getting up out of the chair and walking. She reports she has been considering a knee replacement but has not seen an ortho. She reports she is bone on bone. She reports she does not use a cane or a walker. Reported Pain Level Pain Score 0: Self Report Assessment PT Clinical Summary Ms. Martinez is a 88 year old female who presents to PT with R knee pain. She demonstrates decreased R knee active ROM, decreased R knee strength, and impaired gait. She has difficulty getting up out of a chair, ambulating and getting into and out of a car. She would benefit from skilled PT to address impairments and return to PLOF. Plan of Care Interventions Electrical Stimulation,Gait Training,Hot Pack/Cold Pack,Manual Therapy,Neuro Re-education,Patient/ Caregiver Education,Therapeutic Activities, Therapeutic Exercise PT Services Indicated Yes Treatment Frequency and 1x weekly for 6 weeks Duration These treatments will address the objective and functional deficits as defined above. The patient will be advanced safely and appropriately in order for the patient to progress towards his/her prior level of function. Additional exercises will be introduced and as well as a comprehensive home exercise program upon discharge, if needed, ?to ensure carryover of functional gains achieved in the clinic. This treatment plan has been reviewed and agreement upon by the patient.
--- NOTE | 2024-10-12 14:35 | OPREHPOC ---
Outpatient Therapy Plan of Care This is a Multidisciplinary Plan of Care that may contain components documented by all disciplines (PT, OT, and ST.) PT Problem 1 PT Problem #1 Knowledge Deficit PT Goal 1 Goal / Goal Update patient to demonstrate independence with HEP Target Visit 6 PT Problem 2 PT Problem #2 Pain PT Goal 1 Goal / Goal Update 1. patient to report highest pain at 2/10 Target Visit 6 PT Problem 3 PT Problem #3 Impaired Range of Motion PT Goal 1 Goal / Goal Update patient to demonstrate 0-120 deg of R knee active ROM to return to getting into car at PLOF Target Visit 6 PT Problem 4 PT Problem #4 Impaired Strength PT Goal 1 Goal / Goal Update Patient to demonstrate 4+/5 R knee strength to improve ability to get up out of chair Target Visit 6 PT Problem 5 PT Problem #5 Impaired Functional Mobility PT Goal 1 Goal / Goal Update 1. Patient to improve LEFS by 20% 2. Patient to report ability to ambulate through grocery store without increase in R knee pain Target Visit 6
--- NOTE | 2024-10-12 14:35 | PTOPREEVAL ---
Assessment and note entered by JT File, PT Evaluation Information Assessment Status Re-evaluation Diagnosis R knee pain, impaired balance ICD-10 Condition Codes (PT) Pain in right knee M25.561 Onset 08/17/24 Subjective Information patient reports she has been away from PT for about a month due to inability to attend from severe R knee pain. she reports she is hoping to get a knee replacement in december, but reports she does not yet have a date set. she reports it has been really painful with bending, and it frequently jumps on her. Reported Pain Level Pain Score 3: Self Report Assessment PT Clinical Summary mrs. horowitz presents to skilled PT for her 4th skilled PT visit. she has not been to skilled PT in a little over a month due to increased R knee pain. she returns today and reports she is planning to have surgery some time in december, but reports she does not yet have a date. she has not met any goals yet as of this date, but would benefit from return to skilled PT to improve her rom and strength of the R knee and hip to improved her knee stability and post op performance when she does have surgery. Plan of Care Interventions Electrical Stimulation,Gait Training,Hot Pack/Cold Pack,Manual Therapy,Neuro Re-education,Patient/ Caregiver Education,Therapeutic Activities, Therapeutic Exercise PT Services Indicated Yes Treatment Frequency and return to 1x weekly skilled PT for 4 more visits ( Duration 8 total) These treatments will address the objective and functional deficits as defined above. The patient will be advanced safely and appropriately in order for the patient to progress towards his/her prior level of function. Additional exercises will be introduced and as well as a comprehensive home exercise program upon discharge, if needed, ?to ensure carryover of functional gains achieved in the clinic. This treatment plan has been reviewed and agreement upon by the patient.
--- NOTE | 2024-11-16 15:42 | OPREHPOC ---
Outpatient Therapy Plan of Care This is a Multidisciplinary Plan of Care that may contain components documented by all disciplines (PT, OT, and ST.) PT Problem 1 PT Problem #1 Knowledge Deficit PT Goal 1 Goal / Goal Update patient to demonstrate independence with HEP Target Visit 6 Progress Met PT Problem 2 PT Problem #2 Pain PT Goal 1 Goal / Goal Update 1. patient to report highest pain at 2/10 Target Visit 6 Progress Not Met PT Problem 3 PT Problem #3 Impaired Range of Motion PT Goal 1 Goal / Goal Update patient to demonstrate 0-120 deg of R knee active ROM to return to getting into car at PLOF Target Visit 6 Progress Not Met PT Problem 4 PT Problem #4 Impaired Strength PT Goal 1 Goal / Goal Update Patient to demonstrate 4+/5 R knee strength to improve ability to get up out of chair Target Visit 6 Progress Met PT Problem 5 PT Problem #5 Impaired Functional Mobility PT Goal 1 Goal / Goal Update 1. Patient to improve LEFS by 20% 2. Patient to report ability to ambulate through grocery store without increase in R knee pain Target Visit 6 Progress Not Met
--- NOTE | 2024-11-16 15:42 | PTOPDC ---
Assessment and note entered by JT File, PT Evaluation Information Assessment Status Discharge Diagnosis R knee pain, impaired balance ICD-10 Condition Codes (PT) Pain in right knee M25.561 Onset 08/17/24 Subjective Information patient reports she is a bit sore today. she reports the knee pain comes and goes at times with activity still. she reports she is getting a knee replacement on 01/17/[address] tabor. she reports she is compliant with her HEP at home. Reported Pain Level Pain Score 0: Self Report Assessment PT Clinical Summary mrs. horowitz presents to skilled PT for her 8th skilled PT visit today. she displays improved R knee rom and strength, but continued valgus R knee posture, lack of R knee extension, and difficulty with functional activities. she is planning to have the R knee replaced in 2 months. as of this date, we will DC skilled PT today, and continue with HEP independently until surgery, then she will return to skilled PT under a new order. Plan of Care PT Services Indicated Yes
== END 2024-11-21 23:59 | disposition home or self-care (01) ==
LOC: CHSPT 13:30
PROVIDERS: PCP Internal Medicine; Visit Provider Internal Medicine
DX: M17.11 Unilateral primary osteoarthritis, right knee (principal); M25.561 Pain in right knee; R26.81 Unsteadiness on feet
CPT/HCPCS: 97110; 97140; 97161; 97530

== ENCOUNTER 2024-09-05 10:39 | Outpatient (CLI) | payer MEDICARE, BC, SELFPAY ==
--- NOTE | ~2024-09-05 | US_ITS ---
EXAMINATION: US venous doppler LE RT DATE: 09/05/2024 11:21 INDICATION: Right lower limb swelling. TECHNIQUE: Grayscale ultrasound images without and with compression and Doppler ultrasound images of the right lower extremity veins were obtained. COMPARISON: Right knee radiographs 08/24/2023 FINDINGS: The visualized portions of right common femoral vein, profunda (deep) femoral vein, femoral vein, pop liteal vein, peroneal veins, posterior tibial veins, and greater saphenous vein outflow are patent. T here is a moderate-sized Hagan's cyst. IMPRESSION: 1. No deep venous thrombosis. 2. Moderate-sized Hagan's cyst. Reviewed, dictated and finalized at location A. ND SORTER
--- NOTE | ~2024-09-05 | US_ITS ---
EXAMINATION: US arterial ankle brachial ind DATE: 09/05/2024 11:21 INDICATION: Peripheral arterial disease. TECHNIQUE: Segmental pressures and plethysmographic and Doppler waveforms of the brachial and lower e xtremity arteries were obtained. COMPARISON: None. FINDINGS: Right and left brachial artery pressures of 127 mm Hg and 131 mm Hg, respectively, are concordant (no rmal difference <= 30 mmHg). The right ankle-brachial index (ANDERSON) is 1.11 (normal >= 0.9-1.0). The right great toe-brachial index (TBI) is 0.97 (normal >= 0.65). Arterial Doppler waveforms are monophasic in dorsalis pedis and bipha sic in posterior tibial artery. The left ANDERSON is 1.08. The left TBI is 0.47. Arterial Doppler waveforms are monophasic in dorsalis ped is and biphasic in posterior tibial artery. IMPRESSION: 1. Decreased left TBI and normal left ANDERSON, consistent with left-sided arterial occlusive disease. Not e that ANDERSON may be overestimated if arteries are calcified. 2. No significant right-sided arterial occlusive disease. Reviewed, dictated and finalized at location A. SPEED OPERATOR IMPRESSION: 1. Decreased left TBI and normal left ANDERSON, consistent with left-sided arterial occlusive disease. Note that ANDERSON may be overestimated if arteries are calcified . 2. No significant right-sided arterial occlusive disease.
--- OUTSIDE RECORDS SUMMARY | 2024-09-05 12:05 | XMS_ITS | Encounter Summary ---
Author Organization [facility] Address [facility] [place] [address] Care Team Providers Care Brazer Controlled Atmospheric Furnace Name Role Phone Unknown, Provider Primary Care Provider Unavaila ble Encounter Details Date Type Department Care Team (Late st Contact Info) Description 10/12/2022 Ophth Exam [facility] [address] [place] [address] Bakari Paiz MD [address] [facility] [place] [address] Social History Tobacco Use Types Packs/Day Years Used Date Smoking Tobacco: Never Assessed Sex and Gender Information Value Date Recorded Sex Assigned at Not on file Gender Identity Not on file Sexual Orientation Not on file documented as of this encounter Plan of Treatment Not on file documented as of this encounter Visit Diagnoses Not on filedocumented in this encounter Care Teams Brazer Controlled Atmospheric Furnace Relationship Specialty Start Date End Date Unknown, Provider PCP - General 10/12/22 documented as of this encounter
--- OUTSIDE RECORDS SUMMARY | 2024-09-05 12:05 | XMS_ITS | Clinical Summary ---
Author Organization [facility] Address [address] [place] [address] Care Team Providers Care Environmental Program Manager Name Role Phone Lisette Marmolejo MD Primary Care Provider [phone] Elis Peralta MD Unavailable Allergies Active Allergy [...] in the interim. Hypothyroidism Hypertension Diabetes mellitus ([facility]/HCC HHS/HCC) Depression Coronary artery disease Anxiety Hx of CABG Dyspnea on effort Encounters Date Type Department Care Team Description 06/27/2024 Telephone [facility] [place] [address] [place] [address] Elis Peralta MD Follow Up Call 06/24/2024 1:15 PM STEAM BOX TENDER Office Visit [facility] [address] [place] [address] Elis Peralta MD Heart Problem 06/24/2024 12:48 PM STEAM BOX TENDER - 06/24/2024 11:59 PM STEAM BOX TENDER Hospital Encounter [facility] [address] [place] [address] Elis Peralta MD Discharge Disposition: Home or Self Care (Routine Discharge) 06/24/2024 Travel 06/23/2024 Telephone [facility] [address] [place] [phone] Elis Peralta MD Appointment Reminder 06/20/2024 Orders Only [facility] [address] [place] [address] Elis Peralta MD from Last 3 Months [...] CDT Gender Identity Female 07/22/2021 5:57 PM STEAM BOX TENDER Sexual Orientation Not on file Last Filed Vital Signs Vital Sign Reading Time Taken Comments Blood Pressure 116/79 06/24/2024 11:00 AM STEAM BOX TENDER Pulse 77 06/24/2024 11:00 AM STEAM BOX TENDER Temperature 36.4 C (97.5 F) 03/27/2019 12:21 PM CDT Respiratory Rate 16 06/24/2024 11:00 AM STEAM BOX TENDER Oxygen Saturation 99% 06/24/2024 11:00 AM STEAM BOX TENDER Inhaled Oxygen Concentration - - Weight 68.5 kg (151 lb) 06/24/2024 11:00 AM STEAM BOX TENDER Height 157.5 cm (5' 2 ) 06/24/2024 11:00 AM STEAM BOX TENDER Body Mass Index 27.62 06/24/2024 11:00 AM STEAM BOX TENDER Plan of Treatment Upcoming Encounters Date Type Department Care Team (Late st Contact Info) Description 07/03/2025 11:15 AM STEAM BOX TENDER Office Visit [facility] [place] [phone] Elis Peralta MD [address] [place] [address] Health Maintenance Due Date Last Done Comments [...] Comments ECG 12-LEAD Routine 06/24/2024 12:57 PM STEAM BOX TENDER Primary hypertension from Last 3 Months Results * ECG 12 lead (HOSPITAL PERFORMED ONLY) (06/24/2024 12:57 PM STEAM BOX TENDER) 06/24/2024 12:5 7 PM STEAM BOX TENDER Narrative [facility] - 06/24/2024 10:20 PM STEAM BOX TENDER [id number] [place] [address] Test Date: 2024-06-24 Pat Name: KAREL MARTINEZ Department: 3 Room: Gender: Female Skein Mercerizing Machine Operator: ILIANA : 1935 Requested By: ELIS PERALTA Order Number: [id number] Reading MD: Elis Peralta Measurements Intervals [place] Rate: 66 P: 51 ID: 170 QRS: 15 QRSD: 86 T: 55 QT: 390 QTc: 410 Interpretive Statements SINUS RHYTHM MODERATE ST DEPRESSION [0.05+ mV ST DEPRESSION] M BOX TENDER Procedure Note Elis Peralta MD - 06/24/[address] [place] [address] Test Date: 2024-06-24 Pat Name: KAREL MARTINEZ Department: 3 Room: Gender: Female Skein Mercerizing Machine Operator: SB : 1935 Requested By: ELIS PERALTA Order Number: [id number] Reading MD: Elis Peralta Measurements Intervals [place] Rate: 66 P: 51 ID: 170 QRS: 15 QRSD: 86 T: 55 QT: 390 QTc: 410 Interpretive Statements SINUS RHYTHM MODERATE ST DEPRESSION [0.05+ mV ST DEPRESSION] M BOX TENDER us Elis Peralta MD ECG ORDERABLES Final Result [facility] from Last 3 [place] [id number] [facility] MEDICARE [facility] Advance Directives Documents on File Type Date Recorded Patient Outsole Caser Expl anation Advance Directives and Living Will 03/28/2019 9:44 AM living will & poa fo r health care Advance Directives and Living Will 03/24/2019 12:24 PM Power of Straw Baler 03/24/2019 12:23 PM Advance Directives and Living Will 03/24/2019 7:13 AM living will & poa fo r health care * Full Code (Latest Code Status on File) Date Activated Date Inactivated Comments 03/24/2019 1:43 AM 03/27/2019 5:41 PM * Full Code Date Activated Date Inactivated Comments 03/06/2019 10:34 AM 03/08/2019 7:53 PM Care Teams Environmental Program Manager Relationship Specialty Start Date End Date Lisette Marmolejo MD [address] [place] [address] PCP - General INTERNAL MEDICINE 03/06/19 Elis Peralta MD [address] [place] [address] Consulting Physician CARDIOVASCULAR DISEASE 11/04/23
--- OUTSIDE RECORDS SUMMARY | 2024-09-05 12:05 | XMS_ITS ---
Author Organization [facility] Address [address] [place], [place] [id number] Care Team Providers Care Front Desk Administrator Name Role Phone ELIZABETH John Unavailable [phone] Lisette Marmolejo Unavailable Unavailable ETHAN WINTER Unavailable [phone] REASON FOR VISIT *General care Encounters Encounter Location Date Provider Diagnosis [address] [id number] 01/21/2024 ETHAN WINTER Plan Of Treatment No Information Progress Notes * KAREL MORILLO RDOB:[birth year] (88 yo F)Acc No.[id number]:01/21/2024 Patient: KAREL GURROLA Provider: Laine WINTER :1935 A ge:88 Y S ex:Female Date:01/21/2024 Address:[address] [place], [place] [phone] Subjective: * Chief Complaints: * 1 . *General care. * Medical History: Objective: * Vitals: Assessment: Plan: * Treatment: * Billing Information: * Visit Code: * Procedure Codes: * Electronic signature of DEREK WINTER DPM on 09/05/2024 at 12:05 PM HOSIERY BAGGER Sign off status: Pending * Provider: Laine WINTER Date: 0 01/21/2024 Generated for Lyi ng/Faenderg/eTransmitting on: 0 09/05/2024 12:05 PM HOSIERY BAGGER
--- OUTSIDE RECORDS SUMMARY | 2024-09-05 12:05 | XMS_ITS ---
Author Organization [facility] Address [address] [place], [place] [address] Care Team Providers Care Masticator Name Role Phone ELIZABETH John Unavailable [phone] Lisette Marmolejo Unavailable Unavailable ETHAN WINTER Unavailable [phone] REASON FOR VISIT *General care Medications Medication SIG (Take, Route, Frequency, Duration) Notes Start Date End Date Status pantoprazole 40 MG Delayed Release Oral Tablet ORAL pantoprazole 40 MG Delayed Release Oral TabletOriginal Medicationpantoprazole 40 MG Delayed Release Oral Tablet *Reorder from [employer] for eRx and Interaction Alerts* 0 Active levothyroxine sodium 0.075 MG Oral Capsule ORAL levothyroxine sodium 0.075 MG Oral CapsuleOriginal Medicationlevothyroxine sodium 0.075 MG Oral Capsule *Reorder from [employer] for eRx and Interaction Alerts* 0 Active metformin hydrochloride 500 MG Oral Tablet ORAL metformin hydrochloride 500 MG Oral TabletOriginal Medicationmetformin hydrochloride 500 MG Oral Tablet *Reorder from [employer] for eRx and Interaction Alerts* 0 Active Furosemide 40 MG Oral Tablet ORAL furosemide 40 MG Oral TabletOriginal Medicationfurosemide 40 MG Oral Tablet *Reorder from [facility] for eRx and Interaction Alerts* 0 Active 24 HR metoprolol succinate 100 MG Extended Release Oral Tablet ORAL 24 HR metoprolol succinate 100 MG Extended Release Oral TabletOriginal [id number] HR metoprolol succinate 100 MG Extended Release Oral Tablet *Reorder from [employer] for eRx and Interaction Alerts* 0 Active Encounters Encounter Location Date Provider Diagnosis [facility] [address] [place], [place] [phone] 09/03/2023 ETHAN WINTER Tinea unguium B35.1 ; Pain in right toe(s) M79.674 ; Pain in left toe(s) M79.675 ; Flat foot [pes planus] (acquired), left foot M21.42 ; Flat foot [pes planus] (acquired), right foot M21.41 ; Unspecified atherosclerosis of [place] arteries of extremities, bilateral legs I70.203 and [...] (ICD-10 - M21.41) 09/03/2023 Unspecified atherosclerosis of [place] arteries of extremities, bilateral legs (ICD-10 - [...] digital deformity to feet. Unspecified atherosclerosis of [place] arteries of extremities, bilateral legs Patient educated [...] * KAREL MORILLO RDOB:[birth year] (87 yo F)Acc No.[id number]:09/03/2023 Patient: KAREL GURROLA Provider: Laine WINTER :1935 A ge:87 Y S ex:Female Date:09/03/2023 Address:[address] [place] [address] Subjective: * Chief Complaints: * 1 . [...] Patient denies c hest pain, history of [place], irregular heartbeat. M usculoskeletal: Patient complains of [...] Medicationfurosemide 40 MG Oral Tablet *Reorder from [employer] for eRx and Interaction Alerts*, Taking 24 HR metoprolol succinate 100 MG Extended Release Oral Tablet ORAL , Notes to Pharmacist: 24 HR metoprolol succinate 100 MG Extended Release Oral TabletOriginal Cvrygpjsvj86 HR metoprolol succinate 100 MG Extended Release Oral Tablet *Reorder from [employer] for eRx and Interaction Alerts*, Taking levothyroxine sodium 0.075 MG Oral Capsule ORAL , Notes to Pharmacist: levothyroxine sodium 0.075 MG Oral CapsuleOriginal Medicationlevothyroxine sodium 0.075 MG Oral Capsule *Reorder from [facility] for eRx and Interaction Alerts*, Taking metformin hydrochloride 500 MG Oral Tablet ORAL , Notes to Pharmacist: metformin hydrochloride 500 MG Oral TabletOriginal Medicationmetformin hydrochloride 500 MG Oral Tablet *Reorder from [facility] for eRx and Interaction Alerts*, Taking pantoprazole 40 MG Delayed Release Oral Tablet ORAL , Notes to Pharmacist: pantoprazole 40 MG Delayed Release Oral TabletOriginal Medicationpantoprazole 40 MG Delayed Release Oral Tablet *Reorder from [facility] for eRx and Interaction Alerts* Objective: [...] M21.41 6 . U nspecified atherosclerosis of [place] arteries of extremities, bilateral legs - I70.203 [...] to feet. 3. U nspecified atherosclerosis of [place] arteries of extremities, bilateral legs Notes: Patient [...] LESIONS, 2 TO 4, Modifiers: Q8 , 91380 DEBRIDE NAIL, 6 OR MORE, Modifiers: Q8 , 59 * Follow Up: 3 Months * Billing Information: * Visit Code: * Procedure Codes: 61038 TRIM SKIN LESIONS, 2 TO 4. Modifiers: Q8 39094 DEBRIDE NAIL, 6 OR MORE. Modifiers: Q8, 59 * OLOGICAL PHYSIOTHERAPIST Sign off status: Completed true * Provider: Laine WINTER Date: 0 09/03/2023 Generated for He mota/Hawa/Salty on: 0 09/05/2024 12:05 PM NEUROLOGICAL PHYSIOTHERAPIST History and Physical Notes * HPI (History [...]
--- OUTSIDE RECORDS SUMMARY | 2024-09-05 12:06 | XMS_ITS | Patient Health Summary ---
Author Organization [facility] Address [facility] [place] [address] Care Team Providers Care Customs Opener Verifier Packer Name Role Phone Unknown, Provider Primary Care Provider Unavaila ble Note from [facility],non-owned Affiliates and Associated Physician Practices is amultiple site organization consisting of ambulatory clinics and hospital sitesin [place], [place], [place] and [place]. This disclosure is being madepursuant to the Care Everywhere program and may not contain all information available regarding this patient. Last updated 18.[facility] Social History Tobacco Use Types Packs/Day Years [...] 29.81 10/12/2022 4:06 PM CDT Care Teams Customs Opener Verifier Packer Relationship Specialty Start Date End Date Unknown, Provider PCP - General 10/12/22
--- OUTSIDE RECORDS SUMMARY | 2024-09-05 12:06 | XMS_ITS | Clinical Summary ---
Author Organization [facility] Address [address] [facility] [place] [address] Care Team Providers Care Associate Professor Of Economics Name Role Phone Unknown, Provider Primary Care Provider Unavaila ble Source Comments [facility],non-owned Affiliates and Associated Physician Practices is amultiple site organization consisting of ambulatory clinics and hospital sitesin [place], [place], [place] and [place]. This disclosure is being madepursuant to the Care Everywhere program and may not contain all information available regarding this patient. Last updated 18.[facility] [employer] Social History Tobacco Use Types Packs/Day Years [...] age to complete this topic Care Teams Associate Professor Of Economics Relationship Specialty Start Date End Date Unknown, Provider PCP - General 10/12/22
--- OUTSIDE RECORDS SUMMARY | 2024-09-05 12:06 | XMS_ITS | Referral Summary ---
Author Organization [facility] Address [address] [facility] [address] Care Team Providers Care Paint Mixer Hand Name Role Phone Unknown, Provider Primary Care Provider Unavaila ble Source Comments [facility],non-owned Affiliates and Associated Physician Practices is amultiple site organization consisting of ambulatory clinics and hospital sitesin [place], [place], [place] and [place]. This disclosure is being madepursuant to the Care Everywhere program and may not contain all information available regarding this patient. Last updated 18.[facility] [employer] Social History Tobacco Use Types Packs/Day Years [...] of Treatment Not on file Care Teams Paint Mixer Hand Relationship Specialty Start Date End Date Unknown, Provider PCP - General 10/12/22
--- OUTSIDE RECORDS SUMMARY | 2024-09-05 12:06 | XMS_ITS | Patient Health Record ---
Author Organization [facility] Address [address] [place], [place] [id number] Care Team Providers Care Cfa Name Role Phone ELIZABETH John Unavailable [phone] Lisette Marmolejo Unavailable Unavailable ETHAN WINTER Unavailable [phone] Allergies Allergen (clinical drug ingredient) Drug/Non Drug [...] hydrochloride 500 MG Oral Tablet *Reorder from [employer] for eRx and Interaction Alerts* 0 Active pantoprazole 40 MG Delayed Release Oral Tablet ORAL pantoprazole 40 MG Delayed Release Oral TabletOriginal Medicationpantoprazole 40 MG Delayed Release Oral Tablet *Reorder from [employer] for eRx and Interaction Alerts* 0 Active levothyroxine sodium 0.075 MG Oral Capsule ORAL levothyroxine sodium 0.075 MG Oral CapsuleOriginal Medicationlevothyroxine sodium 0.075 MG Oral Capsule *Reorder from [employer] for eRx and Interaction Alerts* 0 Active Furosemide 40 MG Oral Tablet ORAL furosemide 40 MG Oral TabletOriginal Medicationfurosemide 40 MG Oral Tablet *Reorder from [employer] for eRx and Interaction Alerts* 0 Active 24 HR metoprolol succinate 100 MG Extended Release Oral Tablet ORAL 24 HR metoprolol succinate 100 MG Extended Release Oral TabletOriginal [id number] HR metoprolol succinate 100 MG Extended Release Oral Tablet *Reorder from [employer] for eRx and Interaction Alerts* 0 Active Vital Signs Height-cm 157.48 cm 11/12/2023 Weight-kg 73.03 kg 11/12/2023 Height 62.00 in 11/12/2023 Weight 161 lbs 11/12/2023 BMI 29.44 kg/m2 11/12/2023 Encounters Encounter Location Date Provider Diagnosis [address] [id number] 11/12/2023 ETHAN WINTER Flat foot [pes planu s] (acquired), left foot M21.42 ; Flat foot [pes planus] (acquired), right foot M21.41 ; Unspecified atherosclerosis of [place] arteries of extremities, bilateral legs I70.203 ; Acquired keratosis [keratoderma] palmaris et plantaris L85.1 and Pain in right foot M79.671 Assessments Encounter Date Diagnosis (ICD Code) Assessment Notes Treatment Notes Treatment Clinical Notes Section Notes 11/12/2023 Flat foot [pes planus] (acquired), right [...] accomodate for digital deformity to feet. 11/12/2023 Unspecified atherosclerosis of [place] arteries of extremities, bilateral legs (ICD-10 - [...] foot (ICD-10 - M79.671) Plan Of Treatment No Information Insurance Providers Payer Name Payer Address Payer Phone Subscriber Number Group Number Insured Name Patient Relationship to Insured Coverage Start Date Coverage End Date Medicare Part B [place] [address] [place] [address] [id number] KAREL MORILLO Self - patient is the insured [facility] ([facility]) ATTN CLAIMS [address] [place] [address] [id number] KAREL MORILLO Self - patient is the insured
--- OUTSIDE RECORDS SUMMARY | 2024-09-05 12:06 | XMS_ITS ---
Author Organization [facility] Address [address] [place], [place] [address] Care Team Providers Care Padding Machine Operator Name Role Phone ELIZABETH John Unavailable [phone] Lisette Marmolejo Unavailable Unavailable ETHAN WINTER Unavailable [phone] REASON FOR VISIT *General care Medications Medication SIG (Take, Route, Frequency, Duration) Notes Start Date End Date Status metformin hydrochloride 500 MG Oral Tablet ORAL metformin hydrochloride 500 MG Oral TabletOriginal Medicationmetformin hydrochloride 500 MG Oral Tablet *Reorder from [employer] for eRx and Interaction Alerts* 0 Active pantoprazole 40 MG Delayed Release Oral Tablet ORAL pantoprazole 40 MG Delayed Release Oral TabletOriginal Medicationpantoprazole 40 MG Delayed Release Oral Tablet *Reorder from [employer] for eRx and Interaction Alerts* 0 Active levothyroxine sodium 0.075 MG Oral Capsule ORAL levothyroxine sodium 0.075 MG Oral CapsuleOriginal Medicationlevothyroxine sodium 0.075 MG Oral Capsule *Reorder from [employer] for eRx and Interaction Alerts* 0 Active Furosemide 40 MG Oral Tablet ORAL furosemide 40 MG Oral TabletOriginal Medicationfurosemide 40 MG Oral Tablet *Reorder from [employer] for eRx and Interaction Alerts* 0 Active 24 HR metoprolol succinate 100 MG Extended Release Oral Tablet ORAL 24 HR metoprolol succinate 100 MG Extended Release Oral TabletOriginal Coolchdhyo39 HR metoprolol succinate 100 MG Extended Release Oral Tablet *Reorder from [employer] for eRx and Interaction Alerts* 0 Active Vital Signs Height 62.00 in 11/12/2023 Weight 161 lbs 11/12/2023 BMI 29.44 kg/m2 11/12/2023 Height-cm 157.48 cm 11/12/2023 Weight-kg 73.03 kg 11/12/2023 Encounters Encounter Location Date Provider Diagnosis [address] [id number] 11/12/2023 ETHAN WINTER Flat foot [pes planu s] (acquired), left foot M21.42 ; Flat foot [pes planus] (acquired), right foot M21.41 ; Unspecified atherosclerosis of [place] arteries of extremities, bilateral legs I70.203 ; [...] (ICD-10 - M21.41) 11/12/2023 Unspecified atherosclerosis of [place] arteries of extremities, bilateral legs (ICD-10 - [...] digital deformity to feet. Unspecified atherosclerosis of [place] arteries of extremities, bilateral legs Patient educated [...] * KAREL MORILLO RDOB:[birth year] (88 yo F)Acc No.[id number]:11/12/2023 Patient: Massimo KAREL ALDRICH Provider: Laine WINTER :1935 A ge:88 Y S ex:Female Date:11/12/2023 Address:[address] [place] [address] Subjective: * Chief Complaints: * 1 . [...] Patient denies c hest pain, history of [place], irregular heartbeat. M usculoskeletal: Patient complains of [...] Medicationfurosemide 40 MG Oral Tablet *Reorder from [facility] for eRx and Interaction Alerts*, Taking 24 HR metoprolol succinate 100 MG Extended Release Oral Tablet ORAL , Notes to Pharmacist: 24 HR metoprolol succinate 100 MG Extended Release Oral TabletOriginal Axolpbphmt31 HR metoprolol succinate 100 MG Extended Release Oral Tablet *Reorder from [facility] for eRx and Interaction Alerts*, Taking levothyroxine sodium 0.075 MG Oral Capsule ORAL , Notes to Pharmacist: levothyroxine sodium 0.075 MG Oral CapsuleOriginal Medicationlevothyroxine sodium 0.075 MG Oral Capsule *Reorder from [facility] for eRx and Interaction Alerts*, Taking metformin hydrochloride 500 MG Oral Tablet ORAL , Notes to Pharmacist: metformin hydrochloride 500 MG Oral TabletOriginal Medicationmetformin hydrochloride 500 MG Oral Tablet *Reorder from [facility] for eRx and Interaction Alerts*, Taking pantoprazole 40 MG Delayed Release Oral Tablet ORAL , Notes to Pharmacist: pantoprazole 40 MG Delayed Release Oral TabletOriginal Medicationpantoprazole 40 MG Delayed Release Oral Tablet *Reorder from [facility] for eRx and Interaction Alerts* Objective: * [...] M21.41 3 . U nspecified atherosclerosis of [place] arteries of extremities, bilateral legs - I70.203 4 . A cquired keratosis [keratoderma] palmaris et plantaris - L85.1 5 . P ain in right foot - M79.671 Plan: * Treatment: 2. U nspecified atherosclerosis of [place] arteries of extremities, bilateral legs Notes: Patient [...] Months * Billing Information: * Visit Code: 32861 Office Visit, Est Pt., Level 3. * Procedure Codes: * Sign off status: Completed true * Provider: Laine WINTER Date: 0 11/12/2023 Generated for He mota/Hawa/Salty on: 0 09/05/2024 12:05 PM VAT WASHER History and Physical Notes * HPI (History [...]
== END 2024-09-05 10:40 | disposition home or self-care (01) ==
LOC: CHSIMG 10:41
PROVIDERS: PCP Internal Medicine; Visit Provider Internal Medicine
DX: I73.9 Peripheral vascular disease, unspecified (principal); M79.89 Other specified soft tissue disorders; M71.21 Synovial cyst of popliteal space [Baker], right knee
CPT/HCPCS: 93922; 93971

== ENCOUNTER 2024-09-22 10:29 | Outpatient (CLI) | payer MEDICARE, BC, SELFPAY ==
--- NOTE | ~2024-09-22 | XR_ITS ---
Right Knee Technique: AP, lateral, and sunrise views were obtained. Clinical History: Pain Findings: No fracture or dislocation is seen. Osseous alignment is anatomic. There is moderate to adv anced lateral compartment degenerative change with mild joint space narrowing and lateral joint line osteophyte formation. There is mild to moderate degenerative change of the patellofemoral compartment . There is mild degenerative change of the medial compartment.. Small joint effusion is seen. 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 Small joint effusion. Reviewed, dictated and finalized at location M. Impression: Tricompartmental degenerative change, as detailed above, worst in the lateral c ompartment. Small joint effusion.
--- OUTSIDE RECORDS SUMMARY | 2024-09-22 12:09 | XMS_ITS | Encounter Summary ---
Author Organization [facility] Address [facility] [place] [address] Care Team Providers Care Dehydrogenation Operator Name Role Phone Unknown, Provider Primary Care Provider Unavaila ble Encounter Details Date Type Department Care Team (Late st Contact Info) Description 10/12/2022 Ophth Exam [facility] [address] [place] [address] Bakari Paiz MD [address] [facility] [place] [address] Social History Tobacco Use Types Packs/Day Years Used Date Smoking Tobacco: Never Assessed Sex and Gender Information Value Date Recorded Sex Assigned at Not on file Gender Identity Not on file Sexual Orientation Not on file documented as of this encounter Plan of Treatment Not on file documented as of this encounter Visit Diagnoses Not on filedocumented in this encounter Care Teams Dehydrogenation Operator Relationship Specialty Start Date End Date Unknown, Provider PCP - General 10/12/22 documented as of this encounter
--- OUTSIDE RECORDS SUMMARY | 2024-09-22 12:09 | XMS_ITS ---
Author Organization [facility] Address [address] [place], [place] [address] Care Team Providers Care Sap Business Intelligence Consultant Name Role Phone ELIZABETH John Unavailable [phone] Lisette Marmolejo Unavailable Unavailable ETHAN WINTER Unavailable [phone] REASON FOR VISIT *General care Medications Medication SIG (Take, Route, Frequency, Duration) Notes Start Date End Date Status pantoprazole 40 MG Delayed Release Oral Tablet ORAL pantoprazole 40 MG Delayed Release Oral TabletOriginal Medicationpantoprazole 40 MG Delayed Release Oral Tablet *Reorder from [employer] for eRx and Interaction Alerts* 0 Active levothyroxine sodium 0.075 MG Oral Capsule ORAL levothyroxine sodium 0.075 MG Oral CapsuleOriginal Medicationlevothyroxine sodium 0.075 MG Oral Capsule *Reorder from [employer] for eRx and Interaction Alerts* 0 Active metformin hydrochloride 500 MG Oral Tablet ORAL metformin hydrochloride 500 MG Oral TabletOriginal Medicationmetformin hydrochloride 500 MG Oral Tablet *Reorder from [employer] for eRx and Interaction Alerts* 0 Active Furosemide 40 MG Oral Tablet ORAL furosemide 40 MG Oral TabletOriginal Medicationfurosemide 40 MG Oral Tablet *[facility] for eRx and Interaction Alerts* 0 Active 24 HR metoprolol succinate 100 MG Extended Release Oral Tablet ORAL 24 HR metoprolol succinate 100 MG Extended Release Oral TabletOriginal [id number] HR metoprolol succinate 100 MG Extended Release Oral Tablet *Reorder from [employer] for eRx and Interaction Alerts* 0 Active Encounters Encounter Location Date Provider Diagnosis [facility] [address] [place], [place] [id number] 09/03/2023 ETHAN WINTER Tinea unguium B35.1 ; Pain in right toe(s) M79.674 ; Pain in left toe(s) M79.675 ; 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 Unspecified atherosclerosis of northern [place] arteries of extremities, bilateral legs Patient educated [...] * KAREL MORILLO RDOB:[birth year] (87 yo F)Acc No.[id number]:09/03/2023 Patient: KAREL GURROLA Provider: Laine WINTER :1935 A ge:87 Y S ex:Female Date:09/03/2023 Address:[address] [place] [address] Subjective: * Chief Complaints: * 1 . [...] Patient denies c hest pain, history of NC, irregular heartbeat. M usculoskeletal: Patient complains of [...] Medicationfurosemide 40 MG Oral Tablet *Reorder from [employer] for eRx and Interaction Alerts*, Taking 24 HR metoprolol succinate 100 MG Extended Release Oral Tablet ORAL , Notes to Pharmacist: 24 HR metoprolol succinate 100 MG Extended Release Oral TabletOriginal [id number] HR metoprolol succinate 100 MG Extended Release Oral Tablet *Reorder from [employer] for eRx and Interaction Alerts*, Taking levothyroxine sodium 0.075 MG Oral Capsule ORAL , Notes to Pharmacist: levothyroxine sodium 0.075 MG Oral CapsuleOriginal Medicationlevothyroxine sodium 0.075 MG Oral Capsule *Reorder from [facility] for eRx and Interaction Alerts*, Taking metformin hydrochloride 500 MG Oral Tablet ORAL , Notes to Pharmacist: metformin hydrochloride 500 MG Oral TabletOriginal Medicationmetformin hydrochloride 500 MG Oral Tablet *Reorder from [facility] for eRx and Interaction Alerts*, Taking pantoprazole 40 MG Delayed Release Oral Tablet ORAL , Notes to Pharmacist: pantoprazole 40 MG Delayed Release Oral TabletOriginal Medicationpantoprazole 40 MG Delayed Release Oral Tablet *Reorder from [facility] for eRx and Interaction Alerts* Objective: * [...] M21.41 6 . U nspecified atherosclerosis of northern [place] arteries of extremities, bilateral legs - I70.203 [...] to feet. 3. U nspecified atherosclerosis of [place] arteries of extremities, bilateral legs Notes: Patient [...] LESIONS, 2 TO 4, Modifiers: Q8 , 28570 DEBRIDE NAIL, 6 OR MORE, Modifiers: Q8 , 59 * Follow Up: 3 Months * Billing Information: * Visit Code: * Procedure Codes: 37268 TRIM SKIN LESIONS, 2 TO 4. Modifiers: Q8 50726 DEBRIDE NAIL, 6 OR MORE. Modifiers: Q8, 59 * NEERING FACULTY MEMBER Sign off status: Completed true * Provider: Laine WINTER Date: 0 09/03/2023 Generated for He mota/Hawa/Salty on: 0 09/22/2024 12:09 PM CDT History and Physical Notes * HPI (History [...]
--- OUTSIDE RECORDS SUMMARY | 2024-09-22 12:09 | XMS_ITS ---
Author Organization [facility] Address [address] [place], [place] [address] Care Team Providers Care Senior Accounting Associate Name Role Phone ELIZABETH John Unavailable [phone] Lisette Marmolejo Unavailable Unavailable ETHAN WINTER Unavailable [phone] REASON FOR VISIT *General care Encounters Encounter Location Date Provider Diagnosis [address] [id number] 01/21/2024 ETHAN WINTER Plan Of Treatment No Information Progress Notes * KAREL MORILLO RDOB:[birth year] (88 yo F)Acc No.[id number]:01/21/2024 Patient: CHRISTIAN GURROLALY Darnell Provider: Laine WINTER :1935 A ge:88 Y S ex:Female Date:01/21/2024 Address:[address] [place], [place] [id number] Subjective: * Chief Complaints: * 1 . *General care. * Medical History: Objective: * Vitals: Assessment: Plan: * Treatment: * Billing Information: * Visit Code: * Procedure Codes: * Electronic signature of DEREK WINTER DPM on 09/22/2024 at 12:09 PM CDT Sign off status: Pending * Provider: Laine WINTER Date: 0 01/21/2024 Generated for He ng/Falay/eTransmitting on: 0 09/22/2024 12:09 PM CDT
--- OUTSIDE RECORDS SUMMARY | 2024-09-22 12:09 | XMS_ITS | Clinical Summary ---
Author Organization [facility] Address [address] [place] [address] Care Team Providers Care Rheologist Name Role Phone Lisette Marmolejo MD Primary Care Provider Elis Peralta MD Unavailable Allergies Active Allergy [...] in the interim. Hypothyroidism Hypertension Diabetes mellitus ([facility]/HCC HHS/HCC) Depression Coronary artery disease Anxiety Hx of CABG Dyspnea on effort Encounters Date Type Department Care Team Description 06/27/2024 Telephone [facility] [place] [address] [place] [address] Elis Peralta MD Follow Up Call 06/24/2024 1:15 PM INVOICING MACHINE OPERATOR Office Visit [facility] [address] [place] [address] Elis Peralta MD Heart Problem 06/24/2024 12:48 PM INVOICING MACHINE OPERATOR - 06/24/2024 11:59 PM INVOICING MACHINE OPERATOR Hospital Encounter [facility] [address] [place] [address] Elis Peralta MD Discharge Disposition: Home or Self Care (Routine Discharge) 06/24/2024 Travel from Last 3 Months Family History Medical [...] CDT Gender Identity Female 07/22/2021 5:57 PM INVOICING MACHINE OPERATOR Sexual Orientation Not on file Last Filed Vital Signs Vital Sign Reading Time Taken Comments Blood Pressure 116/79 06/24/2024 11:00 AM INVOICING MACHINE OPERATOR Pulse 77 06/24/2024 11:00 AM INVOICING MACHINE OPERATOR Temperature 36.4 C (97.5 F) 03/27/2019 12:21 PM CDT Respiratory Rate 16 06/24/2024 11:00 AM INVOICING MACHINE OPERATOR Oxygen Saturation 99% 06/24/2024 11:00 AM INVOICING MACHINE OPERATOR Inhaled Oxygen Concentration - - Weight 68.5 kg (151 lb) 06/24/2024 11:00 AM INVOICING MACHINE OPERATOR Height 157.5 cm (5' 2 ) 06/24/2024 11:00 AM INVOICING MACHINE OPERATOR Body Mass Index 27.62 06/24/2024 11:00 AM INVOICING MACHINE OPERATOR Plan of Treatment Upcoming Encounters Date Type Department Care Team (Late st Contact Info) Description 07/03/2025 11:15 AM INVOICING MACHINE OPERATOR Office Visit [facility] [place] [address] Elis Peralta MD [address] [place] [address] Health Maintenance Due Date Last Done Comments [...] 10/25/2015 Hemoglobin A1C 07/24/2019 01/21/2019 COVID-19 Vaccine (1 - 2023-2 5 season) 2024 Influenza Adult [...] Comments ECG 12-LEAD Routine 06/24/2024 12:57 PM INVOICING MACHINE OPERATOR Primary hypertension from Last 3 Months Results * ECG 12 lead (HOSPITAL PERFORMED ONLY) (06/24/2024 12:57 PM INVOICING MACHINE OPERATOR) 06/24/2024 12:5 7 PM INVOICING MACHINE OPERATOR Narrative [facility] RAD - 06/24/2024 10:20 PM INVOICING MACHINE OPERATOR [address] [place] [address] Test Date: 2024-06-24 Pat Name: KAREL MARTINEZ Department: 3 Room: Gender: Female Fiber Design Engineer: [place]IA[place] : 1935 Requested By: ELIS PERALTA Order Number: [id number] Reading MD: Elis Peralta Measurements Intervals [place] Rate: 66 P: 51 MA: 170 QRS: 15 QRSD: 86 T: 55 QT: 390 QTc: 410 Interpretive Statements SINUS RHYTHM MODERATE ST DEPRESSION [0.05+ mV ST DEPRESSION] ICING MACHINE OPERATOR Procedure Note Elis Peralta MD - 06/24/2024 [place] [address] [facility] [place] [address] Test Date: 2024-06-24 Pat Name: KAREL MARTINEZ Department: 3 Room: Gender: Female Fiber Design Engineer: [place] : 1935 Requested By: ELIS PERALTA Order Number: [id number] Reading MD: Elis Peralta Measurements Intervals [place] Rate: 66 P: 51 MA: 170 QRS: 15 QRSD: 86 T: 55 QT: 390 QTc: 410 Interpretive Statements SINUS RHYTHM MODERATE ST DEPRESSION [0.05+ mV ST DEPRESSION] ICING MACHINE OPERATOR us Elis Peralta MD ECG ORDERABLES Final Result [facility] RAD from Last 3 Months Insurance MEDICARE [facility] MEDICARE [facility] Advance Directives Documents on File Type Date Recorded Patient Offset Second Press Operator Expl anation Advance Directives and Living Will 03/28/2019 9:44 AM living will & poa fo r health care Advance Directives and Living Will 03/24/2019 12:24 PM Power of Sample Supervisor 03/24/2019 12:23 PM Advance Directives and Living Will 03/24/2019 7:13 AM living will & poa fo r health care * Full Code (Latest Code Status on File) Date Activated Date Inactivated Comments 03/24/2019 1:43 AM 03/27/2019 5:41 PM * Full Code Date Activated Date Inactivated Comments 03/06/2019 10:34 AM 03/08/2019 7:53 PM Care Teams Rheologist Relationship Specialty Start Date End Date Lisette Marmolejo MD [address] [place] [phone] PCP - General INTERNAL MEDICINE 03/06/19 Elis Peralta MD [address] [place] [address] Consulting Physician CARDIOVASCULAR DISEASE 11/04/23
--- OUTSIDE RECORDS SUMMARY | 2024-09-22 12:10 | XMS_ITS | Referral Summary ---
Author Organization [facility] Address [address] [place] [address] Care Team Providers Care Skilled Nursing Facilities Professional Name Role Phone Unknown, Provider Primary Care Provider Unavaila ble Source Comments [facility],non-owned Affiliates and Associated Physician Practices is amultiple site organization consisting of ambulatory clinics and hospital sitesin [place], [place], [place] and [place]. This disclosure is being madepursuant to the Care Everywhere program and may not contain all information available regarding this patient. Last updated 18.[facility] [employer] Social History Tobacco Use Types Packs/Day Years [...] of Treatment Not on file Care Teams Skilled Nursing Facilities Professional Relationship Specialty Start Date End Date Unknown, Provider PCP - General 10/12/22
--- OUTSIDE RECORDS SUMMARY | 2024-09-22 12:10 | XMS_ITS | Clinical Summary ---
Author Organization [facility] Address [address] [facility] [place] [address] Care Team Providers Care Dial Lathe Operator Name Role Phone Unknown, Provider Primary Care Provider Unavaila ble Source Comments [facility],non-owned Affiliates and Associated Physician Practices is amultiple site organization consisting of ambulatory clinics and hospital sitesin [place], [place], [place] and [place]. This disclosure is being madepursuant to the Care Everywhere program and may not contain all information available regarding this patient. Last updated 18.[facility] [employer] Social History Tobacco Use Types Packs/Day Years [...] to complete this topic MENINGOCOCCAL (Group B) VACC INE SHARED DECISION-MAKING Aged Out No longer eligibl e based on patient's age to complete this topic MENINGOCOCCAL GROUPS A/C/Y/W VACCINE Aged Out No longer eligible b ased on patient's age to complete this topic Care Teams Dial Lathe Operator Relationship Specialty Start Date End Date Unknown, Provider PCP - General 10/12/22
--- OUTSIDE RECORDS SUMMARY | 2024-09-22 12:10 | XMS_ITS ---
Author Name [facility] Address [address] [place] [address] Organization [facility], Address [address] [place] [address] Care Team Providers Care Lean Coach Name Role Phone [facility] Primary Care [...] by oral route once daily at bedtime Chapin 5-325 mg oral tablet take 1 tablet [...] Onset Comments Coronary artery disease invo lving [place] coronary artery of [place] heart without angina pectoris Feb 03 2019 3:03PM Anxiety Depression CAD (coronary artery disease) Diabetes HTN (hypertension) Hypothyroidism Payers Insurance Name Company Name Plan Name Plan Number Policy Number Policy Group Number Start Date Medicare Medicare [id number] N/A [facility] [id number] N/A History of Encounters Visit Date Visit Type Provider 02/16/2019 Office Visit Yamil Linn MD 01/26/2019 Hospital Visit [facility] II MD 01/25/2019 Hospital Visit [facility] II MD 01/24/2019 Surgery Yamil Linn MD 01/22/2019 Hospital Visit [facility] II MD
--- OUTSIDE RECORDS SUMMARY | 2024-09-22 12:10 | XMS_ITS | Patient Health Summary ---
Author Organization [facility] Address [facility] [place] [address] Care Team Providers Care Seam Closer Name Role Phone Unknown, Provider Primary Care Provider Unavaila ble Note from [facility],non-owned Affiliates and Associated Physician Practices is amultiple site organization consisting of ambulatory clinics and hospital sitesin [place], [place], [place] and [place]. This disclosure is being madepursuant to the Care Everywhere program and may not contain all information available regarding this patient. Last updated 18.[facility] Social History Tobacco Use Types Packs/Day Years [...] 29.81 10/12/2022 4:06 PM CDT Care Teams Seam Closer Relationship Specialty Start Date End Date Unknown, Provider PCP - General 10/12/22
--- OUTSIDE RECORDS SUMMARY | 2024-09-22 12:10 | XMS_ITS ---
Author Organization [facility] Address [address] [place], [place] [address] Care Team Providers Care Band Director Name Role Phone ELIZABETH John Unavailable [phone] Lisette Marmolejo Unavailable Unavailable ETHAN WINTER Unavailable [phone] REASON FOR VISIT *General care Medications Medication SIG (Take, Route, Frequency, Duration) Notes Start Date End Date Status metformin hydrochloride 500 MG Oral Tablet ORAL metformin hydrochloride 500 MG Oral TabletOriginal Medicationmetformin hydrochloride 500 MG Oral Tablet *Reorder from [facility] for eRx and Interaction Alerts* 0 Active pantoprazole 40 MG Delayed Release Oral Tablet ORAL pantoprazole 40 MG Delayed Release Oral TabletOriginal Medicationpantoprazole 40 MG Delayed Release Oral Tablet *Reorder from [facility] for eRx and Interaction Alerts* 0 Active levothyroxine sodium 0.075 MG Oral Capsule ORAL levothyroxine sodium 0.075 MG Oral CapsuleOriginal Medicationlevothyroxine sodium 0.075 MG Oral Capsule *Reorder from [facility] for eRx and Interaction Alerts* 0 Active Furosemide 40 MG Oral Tablet ORAL furosemide 40 MG Oral TabletOriginal Medicationfurosemide 40 MG Oral Tablet *Reorder from [facility] for eRx and Interaction Alerts* 0 Active 24 HR metoprolol succinate 100 MG Extended Release Oral Tablet ORAL 24 HR metoprolol succinate 100 MG Extended Release Oral TabletOriginal [id number] HR metoprolol succinate 100 MG Extended Release Oral Tablet *Reorder from [facility] for eRx and Interaction Alerts* 0 Active Vital Signs Weight 161 lbs 11/12/2023 Weight-kg 73.03 kg 11/12/2023 Height 62.00 in 11/12/2023 Height-cm 157.48 cm 11/12/2023 BMI 29.44 kg/m2 11/12/2023 Encounters Encounter Location Date Provider Diagnosis [address] [id number] 11/12/2023 ETHAN WINTER Flat foot [pes planu s] (acquired), left foot M21.42 ; Flat foot [pes planus] (acquired), right foot M21.41 ; Unspecified atherosclerosis of [place]al[place] arteries of extremities, bilateral legs I70.203 ; [...] (ICD-10 - M21.41) 11/12/2023 Unspecified atherosclerosis of [place]al[place] arteries of extremities, bilateral legs (ICD-10 - [...] digital deformity to feet. Unspecified atherosclerosis of [place]al[place] arteries of extremities, bilateral legs Patient educated [...] * KAREL MORILLO RDOB:[birth year] (88 yo F)Acc No.[id number]:11/12/2023 Patient: Massimo KAREL ALDRICH Provider: Laine WINTER :1935 A ge:88 Y S ex:Female Date:11/12/2023 Address:[address] [place] [address] Subjective: * Chief Complaints: * 1 . [...] Patient denies c hest pain, history of MS, irregular heartbeat. M usculoskeletal: Patient complains of [...] Medicationfurosemide 40 MG Oral Tablet *Reorder from [facility] for eRx and Interaction Alerts*, Taking 24 HR metoprolol succinate 100 MG Extended Release Oral Tablet ORAL , Notes to Pharmacist: 24 HR metoprolol succinate 100 MG Extended Release Oral TabletOriginal [id number] HR metoprolol succinate 100 MG Extended Release Oral Tablet *Reorder from [facility] for eRx and Interaction Alerts*, Taking levothyroxine sodium 0.075 MG Oral Capsule ORAL , Notes to Pharmacist: levothyroxine sodium 0.075 MG Oral CapsuleOriginal Medicationlevothyroxine sodium 0.075 MG Oral Capsule *Reorder from [facility] for eRx and Interaction Alerts*, Taking metformin hydrochloride 500 MG Oral Tablet ORAL , Notes to Pharmacist: metformin hydrochloride 500 MG Oral TabletOriginal Medicationmetformin hydrochloride 500 MG Oral Tablet *Reorder from [facility] for eRx and Interaction Alerts*, Taking pantoprazole 40 MG Delayed Release Oral Tablet ORAL , Notes to Pharmacist: pantoprazole 40 MG Delayed Release Oral TabletOriginal Medicationpantoprazole 40 MG Delayed Release Oral Tablet *Reorder from [facility] for eRx and Interaction Alerts* Objective: [...] M21.41 3 . U nspecified atherosclerosis of [place]al[place] arteries of extremities, bilateral legs - I70.203 4 . A cquired keratosis [keratoderma] palmaris et plantaris - L85.1 5 . P ain in right foot - M79.671 Plan: * Treatment: 2. U nspecified atherosclerosis of nondal[place] arteries of extremities, bilateral legs Notes: Patient [...] Months * Billing Information: * Visit Code: 38698 Office Visit, Est Pt., Level 3. * Procedure Codes: * Sign off status: Completed true * Provider: Laine WINTER Date: 0 11/12/2023 Generated for He mota/Hawa/Salty on: 0 09/22/2024 12:10 PM CDT History and Physical Notes * [...]
--- OUTSIDE RECORDS SUMMARY | 2024-09-22 12:10 | XMS_ITS | Patient Health Record ---
Author Organization [facility] Address [address] [place], [place] [address] Care Team Providers Care Motion Picture Film Examiner Name Role Phone CarinELIZABETH erwin Unavailable [phone] Lisette Marmolejo Unavailable Unavailable ETHAN WINTER Unavailable [phone] Allergies Allergen (clinical drug ingredient) Drug/Non Drug Allergy documented on EMR Reaction Allergy Type Onset Date Status Bactrim Unknown Drug Allergy 04/30/2020 active Reason For Referral No Information Medications Medication SIG (Take, Route, Frequency, Duration) Notes Start Date End Date Status metformin hydrochloride 500 MG Oral Tablet ORAL metformin hydrochloride 500 MG Oral TabletOriginal Medicationmetformin hydrochloride 500 MG Oral Tablet *Reorder from [employer] for eRx and Interaction Alerts* 0 Active pantoprazole 40 MG Delayed Release Oral Tablet ORAL pantoprazole 40 MG Delayed Release Oral TabletOriginal Medicationpantoprazole 40 MG Delayed Release Oral Tablet *Reorder from [employer] for eRx and Interaction Alerts* 0 Active levothyroxine sodium 0.075 MG Oral Capsule ORAL levothyroxine sodium 0.075 MG Oral CapsuleOriginal Medicationlevothyroxine sodium 0.075 MG Oral Capsule *Reorder from [employer] for eRx and Interaction Alerts* 0 Active Furosemide 40 MG Oral Tablet ORAL furosemide 40 MG Oral TabletOriginal Medicationfurosemide 40 MG Oral Tablet *Reorder from [employer] for eRx and Interaction Alerts* 0 Active 24 HR metoprolol succinate 100 MG Extended Release Oral Tablet ORAL 24 HR metoprolol succinate 100 MG Extended Release Oral TabletOriginal [id number] HR metoprolol succinate 100 MG Extended Release Oral Tablet *Reorder from [employer] for eRx and Interaction Alerts* 0 Active Vital Signs Height-cm 157.48 cm 11/12/2023 Weight-kg 73.03 kg 11/12/2023 Height 62.00 in 11/12/2023 Weight 161 lbs 11/12/2023 BMI 29.44 kg/m2 11/12/2023 Encounters Encounter Location Date Provider Diagnosis [address] [id number] 11/12/2023 ETHAN WINTER Flat foot [pes planu s] (acquired), left foot M21.42 ; Flat foot [pes planus] (acquired), right foot M21.41 ; Unspecified atherosclerosis of [place] arteries of extremities, bilateral legs I70.203 ; [...] deformity to feet. 11/12/2023 Unspecified atherosclerosis of [place] arteries of extremities, bilateral legs (ICD-10 - [...] Date Coverage End Date Medicare Part [place] [address] [place] [address] [id number] KAREL MORILLO Self - patient is the insured [facility] ([facility]) ATTN CLAIMS [address] [place] [address] [id number] KAREL MORILLO Self - patient is the insured
== END 2024-09-22 10:30 | disposition home or self-care (01) ==
LOC: CHSIMG 10:30
PROVIDERS: PCP Internal Medicine; Visit Provider Internal Medicine
DX: M25.561 Pain in right knee (principal); M25.461 Effusion, right knee
CPT/HCPCS: 73562

== ENCOUNTER 2024-09-29 08:10 | Outpatient (CLI) | payer MEDICARE, SELFPAY ==
--- OUTSIDE RECORDS SUMMARY | 2024-09-29 08:16 | XMS_ITS | Encounter Summary ---
Author Organization [facility] Address [facility] [place] [address] Care Team Providers Care Cafeteria Clerk Name Role Phone Unknown, Provider Primary Care Provider Unavaila ble Encounter Details Date Type Department Care Team (Late st Contact Info) Description 10/12/2022 Ophth Exam [facility] [address] [place] [address] Bakari Paiz MD [address] [facility] [place] [address] Social History Tobacco Use Types Packs/Day Years Used Date Smoking Tobacco: Never Assessed Sex and Gender Information Value Date Recorded Sex Assigned at Not on file Gender Identity Not on file Sexual Orientation Not on file documented as of this encounter Plan of Treatment Not on file documented as of this encounter Visit Diagnoses Not on filedocumented in this encounter Care Teams Cafeteria Clerk Relationship Specialty Start Date End Date Unknown, Provider PCP - General 10/12/22 documented as of this encounter
--- OUTSIDE RECORDS SUMMARY | 2024-09-29 08:16 | XMS_ITS ---
Author Organization [facility] Address [address] [place], [place] [address] Care Team Providers Care Pest Management Supervisor Name Role Phone ELIZABETH John Unavailable [phone] Lisette Marmolejo Unavailable Unavailable ETHAN WINTER Unavailable [phone] REASON FOR VISIT *General care Encounters Encounter Location Date Provider Diagnosis [address] [id number] 01/21/2024 ETHAN WINTER Plan Of Treatment No Information Progress Notes * KAREL MORILLO RDOB:[birth year] (89 yo F)Acc No.[id number]:01/21/2024 Patient: CHRISTIAN GURROLALY Darnell Provider: Laine WINTER :1935 A ge:88 Y S ex:Female Date:01/21/2024 Address:[address] [place], [place] [id number] Subjective: * Chief Complaints: * 1 . *General care. * Medical History: Objective: * Vitals: Assessment: Plan: * Treatment: * Billing Information: * Visit Code: * Procedure Codes: * Electronic signature of DEREK WINTER DPM on 09/29/2024 at 08:16 AM CDT Sign off status: Pending * Provider: Laine WINTER Date: 0 01/21/2024 Generated for He ng/Falay/eTransmitting on: 0 09/29/2024 08:16 AM CDT
--- OUTSIDE RECORDS SUMMARY | 2024-09-29 08:16 | XMS_ITS | Patient Health Record ---
Author Organization [facility] Address [address] [place], [place] [id number] Care Team Providers Care Manager Athletics Name Role Phone ELIZABETH John Unavailable [phone] Lisette Marmolejo Unavailable Unavailable ETHAN WINTER Unavailable [phone] Allergies Allergen (clinical drug ingredient) Drug/Non Drug [...] hydrochloride 500 MG Oral Tablet *Reorder from [employer] for eRx and Interaction Alerts* 0 Active pantoprazole 40 MG Delayed Release Oral Tablet ORAL pantoprazole 40 MG Delayed Release Oral TabletOriginal Medicationpantoprazole 40 MG Delayed Release Oral Tablet *Reorder from [employer] for eRx and Interaction Alerts* 0 Active levothyroxine sodium 0.075 MG Oral Capsule ORAL levothyroxine sodium 0.075 MG Oral CapsuleOriginal Medicationlevothyroxine sodium 0.075 MG Oral Capsule *Reorder from [employer] for eRx and Interaction Alerts* 0 Active Furosemide 40 MG Oral Tablet ORAL furosemide 40 MG Oral TabletOriginal Medicationfurosemide 40 MG Oral Tablet *Reorder from [employer] for eRx and Interaction Alerts* 0 Active 24 HR metoprolol succinate 100 MG Extended Release Oral Tablet ORAL 24 HR metoprolol succinate 100 MG Extended Release Oral TabletOriginal Caxphpelti43 HR metoprolol succinate 100 MG Extended Release Oral Tablet *Reorder from [employer] for eRx and Interaction Alerts* 0 Active Vital Signs Height-cm 157.48 cm 11/12/2023 Weight-kg 73.03 kg 11/12/2023 Height 62.00 in 11/12/2023 Weight 161 lbs 11/12/2023 BMI 29.44 kg/m2 11/12/2023 Encounters Encounter Location Date Provider Diagnosis [address] [id number] 11/12/2023 ETHAN WINTER 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
--- OUTSIDE RECORDS SUMMARY | 2024-09-29 08:16 | XMS_ITS | Clinical Summary ---
Author Organization [facility] Address [address] [place] [address] Care Team Providers Care Older Worker Specialist Name Role Phone Lisette Marmolejo MD Primary Care Provider Elis Alvarado MD Unavailable Allergies Active Allergy Reactions Criticality [...] in the interim. Hypothyroidism Hypertension Diabetes mellitus (CMS/HCC HHS/HCC) Depression Coronary artery disease Anxiety Hx of CABG Dyspnea on effort Family History Medical History Relation Comments Cancer [...] CDT Gender Identity Female 07/22/2021 5:57 PM PERL DEVELOPER Sexual Orientation Not on file Last Filed Vital Signs Vital Sign Reading Time Taken Comments Blood Pressure 116/79 06/24/2024 11:00 AM PERL DEVELOPER Pulse 77 06/24/2024 11:00 AM PERL DEVELOPER Temperature 36.4 C (97.5 F) 03/27/2019 12:21 PM CDT Respiratory Rate 16 06/24/2024 11:00 AM PERL DEVELOPER Oxygen Saturation 99% 06/24/2024 11:00 AM PERL DEVELOPER Inhaled Oxygen Concentration - - Weight 68.5 kg (151 lb) 06/24/2024 11:00 AM PERL DEVELOPER Height 157.5 cm (5' 2 ) 06/24/2024 11:00 AM PERL DEVELOPER Body Mass Index 27.62 06/24/2024 11:00 AM PERL DEVELOPER Plan of Treatment Upcoming Encounters Date Type Department Care Team (Late st Contact Info) Description 07/03/2025 11:15 AM PERL DEVELOPER Office Visit [facility] [place] [address] Elis Alvarado MD [address] [place] [address] Health Maintenance Due Date Last Done Comments [...] on patient's age to complete this topic Insurance MEDICARE [facility] MEDICARE [facility] Advance Directives Documents on File Type Date Recorded Patient Carburetor Rebuilder Expl 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 Advance Directives and Living Will 03/28/2019 9:44 AM living will & poa fo r health care Advance Directives and Living Will 03/24/2019 12:24 PM Power of Senior Major Gifts Officer 03/24/2019 12:23 PM Advance Directives and Living Will 03/24/2019 7:13 AM living will & poa fo r health care * Full Code (Latest Code Status on File) Date Activated Date Inactivated Comments 03/24/2019 1:43 AM 03/27/2019 5:41 PM * Full Code Date Activated Date Inactivated Comments 03/06/2019 10:34 AM 03/08/2019 7:53 PM Care Teams Older Worker Specialist Relationship Specialty Start Date End Date Lisette Marmolejo MD [address] [place] [address] PCP - General INTERNAL MEDICINE 03/06/19 Elis Alvarado MD [address] [place] [address] Consulting Physician CARDIOVASCULAR DISEASE 11/04/23
--- OUTSIDE RECORDS SUMMARY | 2024-09-29 08:16 | XMS_ITS ---
Author Organization [facility] Address [address] [place], [place] [address] Care Team Providers Care Senior Safety Management Consultant Name Role Phone ELIZABETH John Unavailable [phone] Lisette Marmolejo Unavailable Unavailable ETHAN WINTER Unavailable [phone] REASON FOR VISIT *General care Medications Medication SIG (Take, Route, Frequency, Duration) Notes Start Date End Date Status metformin hydrochloride 500 MG Oral Tablet ORAL metformin hydrochloride 500 MG Oral TabletOriginal Medicationmetformin hydrochloride 500 MG Oral Tablet *Reorder from [employer] for eRx and Interaction Alerts* 0 Active pantoprazole 40 MG Delayed Release Oral Tablet ORAL pantoprazole 40 MG Delayed Release Oral TabletOriginal Medicationpantoprazole 40 MG Delayed Release Oral Tablet *Reorder from [employer] for eRx and Interaction Alerts* 0 Active levothyroxine sodium 0.075 MG Oral Capsule ORAL levothyroxine sodium 0.075 MG Oral CapsuleOriginal Medicationlevothyroxine sodium 0.075 MG Oral Capsule *Reorder from [employer] for eRx and Interaction Alerts* 0 Active Furosemide 40 MG Oral Tablet ORAL furosemide 40 MG Oral TabletOriginal Medicationfurosemide 40 MG Oral Tablet *Reorder from [employer] for eRx and Interaction Alerts* 0 Active 24 HR metoprolol succinate 100 MG Extended Release Oral Tablet ORAL 24 HR metoprolol succinate 100 MG Extended Release Oral TabletOriginal Imptqiuoxx41 HR metoprolol succinate 100 MG Extended Release Oral Tablet *Reorder from [employer] for eRx and Interaction Alerts* 0 Active Vital Signs Height 62.00 in 11/12/2023 Weight 161 lbs 11/12/2023 BMI 29.44 kg/m2 11/12/2023 Height-cm 157.48 cm 11/12/2023 Weight-kg 73.03 kg 11/12/2023 Encounters Encounter Location Date Provider Diagnosis [address] [id number] 11/12/2023 ETHAN WINTER 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 Unspecified atherosclerosis of la posta arteries of extremities, bilateral legs Patient educated [...] * KAREL MORILLO RDOB:[birth year] (88 yo F)Acc No.[id number]:11/12/2023 Patient: Massimo KAREL ALDRICH Provider: Laine WINTER :1935 A ge:88 Y S ex:Female Date:11/12/2023 Address:[address] [place] [address] Subjective: * Chief Complaints: * 1 . [...] Medicationfurosemide 40 MG Oral Tablet *Reorder from [facility] for eRx and Interaction Alerts*, Taking 24 HR metoprolol succinate 100 MG Extended Release Oral Tablet ORAL , Notes to Pharmacist: 24 HR metoprolol succinate 100 MG Extended Release Oral TabletOriginal Ffurusaqhz23 HR metoprolol succinate 100 MG Extended Release Oral Tablet *Reorder from [facility] for eRx and Interaction Alerts*, Taking levothyroxine sodium 0.075 MG Oral Capsule ORAL , Notes to Pharmacist: levothyroxine sodium 0.075 MG Oral CapsuleOriginal Medicationlevothyroxine sodium 0.075 MG Oral Capsule *Reorder from [facility] for eRx and Interaction Alerts*, Taking metformin hydrochloride 500 MG Oral Tablet ORAL , Notes to Pharmacist: metformin hydrochloride 500 MG Oral TabletOriginal Medicationmetformin hydrochloride 500 MG Oral Tablet *Reorder from [facility] for eRx and Interaction Alerts*, Taking pantoprazole 40 MG Delayed Release Oral Tablet ORAL , Notes to Pharmacist: pantoprazole 40 MG Delayed Release Oral TabletOriginal Medicationpantoprazole 40 MG Delayed Release Oral Tablet *Reorder from [facility] for eRx and Interaction Alerts* Objective: [...] M21.41 3 . U nspecified atherosclerosis of la posta arteries of extremities, bilateral legs - I70.203 4 . A cquired keratosis [keratoderma] palmaris et plantaris - L85.1 5 . P ain in right foot - M79.671 Plan: * Treatment: 2. U nspecified atherosclerosis of la posta arteries of extremities, bilateral legs Notes: Patient [...] Months * Billing Information: * Visit Code: 56668 Office Visit, Est Pt., Level 3. * Procedure Codes: * Sign off status: Completed true * Provider: Laine WINTER Date: 0 11/12/2023 Generated for He mota/Hawa/Salty on: 0 09/29/2024 08:16 AM CDT History and Physical Notes * HPI [...]
--- OUTSIDE RECORDS SUMMARY | 2024-09-29 08:16 | XMS_ITS ---
Author Organization [facility] Address [address] [place], [place] [address] Care Team Providers Care Stripper Printed Circuit Boards Name Role Phone ELIZABETH John Unavailable [phone] Lisette Marmolejo Unavailable Unavailable ETHAN WINTER Unavailable [phone] REASON FOR VISIT *General care Medications Medication SIG (Take, Route, Frequency, Duration) Notes Start Date End Date Status pantoprazole 40 MG Delayed Release Oral Tablet ORAL pantoprazole 40 MG Delayed Release Oral TabletOriginal Medicationpantoprazole 40 MG Delayed Release Oral Tablet *Reorder from [employer] for eRx and Interaction Alerts* 0 Active levothyroxine sodium 0.075 MG Oral Capsule ORAL levothyroxine sodium 0.075 MG Oral CapsuleOriginal Medicationlevothyroxine sodium 0.075 MG Oral Capsule *Reorder from [employer] [facility] for eRx and Interaction Alerts* 0 Active metformin hydrochloride 500 MG Oral Tablet ORAL metformin hydrochloride 500 MG Oral TabletOriginal Medicationmetformin hydrochloride 500 MG Oral Tablet *Reorder from [employer] for eRx and Interaction Alerts* 0 Active Furosemide 40 MG Oral Tablet ORAL furosemide 40 MG Oral TabletOriginal Medicationfurosemide 40 MG Oral Tablet *Reorder from [facility] for eRx and Interaction Alerts* 0 Active 24 HR metoprolol succinate 100 MG Extended Release Oral Tablet ORAL 24 HR metoprolol succinate 100 MG Extended Release Oral TabletOriginal Mrfupqwqal90 HR metoprolol succinate 100 MG Extended Release Oral Tablet *Reorder from [employer] for eRx and Interaction Alerts* 0 Active Encounters Encounter Location Date Provider Diagnosis [facility] [address] [place], [place] [id number] 09/03/2023 ETHAN WINTER Tinea unguium B35.1 ; Pain in right toe(s) M79.674 ; Pain in left toe(s) M79.675 ; Flat foot [pes planus] (acquired), left foot M21.42 ; Flat foot [pes planus] (acquired), right foot M21.41 ; Unspecified atherosclerosis of lummi arteries of extremities, bilateral legs I70.203 and [...] (ICD-10 - M21.41) 09/03/2023 Unspecified atherosclerosis of lummi arteries of extremities, bilateral legs (ICD-10 - [...] digital deformity to feet. Unspecified atherosclerosis of lummi arteries of extremities, bilateral legs Patient educated [...] * KAREL MORILLO RDOB:[birth year] (87 yo F)Acc No.[id number]:09/03/2023 Patient: KAREL GURROLA Provider: Laine WINTER :1935 A ge:87 Y S ex:Female Date:09/03/2023 Address:[address] [place] [address] Subjective: * Chief Complaints: * 1 . [...] Patient denies c hest pain, history of CT, irregular heartbeat. M usculoskeletal: Patient complains of [...] Medicationfurosemide 40 MG Oral Tablet *Reorder from [employer] for eRx and Interaction Alerts*, Taking 24 HR metoprolol succinate 100 MG Extended Release Oral Tablet ORAL , Notes to Pharmacist: 24 HR metoprolol succinate 100 MG Extended Release Oral TabletOriginal Nswdznkgwh27 HR metoprolol succinate 100 MG Extended Release Oral Tablet *Reorder from [employer] for eRx and Interaction Alerts*, Taking levothyroxine sodium 0.075 MG Oral Capsule ORAL , Notes to Pharmacist: levothyroxine sodium 0.075 MG Oral CapsuleOriginal Medicationlevothyroxine sodium 0.075 MG Oral Capsule *Reorder from [facility] for eRx and Interaction Alerts*, Taking metformin hydrochloride 500 MG Oral Tablet ORAL , Notes to Pharmacist: metformin hydrochloride 500 MG Oral TabletOriginal Medicationmetformin hydrochloride 500 MG Oral Tablet *Reorder from [facility] for eRx and Interaction Alerts*, Taking pantoprazole 40 MG Delayed Release Oral Tablet ORAL , Notes to Pharmacist: pantoprazole 40 MG Delayed Release Oral TabletOriginal Medicationpantoprazole 40 MG Delayed Release Oral Tablet *Reorder from [facility] for eRx and Interaction Alerts* Objective: [...] M21.41 6 . U nspecified atherosclerosis of lummi arteries of extremities, bilateral legs - I70.203 [...] to feet. 3. U nspecified atherosclerosis of lummi arteries of extremities, bilateral legs Notes: Patient [...] LESIONS, 2 TO 4, Modifiers: Q8 , 90403 DEBRIDE NAIL, 6 OR MORE, Modifiers: Q8 , 59 * Follow Up: 3 Months * Billing Information: * Visit Code: * Procedure Codes: 47412 TRIM SKIN LESIONS, 2 TO 4. Modifiers: Q8 36412 DEBRIDE NAIL, 6 OR MORE. Modifiers: Q8, 59 * ONAL MARKETING DIRECTOR Sign off status: Completed true * Provider: Laine WINTER Date: 0 09/03/2023 Generated for He mota/Hawa/Salty on: 0 09/29/2024 08:15 AM CDT History and Physical Notes * [...]
--- OUTSIDE RECORDS SUMMARY | 2024-09-29 08:16 | XMS_ITS | Clinical Summary ---
Author Organization [facility] Address [address] [facility] [place] [address] Care Team Providers Care Science Job Titles Name Role Phone Unknown, Provider Primary Care Provider Unavaila ble Source Comments [facility],non-owned Affiliates and Associated Physician Practices is amultiple site organization consisting of ambulatory clinics and hospital sitesin [place], [place], [place] and [place]. This disclosure is being madepursuant to the Care Everywhere program and may not contain all information available regarding this patient. Last updated 18.[facility] [employer] Social History Tobacco Use Types Packs/Day Years [...] age to complete this topic Care Teams Science Job Titles Relationship Specialty Start Date End Date Unknown, Provider PCP - General 10/12/22
[2024-09-29 08:22] LABS: Basophils Absolute Auto 0.05 K/mm3 (0.00-0.10); Basophils Percent Auto 0.7 % (0.0-1.0); Eosinophils Absolute Auto 0.27 K/mm3 (0.02-0.50); Eosinophils Percent Auto 3.6 % (1.0-6.0); Hematocrit 41.8 % (35.0-42.0); Immature Granulocyte Absolute 0.02 K/mm3 (0.00-0.00); Immature Granulocyte Percent A 0.3 % (0.0-0.0); Lymphocytes Percent Auto 33.2 % (18.0-42.0); Mean Corpuscular HGB Conc 31.1 g/dL (32-36); Mean Corpuscular Hemoglobin 28.1 pg (27.0-31.0); Mean Corpuscular Volume 90.3 fL (78.0-102.0); Mean Platelet Volume 10.1 fl (9.2-11.8); Monocytes Absolute Auto 0.55 K/mm3 (0.10-0.90); Monocytes Percent Auto 7.3 % (2.0-11.0); Neutrophils Absolute Auto 4.15 K/mm3 (1.70-7.20); Neutrophils Percent Auto 54.9 % (50.0-70.0); Platelet Count Result 242 K/mm3 (150-420); Red Blood Count 4.63 M/mm3 (4.20-5.40); Red Cell Distribution Width 13.6 % (11.6-14.4); White Blood Count 7.5 K/mm3 (4.8-10.8)
[2024-09-29 08:41] LABS: Hemoglobin A1C 5.6 % (<5.7)
[2024-09-29 09:16] LABS: Alanine Aminotransferase 26 U/L (14-59); Albumin Level 3.8 g/dL (3.4-5.0); Alkaline Phosphatase 80 U/L (46-116); Anion Gap 6 mmol/L (4-12); Aspartate Amino Transferase 17 U/L (15-37); Bilirubin,Total 1.1 mg/dL (0.00-1.00); Blood Urea Nitrogen 14 mg/dL (7-18); Calcium 8.8 mg/dL (8.5-10.1); Carbon Dioxide 34 mmol/L (21-32); Chloride 102 mmol/L (98-108); Cholesterol 141 mg/dL (0-200); Estimated Glomerular Filt Rate > 60; Free T4 Free Thyroxine 1.03 ng/dL (0.76-1.46); Glucose 128 mg/dL (70-99); HDL Direct 42 mg/dL (40-60); LDL Cholesterol Calculated 55 mg/dL (<130); NT Pro B Type Natriuretic Pept 315 pg/mL (0-450); Osmolality Calculated 296 mOsm/kg (285-295); Potassium 4.3 mmol/L (3.5-5.1); Sodium 142 mmol/L (136-145); Thyroid Stimulating Hormone 3.95 uIU/mL (0.36-3.74); Total Protein 6.4 g/dL (6.4-8.2); Triglycerides 220 mg/dL (0-150)
[2024-09-29 09:32] LABS: Free T3 1.77 pg/mL (2.18-3.98)
[2024-09-29 09:53] LABS: Add Urine Microscopic? YES; Appearance Urine Clear (Clear); Bilirubin Urine Negative (Negative); Blood Urine Negative (Negative); Color Urine Yellow (Yellow); Glucose Urine UA Negative (Negative); Ketones Urine Negative (Negative); Leukocyte Esterase Ur Negative (Negative); Nitrate Urine Negative (Negative); Protein Urine Trace (Negative); Specific Grav Ur 1.015 (1.010-1.020); pH Urine 8.5 (5.0-8.0)
[2024-09-29 09:57] LABS: Bacteria Urine Trace /hpf; RBC Urine 0-2 /hpf (0-2); WBC Urine 0-3 /hpf (0-3)
[2024-09-29 10:00] LABS: Creatinine Urine 172.19 mg/dL (40-278); MALB Creatinine Ratio 7.5 mg/g (0-30); Microalbumin Urine Random < 13.0 mg/L
[2024-09-30 07:45] LABS: Creatine Kinase 44 U/L (26-192)
== END 2024-09-29 08:11 | disposition home or self-care (01) ==
LOC: CHSLAB 08:12
PROVIDERS: PCP Internal Medicine; Visit Provider Internal Medicine
DX: I10 Essential (primary) hypertension (principal); G62.9 Polyneuropathy, unspecified; E03.4 Atrophy of thyroid (acquired); E53.8 Deficiency of other specified B group vitamins; E11.9 Type 2 diabetes mellitus without complications; I50.1 Left ventricular failure, unspecified
CPT/HCPCS: 36415; 80053; 80061; 81001; 82043; 82550; 83036; 83880; 84439; 84443; 84481; 85025

== ENCOUNTER 2024-11-03 10:37 | Outpatient (CLI) | payer MEDICARE, BC, SELFPAY ==
--- NOTE | ~2024-11-03 | XR_ITS ---
Clinical Indication: Cough PA and lateral views of the chest: Comparison: 08/17/2024 Findings: The lungs are clear, without evidence of focal consolidation or pleural effusion. There is elevation of left hemidiaphragm. Cardiomediastinal silhouette is within normal limits, status post CA BG. Bones and soft tissues are unremarkable. Impression: Clear lungs. Elevation of the left hemidiaphragm. Status post CABG. Reviewed, dictated and finalized at location M. Impression: Clear lungs. Elevation of the left hemidiaphragm. Status post CABG.
[2024-11-03 11:02] LABS: Hematocrit 42.9 % (35.0-42.0); Hemoglobin 13.3 g/dL (11.7-13.8); Mean Corpuscular Hemoglobin 27.8 pg (27.0-31.0); Mean Corpuscular Volume 89.6 fL (78.0-102.0); Mean Platelet Volume 10.3 fl (9.2-11.8); Platelet Count Result 320 K/mm3 (150-420); Red Blood Count 4.79 M/mm3 (4.20-5.40); Red Cell Distribution Width 13.5 % (11.6-14.4); White Blood Count 10.5 K/mm3 (4.8-10.8)
[2024-11-03 11:32] LABS: Alanine Aminotransferase 12 U/L (14-59); Albumin Level 3.8 g/dL (3.4-5.0); Alkaline Phosphatase 83 U/L (46-116); Anion Gap 5 mmol/L (4-12); Aspartate Amino Transferase 15 U/L (15-37); Bilirubin,Total 0.9 mg/dL (0.00-1.00); Blood Urea Nitrogen 15 mg/dL (7-18); Carbon Dioxide 33 mmol/L (21-32); Chloride 103 mmol/L (98-108); Estimated Glomerular Filt Rate 56; Glucose 117 mg/dL (70-99); NT Pro B Type Natriuretic Pept 592 pg/mL (0-450); Osmolality Calculated 293 mOsm/kg (285-295); Potassium 3.9 mmol/L (3.5-5.1); Sodium 141 mmol/L (136-145); Total Protein 7.3 g/dL (6.4-8.2)
--- OUTSIDE RECORDS SUMMARY | 2024-11-03 12:03 | XMS_ITS ---
Author Organization [facility] Address [address] [place], [place] [address] Care Team Providers Care Junior Financial Analyst Name Role Phone ELIZABETH John Unavailable [phone] Lisette Marmolejo Unavailable Unavailable ETHAN WINTER Unavailable [phone] REASON FOR VISIT *General care Encounters Encounter Location Date Provider Diagnosis [address] [id number] 01/21/2024 ETHAN WINTER Plan Of Treatment No Information Progress Notes * KAREL MORILLO RDOB:[birth year] (89 yo F)Acc No.[id number]:01/21/2024 Patient: CHRISTIAN GURROLALY Darnell Provider: Laine WINTER :1935 A ge:88 Y S ex:Female Date:01/21/2024 Address:[address] [place], [place] [phone] Subjective: * Chief Complaints: * 1 . *General care. * Medical History: Objective: * Vitals: Assessment: Plan: * Treatment: * Billing Information: * Visit Code: * Procedure Codes: * Electronic signature of DEREK WINTER DPM on 11/03/2024 at 12:03 PM CDT Sign off status: Pending * Provider: Laine WINTER Date: 0 01/21/2024 Generated for Lyi ng/Faenderg/eTransmitting on: 11/03/2024 12:03 PM CDT
--- OUTSIDE RECORDS SUMMARY | 2024-11-03 12:03 | XMS_ITS | Encounter Summary ---
Author Organization [facility] Health Address [facility] [facility] [place] [address] Care Team Providers Care Wire Weaver Helper Name Role Phone Unknown, Provider Primary Care Provider Unavaila ble Encounter Details Date Type Department Care Team (Late st Contact Info) Description 10/12/2022 Ophth Exam [facility] [address] [place] [address] Bakari Paiz MD [address] [facility] [place] [address] Social History Tobacco Use Types Packs/Day Years Used Date Smoking Tobacco: Never Assessed Comments Unknown Sex and Gender Information Value Date Recorded Sex Assigned at Not on file Legal Sex Female 2:02 PM CDT Gender Identity Not on file Sexual Orientation Not on file documented as of this encounter Plan of Treatment Not on file documented as of this encounter Visit Diagnoses Not on filedocumented in this encounter Care Teams Wire Weaver Helper Relationship Specialty Start Date End Date Unknown, Provider PCP - General 10/12/22 documented as of this encounter
--- OUTSIDE RECORDS SUMMARY | 2024-11-03 12:03 | XMS_ITS ---
Author Organization [facility] Address [address] [place], [place] [address] Care Team Providers Care Electric Meter Inspector Name Role Phone ELIZABETH John Unavailable [phone] Lisette Marmolejo Unavailable Unavailable ETHAN WINTER Unavailable [phone] REASON FOR VISIT *General care Medications Medication SIG (Take, Route, Frequency, Duration) Notes Start Date End Date Status pantoprazole 40 MG Delayed Release Oral Tablet ORAL pantoprazole 40 MG Delayed Release Oral TabletOriginal Medicationpantoprazole 40 MG Delayed Release Oral Tablet *Reorder from [employer] for eRx and Interaction Alerts* 0 Active levothyroxine sodium 0.075 MG Oral Capsule ORAL levothyroxine sodium 0.075 MG Oral CapsuleOriginal Medicationlevothyroxine sodium 0.075 MG Oral Capsule *Reorder from [employer] for eRx and Interaction Alerts* 0 Active metformin hydrochloride 500 MG Oral Tablet ORAL metformin hydrochloride 500 MG Oral TabletOriginal Medicationmetformin hydrochloride 500 MG Oral Tablet *Reorder from [employer] for eRx and Interaction Alerts* 0 Active Furosemide 40 MG Oral Tablet ORAL furosemide 40 MG Oral TabletOriginal Medicationfurosemide 40 MG Oral Tablet *[facility] and Interaction Alerts* 0 Active 24 HR metoprolol succinate 100 MG Extended Release Oral Tablet ORAL 24 HR metoprolol succinate 100 MG Extended Release Oral TabletOriginal [id number] HR metoprolol succinate 100 MG Extended Release Oral Tablet *Reorder from [employer] for eRx and Interaction Alerts* 0 Active Encounters Encounter Location Date Provider Diagnosis [facility] [address] [place], [place] [id number] 09/03/2023 ETHAN WINTER Tinea unguium B35.1 ; Pain in right toe(s) M79.674 ; Pain in left toe(s) M79.675 ; 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 Unspecified atherosclerosis of redding arteries of extremities, bilateral legs Patient educated [...] * KAREL MORILLO RDOB:[birth year] (87 yo F)Acc No.[id number]:09/03/2023 Patient: KAREL GURROLA Provider: Laine WINTER :1935 A ge:87 Y S ex:Female Date:09/03/2023 Address:[address] [place] [address] Subjective: * Chief Complaints: * 1 . [...] Patient denies c hest pain, history of MA, irregular heartbeat. M usculoskeletal: Patient complains of [...] Medicationfurosemide 40 MG Oral Tablet *Reorder from [facility] for eRx and Interaction Alerts*, Taking 24 HR metoprolol succinate 100 MG Extended Release Oral Tablet ORAL , Notes to Pharmacist: 24 HR metoprolol succinate 100 MG Extended Release Oral TabletOriginal [id number] HR metoprolol succinate 100 MG Extended Release Oral Tablet *Reorder from [employer] for eRx and Interaction Alerts*, Taking levothyroxine sodium 0.075 MG Oral Capsule ORAL , Notes to Pharmacist: levothyroxine sodium 0.075 MG Oral CapsuleOriginal Medicationlevothyroxine sodium 0.075 MG Oral Capsule *Reorder from [facility] for eRx and Interaction Alerts*, Taking metformin hydrochloride 500 MG Oral Tablet ORAL , Notes to Pharmacist: metformin hydrochloride 500 MG Oral TabletOriginal Medicationmetformin hydrochloride 500 MG Oral Tablet *Reorder from [facility] for eRx and Interaction Alerts*, Taking pantoprazole 40 MG Delayed Release Oral Tablet ORAL , Notes to Pharmacist: pantoprazole 40 MG Delayed Release Oral TabletOriginal Medicationpantoprazole 40 MG Delayed Release Oral Tablet *Reorder from [facility] for eRx and Interaction Alerts* Objective: [...] M21.41 6 . U nspecified atherosclerosis of redding arteries of extremities, bilateral legs - I70.203 [...] to feet. 3. U nspecified atherosclerosis of redding arteries of extremities, bilateral legs Notes: Patient [...] LESIONS, 2 TO 4, Modifiers: Q8 , 29105 DEBRIDE NAIL, 6 OR MORE, Modifiers: Q8 , 59 * Follow Up: 3 Months * Billing Information: * Visit Code: * Procedure Codes: 90564 TRIM SKIN LESIONS, 2 TO 4. Modifiers: Q8 36631 DEBRIDE NAIL, 6 OR MORE. Modifiers: Q8, 59 * PUMP STATION OPERATOR CHIEF Sign off status: Completed true * Provider: Laine WINTER Date: 0 09/03/2023 Generated for He mota/Hawa/Salty on: 0 11/03/2024 12:03 PM CDT History and Physical Notes * [...]
--- OUTSIDE RECORDS SUMMARY | 2024-11-03 12:03 | XMS_ITS | Encounter Summary ---
Author Organization [facility] Address [address] [place] [address] Care Team Providers Care Stopboard Assembler Name Role Phone Lisette Marmolejo MD Primary Care Provider [phone] Elis Alvarado MD Unavailable Encounter Details Date Type Department Care Team (Late st Contact Info) Description 11/02/2024 [facility] [address] [place], [place] [address] Elis Alvarado MD [address] [place] [address] Social History Tobacco Use Types Packs/Day Years [...] CDT Gender Identity Female 07/22/2021 5:57 PM SURGICAL PROCESSOR Sexual Orientation Not on file documented as of this encounter Functional Status * RETIRED Are you deaf or do you have serious difficulty hearing Answer Date of Assessment Author Status No 03/24/2019 12:00 AM CDT Acti ve * RETIRED Are you blind or do you have serious difficulty seeing, even when wearing glasses? Answer Date of Assessment Author Status No 03/24/2019 12:00 AM CDT Acti ve * Do you have serious difficulty walking or climbing stairs? Answer Date of Assessment Author Status No 03/24/2019 12:00 AM CDT Michaela Davalos RN Active * Do you have difficulty dressing or bathing? Answer Date of Assessment Author Status No 03/24/2019 12:00 AM HANT Michaela Davalos RN Active * Because of a physical, mental, or emotional condition, do you have difficulty doing errands alone such as visiting a doctor's office or shopping? Answer Date of Assessment Author Status No 03/24/2019 12:00 AM Michaela Villalpando RN Active documented as of this encounter Mental Status * Because of a physical, mental, or emotional condition, do you have serious difficulty concentrating, remembering, or making decisions? Answer Entry Date Author Status No 03/24/2019 12:00 AM CDT Michaela Davalos RN Active documented in this encounter Plan of Treatment Upcoming Encounters Date Type Department Care Team (Latest Contact Info) Description 11/07/2024 9:45 AM CDT Hospital Encounter [facility] [address] [place] [address] Elis Alvarado MD [address] [place] [address] 11/07/2024 10:00 AM CDT Office Visit [facility] [place] [address] Elis Alvarado MD [address] [place] [address] 07/03/2025 11:15 AM SURGICAL PROCESSOR Office Visit [facility] [place] [address] Elis Alvarado MD [address] [place] [address] Scheduled Orders Name Type Priority Associated Diagnoses Orde r Schedule ECG 12 lead (HOSPITAL PERFORMED ONLY) EKG-NonRad Routine Hypertension, unspecified type Expected: 11/07/2024, Expires: 12/02/2024 documented as of this encounter Visit Diagnoses Diagnosis Hypertension, unspecified type- Primary documented in this encounter Care Teams Stopboard Assembler Relationship Specialty Start Date End Date Lisette Marmolejo MD [address] [place] [phone] PCP - General INTERNAL MEDICINE 03/06/19 Elis Alvarado MD [address] [place] [address] Consulting Physician CARDIOVASCULAR DISEASE 11/04/23 documented as of this encounter
--- OUTSIDE RECORDS SUMMARY | 2024-11-03 12:03 | XMS_ITS | Clinical Summary ---
Author Organization [facility] Address [address] [place] [address] Care Team Providers Care Dressmaker Or Tailor Name Role Phone Lisette Marmolejo MD Primary Care Provider [phone] Elis Alvarado MD Unavailable Allergies Active Allergy [...] in the interim. Hypothyroidism Hypertension Diabetes mellitus ([facility]) Depression Coronary artery disease Anxiety Hx of CABG Dyspnea on effort Encounters Date Type Department Care Team Description 11/02/2024 Orders Only [facility] [address] [place] [address] Elis Alvarado MD 10/13/2024 Abstract [facility] [address] [place] [address] Elis Alvarado MD 10/12/2024 Telephone [facility] [address] [place] [address] Elis Alvarado MD Lab (SCAN) (CMP, BNP, lipid, TSH, T4Free, Hgb A1c, CBC, ) 10/07/2024 [facility] [address] [place] [address] Elis Alvarado MD Appointment Request from Last 3 Months Family History Medical [...] CDT Gender Identity Female 07/22/2021 5:57 PM BAREBACK RIDER Sexual Orientation Not on file Last Filed Vital Signs Vital Sign Reading Time Taken Comments Blood Pressure 116/79 06/24/2024 11:00 AM BAREBACK RIDER Pulse 77 06/24/2024 11:00 AM BAREBACK RIDER Temperature 36.4 C (97.5 F) 03/27/2019 12:21 PM CDT Respiratory Rate 16 06/24/2024 11:00 AM BAREBACK RIDER Oxygen Saturation 99% 06/24/2024 11:00 AM BAREBACK RIDER Inhaled Oxygen Concentration - - Weight 68.5 kg (151 lb) 06/24/2024 11:00 AM BAREBACK RIDER Height 157.5 cm (5' 2 ) 06/24/2024 11:00 AM BAREBACK RIDER Body Mass Index 27.62 06/24/2024 11:00 AM BAREBACK RIDER Plan of Treatment Upcoming Encounters Date Type Department Care Team (Latest Contact Info) Description 11/07/2024 9:45 AM CDT Hospital Encounter [facility] [address] [facility] [place] [address] Elis Alvarado MD [address] [place], [place] [address] 11/07/2024 10:00 AM CDT Office Visit [facility] [place] [phone] Elis Alvarado MD [address] [place] [address] 07/03/2025 11:15 AM BAREBACK RIDER [facility] Visit [facility] [place] [address] Elis Alvarado MD [address] [place] [address] Health Maintenance Due Date Last Done Comments ASCVD Statin 1935 Diabetes: Retinopathy Eye Exam 1954 DTaP, Tdap and Td Vaccines ( 1 - Tdap) 09/24/1955 Zoster Vaccines (1 of 2) 1986 Annual Medicare Wellness Visit 2001 RSV Immunization or 60+ Years (1 - 1-dose 75+ series) 09/24/2011 Pneumococcal Vaccine: 50+ Years (2 of 2 - PPSV23) 12/20/2015 10/25/2015 COVID-19 Vaccine ( - 2023-2 5 season) 2024 Hemoglobin A1C 04/01/2025 09/29/2024, 01/21/2019 Lipid Panel 09/29/2025 09/29/2024 Meningococcal B Vaccine Aged Out No l onger eligible based on patient's age to complete this topic Meningococcal Vaccine Aged Out No araceli bettina eligible based on patient's age to complete this topic RSV Immunizations Under 20 Months Aged Out No longer eligible b ased on patient's age to complete this topic Procedures Procedure Name Priority Date/Time Associated Diagnosis Comments COMPREHENSIVE METABOLIC PANEL Routine 09/29/2024 LIPID PANEL Routine 09/29/2024 CBC, MANUAL DIFF Routine 09/29/2024 THYROXINE, FREE (FT4) Routine 09/29/2024 HEMOGLOBIN, GLYCOSYLATED Routine 09/29/2024 THYROID STIM HORMONE TSH Routine 09/29/2024 FREE T3 Routine 09/29/2024 from Last 3 Months Results * HEMOGLOBIN, GLYCOSYLATED (09/29/2024) HGB A1C 5.6 % Narrative Resulting Agency Comment [facility] Lisette Marmolejo MD LABORATORY Final Result * FREE T3 (09/29/2024) FREE T3 1.77 Narrative Resulting Agency Comment [facility] Result [facility] Lisette Marmolejo MD LABORATORY Final Result * COMPREHENSIVE METABOLIC PANEL (09/29/2024) SODIUM S/P/B 142 GLUCOSE 128 mg/dL AST 17 BUN 14 CREATININE S/P/B 0.84 0.5 - 1.0 CALCIUM S/P/B 8.8 POTASSIUM S/P/B 4.3 CHLORIDE S/P/B 102 ALT 26 GFR ESTIMATE 60 Narrative Resulting Agency Comment [facility] Result [facility] Lisette Marmolejo MD LABORATORY Final Result * LIPID PANEL (09/29/2024) CHOLESTEROL 141 TRIGLYCERIDES 220 HDL 42 LDL (CALCULATED) 55 Narrative Resulting Agency Comment [facility] Result [facility] Lisette Marmolejo MD LABORATORY Final Result * CBC, MANUAL DIFF (09/29/2024) WBC 7.5 HGB 13.0 HCT 41.8 PLT 242 Narrative Resulting Agency Comment [facility] Result [facility] Lisette Marmolejo MD LABORATORY Final Result * THYROXINE, FREE (FT4) (09/29/2024) Pathologist [facility] FREE T4 1.03 Narrative Resulting Agency Comment [facility] Result [facility] Lisette Marmolejo MD LABORATORY Final Result * THYROID STIM HORMONE TSH (09/29/2024) TSH 3.95 Narrative Resulting Agency Comment [facility] Lisette Marmolejo MD LABORATORY Final Result from Last 3 Months Insurance MEDICARE [facility] MEDICARE [facility] Advance Directives Documents on File Type Date Recorded Patient Radiology Receptionist Expl anation Advance Directives and Living Will 03/28/2019 9:44 AM living will & poa fo r health care Advance Directives and Living Will 03/24/2019 12:24 PM Power of Mophead Trimmer And Wrapper 03/24/2019 12:23 PM Advance Directives and Living Will 03/24/2019 7:13 AM living will & poa fo r health care * Full Code (Latest Code Status on File) Date Activated Date Inactivated Comments 03/24/2019 1:43 AM 03/27/2019 5:41 PM * Full Code Date Activated Date Inactivated Comments 03/06/2019 10:34 AM 03/08/2019 7:53 PM Care Teams Dressmaker Or Tailor Relationship Specialty Start Date End Date Lisette Marmolejo MD [address] [place] [address] PCP - General INTERNAL MEDICINE 03/06/19 Elis Alvarado MD [address] [place] [address] Consulting Physician CARDIOVASCULAR DISEASE 11/04/23
--- OUTSIDE RECORDS SUMMARY | 2024-11-03 12:04 | XMS_ITS | Patient Health Record ---
Author Organization [facility] Address [address] [place], [place] [address] Care Team Providers Care Mechanical Service Specialist Name Role Phone ELIZABETH John Unavailable [phone] Lisette Marmolejo Unavailable Unavailable ETHAN WINTER Unavailable [phone] Allergies Allergen (clinical drug ingredient) Drug/Non Drug [...] hydrochloride 500 MG Oral Tablet *Reorder from [employer] for eRx and Interaction Alerts* 0 Active pantoprazole 40 MG Delayed Release Oral Tablet ORAL pantoprazole 40 MG Delayed Release Oral TabletOriginal Medicationpantoprazole 40 MG Delayed Release Oral Tablet *Reorder from [employer] for eRx and Interaction Alerts* 0 Active levothyroxine sodium 0.075 MG Oral Capsule ORAL levothyroxine sodium 0.075 MG Oral CapsuleOriginal Medicationlevothyroxine sodium 0.075 MG Oral Capsule *Reorder from [employer] for eRx and Interaction Alerts* 0 Active Furosemide 40 MG Oral Tablet ORAL furosemide 40 MG Oral TabletOriginal Medicationfurosemide 40 MG Oral Tablet *Reorder from [employer] for eRx and Interaction Alerts* 0 Active 24 HR metoprolol succinate 100 MG Extended Release Oral Tablet ORAL 24 HR metoprolol succinate 100 MG Extended Release Oral TabletOriginal [id number] HR metoprolol succinate 100 MG Extended Release Oral Tablet *Reorder from [employer] for eRx and Interaction Alerts* 0 Active Vital Signs Height-cm 157.48 cm 11/12/2023 Weight-kg 73.03 kg 11/12/2023 Height 62.00 in 11/12/2023 Weight 161 lbs 11/12/2023 BMI 29.44 kg/m2 11/12/2023 Encounters Encounter Location Date Provider Diagnosis [address] [id number] 11/12/2023 ETHAN WINTER 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 11/12/2023 Unspecified atherosclerosis of [place] arteries of extremities, bilateral legs (ICD-10 - [...] Date Coverage End Date Medicare Part B [place] [address] [place] [address] [id number] KAREL MORILLO Self - patient is the insured [facility] ([facility]) ATTN CLAIMS [address] [place] [address] [id number] KAREL MORILLO Self - patient is the insured
--- OUTSIDE RECORDS SUMMARY | 2024-11-03 12:04 | XMS_ITS ---
Author Organization [facility] Address [address] [place], [place] [address] Care Team Providers Care Follow Up Rep Name Role Phone ELIZABETH John Unavailable [phone] Lisette Marmolejo Unavailable Unavailable ETHAN WINTER Unavailable [phone] REASON FOR VISIT *General care Medications Medication SIG (Take, Route, Frequency, Duration) Notes Start Date End Date Status metformin hydrochloride 500 MG Oral Tablet ORAL metformin hydrochloride 500 MG Oral TabletOriginal Medicationmetformin hydrochloride 500 MG Oral Tablet *Reorder from [employer] for eRx and Interaction Alerts* 0 Active pantoprazole 40 MG Delayed Release Oral Tablet ORAL pantoprazole 40 MG Delayed Release Oral TabletOriginal Medicationpantoprazole 40 MG Delayed Release Oral Tablet *Reorder from [employer] for eRx and Interaction Alerts* 0 Active levothyroxine sodium 0.075 MG Oral Capsule ORAL levothyroxine sodium 0.075 MG Oral CapsuleOriginal Medicationlevothyroxine sodium 0.075 MG Oral Capsule *Reorder from [employer] for eRx and Interaction Alerts* 0 Active Furosemide 40 MG Oral Tablet ORAL furosemide 40 MG Oral TabletOriginal Medicationfurosemide 40 MG Oral Tablet *Reorder from [employer] for eRx and Interaction Alerts* 0 Active 24 HR metoprolol succinate 100 MG Extended Release Oral Tablet ORAL 24 HR metoprolol succinate 100 MG Extended Release Oral TabletOriginal [id number] HR metoprolol succinate 100 MG Extended Release Oral Tablet *Reorder from [employer] for eRx and Interaction Alerts* 0 Active Vital Signs Height 62.00 in 11/12/2023 Weight 161 lbs 11/12/2023 BMI 29.44 kg/m2 11/12/2023 Height-cm 157.48 cm 11/12/2023 Weight-kg 73.03 kg 11/12/2023 Encounters Encounter Location Date Provider Diagnosis [address] [id number] 11/12/2023 ETHAN WINTER 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 Unspecified atherosclerosis of [place] arteries of extremities, bilateral legs Patient educated [...] * KAREL MORILLO RDOB:[birth year] (88 yo F)Acc No.[id number]:11/12/2023 Patient: Massimo KAREL ALDRICH Provider: Laine WINTER :1935 A ge:88 Y S ex:Female Date:11/12/2023 Address:[address] [place] [address] Subjective: * Chief Complaints: * 1 . [...] Patient denies c hest pain, history of CO, irregular heartbeat. M usculoskeletal: Patient complains of [...] Medicationfurosemide 40 MG Oral Tablet *Reorder from [facility] for eRx and Interaction Alerts*, Taking 24 HR metoprolol succinate 100 MG Extended Release Oral Tablet ORAL , Notes to Pharmacist: 24 HR metoprolol succinate 100 MG Extended Release Oral TabletOriginal [id number] HR metoprolol succinate 100 MG Extended Release Oral Tablet *Reorder from [facility] for eRx and Interaction Alerts*, Taking levothyroxine sodium 0.075 MG Oral Capsule ORAL , Notes to Pharmacist: levothyroxine sodium 0.075 MG Oral CapsuleOriginal Medicationlevothyroxine sodium 0.075 MG Oral Capsule *Reorder from [facility] for eRx and Interaction Alerts*, Taking metformin hydrochloride 500 MG Oral Tablet ORAL , Notes to Pharmacist: metformin hydrochloride 500 MG Oral TabletOriginal Medicationmetformin hydrochloride 500 MG Oral Tablet *Reorder from [facility] for eRx and Interaction Alerts*, Taking pantoprazole 40 MG Delayed Release Oral Tablet ORAL , Notes to Pharmacist: pantoprazole 40 MG Delayed Release Oral TabletOriginal Medicationpantoprazole 40 MG Delayed Release Oral Tablet *Reorder from [facility] for eRx and Interaction Alerts* Objective: * [...] M21.41 3 . U nspecified atherosclerosis of [place] arteries of extremities, bilateral legs - I70.203 4 . A cquired keratosis [keratoderma] palmaris et plantaris - L85.1 5 . P ain in right foot - M79.671 Plan: * Treatment: 2. U nspecified atherosclerosis of [place] arteries of extremities, bilateral legs Notes: Patient [...] Months * Billing Information: * Visit Code: 08505 Office Visit, Est Pt., Level 3. * Procedure Codes: * Sign off status: Completed true * Provider: Laine WINTER Date: 0 11/12/2023 Generated for He mota/Hawa/Salty on: 0 11/03/2024 [...]
--- OUTSIDE RECORDS SUMMARY | 2024-11-03 12:04 | XMS_ITS | Clinical Summary ---
Author Organization [facility] Address [address] [facility] [place] [address] Care Team Providers Care Hotel Clerk Name Role Phone Unknown, Provider Primary Care Provider Unavaila ble Source Comments [facility],non-owned Affiliates and Associated Physician Practices is amultiple site organization consisting of ambulatory clinics and hospital sitesin [place], [place] and [place]. This disclosure is being madepursuant to the Care Everywhere program and may not contain all information available regarding this patient. Last updated 18.[facility] [place] Social History Tobacco Use Types Packs/Day Years [...] VACCINE (1 - 2023-2 5 season) 2024 DEPRESSION SCREENING 07/13/2024 INFLUENZA VACCINE (Season Ended) 2025 HEPATITIS B VACCINE Aged Out No longe [...] age to complete this topic Insurance MEDICARE [facility] MEDICARE [facility] [place][NOTE 2] Care Teams Hotel Clerk Relationship Specialty Start Date End Date Unknown, Provider PCP - General 10/12/22
== END 2024-11-03 10:38 | disposition home or self-care (01) ==
LOC: CHSLAB 10:39
PROVIDERS: PCP Internal Medicine; Visit Provider Internal Medicine
DX: R05.9 Cough, unspecified (principal); I50.9 Heart failure, unspecified; R91.8 Other nonspecific abnormal finding of lung field; Z95.1 Presence of aortocoronary bypass graft
CPT/HCPCS: 36415; 71046; 80053; 83880; 85027

== ENCOUNTER 2024-12-21 09:49 | Outpatient (CLI) | payer MEDICARE, BC, SELFPAY ==
--- OUTSIDE RECORDS SUMMARY | 2024-12-21 11:07 | XMS_ITS | Clinical Summary ---
Author Organization [facility] Address [address] [facility] [place] [address] Care Team Providers Care Head Of Marketing Name Role Phone Unknown, Provider Primary Care Provider Unavaila ble Source Comments [facility],non-owned Affiliates and Associated Physician Practices is amultiple site organization consisting of ambulatory clinics and hospital sitesin [place], [place], [place] and [place]. This disclosure is being madepursuant to the Care Everywhere program and may not contain all information available regarding this patient. Last updated 18.[facility] [employer] Social History Tobacco Use Types Packs/Day Years [...] 4:06 PM CDT Height 157.5 cm (5' 2) 10/12/2022 4:06 PM CDT Body Mass Index [...] age to complete this topic Insurance MEDICARE [facility] MEDICARE [facility] Care Teams Head Of Marketing Relationship Specialty Start Date End Date Unknown, Provider PCP - General 10/12/22
--- OUTSIDE RECORDS SUMMARY | 2024-12-21 11:07 | XMS_ITS | Encounter Summary ---
Author Organization [facility] Health Address [facility] [facility] [place] [address] Care Team Providers Care Propeller Tester Name Role Phone Unknown, Provider Primary Care Provider Unavaila ble Encounter Details Date Type Department Care Team (Late st Contact Info) Description 10/12/2022 Ophth Exam [facility] [address] [place] [address] Bakari Paiz MD [address] [place] [place] [address] Social History Tobacco Use Types Packs/Day Years [...] on filedocumented in this encounter Care Teams Propeller Tester Relationship Specialty Start Date End Date Unknown, Provider PCP - General 10/12/22 documented as of this encounter
[2024-12-21 11:54] LABS: Basophils Percent Auto 0.4 % (0.2-1.2); Eosinophils Absolute Auto 0.3 K/mm3 (0-0.3); Eosinophils Percent Auto 2.8 % (0-4.4); Hematocrit 41.2 % (37.0-47.0); Hemoglobin 12.9 g/dL (12.0-15.0); Immature Granulocyte Absolute 0.03 K/mm3 (0.00-0.031); Immature Granulocyte Percent A 0.3 % (0-0.5); Lymphocytes Percent Auto 37.3 % (18.3-44.2); Mean Corpuscular HGB Conc 31.3 g/dl (32-36); Mean Corpuscular Volume 89.4 fl (80-100); Mean Platelet Volume 10.8 fl (7.4-10.4); Monocytes Absolute Auto 0.7 K/mm3 (0.1-0.6); Monocytes Percent Auto 7.1 % (2.6-8.5); Neutrophils Percent Auto 52.1 % (45.5-73.1); Platelet Count Result 210 k/mm3 (150-375); Red Blood Count 4.61 M/mm3 (4.2-5.4); Red Cell Distribution Width 14.5 % (11.5-14.5); White Blood Count 9.7 K/mm3 (4.5-10.0)
[2024-12-21 12:27] LABS: Albumin Level 4.3 g/dL (3.5-5.1)
[2024-12-21 12:28] LABS: Anion Gap 8 mmol/L (4-12); Blood Urea Nitrogen 15 mg/dL (7-17); Calcium 9.2 mg/dL (8.4-10.2); Carbon Dioxide 28 mmol/L (22-30); Chloride 101 mmol/L (98-107); Estimated Glomerular Filt Rate > 60; Glucose 109 mg/dL (65-110); Potassium 3.9 mmol/L (3.4-5.0); Sodium 137 mmol/L (137-145)
[2024-12-21 13:07] LABS: MRSA (PCR) NOT DETECTED (NOT DETECTE)
[2024-12-21 13:23] LABS: Urine Cotinine NEGATIVE
[2024-12-21 14:03] LABS: Hemoglobin A1C 5.8 % (<5.7)
== END 2024-12-21 09:50 | disposition home or self-care (01) ==
LOC: ANHSURGERY 09:54
PROVIDERS: Anesthesiology; PCP Internal Medicine; Visit Provider Orthopaedic Surgery
DX: Z01.812 Encounter for preprocedural laboratory examination (principal); M17.11 Unilateral primary osteoarthritis, right knee; E11.9 Type 2 diabetes mellitus without complications
CPT/HCPCS: 36415; 80048; 80307; 82040; 83036; 85025; 87641

== ENCOUNTER 2025-01-30 13:09 | Outpatient (RCR) | payer MEDICARE, BC, SELFPAY ==
--- NOTE | 2025-01-30 13:58 | OPREHPOC ---
Outpatient Therapy Plan of Care This is a Multidisciplinary Plan of Care that may contain components documented by all disciplines (PT, OT, and ST.) PT Problem 1 PT Problem #1 Knowledge Deficit PT Goal 1 Goal / Goal Update Independent and compliant with HEP. Target Visit 2 PT Problem 2 PT Problem #2 Impaired Strength PT Goal 1 Goal / Goal Update Pt to improve bilat hip strength to 5/5. 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 Pt to report 20% reduction in perceived disability on oswestry. Target Visit 6
--- NOTE | 2025-01-30 13:58 | PTOPEVAL1 ---
Assessment and note entered by Radha Bazan, PT Evaluation Information Assessment Status Evaluation ICD-10 Condition Codes (PT) Pain in low back M54.50 Other ICD-10 Condition Codes ( M54.9 PT) Onset 01/26/25 Subjective Information Pt reports her back hurts when she's standing at her kitchen counter, bending over to get clothes out of the dryer and to fold clothes on her bed. States her pain is localized to her low back and she denies NTB down the legs. She reports that when she lies on her back and rests, the pain goes away. She does note a history of SIJ pain and reports that area still hurts occasionally but goes away. Reported Pain Level Pain Score 0: Self Report Assessment PT Clinical Summary Mrs. Martinez is an 89 yo female presenting for skilled PT evaluation for low back pain. She demonstrates moderate lower extremity weakness and pain that occurs with prolonged standing and bending over to perform functional tasks such as taking clothes out of the dryer. She will benefit from skilled PT intervention to address core and lower extremity strengthening to improve lumbar stability and reduce pain. Plan of Care Interventions Electrical Stimulation,Gait Training,Hot Pack/Cold Pack,Manual Therapy,Neuro Re-education,Patient/ Caregiver Education,Therapeutic Activities, Therapeutic Exercise,Self-Care/Home Management PT Services Indicated Yes Treatment Frequency and 1x/week for 6 visits Duration These treatments will address the objective and functional deficits as defined above. The patient will be advanced safely and appropriately in order for the patient to progress towards his/her prior level of function. Additional exercises will be introduced and as well as a comprehensive home exercise program upon discharge, if needed, ?to ensure carryover of functional gains achieved in the clinic. This treatment plan has been reviewed and agreement upon by the patient.
--- NOTE | 2025-03-20 13:49 | OPREHPOC ---
Outpatient Therapy Plan of Care This is a Multidisciplinary Plan of Care that may contain components documented by all disciplines (PT, OT, and ST.) PT Problem 1 PT Problem #1 Knowledge Deficit PT Goal 1 Goal / Goal Update Independent and compliant with HEP. Target Visit 2 Progress Met PT Problem 2 PT Problem #2 Impaired Strength PT Goal 1 Goal / Goal Update Pt to improve bilat hip strength to 5/5. 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 - not met Pt to report 20% reduction in perceived disability on oswestry. -met Target Visit 6 Progress Partially Met
--- NOTE | 2025-03-20 13:49 | PTOPDC ---
Assessment and note entered by Radha Bazan, PT Evaluation Information Assessment Status Discharge ICD-10 Condition Codes (PT) Pain in low back M54.50 Other ICD-10 Condition Codes ( M54.9 PT) Onset 01/26/25 Subjective Information Pt reports her back is feeling better and that she never has pain unless she stands upright for a prolonged time. She reports she can stand for about 15 minutes to do dishes and make her bed, etc. before her back starts to ache. After she sits or lies down for a few minutes her pain goes away and she can resume her activities. She reports she's continued her HEP and has also been doing exercises to prepare for her upcoming knee replacement. She reports she feels ready to discharge from therapy for her lower back today. Reported Pain Level Pain Score 0: Self Report Assessment PT Clinical Summary Mrs. Martinez has attended 6 skilled PT visits for low back pain. She has experienced a reduction in her low back pain and only experiences pain when performing standing activities when she's in more of a flexed posture such as making her bed or doing dishes. She demonstrates improved lower extremity strength and improved LEFS score. She has met or partially met her therapeutic goals and is appropriate for discharge from skilled PT this date. Plan of Care PT Services Indicated No
== END 2025-03-20 20:00 | disposition home or self-care (01) ==
LOC: CHSPT 13:09
PROVIDERS: PCP Internal Medicine; Visit Provider Internal Medicine
DX: Z47.1 Aftercare following joint replacement surgery (principal); Z96.651 Presence of right artificial knee joint; M54.9 Dorsalgia, unspecified
CPT/HCPCS: 97110; 97112; 97161

== ENCOUNTER 2025-02-12 16:30 | Emergency (ER) | payer MEDICARE, BC, SELFPAY ==
--- NOTE | ~2025-02-12 | CT_ITS ---
EXAMINATION: CT brain wo con DATE: 02/12/2025 17:10 INDICATION: Fall, head injury. Contusion above Rt. orbit . TECHNIQUE: Computed tomography (CT) of the head was performed without intravenous contrast. The mA wa s adjusted according to patient size. Iterative reconstruction technique was employed. The dose-lengt h product was 605.33 mGy-cm. COMPARISON: 06/16/2023; MR brain 10/23/2022. FINDINGS: No acute intracranial hemorrhage or extra-axial fluid collection. No hydrocephalus, mass, or herniation. No acute ischemic infarct. Unremarkable dural venous sinus attenuation. No acute osseous abnormality. Chronic dehiscence of the right orbital roof, may be secondary to old t rauma. Ethmoid and sphenoid mucosal thickening, sclerosis surrounding the sphenoid sinuses, left frontal ret ention cyst/polyp, the remaining aerated spaces are clear. Moderate atrophy and chronic white matter change. Atherosclerotic intracranial calcification. Bilater al lens replacements. Bilateral basal ganglia calcification. Right inferior frontal encephalomalacia. IMPRESSION: No acute intracranial process. CT findings may reflect chronic sphenoid sinusitis in the appropriate clinical context. Reviewed, dictated and finalized at location K.
--- NOTE | ~2025-02-12 | CT_ITS ---
EXAMINATION: CT cervical spine wo con DATE: 02/12/2025 17:10 INDICATION: Fall, head injury. Contusion above Rt. orbit TECHNIQUE: Computed tomography (CT) of the cervical spine was performed without intravenous contrast. Automated exposure control and iterative reconstruction technique were employed. The dose-length pro duct was 328.84 mGy-cm. COMPARISON: 06/16/2023. FINDINGS: Vertebral Body Alignment: Stable mild multilevel listheses. Stable reversal of the cervical lordosis centered at C4-5. Craniocervical and atlantoaxial alignment: Moderate degenerative change. Alignment intact. Osseous structures/fracture: No evidence of a lytic or blastic process in the visualized spine. No e vidence of acute fracture. Right C2-3 and C3-4 facet fusion Cervical soft tissues: The paraspinal soft tissues planes are maintained. Degenerative changes: Multilevel degenerative disc disease and facet arthropathy. IMPRESSION: No acute fracture or traumatic malalignment in the cervical spine. Reviewed, dictated and finalized at location K.
[2025-02-12 16:30] VITALS: BP 112/72; PULSE 78; RESP 18; TEMP 36.6; O2SAT 98
--- OUTSIDE RECORDS SUMMARY | 2025-02-12 16:33 | XMS_ITS | Patient Health Record ---
Author Organization [facility] Address [address] [place], [place] [address] Care Team Providers Care Permit Technician Name Role Phone ELIZABETH John Unavailable [phone] Lisette Marmolejo Unavailable Unavailable Allergies Allergen (clinical drug ingredient) Drug/Non Drug [...] hydrochloride 500 MG Oral Tablet *Reorder from [employer] for eRx and Interaction Alerts* 0 Active pantoprazole 40 MG Delayed Release Oral Tablet ORAL pantoprazole 40 MG Delayed Release Oral TabletOriginal Medicationpantoprazole 40 MG Delayed Release Oral Tablet *Reorder from [employer] for eRx and Interaction Alerts* 0 Active levothyroxine sodium 0.075 MG Oral Capsule ORAL levothyroxine sodium 0.075 MG Oral CapsuleOriginal Medicationlevothyroxine sodium 0.075 MG Oral Capsule *Reorder from [employer] for eRx and Interaction Alerts* 0 Active Furosemide 40 MG Oral Tablet ORAL furosemide 40 MG Oral TabletOriginal Medicationfurosemide 40 MG Oral Tablet *Reorder from [employer] for eRx and Interaction Alerts* 0 Active 24 HR metoprolol succinate 100 MG Extended Release Oral Tablet ORAL 24 HR metoprolol succinate 100 MG Extended Release Oral TabletOriginal [id number] HR metoprolol succinate 100 MG Extended Release Oral Tablet *Reorder from [employer] for eRx and Interaction Alerts* 0 Active Plan Of Treatment No Information Insurance Providers Payer Name Payer Address Payer Phone Subscriber Number Group Number Insured Name Patient Relationship to Insured Coverage Start Date Coverage End Date Medicare Part B [place] [address] [place] [phone] [id number] KAREL MORILLO Self - patient is the insured [facility] ([facility]) ATTN CLAIMS [address] [place] [address] [id number] KAREL MORILLO Self - patient is the insured
--- OUTSIDE RECORDS SUMMARY | 2025-02-12 16:33 | XMS_ITS | Encounter Summary ---
Author Organization [facility] Health Address [facility] [place] [address] Care Team Providers Care Financial Compliance Examiner Name Role Phone Unknown, Provider Primary Care Provider Unavaila ble Encounter Details Date Type Department Care Team (Late st Contact Info) Description 10/12/2022 Ophth Exam [facility] [address] [place] [address] Bakari Paiz MD [address] [facility] [place] [address] Social History Tobacco Use Types Packs/Day Years [...] on filedocumented in this encounter Care Teams Financial Compliance Examiner Relationship Specialty Start Date End Date Unknown, Provider PCP - General 10/12/22 documented as of this encounter
--- OUTSIDE RECORDS SUMMARY | 2025-02-12 16:33 | XMS_ITS | Clinical Summary ---
Author Organization [facility] Address [address] [facility] [place] [address] Care Team Providers Care Health And Safety Inspector Name Role Phone Unknown, Provider Primary Care Provider Unavaila ble Source Comments [facility],non-owned Affiliates and Associated Physician Practices is amultiple site organization consisting of ambulatory clinics and hospital sitesin [place], [place], [place] and [place]. This disclosure is being madepursuant to the Care Everywhere program and may not contain all information available regarding this patient. Last updated 18.[facility] [employer] [place] Social History Tobacco Use Types Packs/Day Years [...] age to complete this topic Insurance MEDICARE [facility] MEDICARE [id number][NOTE 3] Care Teams Health And Safety Inspector Relationship Specialty Start Date End Date Unknown, Provider PCP - General 10/12/22
--- OUTSIDE RECORDS SUMMARY | 2025-02-12 16:33 | XMS_ITS | Clinical Summary ---
Author Organization [facility] Address [address] [place] [address] Care Team Providers Care Supervisor Partial Denture Department Name Role Phone Lisette Marmolejo MD Primary [...] CDT Gender Identity Female 07/22/2021 5:57 PM COPY MACHINE OPERATOR Sexual Orientation Not on file [...] st Contact Info) Description 07/03/2025 11:15 AM COPY MACHINE OPERATOR Office Visit [facility] [place] [phone] Elis Alvarado MD [address] [place] [address] Health Maintenance Due Date Last Done Comments [...] Procedure Name Priority Date/Time Associated Diagnosis Comments LIPID PANEL Routine 09/29/2024 HEMOGLOBIN, GLYCOSYLATED Routine 09/29/2024 from Last 3 Months or Most Recently Relevant to Health Maintenance Results * HEMOGLOBIN, GLYCOSYLATED (09/29/2024) HGB A1C 5.6 % Narrative Resulting Agency Comment [facility] Lisette Marmolejo MD LABORATORY Final Result * LIPID PANEL (09/29/2024) CHOLESTEROL 141 TRIGLYCERIDES 220 HDL 42 LDL (CALCULATED) 55 Narrative Resulting Agency Comment [facility] Lisette Marmolejo MD LABORATORY Final Result from Last 3 Months or Most Recently Relevant to Health Maintenance Insurance MEDICARE [facility] MEDICARE [facility] Advance Directives Documents on File Type Date Recorded Patient Master Glazier Expl anation Advance Directives and Living Will 03/28/2019 9:44 AM living will & poa fo r health care Advance Directives and Living Will 03/24/2019 12:24 PM Power of Internal Revenue Agent 03/24/2019 12:23 PM Advance Directives and Living Will 03/24/2019 7:13 AM living will & poa fo r health care * Full Code (Latest Code Status on File) Date Activated Date Inactivated Comments 03/24/2019 1:43 AM 03/27/2019 5:41 PM * Full Code Date Activated Date Inactivated Comments 03/06/2019 10:34 AM 03/08/2019 7:53 PM Care Teams Supervisor Partial Denture Department Relationship Specialty Start Date End Date Lisette Marmolejo MD [address] [place] [address] PCP - General INTERNAL MEDICINE 03/06/19 Elis Alvarado MD [address] [place] [address] Consulting Physician CARDIOVASCULAR DISEASE 11/04/23
--- OUTSIDE RECORDS SUMMARY | 2025-02-12 16:33 | XMS_ITS ---
Author Organization [facility] Address [address] [place], [place] [id number] Care Team Providers Care Rubber Mill Operator Name Role Phone ELIZABETH John Unavailable [phone] Lisette Marmolejo Unavailable Unavailable ETHAN WINTER Unavailable [phone] REASON FOR VISIT *General care Encounters Encounter Location Date Provider Diagnosis [address] [id number] 01/21/2024 ETHAN WINTER Plan Of Treatment No Information Progress Notes * KAREL MORILLO RDOB:[birth year] (89 yo F)Acc No.[id number]:01/21/2024 Patient: CHRISTIAN GURROLALY Darnell Provider: Laine WINTER :1935 A ge:88 Y S ex:Female Date:01/21/2024 Address:[address] [place], [place] [id number] Subjective: * Chief Complaints: * 1 . *General care. * Medical History: Objective: * Vitals: Assessment: Plan: * Treatment: * Billing Information: * Visit Code: * Procedure Codes: * Electronic signature of DEREK WINTER DPM on 02/12/2025 at 04:32 PM CDT Sign off status: Pending * Provider: Laien WINTER Date: 01/21/2024 Generated for He ng/Falay/eTransmitting on: 02/12/2025 04:32 PM CDT
--- NOTE | 2025-02-12 16:54 | ED.HEATRA ---
HPI - Head Injury General Chief complaint: Head Injury Stated complaint: fall hitting head on floor Time Seen by Provider: 02/12/25 16:54 Source: patient and family Mode of arrival: ambulatory Limitations: no limitations History of Present Illness HPI Narrative: patient is a 89-year-old female with a fall ground level prior to arrival on gravel uneven road. She hit her right frontal forehead. No loss of consciousness. Asymptomatic. Aspirin taken daily. Complaint: head injury Onset (ago): minute(s) ( Thirty) Mechanism of Injury: fall Place: outdoors Loss of Consciousness: no Location of injury: frontal ( right) Severity: mild Severity scale (1-10): 1 Quality: burning Radiation: none Other Injuries: none Context: on aspirin Associated symptoms: denies other symptoms Related Data Home Medications ?Medication ?Instructions ?Recorded ?Confirmed ?Last Taken ?Type levothyroxine 88 mcg tablet 75 mcg PO DAILY 07/14/19 12/21/24 10/12/22 History pantoprazole 20 mg tablet,delayed 40 mg PO QAM 07/14/19 12/21/24 10/12/22 History release furosemide 40 mg tablet 40 mg PO DAILY 01/14/22 12/21/24 10/12/22 History potassium chloride 20 mEq 20 meq PO DAILY 01/14/22 12/21/24 10/12/22 History tablet,extended release(part/cryst) fluoxetine 20 mg capsule 20 mg PO DAILY 10/12/22 12/21/24 10/12/22 History metoprolol succinate 100 mg 100 mg PO DAILY 10/12/22 12/21/24 10/12/22 History tablet,extended release 24 hr rosuvastatin 5 mg tablet 5 mg PO DAILY 10/12/22 12/21/24 10/12/22 History sitagliptin phosphate 50 mg tablet 50 mg PO DAILY 06/16/23 12/21/24 Unknown History (Januvia) aspirin 81 mg capsule 81 mg PO DAILY 07/07/23 12/21/24 Unknown History acetaminophen 650 mg 1,300 mg PO PRN PRN pain 12/21/24 12/21/24 Unknown History tablet,extended release (8 Hour Pain Reliever) cholecalciferol (vitamin D3) 25 1,000 unit PO DAILY 12/21/24 12/21/24 Unknown History mcg (1,000 unit) capsule cyanocobalamin (vitamin B-12) 1,000 mcg PO DAILY 12/21/24 12/21/24 Unknown History 1,000 mcg capsule fluticasone propionate 50 2 spray intranasal DAILY 12/21/24 12/21/24 Unknown History mcg/actuation nasal spray,suspension (Flonase Allergy Relief) Allergies Allergy/AdvReac Type Severity Reaction Status Date / Time sulfamethoxazole (From AdvReac Headache Verified 12/21/24 11:13 Bactrim) trimethoprim (From Bactrim) AdvReac Headache Verified 12/21/24 11:13 Review of Systems Review of Systems: All systems reviewed & are unremarkable except as noted in HPI and below Constitutional: Constitutional: Reports no additional constitutional complaints Eyes: Eyes: Reports no additional eye complaints ENT: Reports system reviewed and no additional complaints, except as documented Cardiovascular: Cardiovascular: Reports no additional cardiovascular complaints Respiratory: Respiratory: Reports no additional respiratory complaints Gastrointestinal: Gastrointestinal: Reports no additional gastrointestinal complaints Genitourinary: Genitourinary: Reports no additional female genitourinary complaints Musculoskeletal: Musculoskeletal: Reports no additional musculoskeletal complaints Integumentary/Breasts: Skin/Breast: Reports system reviewed and no additional complaints, except as docu Neurologic: Reports system reviewed and no additional complaints, except as documented Psychiatric: Psychiatric: Reports no additional psychiatric complaints Endocrine: Endocrine: Reports no additional endocrine complaints Hematologic/Lymphatic: Hematologic/Lymphatic: Reports no additional hematologic/lymphatic complaints Allergic/Immunologic: Allergic/Immunologic: Reports no additional allergic/immunologic complaints PMFSH Past Medical History Medical History Atrophy of thyroid (acquired) Polyneuropathy Dorsalgia Hyperuricemia without signs inflammatory arthritis/tophaceous disease Pain in thoracic spine Coronary artery disease involving coronary bypass graft Diabetes type 2, controlled Hypertension Surgical History Surgical History History of bilateral carpal tunnel release Failed CABG (coronary artery bypass graft) Social History Social History Smoking status: Never smoker Additional smoking assessment comments: DENIES ANY FORM OF TOBACCO USE Alcohol intake: never Substance use: never Substance use type: does not use Do You Feel Safe in your Home?: Yes Lack of Transportation: No Lack of Food: Never True Current Housing: I Have Housing Concerned About Future Housing: No Difficulty Paying Gas/Electric Bills: No Difficulty Paying for Meds: No Currently Unemployed: No Education: High School Diploma/GED Difficulty w/ Childcare or Family Care: No Living arrangements: with friend(s) Additional living arrangements comments: lives with fiance Spiritual care concerns: No Exam Const: General: healthy appearing Nutritional Appearance: well nourished Orientation/consciousness: patient oriented x3 HENMT: Head: normal to inspection Ears: external ears normal Face/Nose/Sinus: Normal external nose present Eyes: Conjunctivae: conjunctivae normal Pupils: Equal, round and reactive pupils present EOM: EOMs intact bilaterally Neck: Neck: normal visual inspection Chest: Chest palpation & inspection: normal inspection of the chest Resp: Effort & Inspection: normal respiratory effort and not labored Auscultation: clear to auscultation bilaterally and no crackles Cardio: Rate: regular rate Rhythm: regular rhythm Heart sounds: no murmurs GI: Inspection: non-distended GI Palp: Yes Soft to palpation and No Tenderness to palpation present (GI) Auscultation: normal bowel sounds : General: Yes bladder normal to palpation Back/Spine/Pelvis: Back: no CVA tenderness Skin: General skin exam: normal color Rashes: no rashes Wounds: no wounds Neuro: General: patient oriented x3, moves all extremities, no meningeal signs and no focal motor deficits Cranial nerves: Yes CN's II-XII intact bilaterally Speech: normal speech Gait exam (Neuro): Normal gait present Other: fast exam negative, NIH score 0, GCS is 15 Extrem: General: normal to inspection Psych: Mental Status: mental status grossly normal Affect: normal affect Attitude: cooperative Course Vital Signs Vital signs: Vital Signs Temperature 36.6 C 02/12/25 16:30 Pulse Rate 78 02/12/25 16:30 Respiratory Rate 18 02/12/25 16:30 Blood Pressure 112/72 02/12/25 16:30 Pulse Oximetry 98 02/12/25 16:30 Oxygen Delivery Room Air 02/12/25 16:30 Temperature 36.4 C 02/12/25 18:10 Pulse Rate 65 02/12/25 18:10 Respiratory Rate 18 02/12/25 18:10 Blood Pressure 118/72 02/12/25 18:10 Pulse Oximetry 98 02/12/25 18:10 Oxygen Delivery Room Air 02/12/25 18:10 MDM - Head Injury MDM Narrative Medical decision making narrative: patient is an 89-year-old female with a right frontal head injury prior to arrival. We will get CT scans at this time. Imaging Data Attestation: I personally reviewed and interpreted this imaging study as follows: Radiologist's impression: CT scan of the head was negative for acute process CT scan of the cervical spine was negative for acute process Discharge Plan Discharge Clinical Impression: Head injury Qualifiers: Encounter type: initial encounter Qualified Code(s): S09.90XA - Unspecified injury of head, initial encounter Patient Disposition: Home Condition: Stable Instructions: Head Injury (ED) Additional Instructions: Monitor the patient closely for the next 24 hours and come back to the emergency room with any new significant changes such as headache or confusion or falling and unsteady gait. Patient Language: Monegasque Prescriptions: No Action furosemide 40 mg tablet 40 mg PO DAILY potassium chloride 20 mEq tablet,ER particles/crystals 20 meq PO DAILY Januvia 50 mg tablet 50 mg PO DAILY pantoprazole 20 mg Tablet,Delayed Release (Dr/Ec) 40 mg PO QAM levothyroxine 88 mcg Tablet 75 mcg PO DAILY metoprolol succinate 100 mg tablet extended release 24 hr 100 mg PO DAILY fluoxetine 20 mg capsule 20 mg PO DAILY rosuvastatin 5 mg tablet 5 mg PO DAILY aspirin 81 mg Capsule 81 mg PO DAILY cyanocobalamin (vitamin B-12) 1,000 mcg capsule 1,000 mcg PO DAILY cholecalciferol (vitamin D3) 25 mcg (1,000 unit) capsule 1,000 unit PO DAILY acetaminophen [8 Hour Pain Reliever] 650 mg tablet extended release 1,300 mg PO PRN PRN (Reason: pain) fluticasone propionate [Flonase Allergy Relief] 50 mcg/actuation spray,suspension 2 spray intranasal DAILY Rx Instructions: administer into each nostril Follow-up/Referrals: Lisette Marmolejo MD [Primary Care Provider] - Time of Disposition: 18:04
--- OUTSIDE RECORDS SUMMARY | 2025-02-12 17:10 | XMS_ITS | Encounter Summary ---
Author Organization [facility] Health Address [facility] [facility] [place] [address] Care Team Providers Care Print Machine Operator Name Role Phone Unknown, Provider Primary Care Provider Unavaila ble Encounter Details Date Type Department Care Team (Late st Contact Info) Description 10/12/2022 Ophth Exam [facility] [address] [place] [address] Bakari Paiz MD [address] [facility] [place] [address] Social History Tobacco Use Types Packs/Day Years [...] on filedocumented in this encounter Care Teams Print Machine Operator Relationship Specialty Start Date End Date Unknown, Provider PCP - General 10/12/22 documented as of this encounter
--- OUTSIDE RECORDS SUMMARY | 2025-02-12 17:10 | XMS_ITS | Clinical Summary ---
Author Organization [facility] Address [address] [place] [address] Care Team Providers Care Practice Representative Name Role Phone Lisette Marmolejo MD Primary Care Provider [phone] Elis Alvarado MD Unavailable Allergies Active Allergy [...] CDT Gender Identity Female 07/22/2021 5:57 PM EQUIPMENT SERVICE ENGINEER Sexual Orientation Not on file Last Filed [...] st Contact Info) Description 07/03/2025 11:15 AM EQUIPMENT SERVICE ENGINEER Office Visit [facility] [place] [phone] Elis Alvarado MD [address] [place] [address] Health Maintenance Due Date Last Done Comments [...] A1C 5.6 % Narrative Resulting Agency Comment [facility] Lisette Marmolejo MD LABORATORY Final Result * LIPID PANEL (09/29/2024) CHOLESTEROL 141 TRIGLYCERIDES 220 HDL 42 LDL (CALCULATED) 55 Narrative Resulting Agency Comment [facility] Lisette Marmolejo MD LABORATORY Final Result from Last 3 Months or Most Recently Relevant to Health Maintenance Insurance MEDICARE [facility] MEDICARE [facility] Advance Directives Documents on File Type Date Recorded Patient Child And Youth Program Assistant Expl anation Advance Directives and Living Will 03/28/2019 9:44 AM living will & poa fo r health care Advance Directives and Living Will 03/24/2019 12:24 PM Power of Measurer 03/24/2019 12:23 PM Advance Directives and Living Will 03/24/2019 7:13 AM living will & poa fo r health care * Full Code (Latest Code Status on File) Date Activated Date Inactivated Comments 03/24/2019 1:43 AM 03/27/2019 5:41 PM * Full Code Date Activated Date Inactivated Comments 03/06/2019 10:34 AM 03/08/2019 7:53 PM Care Teams Practice Representative Relationship Specialty Start Date End Date Lisette Marmoeljo MD [address] [place] [address] PCP - General INTERNAL MEDICINE 03/06/19 Elis Alvarado MD [address] [place] [address] Consulting Physician CARDIOVASCULAR DISEASE 11/04/23
--- OUTSIDE RECORDS SUMMARY | 2025-02-12 17:10 | XMS_ITS | Clinical Summary ---
Author Organization [facility] Address [address] [facility] [place] [address] Care Team Providers Care Moss Gatherer Name Role Phone Unknown, Provider Primary Care Provider Unavaila ble Source Comments [facility],non-owned Affiliates and Associated Physician Practices is amultiple site organization consisting of ambulatory clinics and hospital sitesin [place], [place], [place] and [place]. This disclosure is being madepursuant to the Care Everywhere program and may not contain all information available regarding this patient. Last updated 18.[facility] [employer] Social History Tobacco Use Types Packs/Day Years [...] age to complete this topic Insurance MEDICARE [facility] MEDICARE [facility] Care Teams Moss Gatherer Relationship Specialty Start Date End Date Unknown, Provider PCP - General 10/12/22
[2025-02-12 18:10] VITALS: BP 118/72; PULSE 65; RESP 18; TEMP 36.4; O2SAT 98
== END 2025-02-12 18:10 | disposition home or self-care (01) ==
PROVIDERS: Emergency Provider Emergency Medicine; PCP Internal Medicine
DX: S09.90XA Unspecified injury of head, initial encounter (principal); E11.9 Type 2 diabetes mellitus without complications; I10 Essential (primary) hypertension; I25.810 Atherosclerosis of coronary artery bypass graft(s) without angina pectoris; Z95.1 Presence of aortocoronary bypass graft; W18.30XA Fall on same level, unspecified, initial encounter
CPT/HCPCS: 70450; 72125; 99284

== ENCOUNTER 2025-03-20 08:09 | Outpatient (CLI) | payer MEDICARE, BC, SELFPAY ==
--- OUTSIDE RECORDS SUMMARY | 2025-03-20 08:28 | XMS_ITS | Clinical Summary ---
Author Organization [facility] Address [address] [place] [address] Care Team Providers Care Nib Inspector Name Role Phone Unknown, Provider Primary Care Provider Unavaila ble Source Comments [facility],non-owned Affiliates and Associated Physician Practices is amultiple site organization consisting of ambulatory clinics and hospital sitesin [place], [place], [place] and [place]. This disclosure is being madepursuant to the Care Everywhere program and may not contain all information available regarding this patient. Last updated 18.[facility] [employer] Social History Tobacco Use Types Packs/Day Years [...] age to complete this topic Insurance MEDICARE [facility] MEDICARE [facility] Care Teams Nib Inspector Relationship Specialty Start Date End Date Unknown, Provider PCP - General 10/12/22
--- OUTSIDE RECORDS SUMMARY | 2025-03-20 08:28 | XMS_ITS | Encounter Summary ---
Author Organization [facility] Health Address [facility] [facility] [place] [address] Care Team Providers Care Customer Care Coordinator Name Role Phone Unknown, Provider Primary Care Provider Unavaila ble Encounter Details Date Type Department Care Team (Late st Contact Info) Description 10/12/2022 Ophth Exam [facility] [address] [place] [address] Bakari Paiz MD [address] [facility] [place] [address] Social History Tobacco Use Types Packs/Day Years [...] on filedocumented in this encounter Care Teams Customer Care Coordinator Relationship Specialty Start Date End Date Unknown, Provider PCP - General 10/12/22 documented as of this encounter
--- OUTSIDE RECORDS SUMMARY | 2025-03-20 08:28 | XMS_ITS | Clinical Summary ---
Author Organization [facility] Address [address] [place] [address] Care Team Providers Care Cloth Checker Name Role Phone Lisette Marmolejo MD Primary Care Provider [phone] Elis Alvarado MD Unavailable Allergies Active Allergy [...] CDT Gender Identity Female 07/22/2021 5:57 PM PHARMACEUTICAL PHYSICIAN Sexual Orientation Not on file Last Filed [...] st Contact Info) Description 07/03/2025 11:15 AM PHARMACEUTICAL PHYSICIAN Office Visit [facility] [place] [phone] Elis Alvarado MD [address] [place] [address] Health Maintenance Due Date Last Done Comments [...] A1C 5.6 % Narrative Resulting Agency Comment [facility] Lisette Marmolejo MD LABORATORY Final Result * LIPID PANEL (09/29/2024) CHOLESTEROL 141 TRIGLYCERIDES 220 HDL 42 LDL (CALCULATED) 55 Narrative Resulting Agency Comment [facility] Lisette Marmolejo MD LABORATORY Final Result from Last 3 Months or Most Recently Relevant to Health Maintenance Insurance MEDICARE [facility] MEDICARE [facility] Advance Directives Documents on File Type Date Recorded Patient House Mover Expl anation Advance Directives and Living Will 03/28/2019 9:44 AM living will & poa fo r health care Advance Directives and Living Will 03/24/2019 12:24 PM Power of Tellers Supervisor 03/24/2019 12:23 PM Advance Directives and Living Will 03/24/2019 7:13 AM living will & poa fo r health care * Full Code (Latest Code Status on File) Date Activated Date Inactivated Comments 03/24/2019 1:43 AM 03/27/2019 5:41 PM * Full Code Date Activated Date Inactivated Comments 03/06/2019 10:34 AM 03/08/2019 7:53 PM Care Teams Cloth Checker Relationship Specialty Start Date End Date Lisette Marmolejo MD [address] [place] [address] PCP - General INTERNAL MEDICINE 03/06/19 Elis Alvarado MD [address] [place] [address] Consulting Physician CARDIOVASCULAR DISEASE 11/04/23
[2025-03-20 08:40] LABS: Hematocrit 41.9 % (35.0-42.0); Hemoglobin 13.3 g/dL (11.7-13.8); Immature Granulocyte Percent A 0.3 % (0.0-0.0); Lymphocytes Absolute Auto 2.44 K/mm3 (1.10-4.50); Mean Corpuscular HGB Conc 31.7 g/dL (32-36); Mean Corpuscular Hemoglobin 28.4 pg (27.0-31.0); Mean Corpuscular Volume 89.5 fL (78.0-102.0); Nucleated Red Blood Cells Absolute Auto 0.00 K/mm3 (0.00-0.00); Nucleated Red Blood Cells Perc 0.0 % (0-0.0); Platelet Count Result 205 K/mm3 (150-420); Red Blood Count 4.68 M/mm3 (4.20-5.40); White Blood Count 6.3 K/mm3 (4.8-10.8)
[2025-03-20 08:41] LABS: Add Urine Microscopic? YES; Appearance Urine Clear (Clear); Glucose Urine UA Negative (Negative); Leukocyte Esterase Ur Trace LEU/UL (Negative); Nitrate Urine Negative (Negative); Specific Grav Ur 1.010 (1.010-1.020)
[2025-03-20 08:55] LABS: Hemoglobin A1C 5.8 % (<5.7)
[2025-03-20 08:57] LABS: Alanine Aminotransferase 13 U/L (6-35); Albumin Level 4.2 g/dL (3.5-5.1); Alkaline Phosphatase 56 U/L (38-126); Anion Gap 5 mmol/L (4-12); Aspartate Amino Transferase 22 U/L (14-36); Bilirubin,Total 1.2 mg/dL (0.2-1.3); Blood Urea Nitrogen 14 mg/dL (7-17); Calcium 9.5 mg/dL (8.4-10.2); Carbon Dioxide 33 mmol/L (22-30); Chloride 102 mmol/L (98-107); Cholesterol 181 mg/dL (0-200); Creatine Kinase 46 U/L (30-135); Estimated Glomerular Filt Rate 56; Glucose 113 mg/dL (65-110); HDL Direct 44 mg/dL; Osmolality Calculated 291 mOsm/kg (285-295); Potassium 4.5 mmol/L (3.4-5.0); Sodium 140 mmol/L (137-145); Total Protein 6.2 g/dL (6.3-8.2); Triglycerides 249 mg/dL (<150)
[2025-03-20 09:05] LABS: NT Pro B Type Natriuretic Pept 688 pg/mL (19.9-100)
[2025-03-20 09:13] LABS: Free T4 Free Thyroxine 1.21 ng/dL (0.78-2.19)
[2025-03-20 09:14] LABS: MALB Creatinine Ratio 5.2 mg/g (0-30)
[2025-03-20 09:27] LABS: Thyroid Stimulating Hormone 2.010 uIU/mL (0.465-4.680)
== END 2025-03-20 08:10 | disposition home or self-care (01) ==
LOC: CHSLAB 08:13
PROVIDERS: PCP Internal Medicine; Visit Provider Internal Medicine
DX: E03.4 Atrophy of thyroid (acquired) (principal); E11.9 Type 2 diabetes mellitus without complications; E78.2 Mixed hyperlipidemia; I25.10 Atherosclerotic heart disease of native coronary artery without angina pectoris; N39.0 Urinary tract infection, site not specified; I11.0 Hypertensive heart disease with heart failure; I50.9 Heart failure, unspecified
CPT/HCPCS: 36415; 80053; 80061; 81001; 82043; 82550; 83036; 83880; 84439; 84443; 85025

== ENCOUNTER 2025-04-20 01:27 | Day surgery (SDC) | payer MEDICARE, BC, SELFPAY ==
--- NOTE | 2024-12-21 09:54 | PC.NURSE ---
Report to the Outpatient Waiting Room, entrance under the green pavilion located off [facility], at time _11:30 am on date __01/17/25 . Planned Procedure Time: _1:30 pm .? Time changes happen often and if your time is changed the preop area will call you the afternoon before. - You and your visitor will be asked to self-screen and do not enter if you have any COVID symptoms. Please call surgeon if you need to reschedule. - A mask is optional within the hospital at this time. Patients may have clear liquids (water, carbonated beverages, clear teas, apple juice) until 3 hours prior to surgery ( 10:30 am) with a maximum of 20 ounces. - No food from midnight until time of surgery and no smoking, or chewing tobacco (or any form of nicotine). No chewing gum, candy or mints. Take only the following medications with a SIP of water on the morning of surgery: _FLUOXETINE,LEVOTHYROXINE,METOPROLOL DO NOT STOP ANY OF YOUR OTHER PRESCRIPTION MEDICATIONS PRIOR TO SURGERY EXCEPT THE FOLLOWING Hold all vitamins and supplements for 3 days per anesthesiologist. LAST DOSE 01/13/25 Medications to discontinue per physician DO NOT STOP ASPIRIN PER DR PERALTA-BUT DO NOT TAKE MORNING OF SURGERY_ MAY TAKE TYLENOL IF NEEDED Please no make-up, nail vietnamese, hairspray, perfume, deodorant, or body powder the day of surgery.? No jewelry (including any body piercings) or valuables the day of surgery, leave them at home.? Please take a shower or bath the night before, or the morning of, surgery with an antibacterial soap.? Wear comfortable, loose fitting clothing.? Children are encouraged to wear pajamas. - Jewelry must be removed prior to entering the operating room.? Rings and piercings that are not removed may be cut off. - The hospital will not accept responsibility for valuables.? - Please leave all valuables, including medications, at home the day of surgery. If you are going home after surgery, a licensed port cdl a driver must drive you home.? - NO public transportation without another adult if you receive anesthesia. - We recommend that an adult stay with you for 24 hours following discharge. - We also recommend that you do not drive, make important decision, drink alcoholic beverages, or take any drugs that were not prescribed by your health care provider for at least 24 hours after your discharge time. Follow any additional instructions given to you from your surgeon. VERBAL AND WRITTEN instructions given to _PATIENT_AND DAUGHTER and asked if any additional questions and then verbalized understanding. Patient advised to call surgeon office or pre surgery nurse liaison [phone] if any additional questions.
[2024-12-21 09:59] VITALS: BMI 27.3
[2024-12-21 11:09] VITALS: BP 127/66; PULSE 56; RESP 18; TEMP 36.6; O2SAT 97
--- OUTSIDE RECORDS SUMMARY | 2025-01-17 02:45 | XMS_ITS | Encounter Summary ---
Author Organization [facility] Health Address [facility] [facility] [place] [address] Care Team Providers Care Lock Stitch Channeler Name Role Phone Unknown, Provider Primary Care Provider Unavaila ble Encounter Details Date Type Department Care Team (Late st Contact Info) Description 10/12/2022 Ophth Exam [facility] [address] [place] [address] Bakari Paiz MD [address] [facility] [place] [address] Social History Tobacco Use Types Packs/Day Years [...] on filedocumented in this encounter Care Teams Lock Stitch Channeler Relationship Specialty Start Date End Date Unknown, Provider PCP - General 10/12/22 documented as of this encounter
--- OUTSIDE RECORDS SUMMARY | 2025-01-17 02:45 | XMS_ITS | Clinical Summary ---
Author Organization [facility] Address [address] [place] [address] Care Team Providers Care Apple Picker Name Role Phone Lisette Marmolejo MD Primary Care Provider [phone] Prince Peralta MD Unavailable Allergies Active Allergy Reactions [...] in the interim. Hypothyroidism Hypertension Diabetes mellitus ([facility]) Depression Coronary artery disease Anxiety Hx of CABG Dyspnea on effort Encounters Date Type Department Care Team Description 11/07/2024 10:00 AM CDT Office Visit [facility] [address] [place] [address] Prince Peralta MD Heart Problem 11/07/2024 9:34 AM CDT - 11/07/2024 11:59 PM CDT Hospital Encounter [facility] [address] [place] [address] Prince Peralta MD Discharge Disposition: Home or Self Care (Routine Discharge) 11/07/2024 Travel 11/04/2024 Telephone [facility] [address] [place] [address] Prince Peralta MD Appointment Reminder 11/02/2024 Orders Only [facility] [address] [place] [address] Prince Peralta MD from Last 3 Months Family [...] Information Value Date Recorded Sex Assigned at Female 11/07/2024 9:32 AM CDT Legal Sex Female 9:35 PM CDT Gender Identity Female 07/22/2021 5:57 PM LINE HELPER Sexual Orientation Not on file Last Filed Vital Signs Vital Sign Reading Time Taken Comments Blood Pressure 140/78 11/07/2024 10:05 AM CDT Pulse 57 11/07/2024 9:52 AM CDT Temperature 36.4 C (97.5 F) 03/27/2019 12:21 PM CDT Respiratory Rate 18 11/07/2024 9:52 AM CDT Oxygen Saturation 96% 11/07/2024 9:52 AM CDT Inhaled Oxygen Concentration - - Weight 67.6 kg (149 lb) 11/07/2024 9:52 AM CDT Height 157.5 cm (5' 2) 11/07/2024 9:52 AM CDT Body Mass Index 27.25 11/07/2024 9:52 AM CDT Plan of Treatment Upcoming Encounters Date Type Department Care Team (Late st Contact Info) Description 07/03/2025 11:15 AM LINE HELPER Office Visit [facility] [place] [address] Prince Peralta MD [address] [place] [address] Health Maintenance Due Date Last Done Comments ASCVD Statin 1935 Diabetes: Retinopathy Eye Exam 1954 DTaP, Tdap and Td Vaccines ( 1 - Tdap) 09/24/1955 Zoster Vaccines (1 of 2) 1986 Annual Medicare Wellness Visit 2001 RSV Immunization or 60+ Years (1 - 1-dose 75+ series) 09/24/2011 Pneumococcal Vaccine: 50+ Years (2 of 2 - PPSV23) 12/20/2015 10/25/2015 COVID-19 Vaccine (1 - 2023-2 5 season) 2024 Hemoglobin A1C 04/01/2025 09/29/2024, 08/01/2024, 01/21/2019 Lipid Panel 09/29/2025 09/29/2024 Meningococcal B [...] Date/Time Associated Diagnosis Comments ECG 12-LEAD Routine 11/07/2024 9:46 AM CDT Hypertension, unspecified type LIPID PANEL Routine 09/29/2024 HEMOGLOBIN, GLYCOSYLATED Routine 09/29/2024 from Last 3 Months or Most Recently Relevant to Health Maintenance Results * ECG 12 lead (HOSPITAL PERFORMED ONLY) (11/07/2024 9:46 AM CDT) 11/07/2024 9:46 AM CDT Narrative [facility] - 11/08/2024 1:20 PM CDT [address] [place] [address] Test Date: 2024-11-07 Pat Name: JACKIE MARTINEZ Department: 3 Room: Gender: Female Parking Lot Attendant: : 1935 Requested By: PRINCE PERALTA Order Number: [id number] Reading MD: Prince Peralta Measurements Intervals [place] Rate: 55 P: 30 MD: 161 QRS: -5 QRSD: 76 T: 30 QT: 411 QTc: 394 Interpretive Statements SINUS BRADYCARDIA MINIMAL ST DEPRESSION [0.025+ mV ST DEPRESSION] Procedure Note Prince Peralta MD - 11/08/[address] [place] [address] Test Date: 2024-11-07 Pat Name: JACKIE MARTINEZ Department: 3 Room: Gender: Female Parking Lot Attendant: : 1935 Requested By: PRINCE PERALTA Order Number: [id number] Reading MD: Prince Peralta Measurements Intervals [place] Rate: 55 P: 30 MD: 161 QRS: -5 QRSD: 76 T: 30 QT: 411 QTc: 394 Interpretive Statements SINUS BRADYCARDIA MINIMAL ST DEPRESSION [0.025+ mV ST DEPRESSION] us Prince Peralat MD ECG ORDERABLES Final Result [facility] * HEMOGLOBIN, GLYCOSYLATED (09/29/2024) HGB A1C 5.6 % Narrative Resulting Agency Comment [facility] us Lisette Marmolejo MD LABORATORY Final Result * LIPID PANEL (09/29/2024) CHOLESTEROL 141 TRIGLYCERIDES 220 HDL 42 LDL (CALCULATED) 55 Narrative Resulting Agency Comment [facility] us Lisette Marmolejo MD LABORATORY Final Result from Last 3 Months or Most Recently Relevant to Health Maintenance Insurance MEDICARE MEDICARE Advance Directives Documents on File Type Date Recorded Patient Collector Of Internal Revenue Expl anation Advance Directives and Living Will 03/28/2019 9:44 AM living will & poa fo r health care Advance Directives and Living Will 03/24/2019 12:24 PM Power of Wedding Makeup Artist 03/24/2019 12:23 PM Advance Directives and Living Will 03/24/2019 7:13 AM living will & poa fo r health care * Full Code (Latest Code Status on File) Date Activated Date Inactivated Comments 03/24/2019 1:43 AM 03/27/2019 5:41 PM * Full Code Date Activated Date Inactivated Comments 03/06/2019 10:34 AM 03/08/2019 7:53 PM Care Teams Apple Picker Relationship Specialty Start Date End Date Lisette Marmolejo MD [address] [place] [address] PCP - General INTERNAL MEDICINE 03/06/19 Prince Peralta MD [address] [place] [address] Consulting Physician CARDIOVASCULAR DISEASE 11/04/23
--- OUTSIDE RECORDS SUMMARY | 2025-01-17 02:45 | XMS_ITS | Patient Health Record ---
Author Organization [facility] Address [address] [place], [place] [id number] Care Team Providers Care Front Desk Attendant Name Role Phone CarinELIZABETH erwin Unavailable [phone] Lisette Marmolejo Unavailable Unavailable ETHAN WINTER Unavailable [phone] Allergies Allergen (clinical drug ingredient) Drug/Non Drug Allergy documented on EMR Reaction Allergy Type Onset Date Status Bactrim Unknown Drug Allergy 04/30/2020 active Reason For Referral No Information Medications Medication SIG (Take, Route, Frequency, Duration) Notes Start Date End Date Status metformin hydrochloride 500 MG Oral Tablet ORAL metformin hydrochloride 500 MG Oral TabletOriginal Medicationmetformin hydrochloride 500 MG Oral Tablet *Reorder from [employer] for eRx and Interaction Alerts* 0 Active pantoprazole 40 MG Delayed Release Oral Tablet ORAL pantoprazole 40 MG Delayed Release Oral TabletOriginal Medicationpantoprazole 40 MG Delayed Release Oral Tablet *Reorder from [employer] for eRx and Interaction Alerts* 0 Active levothyroxine sodium 0.075 MG Oral Capsule ORAL levothyroxine sodium 0.075 MG Oral CapsuleOriginal Medicationlevothyroxine sodium 0.075 MG Oral Capsule *Reorder from [employer] for eRx and Interaction Alerts* 0 Active Furosemide 40 MG Oral Tablet ORAL furosemide 40 MG Oral TabletOriginal Medicationfurosemide 40 MG Oral Tablet *Reorder from [employer] for eRx and Interaction Alerts* 0 Active 24 HR metoprolol succinate 100 MG Extended Release Oral Tablet ORAL 24 HR metoprolol succinate 100 MG Extended Release Oral TabletOriginal [id number] HR metoprolol succinate 100 MG Extended Release Oral Tablet *Reorder from [employer] for eRx and Interaction Alerts* 0 Active Plan Of Treatment No Information Insurance Providers Payer Name Payer Address Payer Phone Subscriber Number Group Number Insured Name Patient Relationship to Insured Coverage Start Date Coverage End Date Medicare Part B [place] [address] [place] [address] [id number] KAREL MORILLO Self - patient is the insured [facility] ATTN CLAIMS [address] [place] [address] [id number] KAREL MORILLO Self - patient is the insured
--- OUTSIDE RECORDS SUMMARY | 2025-01-17 02:45 | XMS_ITS | Clinical Summary ---
Author Organization [facility] Address [address] [place] [address] Care Team Providers Care Saw Cleaner Name Role Phone Unknown, Provider Primary Care Provider Unavaila ble Source Comments [facility],non-owned Affiliates and Associated Physician Practices is amultiple site organization consisting of ambulatory clinics and hospital sitesin [place], [place], [place] and [place]. This disclosure is being madepursuant to the Care Everywhere program and may not contain all information available regarding this patient. Last updated 18.[facility] [employer] Social History Tobacco Use Types Packs/Day Years [...] season) 2024 DEPRESSION SCREENING 07/13/2024 INFLUENZA VACCINE (#1) 2025 HEPATITIS B VACCINE Aged Out No [...] age to complete this topic Insurance MEDICARE [facility] MEDICARE [facility] Care Teams Saw Cleaner Relationship Specialty Start Date End Date Unknown, Provider PCP - General 10/12/22
--- OUTSIDE RECORDS SUMMARY | 2025-01-17 02:45 | XMS_ITS ---
Author Organization [facility] Address [address] [place], [place] [address] Care Team Providers Care Food And Beverage Assistant Name Role Phone ELIZABETH John Unavailable [phone] Lisette Marmolejo Unavailable Unavailable ETHAN WINTER Unavailable [phone] REASON FOR VISIT *General care Encounters Encounter Location Date Provider Diagnosis [address] [id number] 01/21/2024 ETHAN WINTER Plan Of Treatment No Information Progress Notes * KAREL MORILLO RDOB:[birth year] (89 yo F)Acc No.[id number]:01/21/2024 Patient: CHRISTIAN GURROLALY Darnell Provider: Laine WINTER :1935 A ge:88 Y S ex:Female Date:01/21/2024 Address:[address] [place], [place] [id number] Subjective: * Chief Complaints: * 1 . *General care. * Medical History: Objective: * Vitals: Assessment: Plan: * Treatment: * Billing Information: * Visit Code: * Procedure Codes: * Electronic signature of DEREK WINTER DPM on 01/17/2025 at 02:44 AM CDT Sign off status: Pending * Provider: Laine WINTER Date: 01/21/2024 Generated for He mota/Hawa/eTransmitting on: 01/17/2025 02:44 AM CDT
--- NOTE | 2025-04-14 12:54 | PC.NURSE ---
[facility] has started construction of its new state of the art ER which will open Spring 2026. With this, we anticipate parking may be a challenge for some our surgical patients and families. Parking spaces are limited but are available for all Surgical, obstetrics, and ER patients sharing this lot. If you arrive and find you are having a hard time finding a parking space, please note that we understand the challenges, please drive around the hospital and park near Hospital Entrance 1. When you enter this entrance, you can ask a volunteer to direct or take you back to the surgical waiting area to check in. We appreciate everyone?s understanding of these expected challenges while we build for your future. Report to the Outpatient Waiting Room, entrance under the green pavilion located off [address], at time _8:30 am on date __04/20/25 . Planned Procedure Time: __10:30 am .? Time changes happen often and if your time is changed the preop area will call you the afternoon before. - You and your visitor will be asked to self-screen and do not enter if you have any COVID symptoms. Please call surgeon if you need to reschedule. - A mask is optional within the hospital at this time. Patients may have clear liquids (water, carbonated beverages, clear teas, apple juice) until 3 hours prior to surgery ( 7:30 am) with a maximum of 20 ounces. - No food from midnight until time of surgery and no smoking, or chewing tobacco (or any form of nicotine). No chewing gum, candy or mints. Take only the following medications with a SIP of water on the morning of surgery: ___LEVOTHYROXINE,METOPROLOL,FLUOXETINE DO NOT STOP ANY OF YOUR OTHER PRESCRIPTION MEDICATIONS PRIOR TO SURGERY EXCEPT THE FOLLOWING Hold all vitamins and supplements for 3 days per anesthesiologist.LAST DOSE 04/16/25 Medications to discontinue per physician PATIENT STATES PER CRUZ CONTINUE TAKING 81MG ASPIRIN _BUT DO NOT TAKE MORNING OF SURGERY Please no make-up, nail namibian, hairspray, perfume, deodorant, or body powder the day of surgery.? No jewelry (including any body piercings) or valuables the day of surgery, leave them at home.? Please take a shower or bath the night before, or the morning of, surgery with an antibacterial soap.? Wear comfortable, loose fitting clothing.? Children are encouraged to wear pajamas. - Jewelry must be removed prior to entering the operating room.? Rings and piercings that are not removed may be cut off. - The hospital will not accept responsibility for valuables.? - Please leave all valuables, including medications, at home the day of surgery. If you are going home after surgery, a licensed driver guard must drive you home.? - NO public transportation without another adult if you receive anesthesia. - We recommend that an adult stay with you for 24 hours following discharge. - We also recommend that you do not drive, make important decision, drink alcoholic beverages, or take any drugs that were not prescribed by your health care provider for at least 24 hours after your discharge time. For Pediatric surgeries, we recommend two adults accompany the child home. Follow any additional instructions given to you from your surgeon. Telephone instructions given to ___PATIENT and asked if any additional questions and then verbalized understanding. Patient advised to call surgeon office or pre surgery nurse liaison [phone] if any additional questions.
--- NOTE | 2025-04-14 13:05 | PC.NURSE ---
STATES NO CHANGE IN HEALTH HX SINCE LAST INTERVIEW 12/21/24
[2025-04-20] VITALS (11 sets, daily range): BP systolic 103–133; BP diastolic 53–72; PULSE 54–83; RESP 12–20; TEMP 36.2–37.1; O2SAT 96–100; BMI 27.3
--- NOTE | ~2025-04-20 | XR_ITS ---
EXAMINATION: [id number], 04/20/2025 13:07 CDT HISTORY: POST OP RIGHT TKA COMPARISON: No comparisons available. Findings: No acute fracture or malalignment. Prosthesis intact. Soft tissues unremarkable. Impression: No acute fracture or malalignment. Reviewed, dictated and finalized at location P. Impression: No acute fracture or malalignment.
--- NOTE | 2025-04-20 07:10 | WPDHPUPDATE1 ---
History and Physical Update Update Date/Time: 04/20/25 07:10 History and Physical has been reviewed, including an updated exam of the patient. There are NO changes in the patient's condition. Risks, benefits, and alternatives have been discussed and questions answered. Patient agrees to proceed with procedure.
[2025-04-20] MEDS: LACTATED RINGERS 1,000 ML 30 ML IV CONT ×2 (09:45→13:05)
[2025-04-20] MEDS: TRANEXAMIC ACID 1,000MG/ISO100 1,000 MG/100 ML BAG 200 MG IVPB (09:45)
[2025-04-20] MEDS: ACETAMINOPHEN 500 MG TABLET 1000 MG PO (09:45)
--- NOTE | 2025-04-20 10:26 | WPDANESEPPF ---
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 Patient Data Age: 89 Gender: F Height: 1.57 m Weight: 67.7 kg Last Vital Signs Temp 98 F 04/20/25 09:45 Pulse 54 L 04/20/25 09:45 Resp 18 12/21/24 11:09 BP 133/72 04/20/25 09:45 Pulse Ox 100 04/20/25 09:45 O2 Del Method Room Air 04/20/25 09:45 Allergies Allergy/AdvReac Type Severity Reaction Status Date / Time sulfamethoxazole (From AdvReac Headache Verified 04/20/25 09:44 Bactrim) trimethoprim (From Bactrim) AdvReac Headache Verified 04/20/25 09:44 Home Medications ?Medication ?Instructions ?Recorded ?Confirmed ?Type levothyroxine 88 mcg tablet 75 mcg PO DAILY 07/14/19 04/20/25 History pantoprazole 20 mg tablet,delayed 40 mg PO QAM 07/14/19 04/14/25 History release furosemide 40 mg tablet 40 mg PO DAILY 01/14/22 04/14/25 History potassium chloride 20 mEq 20 meq PO DAILY 01/14/22 04/14/25 History tablet,extended release(part/cryst) fluoxetine 20 mg capsule 20 mg PO DAILY 10/12/22 04/20/25 History metoprolol succinate 100 mg 100 mg PO DAILY 10/12/22 04/20/25 History tablet,extended release 24 hr rosuvastatin 5 mg tablet 5 mg PO DAILY 10/12/22 04/14/25 History sitagliptin phosphate 50 mg tablet 50 mg PO DAILY 06/16/23 04/14/25 History (Januvia) aspirin 81 mg capsule 81 mg PO DAILY 07/07/23 04/20/25 History acetaminophen 650 mg 1,300 mg PO PRN PRN pain 12/21/24 04/14/25 History tablet,extended release (8 Hour Pain Reliever) cholecalciferol (vitamin D3) 25 1,000 unit PO DAILY 12/21/24 04/14/25 History mcg (1,000 unit) capsule cyanocobalamin (vitamin B-12) 1,000 mcg PO DAILY 12/21/24 04/14/25 History 1,000 mcg capsule fluticasone propionate 50 2 spray intranasal DAILY 12/21/24 04/14/25 History mcg/actuation nasal spray,suspension (Flonase Allergy Relief) aspirin 81 mg tablet,delayed 81 mg PO BID 14 days #28 tabs 04/20/25 Rx release meloxicam 15 mg tablet 15 mg PO DAILY #30 tabs 04/20/25 Rx oxycodone-acetaminophen 5 mg-325 1 - 2 tablet PO Q4-6H PRN pain #30 04/20/25 Rx mg tablet tabs prednisone 5 mg tablet 5 mg PO DAILY 3 weeks #21 tabs 04/20/25 Rx Laboratory Tests 04/20/25 04/20/25 09:36 09:40 POC Capillary Glucose 101 mg/dl (65-105) Blood Type O Positive Antibody Screen Pending Patient hx anesthesia problems: none Family hx anesthesia problems: none Results Review: All pre-operative results and documents have been reviewed as part of the pre-operative evaluation. [facility] Past Medical History Medical History Atrophy of thyroid (acquired) Polyneuropathy Dorsalgia Hyperuricemia without signs inflammatory arthritis/tophaceous disease Pain in thoracic spine Coronary artery disease involving coronary bypass graft Diabetes type 2, controlled Hypertension Surgical History Surgical History History of bilateral carpal tunnel release Failed CABG (coronary artery bypass graft) Social History Social History Smoking status: Never smoker Additional smoking assessment comments: DENIES ANY FORM OF TOBACCO USE Alcohol intake: never Substance use: never Substance use type: does not use Do You Feel Safe in your Home?: Yes Lack of Transportation: No Lack of Food: Never True Current Housing: I Have Housing Concerned About Future Housing: No Difficulty Paying Gas/Electric Bills: No Difficulty Paying for Meds: No Currently Unemployed: No Education: High School Diploma/GED Difficulty w/ Childcare or Family Care: No Living arrangements: with friend(s) Additional living arrangements comments: lives with fiance Spiritual care concerns: No Anes - Eval Final PreProcedure Day of Procedure 04/20/25 10:26 Patient weight: normal Heart: regular rate and rhythm Lungs: clear to auscultation Airway: Mallampati scale class II Neurological: alert and oriented Last oral intake: >/= 8 hours ASA classification: III Emergent: no Anesthetic plan: proceed Anesthesia type and monitoring: general LMA and standard monitoring Results Review: All pre-operative results and documents have been reviewed as part of the pre-operative evaluation. Informed Consent: The patient's anesthetic plan and its attendant risks and benefits were discussed with the patient/family/POA. Questions were solicited and answers provided to the satisfaction of the patient/family/POA.
[2025-04-20] MEDS: ceFAZolin 2 GM in SODIUM CHLORIDE 0.9% IV 50 ML 100 ML IVPB ×2 (10:33→17:03)
[2025-04-20] MEDS: SODIUM CHLORIDE 0.9% IV 37.7 ML, MORPHINE SULFATE INJ (*CRX) 2 MG, ROPivacaine HCL 1% 2... INFILTRATE (11:10)
[2025-04-20] MEDS: TRANEXAMIC ACID 1,000 MG/10 ML AMPUL 1000 MG IV PUSH (12:36)
[2025-04-20] MEDS: fentaNYL CITRATE INJ (*CRX) 100 MCG/2 ML VIAL 25 MCG IV PUSH (13:30)
--- NOTE | 2025-04-20 13:34 | P.OP_ITS ---
Procedure Note - Detailed Date of Procedure 04/20/25 Pre-op Diagnosis Right knee degenerative arthritis. Post-op Diagnosis Same Procedure Performed Calipered, kinematically aligned total knee replacement right knee. Surgeon Abdoul Villaseñor MD [employer] Brittnee Cantu PA-C Anesthesia General Findings According to the calipered kinematic alignment principles, the knee was balanced by the following verification checks incorporating 6 caliper measurements, using an insert goniometer to select the insert thickness, and adjusting the tibial resection following the kinematic alignment algorithm (see figure 160.10 published in [facility] chapter on kinematic alignment total knee arthroplasty.) The steps verified the femoral and tibial components were kinematically aligned coincident to the patient's pre arthritic joint lines, which closely restored the [place] tibial compartment forces and ligament laxities without ligament release. The [employer] knee, designed specifically for kinematic alignment, fit optimally. The record of verification checks were documented and scanned into the chart. Distal Femoral Resection: Distal lateral 6 mm(cartilage worn), Distal medial 8 mm Target thickness of 8mm Unworn, 6mm Worn (No Cartilage). Posterior Femoral Resection: Posterior lateral 5 mm(cartilage worn), Posterior medial 7 mm. Target thickness of 7mm Unworn, 5mm Worn (No Cartilage). Description of Procedure General anesthesia was administered. A well-padded tourniquet was placed high on the thigh. The limb was prepped and draped in the usual sterile fashion. The limb was exsanguinated and the tourniquet inflated to 300 mmHgduring exposure and cementation. A longitudinal incision was created over the midline of the knee. Sharp dissection was taken through subcutaneous tissues. Electrocautery was used for hemostasis. A subvastus approach to the knee joint was performed. The ACL, anterior horns of the menisci, and fat pad were excised, and a subperiosteal dissection was carried along the posterior medial border of the tibia. Starting midway between the top of the notch in the anterior femoral cortex, I drilled a 9 mm diameter hole parallel to the anterior cortex to minimize flexion of the femoral component and promote patella tracking. I verified the existence of a 5-10 mm bone bridge between the posterior aspect of the hole and the anterior limit of the intercondylar notch. An intraosseous positioning apollo was inserted 10 cm into the femur perpendicular to the distal joint line and parallel to the anterior cortex. I used a distal femoral referencing guide that compensated 2 mm when the cartilage was worn on the distal medial femoral condyle, and 2 mm when the cartilage was worn on the distal lateral femoral condyle. The basis for setting the distal and posterior femoral resection guide is knowing that the varus and valgus grade II to IV Kellegren-Yovanny osteoarthritic knees have negligible bone wear at 0? and 90? and that the mean full-thickness cartilage wear approxi mates 2 mm. I measured the thickness of distal femoral resections with a caliper to +/- 0.5 mm. The thickness of each resection was adjusted to match the thickness of the respective condyle of the femoral component within 0.5 mm of target after compensating for cartilage wear and kerf. When the distal resection was 1-2 mm too thin, a recut guide was used to adjust the cut. When the distal resection was too thick, a 1 or 2 mm thick washer was fixed to the back of the 4-in-1 chamfer block to wicho a corrective gap between the femoral component and distal femur. I set posterior femoral referencing guide at 0? orientation to position the pin holes for the 4 in 1 chamfer block. The kamini wing measured the width of the distal femoral resection and selected the size of the 4 in 1 chamfer block and femoral component. The AP sizer confirmed the size. I measured the thickness of the posterior femoral resections with a caliper before making the anterior and chamfer cuts. I adjusted the thicknesses of each resection to match the thickness of the respective condyle of the femoral component within +/-0.5 mm after compensating for cartilage wear and curve. When a posterior resection femoral resection was 1-2 mm too thick or thin a corrective correction was made by shifting or rotating the 4 in 1 chamfer block as needed. The chamfer block was secured in the correct position with compression screws. The anterior and chamfer femoral resections were made. These caliper measurements and corrections verified that the femoral component was set coincident with the patient's pre-arthritic distal and posterior femoral joint lines. I removed all the medial and lateral femoral and tibial osteophytes to restore the pre arthritic length of the medial and lateral collateral ligaments. I ian AP lines along the major axis of the lateral tibial plateau in between the tibial spines which identified the flexion extension plane of the knee. A conventional extramedullary tibial resection guide was applied to the ankle. An kamini wing was placed medially in the saw slot. The varus valgus angle of the tibial resection guide was adjusted until the guide paralleled the proximal tibial articular surface after compensating for cartilage and bone wear. The slope of flexion extension angle of the tibial resection guide was adjusted until the kamini wing paralleled the slope of the medial tibia after compensating for wear. The AP axis of the tibial resection guide was adjusted parallel to the two lines. The proximal tibia was resected, partially releasing the insertion of the pos terior cruciate ligament. The thickness of the medial and lateral lateral tibial condyle was measured at the base of the tibial spines. I visually verified the slope of the medial border of the resection was parallel to the patient's pre arthritic slope after compensating for cartilage and bone wear. I removed the remnants of the posterior horns of the menisci and posterior osteophytes and cauterized the inferior lateral genicular vessels. The Aquamantys bipolar device was also used to for additional hemostasis. When the knee had a preoperative flexion contracture of 20? or more I teased the capsule off the posterior femur with a curved 3 quarter-inch osteotome. I administered the posterior femoral periosteal injection by delivering 10 cc using a 20 gauge spinal needle at the most medial and 10 cc at the most lateral femoral spur surface which reduced the risk of injury to the posterior neurovascular structures. I followed 6 options in a decision tree to fine tune the varus valgus and posterior slope orientation of the tibial component to restore the patient's pre arthritic tibial joint line and limb alignment. First, I adjusted the varus- valgus orientation of the proximal tibia resection working in 1 degree to 2 degree increments until there was negligible medial and lateral lift off of the distal femoral and proximal tibial resection from the spacer block during a kenyatta us valgus laxity assessment in extension. I selected the largest anatomic shape trial tibial base plate that fit within the cortical boundary of the proximal tibial resection. The base plate was best fit parallel to the cortical boundary which set the Internal-external orientation of the anterior to posterior and medial to lateral positions. The best fit method set the AP axis of the tibial base plate and insert parallel to the flexion extension plane of the pre arthritic knee. I pinned the trial tibial base plate, prepared the cruciate slot, and fixed the base plate to the tibia with the cruciate stem. I inserted the trial femoral component. The knee was placed in full extension. Varus valgus laxity is of the knee with trial components were assessed. When asymmetric laxity was observed a 1-2 degree varus or valgus recut guide was used to fine tune the tibial resection until the laxity was 1 degree or less in full extension like the [place] knee. The following steps determined the optimal insert thickness within +/-1 mm. First I inserted an insert goniometer that matched the thickness of the spacer block. I reduced the patella and then with the knee in maximum extension, I verified the knee hyperextended a few degrees and had negligible varus valgus laxity, like the pre arthritic knee. Next, I measured the external tibial orientation which was the angle the insert goniometer intersected the sagittal line on the medial condyle of the femoral trial component. Then with the knee in 15-30 degrees flexion I verified a 3-4 mm gap in the lateral compartment and no gap in the medial compartment during a 2nd varus valgus laxity test. Next, I placed the knee in 90? of flexion and the foot resting on the operating table and measured the internal tibial orientation. I repeated the steps until I identified the insert thickness that provided the highest external tibia orientation in extension and the highest internal tibial orientation at 90? flexion without anterior lift-off of the insert from the tibial base plate. The insert with this thickness was implanted. I applied a posterior drawer test with the tibia distracted by gravity and verified no posterior subluxation of the tibia relative to the femur. The thickness of the [place] patella was measured with a caliper. The lateral patellar facet was resected using the oscillating saw. The patella remained centered on the trochlea and tracked well throughout the entire arc of flexion and extension. I used pulse lavage to clean the bony surfaces of debris and dried bone. I cemented the tibial, femoral, and patellar components using 1 bag of methylmethacrylate with Gentamycin, then rechecked the stability at full extension, 15-30 degrees, and 90? flexion and verified mormonism of the entire arc of motion of the knee. The circulating nurse confirmed the sponge and needle counts were correct. I used pulse lavage to rinse the joint and wound. The extensor mechanism was closed with interrupted #1 Vicryl suture and #1 running Stratafix suture. The subcutaneous layer was closed with interrupted #1 Vicryl suture followed by 2-0 Stratafix and 3-0 Stratafix. Steri-Strips placed on the skin. Silver impregnated occlusive dressing applied to the wound. A light gauze wrap and Gonzalo bandage were placed. The patient was transferred to the recovery room in stable condition. There were no complications. Implants Medacta GMK spheriKA Femoral component SpheriKA size 2, tibial component size 3, vitamin-E flex insert, thickness 13mm Estimated Blood Loss 100 Tourniquet Time Total Tourniquet Time: 51 Drains No Pathology None sent Complications No immediate complications Condition Stable Disposition PACU [facility] Billing Surgery - Charge Forward: Surgery Billing
--- NOTE | 2025-04-20 14:10 | ADMGEN ---
This patient, Jackie Martinez, was admitted to [facility] Surg Room 331-01. Patient/family oriented to hospital policies and general routines including ID bracelet, bed and alarms, visiting hours, pain management, procedures, bathroom and other care routines, personal items, smoking policy, room service/diet, and visiting hours. Information on how to activate the Rapid Response Team has been discussed. Patient/Family are encouraged to report perceived risks to care and to ask questions if they do not understand what they are told or what they should do.
[2025-04-20] MEDS: ACETAMINOPHEN 325 MG TABLET 650 MG PO ×3 (14:38→23:56)
[2025-04-20] MEDS: SODIUM CHLORIDE 0.9% IV 1,000 ML 125 ML IV CONT (14:38)
[2025-04-20] MEDS: SENNA/DOCUSATE SODIUM TABLET 2 TAB PO (16:56)
[2025-04-20] MEDS: ASPIRIN 81 MG ENTERIC TABLET PO (20:47)
[2025-04-20] MEDS: FAMOTIDINE 20 MG TABLET PO (20:49)
[2025-04-21] VITALS: BP 110/70
[2025-04-21] MEDS: ceFAZolin 2 GM in SODIUM CHLORIDE 0.9% IV 50 ML 100 ML IVPB ×2 (02:15→09:48)
[2025-04-21] MEDS: traMADol HCL (*CRX) 50 MG TABLET PO ×2 (02:21→11:59)
[2025-04-21 03:49] VITALS: BP 109/65; PULSE 63; RESP 18; TEMP 36.9; O2SAT 93
[2025-04-21] MEDS: LEVOTHYROXINE SODIUM 75 MCG TABLET PO (05:38)
[2025-04-21] MEDS: ACETAMINOPHEN 325 MG TABLET 650 MG PO ×2 (05:38→12:00)
[2025-04-21 08:03] LABS: Hematocrit 33.2 % (37.0-47.0); Hemoglobin 10.3 g/dL (12.0-15.0); Immature Granulocyte Percent A 0.3 % (0-0.5); Lymphocytes Absolute Auto 1.90 K/mm3 (0.9-3.2); Mean Corpuscular HGB Conc 31.0 g/dl (32-36); Mean Corpuscular Hemoglobin 28.2 pg (26-34); Mean Corpuscular Volume 91.0 fl (80-100); Nucleated Red Blood Cells Absolute Auto 0.000 K/mm3 (0.0-0.012); Nucleated Red Blood Cells Perc 0.0 % (0.0-0.2); Platelet Count Result 148 k/mm3 (150-375); Red Blood Count 3.65 M/mm3 (4.2-5.4); White Blood Count 9.1 K/mm3 (4.5-10.0)
[2025-04-21 08:23] LABS: Anion Gap 5 mmol/L (4-12); Blood Urea Nitrogen 13 mg/dL (7-17); Calcium 8.3 mg/dL (8.4-10.2); Carbon Dioxide 28 mmol/L (22-30); Chloride 105 mmol/L (98-107); Estimated CRCL calculation 37 ml/min; Estimated Glomerular Filt Rate > 60; Glucose 131 mg/dL (65-110); Potassium 4.1 mmol/L (3.4-5.0); Sodium 138 mmol/L (137-145)
[2025-04-21] MEDS: SENNA/DOCUSATE SODIUM TABLET 2 TAB PO (08:59)
[2025-04-21] MEDS: FUROSEMIDE 40 MG TABLET PO (08:59)
[2025-04-21] MEDS: PANTOPRAZOLE SOD SESQUIHYDRATE 20 MG TAB PO (08:59)
[2025-04-21] MEDS: ROSUVASTATIN 5 MG TABLET PO (08:59)
[2025-04-21] MEDS: FAMOTIDINE 20 MG TABLET PO (08:59)
[2025-04-21] MEDS: ASPIRIN 81 MG ENTERIC TABLET PO (08:59)
[2025-04-21 09:00] VITALS: PULSE 76
[2025-04-21] MEDS: METOPROLOL SUCCINATE EXT REL 100 MG TABCR PO (09:00)
[2025-04-21] MEDS: oxyCODONE HCL (*CRX) 2.5 MG TAB IR PO (09:36)
[2025-04-21 11:24] VITALS: O2SAT 90
[2025-04-21 12:06] VITALS: BP 107/88; PULSE 70
--- NOTE | 2025-04-21 14:30 | P.PNAN_ITS ---
Anes - Prog Note Post-Op Date/Time: 04/21/25 14:30 Cardiovascular status: normal Respiratory status: normal Airway patency: baseline Mental status: baseline Vital Signs: Last Vital Signs Temp 36.9 C 04/21/25 03:49 Pulse 70 04/21/25 12:06 Resp 18 04/21/25 03:49 BP 107/88 04/21/25 12:06 Pulse Ox 90 04/21/25 11:24 O2 Del Method Room Air 04/21/25 11:24 O2 Flow Rate 2 04/20/25 13:50 Pain Score (VAS): 3 I/O: Intake & Output 04/20/25 04/21/25 04/21/25 23:59 07:59 15:59 Intake Total 1290 50 540 Balance 1290 50 540 Laboratory Tests 04/21/25 07:47 04/21/25 07:47 04/20/25 04/21/25 04/21/25 20:56 07:47 08:56 WBC 9.1 RBC 3.65 L Hgb 10.3 L Hct 33.2 L MCV 91.0 MCH 28.2 MCHC 31.0 L RDW 14.2 Plt Count 148 L MPV 10.5 H Immature Gran % (Auto) 0.3 Neut % (Auto) 68.5 Lymph % (Auto) 20.9 [place] % (Auto) 6.8 Eos % (Auto) 3.1 Baso % (Auto) 0.4 Lymph # (Auto) 1.90 [place] # (Auto) 0.6 Eos # (Auto) 0.3 Baso # (Auto) 0.0 Abs Immat Gran (auto) 0.03 Absolute Neuts (auto) 6.2 Absolute Nucleated RBC 0.000 Nucleated RBC % 0.0 Sodium 138 Potassium 4.1 Chloride 105 Carbon Dioxide 28 Anion Gap 5 BUN 13 Creatinine 0.82 Estim Creat Clear Calc 37 Estimated GFR > 60 Glucose 131 H POC Capillary Glucose 181 H 151 H Calcium 8.3 L 04/21/25 12:10 WBC RBC Hgb Hct MCV MCH MCHC RDW Plt Count MPV Immature Gran % (Auto) Neut % (Auto) Lymph % (Auto) [place] % (Auto) Eos % (Auto) Baso % (Auto) Lymph # (Auto) [place] # (Auto) Eos # (Auto) Baso # (Auto) Abs Immat Gran (auto) Absolute Neuts (auto) Absolute Nucleated RBC Nucleated RBC % Sodium Potassium Chloride Carbon Dioxide Anion Gap BUN Creatinine Estim Creat Clear Calc Estimated GFR Glucose POC Capillary Glucose 114 H Calcium Patient Feedback: Patient satisfied with anesthetic care.
--- NOTE | 2025-04-21 16:18 | PM.IMCN ---
Assessment and Plan Assessment and plan (1) Right knee DJD: Qualifiers: Osteoarthritis type: primary Qualified Code(s): M17.11 - Unilateral primary osteoarthritis, right knee Code(s): M17.11 - Unilateral primary osteoarthritis, right knee Status: Acute (2) Status post total right knee replacement: Code(s): Z96.651 - Presence of right artificial knee joint Status: Acute (3) Orthopedic aftercare for joint replacement: Code(s): Z47.1 - Aftercare following joint replacement surgery Status: Acute (4) Mixed hyperlipidemia: Code(s): E78.2 - Mixed hyperlipidemia Status: Acute Plan Jackie Martinez is a 89 year old female with severe right knee degenerative arthritis was seen by her orthopedic surgeon and after conservative management it was decided patient will benefit from calipered, kinematically aligned total knee replacement right knee POD 1, patient stats pain is better unless when she to try to ambulate, she did participate in PT and feels better, plan is to discharge today to her home, we were consulted as patient has history of DM, HTN, and hypothyroid, patient remains clinically stable, has no complaints, her blood pressure and blood sugars this morning are in normal range and patient does not have c/o CP or SOB. will monitor patient while in the hospital and follow the patient with you, please feel free to call if you have any complaints. HPI Date of Consult Consult date: 04/21/25 Requesting Physician: Abdoul Villaseñor MD Primary Care Provider: Lisette Marmolejo MD Consult Narrative Narrative: Jackie Martinez is a 89 year old female with severe right knee degenerative arthritis was seen by her orthopedic surgeon and after conservative management it was decided patient will benefit from calipered, kinematically aligned total knee replacement right knee POD 1, patient stats pain is better unless when she to try to ambulate, she did participate in PT and feels better, plan is to discharge today to her home, we were consulted as patient has history of DM, HTN, and hypothyroid, patient remains clinically stable, has no complaints, her blood pressure and blood sugars this morning are in normal range and patient does not have c/o CP or SOB. will monitor patient while in the hospital and follow the patient with you, please feel free to call if you have any complaints. 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 Pain in thoracic spine Coronary artery disease involving coronary bypass graft Diabetes type 2, controlled Hypertension Surgical History Surgical History (Updated 04/20/25 @ 07:23 by MARIA VICTORIA Sánchez) History of bilateral carpal tunnel release Failed CABG (coronary artery bypass graft) Social History Social History Smoking status: Never smoker Additional smoking assessment comments: DENIES ANY FORM OF TOBACCO USE Alcohol intake: never Substance use: never Substance use type: does not use Do You Feel Safe in your Home?: Yes Lack of Transportation: No Lack of Food: Never True Current Housing: I Have Housing Concerned About Future Housing: No Difficulty Paying Gas/Electric Bills: No Difficulty Paying for Meds: No Currently Unemployed: No Education: High School Diploma/GED Difficulty w/ Childcare or Family Care: YES Living arrangements: with friend(s) Additional living arrangements comments: lives with [facility] Spiritual care concerns: No Meds Home Medications and Allergies Home Medications ?Medication ?Instructions ?Recorded ?Confirmed ?Type levothyroxine 88 mcg tablet 75 mcg PO DAILY 07/14/19 04/20/25 History pantoprazole 20 mg tablet,delayed 40 mg PO QAM 07/14/19 04/14/25 History release furosemide 40 mg tablet 40 mg PO DAILY 01/14/22 04/14/25 History potassium chloride 20 mEq 20 meq PO DAILY 01/14/22 04/14/25 History tablet,extended release(part/cryst) fluoxetine 20 mg capsule 20 mg PO DAILY 10/12/22 04/20/25 History metoprolol succinate 100 mg 100 mg PO DAILY 10/12/22 04/20/25 History tablet,extended release 24 hr rosuvastatin 5 mg tablet 5 mg PO DAILY 10/12/22 04/14/25 History sitagliptin phosphate 50 mg tablet 50 mg PO DAILY 06/16/23 04/14/25 History (Januvia) aspirin 81 mg capsule 81 mg PO DAILY 07/07/23 04/20/25 History acetaminophen 650 mg 1,300 mg PO PRN PRN pain 12/21/24 04/14/25 History tablet,extended release (8 Hour Pain Reliever) cholecalciferol (vitamin D3) 25 1,000 unit PO DAILY 12/21/24 04/14/25 History mcg (1,000 unit) capsule cyanocobalamin (vitamin B-12) 1,000 mcg PO DAILY 12/21/24 04/14/25 History 1,000 mcg capsule fluticasone propionate 50 2 spray intranasal DAILY 12/21/24 04/14/25 History mcg/actuation nasal spray,suspension (Flonase Allergy Relief) aspirin 81 mg tablet,delayed 81 mg PO BID 14 days #28 tabs 04/20/25 Rx release meloxicam 15 mg tablet 15 mg PO DAILY #30 tabs 04/20/25 Rx oxycodone-acetaminophen 5 mg-325 1 - 2 tablet PO Q4-6H PRN pain #30 04/20/25 Rx mg tablet tabs prednisone 5 mg tablet 5 mg PO DAILY 3 weeks #21 tabs 04/20/25 Rx tramadol 50 mg tablet 50 mg PO Q6H PRN pain 7 days #30 04/21/25 Rx tabs Allergies Allergy/AdvReac Type Severity Reaction Status Date / Time sulfamethoxazole (From AdvReac Headache Verified 04/20/25 09:44 Bactrim) trimethoprim (From Bactrim) AdvReac Headache Verified 04/20/25 09:44 Vital Signs Vital Signs - 24 hr 04/20/25 19:49 04/20/25 20:00 04/20/25 23:49 Temperature 36.6 C 36.2 C L Pulse Rate 73 63 Respiratory Rate 16 18 Blood Pressure 103/53 L 110/60 Pulse Oximetry 96 97 Oxygen Delivery Room Air 04/21/25 00:00 04/21/25 03:49 04/21/25 08:30 Temperature 36.9 C Pulse Rate 63 Respiratory Rate 18 Blood Pressure 110/70 109/65 Pulse Oximetry 93 Oxygen Delivery Room Air 04/21/25 08:37 04/21/25 09:00 04/21/25 11:24 Temperature Pulse Rate 76 Respiratory Rate Blood Pressure Pulse Oximetry 90 Oxygen Delivery Room Air Room Air 04/21/25 12:06 Temperature Pulse Rate 70 Respiratory Rate Blood Pressure 107/88 Pulse Oximetry Oxygen Delivery Exam Narrative: Patient is comfortable, NAD HEENT: eyes are clear and none icteric LUNGS:CTA HEART: RR S1S2 ABD: BS+, Soft and nontender Lower extremities: no edema MS: RT knee in surgical dressing SKIN: nonjaundiced Neuro: grossly intact. Results Labs 04/21/25 07:47 04/21/25 07:47 Labs: Short CBC 04/21/25 Range/Units 07:47 WBC 9.1 (4.5-10.0) K/mm3 Hgb 10.3 L (12.0-15.0) g/dL Hct 33.2 L (37.0-47.0) % Plt Count 148 L (150-375) k/mm3 BMP 04/21/25 07:47 Sodium 138 Potassium 4.1 Chloride 105 Carbon Dioxide 28 BUN 13 Creatinine 0.82 Glucose 131 H Calcium 8.3 L
== END 2025-04-21 14:41 | disposition home or self-care (01) ==
LOC: ANHSURGERY 08:14 → ANH3MEDSUR 14:10
PROVIDERS: Physician Assistant Surgical; PCP Internal Medicine; Visit Provider Orthopaedic Surgery
PROC: (CPT 27447; principal; 2025-04-20 10:30)
DX: M17.11 Unilateral primary osteoarthritis, right knee (principal); E78.2 Mixed hyperlipidemia; E11.9 Type 2 diabetes mellitus without complications; I10 Essential (primary) hypertension; E03.9 Hypothyroidism, unspecified
CPT/HCPCS: 27447; 36415; 73560; 80048; 82948; 85025; 86850; 86900; 86901; 97110; 97116; 97161; 97165; 97530; 97535; J0690; A9270; C1713; C1776; J0166; J1100; J1885; J2003; J2270; J2405; J2704; J2795; J3010; J3290; J7030; J7120; J7512

== ENCOUNTER 2025-07-11 13:39 | Outpatient (CLI) | payer MEDICARE, BC, SELFPAY ==
--- OUTSIDE RECORDS SUMMARY | 2025-03-30 04:50 | XMS_ITS ---
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 Name Role Phone ELIZABETH John Unavailable [phone] Lisette Marmolejo Unavailable Unavailable BRENT TORIBIO Unavailable [phone] Allergies Allergen (clinical drug ingredient) Drug/Non Drug Allergy documented on EMR Reaction Allergy Type Onset Date Status sulfamethoxazole / trimethoprim Bactrim Unknown Drug Allergy 04/30/2020 active REASON FOR VISIT *General care Medications Medication SIG (Take, Route, Frequency, Duration) Notes Start Date End Date Status metformin hydrochloride 500 MG Oral Tablet ORAL metformin hydrochloride 500 MG Oral TabletOriginal Medicationmetformin hydrochloride 500 MG Oral Tablet *Reorder from [employer] for eRx and Interaction Alerts* 0 Active pantoprazole 40 MG Delayed Release Oral Tablet ORAL pantoprazole 40 MG Delayed Release Oral TabletOriginal Medicationpantoprazole 40 MG Delayed Release Oral Tablet *Reorder from [employer] for eRx and Interaction Alerts* 0 Active levothyroxine sodium 0.075 MG Oral Capsule ORAL levothyroxine sodium 0.075 MG Oral CapsuleOriginal Medicationlevothyroxine sodium 0.075 MG Oral Capsule *Reorder from [employer] for eRx and Interaction Alerts* 0 Active Furosemide 40 MG Oral Tablet ORAL furosemide 40 MG Oral TabletOriginal Medicationfurosemide 40 MG Oral Tablet *Reorder from Online [employer] for eRx and Interaction Alerts* 0 Active 24 HR metoprolol succinate 100 MG Extended Release Oral Tablet ORAL 24 HR metoprolol succinate 100 MG Extended Release Oral TabletOriginal [id number] HR metoprolol succinate 100 MG Extended Release Oral Tablet *Reorder from [employer] for eRx and Interaction Alerts* 0 Active Social History Social History Additional Details Category Social Info Options Details Migrated Social History Migrated Social History History of tobacco use : , Smoking Status : Never used tobacco Vital Signs Height 62.00 in 03/30/2025 Weight 161 lbs 03/30/2025 BMI 29.44 kg/m2 03/30/2025 Height-cm 157.48 cm 03/30/2025 Weight-kg 73.03 kg 03/30/2025 Encounters Encounter Location Date Provider Diagnosis [address] [id number] 03/30/2025 BRENT TORIBIO 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 Educated patient on how a flexible flat foot deformity can in turn result in pathology such as hammer toe, bunions, equinus, neuromas. Recommend use of custom foot inserts to help alleviate plantar peak pressures and accomodate for digital deformity to feet. 03/30/2025 Fungal infection of nail (ICD-10 - B35.1) 03/30/2025 Flat foot [pes planus] (acquired), right foot (ICD-10 - M21.41) 03/30/2025 Pain in right foot (ICD-10 - M79.671) 03/30/2025 Unspecified atherosclerosis of [place] arteries of extremities, bilateral legs (ICD-10 - I70.203) Patient educated on risks and aggravating factors of PVD, including conservative treatment options such as a diet and exercise regimen to aid in slowing progression of vascular disease 03/30/2025 Acquired keratosis [keratoderma] palmaris et plantaris (ICD-10 [...] digital deformity to feet. Unspecified atherosclerosis of [place] arteries of extremities, bilateral legs Patient educated [...] Appt Details Follow Up: 3 Months, Reason: Provider Name:BRENT RODRIGUEZ, 08/03/2025 10:10:00 AM, [address] [place] [address], [phone], History and Physical Notes * HPI (History of Present Illness) Category Sub-Category Detail Notes Category Not es HPI General care Patient presents to the office for at risk foot care. Patient states that their nails are thickened, elongated and painful. Patient states that it is aggravated by shoe gear. Onset is gradual. Patient denies being diabetic., Patient denies taking prescription blood thinners but does take a daily aspirin., Date last seen by Dr. Marmolejo was 02/2025., Initials nd Examination Category Sub-Category Detail Notes Category Not [...] sensation intact to first metatarsophalangeal joint bilaterally Progress Notes * KAREL MORILLO RDOB:[birth year] (89 yo F)Acc No.[id number]:03/30/2025 Patient: Massimo KAREL ALDRICH Provider: Larissa TORIBIO :1935 A ge:89 Y S ex:Female Date:03/30/2025 Address:[address] [place] [address] Subjective: * Chief Complaints: * * General care * HPI: H PI: General care P atient presents to the office for at risk foot care. Patient states that their nails are thickened, elongated and painful. Patient states that it is aggravated by shoe gear. Onset is gradual. Patient denies being diabetic., Patient denies taking prescription blood thinners but does take a daily aspirin., Date last seen by Dr. Marmolejo was 02/2025., Initials nd. * ROS: G eneral / Constitutional: Patient [...] izziness, gait abnormality, headache. * Medical History: Denies Past Medical History No Medical History Documented Medical History Verified * Surgical History: Denies Past Surgical History. Surgical History verified. * Hospitalization/Major Diagno stic Procedure: Denies Past Hospitalization. Hospitalization Verified. * Family History: F ather: PRN - Father: :: Cancer,,known absent . M other: PRN - Mother: :: Heart disease,,known absent . B rother: SIB - Brother: :: Cancer,,known absent . S ister: SIB - Sister: :: Cancer,,known absent . F amily History Verified.. * Social History: M igrated Social History: M igrated Social History: History of tobacco use : , Smoking Status : Never used tobacco. Social History Verified. * Medications: T akingFurosemide 40 MG Oral Tablet ORAL , Notes to Pharmacist: furosemide 40 MG Oral TabletOriginal Medicationfurosemide 40 MG Oral Tablet *Reorder from [employer] for eRx and Interaction Alerts*24 HR metoprolol succinate 100 MG Extended Release Oral Tablet ORAL , Notes to Pharmacist: 24 HR metoprolol succinate 100 MG Extended Release Oral TabletOriginal [id number] HR metoprolol succinate 100 MG Extended Release Oral Tablet *Reorder from [employer] for eRx and Interaction Alerts*levothyroxine sodium 0.075 MG Oral Capsule ORAL , Notes to Pharmacist: levothyroxine sodium 0.075 MG Oral CapsuleOriginal Medicationlevothyroxine sodium 0.075 MG Oral Capsule *Reorder from [employer] for eRx and Interaction Alerts*metformin hydrochloride 500 MG Oral Tablet ORAL , Notes to Pharmacist: metformin hydrochloride 500 MG Oral TabletOriginal Medicationmetformin hydrochloride 500 MG Oral Tablet *Reorder from Online [employer] for eRx and Interaction Alerts*pantoprazole 40 MG Delayed Release Oral Tablet ORAL , Notes to Pharmacist: pantoprazole 40 MG Delayed Release Oral TabletOriginal Medicationpantoprazole 40 MG Delayed Release Oral Tablet *Reorder from [employer] for eRx and Interaction Alerts*Medication List reviewed and reconciled with the patientTaking Furosemide 40 MG Oral Tablet ORAL , Notes to Pharmacist: furosemide 40 MG Oral TabletOriginal Medicationfurosemide 40 MG Oral Tablet *Reorder from [facility] for eRx and Interaction Alerts*Taking 24 HR metoprolol succinate 100 MG Extended Release Oral Tablet ORAL , Notes to Pharmacist: 24 HR metoprolol succinate 100 MG Extended Release Oral TabletOriginal [id number] HR metoprolol succinate 100 MG Extended Release Oral Tablet *Reorder from [facility] for eRx and Interaction Alerts*Taking levothyroxine sodium 0.075 MG Oral Capsule ORAL , Notes to Pharmacist: levothyroxine sodium 0.075 MG Oral CapsuleOriginal Medicationlevothyroxine sodium 0.075 MG Oral Capsule *Reorder from [facility] for eRx and Interaction Alerts*Taking metformin hydrochloride 500 MG Oral Tablet ORAL , Notes to Pharmacist: metformin hydrochloride 500 MG Oral TabletOriginal Medicationmetformin hydrochloride 500 MG Oral Tablet *Reorder from [facility] for eRx and Interaction Alerts*Taking pantoprazole 40 MG Delayed Release Oral Tablet ORAL , Notes to Pharmacist: pantoprazole 40 MG Delayed Release Oral TabletOriginal Medicationpantoprazole 40 MG Delayed Release Oral Tablet *Reorder from [facility] for eRx and Interaction Alerts*Medication List reviewed and reconciled with the patient * Allergies: B actrim: Allergy - Onset Date 04/30/2020yesAllergies Verified. Objective: * Vitals: W t: 161 lbs, [...] joint bilaterally. Assessment: * Assessment: 1. F ungal infection of nail - B35.1 (Primary) 2 . F lat foot [pes planus] (acquired), left foot - M21.42 3 . F lat foot [pes planus] (acquired), right foot - M21.41 4 . P ain in right foot - M79.671 5 . 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 U nspecified atherosclerosis of [place] arteries of extremities, bilateral legs Notes: Patient educated on risks and aggravating factors of PVD, including conservative treatment options such as a diet and exercise regimen to aid in slowing progression of vascular disease ? 3. 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 After removal of overlying extensive hyperkeratosis, healthy tissue was noted and care was taken to assure that no undermining or probing was present. It should be noted that no probing was noted and no infection or drainage was noted. ? * Procedure Codes: 1 1721 DEBRIDE NAIL, 6 OR MORE, Modifiers: Q8 * Follow Up: 3 Months Billing Information: * Procedure Codes: 67831 DEBRIDE NAIL, 6 OR MORE. Modifiers: Q8 * Electronic signature of REMINGTON TORIBIO DPM on 07/11/2025 at 01:56 PM FELTMAKER Sign off status: Pending * Provider: Larissa TORIBIO Date: 0 03/30/2025 Generated for He mota/Hawa/Josefaitting on: 01:56 PM FELTMAKER
--- OUTSIDE RECORDS SUMMARY | 2025-06-01 03:40 | XMS_ITS ---
Author Organization [facility] Address [address] [place], [place] [id number] Care Team Providers Care Stencil Maker Name Role Phone ELIZABETH John Unavailable [phone] Lisette Marmolejo Unavailable Unavailable BRENT TORIBIO Unavailable [phone] Allergies Allergen (clinical drug ingredient) Drug/Non Drug [...] hydrochloride 500 MG Oral Tablet *Reorder from [employer] for eRx and Interaction Alerts* 0 Active pantoprazole 40 MG Delayed Release Oral Tablet ORAL pantoprazole 40 MG Delayed Release Oral TabletOriginal Medicationpantoprazole 40 MG Delayed Release Oral Tablet *Reorder from [employer] for eRx and Interaction Alerts* 0 Active levothyroxine sodium 0.075 MG Oral Capsule ORAL levothyroxine sodium 0.075 MG Oral CapsuleOriginal Medicationlevothyroxine sodium 0.075 MG Oral Capsule *Reorder from [employer] for eRx and Interaction Alerts* 0 Active 24 HR metoprolol succinate 100 MG Extended Release Oral Tablet ORAL 24 HR metoprolol succinate 100 MG Extended Release Oral TabletOriginal Eufrbzshia49 HR metoprolol succinate 100 MG Extended Release Oral Tablet *Reorder from [employer] for eRx and Interaction Alerts* 0 Active Furosemide 40 MG Oral Tablet ORAL furosemide 40 MG Oral TabletOriginal Medicationfurosemide 40 MG Oral Tablet *Reorder from [employer] for eRx and Interaction Alerts* 0 Active Social History Social History Additional Details Category Social Info Options Details Migrated Social History Migrated Social History History of tobacco use : , Smoking Status : Never used tobacco Vital Signs Height 62.00 in 06/01/2025 Weight 161 lbs 06/01/2025 BMI 29.44 kg/m2 06/01/2025 Height-cm 157.48 cm 06/01/2025 Weight-kg 73.03 kg 06/01/2025 Encounters Encounter Location Date Provider Diagnosis [address] [id number] 06/01/2025 BRENT TORIBIO Fungal infection of nail B35.1 ; Pain in right toe(s) M79.674 ; Pain in left toe(s) M79.675 ; Pain in right foot M79.671 ; Unspecified atherosclerosis of havasupai arteries of extremities, bilateral legs I70.203 ; Flat foot [pes planus] (acquired), left foot M21.42 ; Flat foot [pes planus] (acquired), right foot M21.41 ; Acquired keratosis [keratoderma] palmaris et plantaris L85.1 and Type 2 diabetes mellitus with other circulatory complications E11.59 Assessments Encounter Date Diagnosis (ICD Code) Assessment Notes Treatment Notes Treatment Clinical Notes Section Notes 06/01/2025 Fungal infection of nail (ICD-10 - B35.1) NAIL DEBRIDEMENT: Nails 1-5 Bilateral were debrided extensively with nail nippers and emery board, reducing length and girth to pink healthy tissue with any subungual debris and necrotic tissue removed 06/01/2025 Pain in right toe(s) (ICD-10 - M79.674) 06/01/2025 Pain in left toe(s) (ICD-10 - M79.675) 06/01/2025 Pain in right foot (ICD-10 - M79.671) 06/01/2025 Unspecified atherosclerosis of havasupai arteries of extremities, bilateral legs (ICD-10 - I70.203) Patient educated on risks and aggravating factors of PVD, including conservative treatment options such as a diet and exercise regimen to aid in slowing progression of vascular disease 06/01/2025 Flat foot [pes planus] (acquired), left foot (ICD-10 - M21.42) Patient educated on etiology and treatment options for flexible flat foot deformity. Educated patient on how a flexible flat foot deformity can in turn result in pathology such as hammer toe, bunions, equinus, neuromas. Recommend use of custom foot inserts to help alleviate plantar peak pressures and accomodate for digital deformity to feet. 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 After removal of overlying extensive hyperkeratosis, healthy tissue was noted and care was taken to assure that no undermining or probing was present. It should be noted that no probing was noted and no infection or drainage was noted. 06/01/2025 Type 2 diabetes mellitus with other circulatory complications (ICD-10 - E11.59) Plan Of Treatment Treatment Notes Assessment Notes Fungal infection of nail NAIL DEBRIDEMEN T: Nails 1-5 Bilateral were debrided extensively with nail nippers and emery board, reducing length and girth to pink healthy tissue with any subungual debris and necrotic tissue removed Unspecified atherosclerosis of havasupai arteries of extremities, bilateral legs Patient educated on risks and aggravating factors of PVD, including conservative treatment options such as a diet and exercise regimen to aid in slowing progression of vascular disease Flat foot [pes planus] (acquired), left foot Patient educated on etiology and treatment options for flexible flat foot deformity. Educated patient on how a flexible flat foot deformity can in turn result in pathology such as hammer toe, bunions, equinus, neuromas. Recommend use of custom foot inserts to help alleviate plantar peak pressures and accomodate for digital deformity to feet. 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 Next Appt Details Follow Up: 9 WEEKS, Reason: Provider Name:BRENT Javier HARVEYJOSE RAMON, 08/03/2025 10:10:00 AM, [address] [place] [address], [id number], History and Physical Notes * HPI (History [...] Date last seen by Dr. Marmolejo was April 2025., Initials ab Examination Category Sub-Category Detail Notes Category Not [...] * KAREL MORILLO RDOB:[birth year] (89 yo F)Acc No.[id number]:06/01/2025 Patient: Massimo ANTONIOJAZMYNEKAREL Provider: Larissa TORIBIO :1935 A ge:89 Y S ex:Female Date:06/01/2025 Address:[address] [place] [address] Subjective: * Chief Complaints: * * General care * HPI: H PI: General care P jordy presents to the office for diabetic foot care. Patient states that their nails are thickened, elongated and painful. Patient states that it is aggravated by shoe gear. Onset is gradual., Patient denies taking prescription blood thinners but does take a daily aspirin., Date last seen by Dr. Marmolejo was April 2025., Initials ab. * ROS: G eneral / Constitutional: Patient denies w eakness. R espiratory: Patient denies c hronic cough, shortness of breath, sputum production. C ardiovascular: Patient denies c hest pain, history of [place], irregular heartbeat. M usculoskeletal: Patient complains of [...] Medicationfurosemide 40 MG Oral Tablet *[facility] for eRx and Interaction Alerts*24 HR metoprolol succinate 100 MG Extended Release Oral Tablet ORAL , Notes to Pharmacist: 24 HR metoprolol succinate 100 MG Extended Release Oral TabletOriginal Lvaubvxidc23 HR metoprolol succinate 100 MG Extended Release Oral Tablet *Reorder from [facility] for eRx and Interaction Alerts*levothyroxine sodium 0.075 MG Oral Capsule ORAL , Notes to Pharmacist: levothyroxine sodium 0.075 MG Oral CapsuleOriginal Medicationlevothyroxine sodium 0.075 MG Oral Capsule *Reorder from [facility] for eRx and Interaction Alerts*metformin hydrochloride 500 MG Oral Tablet ORAL , Notes to Pharmacist: metformin hydrochloride 500 MG Oral TabletOriginal Medicationmetformin hydrochloride 500 MG Oral Tablet *Reorder from [facility] for eRx and Interaction Alerts*pantoprazole 40 MG Delayed Release Oral Tablet ORAL , Notes to Pharmacist: pantoprazole 40 MG Delayed Release Oral TabletOriginal Medicationpantoprazole 40 MG Delayed Release Oral Tablet *Reorder from [facility] for eRx and Interaction Alerts*Medication List reviewed and reconciled with the patientTaking Furosemide 40 MG Oral Tablet ORAL , Notes to Pharmacist: furosemide 40 MG Oral TabletOriginal Medicationfurosemide 40 MG Oral Tablet *Reorder from [facility] for eRx and Interaction Alerts*Taking 24 HR metoprolol succinate 100 MG Extended Release Oral Tablet ORAL , Notes to Pharmacist: 24 HR metoprolol succinate 100 MG Extended Release Oral TabletOriginal Rhjdibqrhq50 HR metoprolol succinate 100 MG Extended Release Oral Tablet *Reorder from [facility] for eRx and Interaction Alerts*Taking levothyroxine sodium 0.075 MG Oral Capsule ORAL , Notes to Pharmacist: levothyroxine sodium 0.075 MG Oral CapsuleOriginal Medicationlevothyroxine sodium 0.075 MG Oral Capsule *Reorder from [facility] for eRx and Interaction Alerts*Taking metformin hydrochloride 500 MG Oral Tablet ORAL , Notes to Pharmacist: metformin hydrochloride 500 MG Oral TabletOriginal Medicationmetformin hydrochloride 500 MG Oral Tablet *Reorder from [facility] for eRx and Interaction Alerts*Taking pantoprazole 40 MG Delayed Release Oral Tablet ORAL , Notes to Pharmacist: pantoprazole 40 MG Delayed Release Oral TabletOriginal Medicationpantoprazole 40 MG Delayed Release Oral Tablet *Reorder from [facility] for eRx and Interaction Alerts*Medication List [...] of nail - B35.1 (Primary) 2 . P ain in right toe(s) - M79.674 3 . P ain in left toe(s) - M79.675 4 . P ain in right foot - M79.671 5 . U nspecified atherosclerosis of havasupai arteries of extremities, bilateral legs - I70.203 6 . F lat foot [pes planus] (acquired), left foot - M21.42 7 . F lat foot [pes planus] (acquired), right foot - M21.41 ?8. A cquired keratosis [keratoderma] palmaris et plantaris - L85.1 9 . Type 2 diabetes mellitus with other circulatory complications - E11.59 Plan: * Treatment: 2. U nspecified atherosclerosis of havasupai arteries of extremities, bilateral legs Notes: Patient educated on risks and aggravating factors of PVD, including conservative treatment options such as a diet and exercise regimen to aid in slowing progression of vascular disease ? 3. F lat foot [pes planus] (acquired), left foot Notes: Patient educated on etiology and treatment options for flexible flat foot deformity. Educated patient on how a flexible flat foot deformity can in turn result in pathology such as hammer toe, bunions, equinus, neuromas. Recommend use of custom foot inserts to help alleviate plantar peak pressures and accomodate for digital deformity to feet. 4. 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 ? * Procedure Codes: 1 1056 TRIM SKIN LESIONS, 2 TO 4, Modifiers: Q8 13462 DEBRIDE NAIL, 6 OR MORE, Modifiers: 59 , Q8 * Preventive Medicine: Screenings: F all risk screening F all Risk Assessment: N o falls in the past year, P josé antonio of Care: D ocumented. * Follow Up: 9 WEEKS Billing Information: * Procedure Codes: 34967 TRIM SKIN LESIONS, 2 TO 4. Modifiers: Q8 49590 DEBRIDE NAIL, 6 OR MORE. Modifiers: 59, Q8 * Electronic signature of REMINGTON TORIBIO DPM on 07/11/2025 at 01:56 PM [employer] Sign off status: Pending * Provider: Larissa TORIBIO Date: 08/01/2024 Generated for He mota/Hawa/Salty on: 01:56 PM [employer]
--- NOTE | ~2025-07-11 | XR_ITS ---
XR chest 2V 07/11/2025 14:14 Indication: Cough and wheezing and congestion Procedure: 2 view chest Comparison: No prior studies for comparison. Findings: Status post median sternotomy for CABG. Cardiomegaly. Chronic elevation of the left diaphragm. Left basilar atelectasis. Right lung clear. There are cholecystectomy clips. Impression: 1: No acute cardiopulmonary disease. Reviewed, dictated and finalized at location O. CONTROL ASSISTANT Impression: 1: No acute cardiopulmonary disease.
--- OUTSIDE RECORDS SUMMARY | 2025-07-11 13:56 | XMS_ITS | Patient Health Record ---
Author Organization [facility] Address [address] [place], [place] [id number] Care Team Providers Care Hospital Insurance Clerk Name Role Phone CarinELIZABETH erwin Unavailable [phone] Lisette Marmolejo Unavailable Unavailable BRENT TORIBIO Unavailable [phone] Allergies Allergen (clinical drug ingredient) Drug/Non Drug [...] hydrochloride 500 MG Oral Tablet *Reorder from [employer] for eRx and Interaction Alerts* 0 Active pantoprazole 40 MG Delayed Release Oral Tablet ORAL pantoprazole 40 MG Delayed Release Oral TabletOriginal Medicationpantoprazole 40 MG Delayed Release Oral Tablet *Reorder from [employer] for eRx and Interaction Alerts* 0 Active levothyroxine sodium 0.075 MG Oral Capsule ORAL levothyroxine sodium 0.075 MG Oral CapsuleOriginal Medicationlevothyroxine sodium 0.075 MG Oral Capsule *Reorder from [employer] for eRx and Interaction Alerts* 0 Active 24 HR metoprolol succinate 100 MG Extended Release Oral Tablet ORAL 24 HR metoprolol succinate 100 MG Extended Release Oral TabletOriginal Kphksaspln41 HR metoprolol succinate 100 MG Extended Release Oral Tablet *Reorder from [employer] for eRx and Interaction Alerts* 0 Active Furosemide 40 MG Oral Tablet ORAL furosemide 40 MG Oral TabletOriginal Medicationfurosemide 40 MG Oral Tablet *Reorder from [employer] for eRx and Interaction Alerts* 0 Active Social History Social History Additional Details Category Social Info Options Details Migrated Social History Migrated Social History History of tobacco use : , Smoking Status : Never used tobacco Vital Signs Height-cm 157.48 cm 06/01/2025 Weight-kg 73.03 kg 06/01/2025 Height 62.00 in 06/01/2025 Weight 161 lbs 06/01/2025 BMI 29.44 kg/m2 06/01/2025 Encounters Encounter Location Date Provider Diagnosis [address] [id number] 03/30/2025 BRENT TORIBIO Flat foot [pes planus] (acquired), left foot M21.42 ; Fungal infection of nail B35.1 ; Flat foot [pes planus] (acquired), right foot M21.41 ; Pain in right foot M79.671 ; Unspecified atherosclerosis of yuhaaviatam arteries of extremities, bilateral legs I70.203 and Acquired keratosis [keratoderma] palmaris et plantaris L85.[address] [id number] 06/01/2025 BRENT TORIBIO Fungal infection of nail B35.1 ; Pain in right toe(s) M79.674 ; Pain in left toe(s) M79.675 ; Pain in right foot M79.671 ; Unspecified atherosclerosis of yuhaaviatam arteries of extremities, bilateral legs I70.203 ; [...] Fungal infection of nail (ICD-10 - B35.1) 06/01/2025 Pain in right toe(s) (ICD-10 - M79.674) 06/01/2025 Fungal infection of nail (ICD-10 - B35.1) NAIL DEBRIDEMENT: Nails 1-5 Bilateral were debrided extensively with nail nippers and emery board, reducing length and girth to pink healthy tissue with any subungual debris and necrotic tissue removed 06/01/2025 Pain in left toe(s) (ICD-10 - M79.675) 03/30/2025 Flat foot [pes planus] (acquired), right foot (ICD-10 - M21.41) 06/01/2025 Pain in right foot (ICD-10 - M79.671) 03/30/2025 Pain in right foot (ICD-10 - M79.671) 06/01/2025 Unspecified atherosclerosis of yuhaaviatam arteries of extremities, bilateral legs (ICD-10 - I70.203) Patient educated on risks and aggravating factors of PVD, including conservative treatment options such as a diet and exercise regimen to aid in slowing progression of vascular disease 03/30/2025 Unspecified atherosclerosis of yuhaaviatam arteries of extremities, bilateral legs (ICD-10 - [...] no infection or drainage was noted. 06/01/2025 Flat foot [pes planus] (acquired), left [...] complications (ICD-10 - E11.59) Plan Of Treatment Next Appt Details Provider Name:BRENT RODRIGUEZ, 08/03/2025 10:10:00 AM, [address] [place] [address], [phone], Insurance Providers Payer Name Payer Address Payer Phone Subscriber Number Group Number Insured Name Patient Relationship to Insured Coverage Start Date Coverage End Date Medicare Part B [place] [address] [place] [address] [id number] KAREL MORILLO Self - patient is the insured [facility] ([facility]) ATTN CLAIMS [address] [place] [address] [id number] KAREL MORILLO Self - patient is the insured
--- OUTSIDE RECORDS SUMMARY | 2025-07-11 13:56 | XMS_ITS | Clinical Summary ---
Author Organization [facility] Address [address] [place] [address] Care Team Providers Care Surfboard Designer Name Role Phone Lisette Marmolejo MD Primary Care Provider [phone] Prince Peralta MD Unavailable Allergies Active Allergy [...] as directed 05/28/2022 Active Ergocalciferol 50 MCG (1999 [place]) Tab Take 0.5 tablets by mouth [...] 03/06/2019 Thigh hematoma, left, initial encounter 02/02/20 Assessment & Plan (04/12/2019 2:43 PM CDT): [...] in the interim. Hypothyroidism Hypertension Diabetes mellitus Depression Coronary artery disease Anxiety Hx of CABG Dyspnea on effort Encounters Date Type Department Care Team Description 07/03/2025 11:15 AM RESEARCHER [facility] [address] [address] Prince Peralta MD Annual 07/03/2025 10:28 AM RESEARCHER - 07/03/2025 11:59 PM RESEARCHER Hospital En[facility] [place] [address] Prince Peralta MD Discharge Disposition: Home or Self Care (Routine Discharge) 07/03/2025 Travel 06/30/2025 Orders [facility] [address] [place] [address] Prince Peralta MD from Last 3 Months [...] CDT Gender Identity Female 07/22/2021 5:57 PM RESEARCHER Sexual Orientation Not on file Last Filed Vital Signs Vital Sign Reading Time Taken Comments Blood Pressure 116/66 07/03/2025 11:33 AM RESEARCHER Pulse 70 07/03/2025 11:33 AM RESEARCHER Temperature 36.4 C (97.5 F) 03/27/2019 12:21 PM CDT Respiratory Rate 18 07/03/2025 11:33 AM RESEARCHER Oxygen Saturation 98% 07/03/2025 11:33 AM RESEARCHER Inhaled Oxygen Concentration - - Weight 66.2 kg (146 lb) 07/03/2025 11:33 AM RESEARCHER Height 157.5 cm (5' 2) 07/03/2025 11:33 AM RESEARCHER Body Mass Index 26.7 07/03/2025 11:33 AM RESEARCHER Plan of Treatment Upcoming Encounters Date Type Department Care Team (Late st Contact Info) Description 07/09/2026 2:[address] [facility] [place] [address] Prince Peralta MD [address] [place] [address] 07/23/2026 1:45 PM RESEARCHER Office Visit [facility] [place] [address] Prince Peralta MD [address] [place] [address] Health Maintenance Due Date Last Done Comments ASCVD Statin 1935 Diabetes: Retinopathy Eye Exam 1954 Zoster Vaccines (1 of 2) 1986 Annual Medicare Wellness Visit 2001 RSV Immunization or 60+ Years (1 - 1-dose 75+ series) 09/24/2011 DTaP, Tdap and Td Vaccines ( 2 - Td or Tdap) 09/16/2024 09/16/2014 COVID-19 Vaccine (3 - 2024-2 6 season) 2025 10/12/2020, 09/21/2020 Hemoglobin A1C 04/01/2025 09/29/2024, 08/01/2024, 01/21/2019 Influenza Adult (#1) 2025 Lipid Panel 09/29/2025 09/29/2024 Pneumococcal Vaccine: 50+ Years Completed 10/25/2015, 06/29/2012 Hepatitis A Vaccines Aged Out No long er eligible based on patient's age to complete this topic Meningococcal B Vaccine Aged Out No l onger eligible based on patient's age to complete this topic Meningococcal Vaccine Aged Out No araceli bettina eligible based on patient's age to complete this topic RSV Immunizations Under 20 Months Aged Out No longer eligible b ased on patient's age to complete this topic Procedures Procedure Name Priority Date/Time Associated Diagnosis Comments ECG 12-LEAD Routine 07/03/2025 10:37 AM RESEARCHER Essential (primary) hypertension LIPID PANEL Routine 09/29/2024 HEMOGLOBIN, GLYCOSYLATED Routine 09/29/2024 from Last 3 Months or Most Recently Relevant to Health Maintenance Results * ECG 12 lead (HOSPITAL PERFORMED ONLY) (07/03/2025 10:37 AM RESEARCHER) ECG QT 418 [facility] ECG QTC 413 [facility] 07/03/2025 10:3 7 AM RESEARCHER Narrative [facility] - 07/04/2025 8:44 AM RESEARCHER [address] [place] [address] Test Date: 2025-07-03 Pat Name: JACKIE MARTINEZ Department: 3 Room: Gender: Female Production Manufacturing Worker: TAYLOR : 1935 Requested By: PRINCE PERALTA Order Number: [id number] Reading MD: Prince Peralta Measurements Intervals Odum Rate: 58 P: 57 FL: 162 QRS: 9 QRSD: 89 T: 60 QT: 418 QTc: 413 Interpretive Statements [facility]ADYCARD[facility] ARCHER Procedure Note Prince Peralta MD - 07/04/[address] [place] [address] Test Date: 2025-07-03 Pat Name: JACKIE DEBBIESANTA ROSA Department: 3 Room: Gender: Female Production Manufacturing Worker: TAYLOR : 1935 Requested By: PRINCE PERALTA Order Number: [id number] Reading MD: Prince Peralta Measurements Intervals Odum Rate: 58 P: 57 FL: 162 QRS: 9 QRSD: 89 T: 60 QT: 418 QTc: 413 Interpretive Statements SINUS BRADYCARDIA ARCHER us Prince Peralta MD ECG ORDERABLES Final Result [facility] * HEMOGLOBIN, GLYCOSYLATED (09/29/2024) HGB A1C 5.6 % Narrative Resulting Agency Comment [facility] us Lisette Marmolejo MD LABORATORY Final Result * LIPID PANEL (09/29/2024) CHOLESTEROL 141 TRIGLYCERIDES 220 HDL 42 LDL (CALCULATED) 55 Narrative Resulting Agency Comment [facility] us Lisette Marmolejo MD LABORATORY Final Result from Last 3 Months or Most Recently Relevant to Health Maintenance Insurance MEDICARE Member Subscriber Plan / Payer ( fective 2001-Present) Name:Jackie Martinez Relation to Subscriber:Self Name:Jackie Martinez Payer ID:Not on file Group ID:Not on file Type:Indemnity Address: ATTN CLAIMS [address] [place] [address] [place] [address] [address] [id number] [place] [address] Advance Directives Documents on File Type Date Recorded Patient Mailroom Associate Expl anation Advance Directives and Living Will 03/28/2019 9:44 AM living will & poa fo r health care Advance Directives and Living Will 03/24/2019 12:24 PM Power of Timber Rider 03/24/2019 12:23 PM Advance Directives and Living Will 03/24/2019 7:13 AM living will & poa fo r health care * Full Code (Latest Code Status on File) Date Activated Date Inactivated Comments 03/24/2019 1:43 AM 03/27/2019 5:41 PM * Full Code Date Activated Date Inactivated Comments 03/06/2019 10:34 AM 03/08/2019 7:53 PM Care Teams Surfboard Designer Relationship Specialty Start Date End Date Lisette Marmolejo MD [address] [place] [phone] PCP - General INTERNAL MEDICINE 03/06/19 Prince Peralta MD [address] [place] [address] Consulting Physician CARDIOVASCULAR DISEASE 11/04/23
[2025-07-11 14:06] LABS: Hematocrit 41.1 % (35.0-42.0); Hemoglobin 12.7 g/dL (11.7-13.8); Mean Corpuscular HGB Conc 30.9 g/dL (32-36); Mean Corpuscular Hemoglobin 27.8 pg (27.0-31.0); Mean Corpuscular Volume 89.9 fL (78.0-102.0); Platelet Count Result 235 K/mm3 (150-420); Red Blood Count 4.57 M/mm3 (4.20-5.40); White Blood Count 7.3 K/mm3 (4.8-10.8)
[2025-07-11 14:35] LABS: Alanine Aminotransferase 16 U/L (6-35); Albumin Level 4.7 g/dL (3.5-5.1); Alkaline Phosphatase 75 U/L (38-126); Anion Gap 11 mmol/L (4-12); Aspartate Amino Transferase 29 U/L (14-36); Bilirubin,Total 0.8 mg/dL (0.2-1.3); Blood Urea Nitrogen 16 mg/dL (7-17); Calcium 9.0 mg/dL (8.4-10.2); Carbon Dioxide 30 mmol/L (22-30); Chloride 103 mmol/L (98-107); Estimated Glomerular Filt Rate 51; Glucose 120 mg/dL (65-110); Osmolality Calculated 300 mOsm/kg (285-295); Potassium 4.1 mmol/L (3.4-5.0); Sodium 144 mmol/L (137-145); Total Protein 7.3 g/dL (6.3-8.2)
[2025-07-11 14:44] LABS: Influenza A QL RT-PCR Negative (Negative); Influenza B QL RT-PCR Negative (Negative); RSV RNA, RT-PCR Negative (Negative); SARS-CoV-2 RNA PCR Negative (Negative)
== END 2025-07-11 13:40 | disposition home or self-care (01) ==
LOC: CHSLAB 13:41
PROVIDERS: PCP Internal Medicine; Visit Provider Internal Medicine
DX: R05.9 Cough, unspecified (principal); R06.2 Wheezing
CPT/HCPCS: 36415; 71046; 80053; 85027; 87637